=== PATIENT | female | born 1945 | race Caucasian/White ===

== ENCOUNTER 2018-04-20 07:58 | Outpatient (CLI) | payer MEDICARE, SELFPAY ==
[2018-04-20 09:57] LABS: BUN 14 mg/dL (7-18); CREATININE 0.85 mg/dL (0.55-1.02); Calcium 8.4 mg/dL (8.5-10.1); Chloride 107 mmol/L (98-107); Cholesterol 181 mg/dL (50-200); Glucose 113 mg/dL (70-100); HDL Cholesterol 40 mg/dL (40-60); LDL CHOLESTEROL 126 mg/dL (<100); Sodium 140 mmol/L (136-145); Triglyceride 130 mg/dL (30-150)
== END 2018-04-20 08:18 ==
PROVIDERS: PCP Nurse Practitioner Family; Visit Provider Physician Assistant Medical
DX: E78.5 Hyperlipidemia, unspecified (principal); I10 Essential (primary) hypertension
CPT/HCPCS: 36415; 80048; 80061; 83721

== ENCOUNTER 2018-05-20 01:04 | Outpatient (CLI) | payer MEDICARE, SELFPAY ==
--- NOTE | 2018-05-20 14:45 | DI.MAMMO_ITS ---
SYMPTOMS/DIAGNOSIS: SCREENING, Z12.31, PREVENTATIVE CARE, Z00.00 MAMMOGRAMS: Mammograms were interpreted according to the usual protocol including computer analysis with CAD system, tomosynthesis and C view imaging. Comparison with prior examinations. Breast density B. No masses or microcalcifications are seen. There is nothing to suggest malignancy. IMPRESSION: Negative mammogram. Routine screening is recommended. Category I. MQSA ASSESSMENT OF FINDINGS: Negative. Category 1. Patient will receive a letter notifying them of these results. BI-RADS category B. There are scattered areas of fibroglandular density.
== END 2018-05-20 01:24 ==
PROVIDERS: PCP Nurse Practitioner Family; Visit Provider Physician Assistant Medical
DX: Z12.31 Encounter for screening mammogram for malignant neoplasm of breast (principal)
CPT/HCPCS: 77063; 77067

== ENCOUNTER 2019-04-21 07:34 | Outpatient (CLI) | payer MEDICARE, SELFPAY ==
[2019-04-21 09:17] LABS: Calculated LDL 99 mg/dL; Cholesterol 162 mg/dL (50-200); Glucose 123 mg/dL (70-100); HDL Cholesterol 39 mg/dL (40-60); Triglyceride 121 mg/dL (30-150)
== END 2019-04-21 07:54 ==
PROVIDERS: PCP Nurse Practitioner Family; Visit Provider Nurse Practitioner Family
DX: I10 Essential (primary) hypertension (principal); E78.5 Hyperlipidemia, unspecified
CPT/HCPCS: 36415; 80061; 82947

== ENCOUNTER 2019-05-23 01:40 | Outpatient (CLI) | payer MEDICARE, SELFPAY ==
--- NOTE | 2019-05-23 15:15 | DI.MAMMO_ITS ---
EXAM: MG MAMMO SCREENING CLINICAL HISTORY: [facility] Z00.00, SCREENING. TECHNIQUE: Mammograms were interpreted according to the usual protocol including computer analysis w [employer] CAD system, tomosynthesis and C-view imaging. FINDINGS: The breast tissue is of moderate radiodensity. There is no demonstrated mass and no evidence of susp icious calcification. Compared with the previous images, there has been no significant interval swann ge. IMPRESSION: No evidence of malignancy, category 1. Annual screening mammography is recommended. BI-RADS category B. BI-RADS Cat 1 - Negative. Breast Density - Category B - Scattered areas of fibroglandular density.
== END 2019-05-23 02:00 ==
PROVIDERS: PCP Nurse Practitioner Family; Visit Provider Nurse Practitioner Family
DX: Z12.31 Encounter for screening mammogram for malignant neoplasm of breast (principal)
CPT/HCPCS: 77063; 77067

== ENCOUNTER 2020-05-02 08:39 | Outpatient (REF) | payer MEDICARE, SELFPAY ==
[2020-05-02 19:35] LABS: ALT 57 U/L (14-59); AST 38 U/L (15-37); Albumin 3.6 g/dL (3.4-5.0); Alkaline Phosphatase 59 U/L (46-116); Anion Gap 8.1 mmol/L (3-11); BUN 17 mg/dL (7-18); Bilirubin, Total 0.6 mg/dL (0.2-1.0); CO2 28.9 mmol/L (21.0-32.0); CREATININE 0.93 mg/dL (0.55-1.02); Calcium 8.8 mg/dL (8.5-10.1); Chloride 106 mmol/L (98-107); Estimated GFR 58.77 (mL/min/1.73m2); Glucose 106 mg/dL (74-106); Sodium 143 mmol/L (136-145); TSH 1.72 uIU/mL (0.36-3.74); Total Protein 6.7 g/dL (6.4-8.2)
[2020-05-04 15:04] LABS: HDL Cholesterol 38 mg/dL (40-60); LDL CHOLESTEROL 122 mg/dL (<100)
== END 2020-05-02 08:59 ==
LOC: NCHCN 08:39
PROVIDERS: PCP Nurse Practitioner Family; Visit Provider Nurse Practitioner Family
DX: E78.5 Hyperlipidemia, unspecified (principal); R73.03 Prediabetes; Z86.79 Personal history of other diseases of the circulatory system
CPT/HCPCS: 80053; 83721; 83718; 84443

== ENCOUNTER 2020-05-08 15:53 | Outpatient (REF) | payer MEDICARE, SELFPAY ==
[2020-05-08 20:58] LABS: HCT 42.9 % (36.0-46.0); HGB 14.7 g/dL (11.2-15.7); MCH 30.8 pg (27.0-33.0); MCHC 34.3 % (32.0-36.0); MCV 89.9 fL (80-95); MPV 10.4 fL (8.0-11.0); Platelet Count 246 10^3/uL (130-400); RBC 4.77 10^6/uL (3.93-5.22); RDW 13.4 % (11.7-14.6); RDW-SD 44.2 fL; WBC 7.35 10^3/uL (4.4-10.8)
[2020-05-08 21:30] LABS: Magnesium 2.4 mg/dL (1.8-2.4); Vitamin B12 353 pg/mL (193-986)
== END 2020-05-08 16:13 ==
LOC: NCHCN 15:53
PROVIDERS: PCP Nurse Practitioner Family; Visit Provider Nurse Practitioner Family
DX: R25.2 Cramp and spasm (principal)
CPT/HCPCS: 85027; 82607; 83735

== ENCOUNTER 2020-05-31 04:45 | Outpatient (CLI) | payer MEDICARE, SELFPAY ==
--- NOTE | 2020-05-31 12:17 | DI.MAMMO_ITS ---
EXAM: MG MAMMO SCREENING CLINICAL HISTORY: SCREENING,Z12.39 TECHNIQUE: Bilateral full field digital CC and MLO mammographic images were obtained with 3D tomosyn thesis and utilizing computer aided detection (CAD). COMPARISON: Available for comparison. FINDINGS: Masses/Architectural Distortion: There is an asymmetric density in the upper-outer quadrant of the le ft breast. Microcalcifications: No suspicious pleomorphic-type are seen. Skin Thickening/Nipple Retraction: None. IMPRESSION: 1. Asymmetric density in the upper-outer quadrant of the left breast. 2. Spot compression views requested for further evaluation. Ultrasound may be indicated at that time . BI-RADS Category 0 - Assessment Incomplete: Need additional imaging evaluation Breast Density - Category B - Scattered areas of fibroglandular density A negative radiographic report should not delay biopsy if a dominant or clinically suspicious mass is present. Up to ten percent of cancers are not identified on mammography. A negative report may reinforce clinical impression. Adenosis and dense breasts may obscure an underlying neoplasm. False positive reports average 6 to 10%. Patient will receive a letter notifying them of these results.
== END 2020-05-31 05:05 ==
PROVIDERS: PCP Nurse Practitioner Family; Visit Provider Nurse Practitioner Family
DX: Z12.31 Encounter for screening mammogram for malignant neoplasm of breast (principal); R92.8 Other abnormal and inconclusive findings on diagnostic imaging of breast
CPT/HCPCS: 77063; 77067

== ENCOUNTER 2020-06-06 02:15 | Outpatient (CLI) | payer MEDICARE, SELFPAY ==
--- NOTE | 2020-06-06 | DI.MAMMO_ITS ---
EXAM: MG MAMMO SCREEN CALL BACK UNI CLINICAL HISTORY: F/U MAMMO, ASYMMETRIC DENSITY UOQ LT BREAST. TECHNIQUE: Craniocaudal and mediolateral oblique spot compression views the left breast with followe d by Tomosynthesis and left breast ultrasound. COMPARISON: 2013 through 31 May 2020 FINDINGS: Mammography/Tomosynthesis: Masses/Architectural Distortion: Small persistent nodule in the upper outer quadrant. Microcalcifictions: No suspicious pleomorphic-type are seen. Skin Thickening/Nipple Retraction: None. Left breast US: Echotexture: Normal appearance of the glandular tissue. Shadowing: No suspicious foci. 4 millimeter circumscribed hypoechoic nodule in the 3 o'clock position, 3 cm from the nipple. No lindsay picious features. Ductal dilation: None. IMPRESSION: 1. 4 millimeter cyst versus benign-appearing nodule. 2. Six month follow-up mammogram and ultrasound are recommended. 3. The findings were discussed with the patient on the date of the examination. BI-RADS Category 3 - 6 month - Probably Benign Finding: Recommend follow-up mammography in 6 months Breast Density - Category B - Scattered areas of fibroglandular density A negative radiographic report should not delay biopsy if a dominant or clinically suspicious mass is present. Up to ten percent of cancers are not identified on mammography. A negative report may reinforce clinical impression. Adenosis and dense breasts may obscure an underlying neoplasm. False positive reports average 6 to 10%. Patient will receive a letter notifying them of these results.
== END 2020-06-06 02:35 ==
PROVIDERS: PCP Nurse Practitioner Family; Visit Provider Nurse Practitioner Family
DX: R92.8 Other abnormal and inconclusive findings on diagnostic imaging of breast (principal); N63.21 Unspecified lump in the left breast, upper outer quadrant
CPT/HCPCS: 76642; 77063; 77067

== ENCOUNTER 2020-12-05 02:04 | Outpatient (CLI) | payer MEDICARE, SELFPAY ==
--- NOTE | 2020-12-05 | DI.US_ITS ---
EXAM: US BREAST LT COMPLETE CLINICAL HISTORY: DIAGNOSTIC 6 MONTH F/U ABNL MAMMO. TECHNIQUE: Complete ultrasound of the left breast was performed incluing all 4 quadrants, the retroa reolar region, and the ipsilateral axilla. COMPARISON: Prior limited ultrasound performed 06/06/2020 was reviewed. Prior mammograms also revie wed including today's diagnostic mammogram (which appears unchanged). FINDINGS: At the 3 o'clock position the previously described small wider than taller nodule is unchanged measur ing approximately 4 x 2 millimeters. This exhibits slightly increased through transmission At the 12 o'clock position there is a 5 x 3 millimeter well-defined nodule which exhibits minimally i ncreased through transmission, somewhat similar appearance to the finding at 3 o'clock position. No other focal ultrasound findings in all 4 quadrants nor in the immediate retroareolar region. Ipsilateral axilla is negative for significant adenopathy. IMPRESSION: 1. Stable left breast 3 o'clock positions small nodule. 2. 12 o'clock position small nodule which will require follow-up. Appropriate follow-up is to repeat the ultrasound examination at time for next yearly mammogram which is in 6 months. At that time I recommend that she undergo bilateral breast ultrasound examination. BI-RADS Category 3 - 6 month - Probably Benign Finding: Recommend follow-up mammography in 6 months Breast Density - Category C - Heterogeneously dense Breast density Category C or D implies that the patient has dense breast tissue. Dense breast tissue can make it harder to find cancer on a mammogram. Dense breast tissue is also associated with an incr eased risk of breast cancer. This information about the result of the mammogram report was provided to the patient to raise their awareness. Use this report when you speak with the patient about their risks for breast cancer, which includes their family history. At that time, you may recommend additional screening tests (Ultrasoun d or MRI) as these tests may add significant information. A negative radiographic report should not delay biopsy if a dominant or clinically suspicious mass is present. Up to ten percent of cancers are not identified on mammography. A negative report may reinforce clinical impression. Adenosis and dense breasts may obscure an underlying neoplasm. False positive reports average 6 to 10%. Patient will receive a letter notifying them of these results.
--- NOTE | 2020-12-05 | DI.MAMMO_ITS ---
EXAM: MG MAMMO DIAGNOSTIC UNI CLINICAL HISTORY: DIAGNOSTIC, 6 MONTH F/U, F/U ABNL MAMMO,R92.8. TECHNIQUE: Unilateral spot mammographic images were obtained with 3D Tomosynthesistechnique and util izing computer aided detection (CAD). COMPARISON: Prior mammograms dating back to 2011, the most recent being May 2020. FINDINGS: The previously described nodular density towards the upper outer quadrant is unchanged. No new nodul es evident. No malignant-appearing microcalcification groups. Repeat left breast ultrasound was performed today and compared to the prior limited ultrasound of May. Ultrasound revealed unchanged 3 o'clock position small nodule. Today's ultrasound study at all [address] in also revealed a similar appearing nodule 12 o'clock position. IMPRESSION: Stable nodule left breast. Stable 3 o'clock position left breast ultrasound finding. Additional nodule at 12 o'clock position left breast seen on today's complete left breast ultrasound. This additional nodule has similar appearance to the 3 o'clock position nodule. Appropriate follow-up is to keep this patient on a yearly mammogram schedule implying that the next m ammogram would be in May 2021. At that time the complete left breast ultrasound should be repeat ed and I also recommend that ultrasound of the opposite-right breast be performed. BI-RADS Category 3 - 6 month - Probably Benign Finding: Recommend follow-up mammography in 6 months Breast Density - Category B - Scattered areas of fibroglandular density Breast density Category C or D implies that the patient has dense breast tissue. Dense breast tissue can make it harder to find cancer on a mammogram. Dense breast tissue is also associated with an incr eased risk of breast cancer. This information about the result of the mammogram report was provided to the patient to raise their awareness. Use this report when you speak with the patient about their risks for breast cancer, which includes their family history. At that time, you may recommend additional screening tests (Ultrasoun d or MRI) as these tests may add significant information. A negative radiographic report should not delay biopsy if a dominant or clinically suspicious mass is present. Up to ten percent of cancers are not identified on mammography. A negative report may reinforce clinical impression. Adenosis and dense breasts may obscure an underlying neoplasm. False positive reports average 6 to 10%. Patient will receive a letter notifying them of these results.
== END 2020-12-05 02:24 ==
PROVIDERS: PCP Nurse Practitioner Family; Visit Provider Nurse Practitioner Family
DX: Z12.31 Encounter for screening mammogram for malignant neoplasm of breast (principal); R92.8 Other abnormal and inconclusive findings on diagnostic imaging of breast; N63.21 Unspecified lump in the left breast, upper outer quadrant
CPT/HCPCS: 76642; 77061; 77065; G0279

== ENCOUNTER 2021-05-21 14:56 | Outpatient (REF) | payer MEDICARE, SELFPAY ==
[2021-05-21 20:14] LABS: Hemoglobin A1C 6.1 % (<5.7)
== END 2021-05-21 14:57 | disposition home or self-care (01) ==
LOC: NCHCN 14:56
PROVIDERS: PCP Nurse Practitioner Family; Visit Provider Nurse Practitioner Family
DX: R73.03 Prediabetes (principal)
CPT/HCPCS: 83036

== ENCOUNTER 2021-06-20 02:28 | Outpatient (CLI) | payer MEDICARE, SELFPAY ==
--- NOTE | 2021-06-20 13:35 | DI.MAMMO_ITS ---
Exam(s) MAMMO DIAGNOSTIC BI EXAM: MAMMO DIAGNOSTIC BI CLINICAL HISTORY: F/U ABNL MAMMO, 6 MONTH FOLLOW UP,NODULES TECHNIQUE: Mammograms were interpreted according to the usual protocol including computer analysis w ith CAD system, tomosynthesis and C-view imaging. COMPARISON: US US BREAST LT LIMITED from 06/06/2020 US US BREAST LT COMPLETE from 12/05/2020 Mammograms 2011 through November 2020 FINDINGS: The breasts are composed of scattered fibroglandular densities, Breast Density category B. No suspicious masses or suspicious microcalcifications are seen. In area of nodularity is again note d in the upper outer quadrant of the left breast posteriorly, likely an intramammary lymph node. No skin thickening or abnormal axillary lymph nodes are seen. There has been no significant change from prior exams. IMPRESSION: BI-RADS Category 1, Negative mammogram Yearly screening mammography is recommended. Breast Density - Category B, scattered fibroglandular densities. A negative radiographic report should not delay biopsy if a dominant or clinically suspicious mass is present. Up to ten percent of cancers are not identified on mammography. A negative report may reinforce clinical impression. Adenosis and dense breasts may obscure an underlying neoplasm. False positive reports average 6 to 10%. Patient will receive a letter notifying them of these results.
== END 2021-06-20 02:48 ==
PROVIDERS: PCP Nurse Practitioner Family; Visit Provider Nurse Practitioner Family
DX: Z12.31 Encounter for screening mammogram for malignant neoplasm of breast (principal); R92.8 Other abnormal and inconclusive findings on diagnostic imaging of breast; N60.82 Other benign mammary dysplasias of left breast
CPT/HCPCS: 77062; 77066; G0279

== ENCOUNTER 2021-06-23 10:11 | Outpatient (REF) | payer MEDICARE, SELFPAY ==
[2021-06-23 16:38] LABS: BUN 18 mg/dL (7-18); CREATININE 0.8 mg/dL (0.55-1.02); Calcium 8.9 mg/dL (8.5-10.1); Calculated LDL 106 mg/dL (<100); Chloride 107 mmol/L (98-107); Cholesterol 173 mg/dL (<200); Glucose 116 mg/dL (74-106); HDL Cholesterol 40 mg/dL (40-60); Potassium 4.3 mmol/L (3.5-5.1); Sodium 144 mmol/L (136-145); Triglyceride 137 mg/dL (<150)
== END 2021-06-23 10:12 | disposition home or self-care (01) ==
LOC: NCHCN 10:11
PROVIDERS: PCP Nurse Practitioner Family; Visit Provider Nurse Practitioner Family
DX: E78.5 Hyperlipidemia, unspecified (principal); R73.03 Prediabetes; R03.0 Elevated blood-pressure reading, without diagnosis of hypertension
CPT/HCPCS: 80048; 80061

== ENCOUNTER 2021-08-22 03:51 | Outpatient (CLI) | payer MEDICARE, SELFPAY ==
[2021-08-22 14:08] LABS: Anion Gap 8.8 mmol/L (3-11); BUN 15 mg/dL (7-18); CO2 28.2 mmol/L (21.0-32.0); CREATININE 0.8 mg/dL (0.55-1.02); Calcium 9.5 mg/dL (8.5-10.1); Chloride 104 mmol/L (98-107); Glucose 114 mg/dL (74-106); Potassium 3.9 mmol/L (3.5-5.1); Sodium 141 mmol/L (136-145)
== END 2021-08-22 03:52 | disposition home or self-care (01) ==
LOC: LBO 03:51
PROVIDERS: PCP Nurse Practitioner Family; Visit Provider Family Medicine
DX: I10 Essential (primary) hypertension (principal)
CPT/HCPCS: 36415; 80048

== ENCOUNTER 2022-05-25 16:27 | Outpatient (REF) | payer MEDICARE, SELFPAY ==
[2022-05-25 16:48] LABS: Hemoglobin A1C 6.2 % (<5.7)
[2022-05-25 18:59] LABS: Anion Gap 10.2 mmol/L (3-11); BUN 16 mg/dL (7-18); CO2 24.8 mmol/L (21.0-32.0); CREATININE 0.8 mg/dL (0.55-1.02); Calcium 9.2 mg/dL (8.5-10.1); Calculated LDL 90 mg/dL (<100); Chloride 106 mmol/L (98-107); Cholesterol 171 mg/dL (<200); Estimated GFR 75.84 (mL/min/1.73m2); Glucose 115 mg/dL (74-106); HDL Cholesterol 41 mg/dL (40-60); Potassium 4.2 mmol/L (3.5-5.1); Sodium 141 mmol/L (136-145); Triglyceride 203 mg/dL (<150)
== END 2022-05-25 16:28 | disposition home or self-care (01) ==
LOC: NCHCN 16:27
PROVIDERS: PCP Nurse Practitioner Family; Visit Provider Nurse Practitioner Family
DX: I10 Essential (primary) hypertension (principal); R73.03 Prediabetes; E78.5 Hyperlipidemia, unspecified
CPT/HCPCS: 80048; 80061; 83036

== ENCOUNTER → 2022-06-22 01:48 | Outpatient (CLI) | payer MEDICARE, SELFPAY ==
--- NOTE | 2022-06-22 08:30 | DI.MAMMO_ITS ---
Exam(s) MAMMO SCREENING EXAM: MAMMO SCREENING CLINICAL HISTORY: SCREENING, Z12.31. TECHNIQUE: Bilateral full field digital CC and MLO mammographic images were obtained with 3D tomosyn thesis and utilizing computer aided detection (CAD). COMPARISON: Prior mammograms were reviewed. Prior ultrasound reviewed. FINDINGS: There are no new significant radiograph findings in the right breast. Breast there is a well-defined 6 x 5 nodule lateral of center located 9 cm from the nipple. This has slightly increased in size from the prior study. There are no new spiculated masses nor malignant appearing microcalcification groups in either breast .. There is no significant architectural distortion nor skin thickening-retraction. IMPRESSION: 1. No radiographic evidence of malignancy in the right breast. 2. Left breast nodule as described above which is slightly further increased in size from the prior s tudies. Spot compression view and complete left breast ultrasound recommended. Prior ultrasound als o reviewed an additional nodule 12 o'clock position in addition to this 3 o'clock position nodule. BI-RADS Category 0 - Assessment Incomplete: Need additional imaging evaluation Breast Density - Category B - Scattered areas of fibroglandular density Breast density Category C or D implies that the patient has dense breast tissue. Dense breast tissue can make it harder to find cancer on a mammogram. Dense breast tissue is also associated with an incr eased risk of breast cancer. This information about the result of the mammogram report was provided to the patient to raise their awareness. Use this report when you speak with the patient about their risks for breast cancer, which includes their family history. At that time, you may recommend additional screening tests (Ultrasoun d or MRI) as these tests may add significant information. A negative radiographic report should not delay biopsy if a dominant or clinically suspicious mass is present. Up to ten percent of cancers are not identified on mammography. A negative report may reinforce clinical impression. Adenosis and dense breasts may obscure an underlying neoplasm. False positive reports average 6 to 10%. Patient will receive a letter notifying them of these results.
== END ==
PROVIDERS: PCP Nurse Practitioner Family; Visit Provider Nurse Practitioner Family
DX: Z12.31 Encounter for screening mammogram for malignant neoplasm of breast (principal); R92.8 Other abnormal and inconclusive findings on diagnostic imaging of breast
CPT/HCPCS: 77063; 77067

== ENCOUNTER → 2022-06-29 01:48 | Outpatient (CLI) | payer MEDICARE, SELFPAY ==
--- NOTE | 2022-06-29 09:30 | DI.MAMMO_ITS ---
Exam(s) MG MAMMO SCREEN CALL BACK UNI US BREAST LT LIMITED EXAM: MG MAMMO SCREEN CALL BACK UNI CLINICAL HISTORY: F/U ABNL MAMMO, WELL-DEFINED 6 X 5 NODULE LATERAL OF CTR 9 CM FROM NIPPLE. TECHNIQUE: Craniocaudal and mediolateral oblique spot compression digital Mammography views of the l eft breast with Computer Aided Diagnosis followed by Tomosynthesis and left breast ultrasound. COMPARISON: MG Screening Bilat Mammo from 08/01/2014 MG R. Spot - Same Day from 08/08/2014 US RIGHT BREAST ULTRASOUND from 08/08/2014 MG MG MAMMO SCREENING from 05/23/2019 MG MG MAMMO SCREENING from 05/31/2020 MG MG MAMMO SCREEN CALL BACK UNI from 06/06/2020 US US BREAST LT LIMITED from 06/06/2020 US US BREAST LT COMPLETE from 12/05/2020 MG MG MAMMO DIAGNOSTIC UNI from 12/05/2020 MG MG MAMMO DIAGNOSTIC BI from 06/20/2021 MG MG MAMMO SCREENING from 06/22/2022 FINDINGS: Mammography/Tomosynthesis: Masses/Architectural Distortion: Stable 6 millimeter circumscribed nodule upper outer quadrant. Microcalcifictions: No suspicious pleomorphic-type are seen. Skin Thickening/Nipple Retraction: None. Left breast US: Echotexture: Normal appearance of the glandular tissue. Shadowing: No suspicious foci. Cyst: None. Solid lesions: None seen. Ductal dilation: None. IMPRESSION: 1. No evidence of malignancy is noted. 2. Unless there is more urgent need, follow-up screening mammography is recommended, as per [place] [employer] guidelines. BI-RADS Category 2 - Benign Findings Breast Density - Category B - Scattered areas of fibroglandular density A negative radiographic report should not delay biopsy if a dominant or clinically suspicious mass is present. Up to ten percent of cancers are not identified on mammography. A negative report may reinforce clinical impression. Adenosis and dense breasts may obscure an underlying neoplasm. False positive reports average 6 to 10%. Patient will receive a letter notifying them of these results.
== END ==
PROVIDERS: PCP Nurse Practitioner Family; Visit Provider Nurse Practitioner Family
DX: R92.8 Other abnormal and inconclusive findings on diagnostic imaging of breast (principal); Z12.31 Encounter for screening mammogram for malignant neoplasm of breast
CPT/HCPCS: 76642; 77063; 77067

== ENCOUNTER 2023-05-31 16:13 | Outpatient (REF) | payer MEDICARE, SELFPAY ==
[2023-05-31 17:09] LABS: HCT 39.1 % (36.0-46.0); HGB 13.2 g/dL (11.2-15.7); MCH 31.7 pg (27.0-33.0); MCHC 33.8 % (32.0-36.0); MCV 94 fL (80-95); MPV 10.1 fL (8.0-11.0); Platelet Count 239 10^3/uL (130-400); RBC 4.17 10^6/uL (3.93-5.22); RDW 13.6 % (11.7-14.6); RDW-SD 46.5 fL; WBC 6.25 10^3/uL (4.4-10.8)
[2023-05-31 17:42] LABS: Anion Gap 6.8 mmol/L (3-11); BUN 13 mg/dL (7-18); CO2 27.2 mmol/L (21.0-32.0); CREATININE 0.8 mg/dL (0.55-1.02); Calcium 10.3 mg/dL (8.5-10.1); Chloride 105 mmol/L (98-107); Estimated GFR 75.37 (mL/min/1.73m2); Glucose 100 mg/dL (74-106); Hemoglobin A1C 6.2 % (<5.7); Potassium 4.3 mmol/L (3.5-5.1); Sodium 139 mmol/L (136-145); TSH 2.15 uIU/mL (0.36-3.74)
== END 2023-05-31 16:14 | disposition home or self-care (01) ==
LOC: NCHCN 16:13
PROVIDERS: PCP Nurse Practitioner Family; Visit Provider Nurse Practitioner Family
DX: Z00.00 Encounter for general adult medical examination without abnormal findings; R73.03 Prediabetes; I10 Essential (primary) hypertension
CPT/HCPCS: 80048; 85027; 83036; 84443

== ENCOUNTER → 2023-07-16 00:22 | Outpatient (CLI) | payer MEDICARE, SELFPAY ==
--- NOTE | 2023-07-16 | DI.MAMMO_ITS ---
Exam(s) MAMMO SCREENING EXAM: MAMMO SCREENING CLINICAL HISTORY: SCREENING,Z12.31 TECHNIQUE: Bilateral full field digital CC and MLO mammographic images were obtained with 3D tomosyn thesis and utilizing computer aided detection (CAD). COMPARISON: Available for comparison. FINDINGS: Masses/Architectural Distortion: There is a stable 6 mm nodule in the upper outer quadrant of the lef t breast. No new nodules or suspicious areas of architectural distortion are seen. Microcalcifications: No suspicious pleomorphic-type are seen. Skin Thickening/Nipple Retraction: None. IMPRESSION: 1. No significant interval change with no specific features of malignancy noted. 2. Unless there is more urgent need, screening mammography is recommended, as per [employer] guidelines. BI-RADS Category 2 - Benign Findings Breast Density - Category B - Scattered areas of fibroglandular density Breast density category C or D implies that the patient has dense breast tissue. Dense breast tissue is very common and is not abnormal but dense breast tissue can make it harder to find cancer on a ma mmogram. Also, dense breast tissue may increase their breast cancer risk. This information about the result of the mammogram report was provided to the patient to raise their awareness. Use this report when you speak with the patient about their risks for breast cancer, which includes their family hist ory. At that time, you may recommend for more screening tests (Ultrasound or MRI) as they might be us eful based on their risk. A negative radiographic report should not delay biopsy if a dominant or clinically suspicious mass is present. Up to ten percent of cancers are not identified on mammography. A negative report may reinforce clinical impression. Adenosis and dense breasts may obscure an underlying neoplasm. False positive reports average 6 to 10%. Patient will receive a letter notifying them of these results.
--- NOTE | 2023-07-16 | DI.DEXA_ITS ---
Exam(s) XR DEXA BONE DENSITY W/WO SUKHWINDER EXAM: XR DEXA BONE DENSITY W/WO SUKHWINDER CLINICAL HISTORY: SCREENING FOR OSTEOPOROSIS IN POSTMENOPAUSAL WOMAN,Z78.0 TECHNIQUE: COMPARISON: DX DEXA BONE DENSITY WITH SUKHWINDER from 04/28/2010 FINDINGS: Lateral Spine Image: Unremarkable. No compression deformities identified. Left hip: Total T-Score: -1.1. This compares to -0.2 on the prior examination. Total Z-Score: 0.9 T- and Z-scores: Findings are consistent with osteopenia. Lumbar Spine: Total T-Score: -0.3. This compares to -0.4 on the prior examination. Total Z-Score: 2.3 T- and Z-scores: Within normal limits. Note is made of osteoporosis in the left forearm with a total T-score of -2.8 and Z-score of 0.1. IMPRESSION: 1. No evidence of osteoporosis in the lumbar spine or left hip. 2. Osteoporosis in the left forearm.
== END ==
PROVIDERS: PCP Nurse Practitioner Family; Visit Provider Nurse Practitioner Family
DX: Z78.0 Asymptomatic menopausal state (principal); Z12.31 Encounter for screening mammogram for malignant neoplasm of breast; Z13.820 Encounter for screening for osteoporosis; M81.0 Age-related osteoporosis without current pathological fracture
CPT/HCPCS: 77063; 77067; 77080

== ENCOUNTER 2024-06-14 19:45 | Outpatient (REF) | payer MEDICARE, SELFPAY ==
--- OUTSIDE RECORDS SUMMARY | 2024-06-14 19:47 | XMS_ITS | Clinical Summary ---
Author Organization [facility] Address [facility] [place] [address] Care Team Providers Care Airport Electrician Name Role Phone Dennyyen Devora Grissom APRN Primary Care Provider [phone] Allergies Active Allergy Reactions Criticality Noted Date Comments Latex 02/12/2016 Other Reaction(s): Skin Rash IF LEFT ON LONG PERIOD Latex, Natural Rubber 05/22/2021 Medications Medication Sig Dispensed Refills Start Date End Date Status multivitamin (THERAGRAN) tablet Take 1 tablet by mouth daily. Active fish oil-omega-3 fatty acids 500 mg Capsule Take 1,400 mg by mouth. Active aspirin 81 mg EC tablet Take 81 mg by mouth daily. Active acetaminophen (TYLENOL) 325 mg Tablet Take 2 tablets by mouth every 4 hours as needed. 30 tablet 1 02/16/2016 Active VITAMIN B COMPLEX ORAL Take by mouth. Active LUMIGAN 0.01 % Drops 06/30/2017 Acti ve loratadine (Claritin) 10 mg Tablet Take 10 mg by mouth daily. Active vitamin E 100 unit Capsule Take 100 Units by mouth daily. Active losartan (Cozaar) 50 mg tablet Take 50 mg by mouth daily. 02/26/2023 Active calcium-vitamin D3 600 mg-10 mcg (400 unit) Tablet daily. 01/30/2013 Active timoloL (Timoptic) 0.5 % Drops 1 drop 2 times daily. Active Active Problems Problem Noted Date Diagnosed Date Basal cell carcinoma of skin of other part of tr unk 07/12/2017 AK (actinic keratosis) 07/12/2017 PE (pulmonary embolism) 02/12/2016 History of basal cell carcinoma 12/06/2012 Actinic keratosis 12/06/2012 BCC (basal cell carcinoma) 04/10/2011 Encounters Date Type Department Care Team Description 06/05/2024 1:30 PM EDT Office Visit Dermatology at [address] [address] Alan Carrero MD History of basal cell carcinoma 06/05/2024 Travel from Last 3 Months Immunizations Name Administration Dates Next Due Influenza (Fluzone HD) Trivalent High Dose 06/12 Zoster Recombinant (ShingRix) 06/06/2019 Social History Tobacco Use Types Packs/Day Years Used Date Smoking Tobacco: Never Smokeless Tobacco: Never Comments:never vape Alcohol Use Standard Drinks/Week Comments No 0 (1 standard drink = 0.6 oz pur e alcohol) Sex and Gender Information Value Date Recorded Sex Assigned at Not on file Gender Identity Not on file Sexual Orientation Not on file Last Filed Vital Signs Vital Sign Reading Time Taken Comments Blood Pressure 176/106 06/15/2023 8:29 AM EDT Pulse 62 06/15/2023 8:29 AM EDT Temperature 36.5 ??C (97.7 ??F) 04/29/2020 3:31 PM ED T Respiratory Rate 16 04/29/2020 5:00 PM EDT Oxygen Saturation 96% 04/29/2020 5:00 PM EDT Inhaled Oxygen Concentration - - Weight 88.5 kg (195 lb) 04/29/2020 3:31 PM EDT Height 179.1 cm (5' 10.5) 04/29/2020 3:31 PM ED T Body Mass Index 27.58 04/29/2020 3:31 PM EDT Plan of Treatment Upcoming Encounters Date Type Department Care Team (Late st Contact Info) Description 06/11/2025 1:45 PM EDT Office Visit Dermatology at [address] [address] Alan Carrero MD [address] [place] [address], [place] [address] Health Maintenance Due Date Last Done Comments CT Colonography 1945 FIT DNA 1945 FIT 1945 Sigmoidoscopy 1945 Hepatitis C Screening 1962 Tetanus/Diphtheria/Pertussis Vaccines (1 - Tdap) 11/15/1963 Advance Directive 11/15/1999 Bone Density Scan 2009 Pneumoccocal Vaccine: 65+ (1 of 1 - PCV) 2009 Zoster vaccine (2 of 2) 08/01/2019 06/06/2019 Covid-19 Vaccine (1 - 2022-2 4 season) 2024 Influenza (Flu) vaccine (1 o f 1 - Influenza standard series) 04/16/2024 06/12/2016 Colonoscopy 04/29/2025 04/29/2020, 04/16, 09/24/2016, Additional history exists Colorectal Cancer Screening 04/29/2025 Sigmoidoscopy (10 year) with FIT yearly 04/29/2030 04/29/2020, 04/29/2020, 09/24/2016, Additional history exists Procedures Procedure Name Priority Date/Time Associated Diagnosis Comments COLONOSCOPY Routine 04/29/2020 3:54 PM EDT from Last 3 Months or Most Recently Relevant to Health Maintenance Results * COLONOSCOPY (04/29/2020 3:54 PM EDT) COLONOSCOPY [facility] Procedure Date: 04/29/2020 3:54 PM ? Patient Name: Cathryn Roberto ? Date of : 1945 ? Age: 74 ? Order #: [id number] ? Instrument Name: [id number] ? Procedure: ? Colonoscopy Indications: ? High risk colon cancer surveillance: ? Personal history of colonic polyps Providers: ? Viktoria Laura MD, Woody Mai, ? RN, Layla Matthew MD: ?Devora El Medicines: ? Midazolam 4.5 mg IV, Fentanyl 125 ? micrograms IV Complications: ? No immediate complications. Procedure: ? Pre-Anesthesia Assessment: ? - Prior to the procedure, a History ? and Physical was performed, and ? patient medications, allergies and ? sensitivities were reviewed. The ? patient's tolerance of previous ? anesthesia was reviewed. ? - The risks and benefits of the ? procedure and the sedation options ? and risks were discussed with the ? patient. All questions were answered ? and informed consent was obtained. ? The procedure, indications, benefits, ? risks and alternatives were explained ? to the patient. Specifically ? discussed were potential ? complications including, but not ? limited to, bleeding, perforation, ? infection, missing a cancer, and ? adverse medication reactions. The ? patient was placed in the left ? lateral decubitus position, and a ? digital rectal exam was performed. ? The Colonoscope was inserted in the ? anus and under direct visualization, ? advanced to the terminal ileum. ? Careful inspection was made as the ? colonoscope was withdrawn. The ? colonoscopy was performed without ? difficulty. The patient tolerated the ? procedure well. The quality of the ? bowel preparation was excellent. ? Findings: ? The ileum and colon (entire examined portion) ? appeared normal. ? Moderate Sedation: ? I was present during the intraservice time as ? documented by the sedation RN. Impression: ?- The terminal ileum and entire ? examined colon are normal. ? - No specimens collected. Recommendation: ?- Repeat colonoscopy in 5 years for ? surveillance. ? Attending Participation: ? I personally performed the entire procedure. ? I was present during the intraservice time as ? documented by the sedation RN. ? Viktoria Laura MD 04/29/2020 4:46:45 PM This report has been signed electronically. Number of Addenda: 0 Note Initiated On: 04/29/2020 3:54 PM PROVATION 04/29/2020 3:54 PM EDT Devora El EVICTION SPECIALIST GENERAL SURGICAL ORD ERABLES PROVATION from Last 3 Months or Most Recently Relevant to Health Maintenance Advance Directives * Full Code (Latest Code Status on File) Date Activated Date Inactivated Comments 02/12/2016 2:38 PM 02/16/2016 5:34 PM Question Answer Comments Does patient have capacity to make decision: Yes Care Teams Airport Electrician Relationship Specialty Start Date End Date Devora El APRN PCP - General Family Medicine 11/25/18
--- OUTSIDE RECORDS SUMMARY | 2024-06-14 19:48 | XMS_ITS | Encounter Summary ---
Author Organization [facility] [place] [address] Care Team Providers Care Mandate Retail Service Merchandiser Name Role Phone Dennyyen Devora Yen COLON Primary Care Provider [phone] Reason for Visit * Reason Comments Skin Check Encounter Details Date Type Department Care Team (Late st Contact Info) Description 05/19/2019 10:45 AM EDT Office Visit Dermatology at [address] [address] Alan Carrero MD [address] [facility], [place] [address] History of basal cell carcinoma; Seborrheic keratosis Social History Tobacco Use Types Packs/Day Years Used Date Smoking Tobacco: Never Smokeless Tobacco: Never Alcohol Use Standard Drinks/Week Comments No 0 (1 standard drink = 0.6 oz pur e alcohol) Sex and Gender Information Value Date Recorded Sex Assigned at Not on file Gender Identity Not on file Sexual Orientation Not on file documented as of this encounter Progress Notes * Alan Carrero MD - 05/19/2019 10:45 AM EDT Problem: 1. ?? 6-month skin checkup 2. 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 ??History of Mohs surgery for BCCA sternal notch February 2006 4. ??History of BCCA left central upper mid chest June 2006 5. ??History of BCCA right upper back on June 2017 6. ??History of BCCA's left chin, left breast, and left trapezius 7. ??Patient grew up in [facility] 8. History BCCAs, glabella and right nasal sidewall, May 2018 Cathryn follows up today and has been doing well. She is here for yearly skin checkup. She has notnoted any new lesions of concern. Physical examination reveals a pleasant 73-year-old woman who has a benign examination of the back hands arms forearms thighs and the calves. There is no evidence of any recurrence of the above-notedprior treatment sites and the erythema and scarring is really very minimal. We are both quite pleased with the results. Assessment and plan: History of multiple nonmelanoma cutaneous malignancies, benign examination today. 1. Patient reassured about today's benign skin examination 2. Recommend that we space out our return visits to once every year. 3. Return to clinic in 1 year for repeat check. 4. Continue sun avoidance precautions. CC: Devora El APRN documented in this encounter Plan of Treatment Upcoming Encounters Date Type Department Care Team (Late st Contact Info) Description 06/11/2025 1:45 PM EDT Office Visit Dermatology at [address] [address] Alan Carrero MD [address] [facility], [facility] [place] [address] documented as of this encounter Visit Diagnoses Diagnosis History of basal cell carcinoma Personal history of other malignant neoplasm of skin Seborrheic keratosis Other seborrheic keratosis documented in this encounter Care Teams Mandate Retail Service Merchandiser Relationship Specialty Start Date End Date Devora El APRN PCP - General Family Medicine 11/25/18 documented as of this encounter
--- OUTSIDE RECORDS SUMMARY | 2024-06-14 19:48 | XMS_ITS | Encounter Summary ---
Author Organization [facility] [place] [address] Care Team Providers Care Interchange Agent Name Role Phone Devora El APRN Primary Care Provider [phone] Encounter Details Date Type Department Care Team (Latest Contact Info) Description 06/05/2024 Travel Social History Tobacco Use Types Packs/Day Years Used Date Smoking Tobacco: Never Smokeless Tobacco: Never Comments:never vape Alcohol Use Standard Drinks/Week Comments No 0 (1 standard drink = 0.6 oz pur e alcohol) Sex and Gender Information Value Date Recorded Sex Assigned at Not on file Gender Identity Not on file Sexual Orientation Not on file documented as of this encounter Plan of Treatment Upcoming Encounters Date Type Department Care Team (Late st Contact Info) Description 06/11/2025 1:45 PM EDT Office Visit Dermatology at [place] [address] [place] [address] Alan Carrero MD [address], [place] [address] documented as of this encounter Visit Diagnoses Not on filedocumented in this encounter Care Teams Interchange Agent Relationship Specialty Start Date End Date Devora El APRN PCP - General Family Medicine 11/25/18 documented as of this encounter
--- OUTSIDE RECORDS SUMMARY | 2024-06-14 19:48 | XMS_ITS | Encounter Summary ---
Author Organization [facility] [place] [address] Care Team Providers Care Diabetes Nurse Name Role Phone Dennyyen Devora Yen COLON Primary Care Provider [phone] Encounter Details Date Type Department Care Team (Late st Contact Info) Description 03/27/2020 Telephone [place] [phone] Mechelle Sheets Social History Tobacco Use Types Packs/Day Years Used Date Smoking Tobacco: Never Smokeless Tobacco: Never Alcohol Use Standard Drinks/Week Comments No 0 (1 standard drink = 0.6 oz pur e alcohol) Sex and Gender Information Value Date Recorded Sex Assigned at Not on file Gender Identity Not on file Sexual Orientation Not on file documented as of this encounter Miscellaneous Notes * Telephone Encounter - Mechelle Sheets - 03/27/2020 11:12 AM EDT Left message for patient to reschedule colonoscopy that was cancelled in November. documented in this encounter Plan of Treatment Upcoming Encounters Date Type Department Care Team (Late st Contact Info) Description 06/11/2025 1:45 PM EDT Office Visit Dermatology at [address] [place] [phone] Alan Carrero MD [address], [place] [address] documented as of this encounter Visit Diagnoses Not on filedocumented in this encounter Care Teams Diabetes Nurse Relationship Specialty Start Date End Date Devora El APRN PCP - General Family Medicine 11/25/18 documented as of this encounter
--- OUTSIDE RECORDS SUMMARY | 2024-06-14 19:48 | XMS_ITS | Encounter Summary ---
Author Organization [facility] [place] [address] Care Team Providers Care Violin Teacher Name Role Phone Rena Reddy Primary Care Provider + Reason for Visit * Reason Comments Follow-up Encounter Details Date Type Department Care Team (Late st Contact Info) Description 05/25/2018 3:30 PM EDT Procedure visit Dermatology at [address] [phone] Alan Carrero MD [address] [facility], [place] [address] History of basal cell carcinoma Social History Tobacco Use Types Packs/Day Years [...] Progress Notes * Alan Carrero MD - 05/25/2018 3:30 PM EDT Clinical impression: Site A BCCA of glabella Site B BCCA right nasal sidewall Size: Site A 1.5 cm Site B 2.5 cm Deep suture: 4-0 Vicryl Surface suture: 5-0 Ethilon Follow-up: In 1 week for suture removal and biopsy results Indications for surgery, possible adverse outcomes, and activity restrictions discussed. Informed verbal consent was obtained. Skin surface was prepared with 4% Hibiclens and draped in the usual sterile manner. Local anesthesia with 1% lidocaine, 1-100,000 epinephrine and 0.1 mEq/mL bicarbonate. Using #15 blade and 3 mm margins, elliptical excisions were carried out around the 2 different sites. Undermining performed peripherally. Hemostasis with electro desiccation. Layered closure performed, with specimen to pathology. Wound dressed, wound care reviewed. End length suture line at site A was 2.5 cm, and length of suture line at site B was 3.5 cm. Follow-up in 1 week for suture removal and biopsy results. Warned patient of possible ecchymosis/black eye following procedure. Recommended ice packs tonight, Tylenol for pain area patient questions answered, call with questions or concerns CC: MARGARETH Carbajal documented in this encounter Plan of Treatment Upcoming Encounters Date Type Department Care Team (Late st Contact Info) Description 06/11/2025 1:45 PM EDT Office Visit Dermatology at [place] [address] [place] [phone] Alan Carrero MD [address] [facility], [place] [address] documented as of this encounter Visit Diagnoses Diagnosis History of basal cell carcinoma Personal history of other malignant neoplasm of skin documented in this encounter Care Teams Violin Teacher Relationship Specialty Start Date End Date Rena Reddy PA PCP - General Orthopaedic Surgery 07/12/17 11/24/18 documented as of this encounter
--- OUTSIDE RECORDS SUMMARY | 2024-06-14 19:48 | XMS_ITS | Encounter Summary ---
Author Organization [facility] [place] [address] Care Team Providers Care Clock And Watch Hands Mounter Name Role Phone Dennyyen Devora Yen COLON Primary Care Provider [phone] Reason for Visit * Reason Comments Follow-up Encounter Details Date Type Department Care Team (Late st Contact Info) Description 04/05/2023 4:00 PM EDT Office Visit Dermatology at [address] [phone] Alan Carrero MD [address] [facility], [place] [address] History of basal cell carcinoma Social History [...] Progress Notes * Alan Carrero MD - 04/05/2023 4:00 PM EDT Problem: New lesion right nasal ala x2 months For the last 2 months Cathryn has noted lesion on the mid right nasal ala that has not healed Physical examination reveals appears to be 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 The ulceration itself is about 2 mm in diameter. It has a pearly periphery circumferentially Assessment plan: Likely BCCA right nasal ala 1. Today site was anesthetized and shave biopsy obtained 2. Specimen submitted for pathologic analysis 3. We will notify patient of biopsy results in 10 days 4. Discussed the likely need [place] [facility] done before when she lived in [place]. CC: Devroa El APRN documented in this encounter Plan of Treatment Upcoming Encounters Date Type Department Care Team (Late st Contact Info) Description 06/11/2025 1:45 PM EDT Office Visit Dermatology at [place] [address] [place] [address] Alan Carrero MD [address], [place] [address] documented as of this encounter Visit Diagnoses Diagnosis History of basal cell carcinoma Personal history of other malignant neoplasm of skin documented in this encounter Care Teams Clock And Watch Hands Mounter Relationship Specialty Start Date End Date Devora El APRN PCP - General Family Medicine 11/25/18 documented as of this encounter
--- OUTSIDE RECORDS SUMMARY | 2024-06-14 19:48 | XMS_ITS | Encounter Summary ---
Author Organization [place] [address] Care Team Providers Care Licensing Representative Name Role Phone Dennyyen Devora Yen COLON Primary Care Provider [phone] Encounter Details Date Type Department Care Team (Latest Contact Info) Description 04/29/2020 3:13 PM EDT - 04/29/2020 5:31 PM EDT Hospital En[place] [phone] Viktoria Laura MD [facility] [address] Discharge Disposition: Home Social History Tobacco Use Types Packs/Day Years Used Date Smoking Tobacco: Never Smokeless Tobacco: Never Comments:never vape Alcohol Use Standard Drinks/Week Comments No 0 (1 standard drink = 0.6 oz pur e alcohol) Sex and Gender Information Value Date Recorded Sex Assigned at Not on file Gender Identity Not on file Sexual Orientation Not on file documented as of this encounter Last Filed Vital Signs Vital Sign Reading Time Taken Comments Blood Pressure 148/66 04/29/2020 5:00 PM EDT Pulse 68 04/29/2020 4:52 PM EDT Temperature 36.5 ??C (97.7 ??F) 04/29/2020 3:31 PM ED T Respiratory Rate 16 04/29/2020 5:00 PM EDT Oxygen Saturation 96% 04/29/2020 5:00 PM EDT Inhaled Oxygen Concentration - - Weight 88.5 kg (195 lb) 04/29/2020 3:31 PM EDT Height 179.1 cm (5' 10.5) 04/29/2020 3:31 PM ED T Body Mass Index 27.58 04/29/2020 3:31 PM EDT documented in this encounter Discharge Instructions * Discharge Instructions* Keiko Spencer, RN - 04/29/2020 4:56 PM EDT Colonoscopy: What to Expect at Home Your Recovery Your doctor will talk to you about when you will need your next colonoscopy. Your doctor can help you decide how often you need to be checked. This will depend on the results of your test and your risk for colorectal cancer. After the test, you may be bloated or have gas pains. You may need to pass gas. If a biopsy was done or a polyp was removed, you may have streaks of blood in your stool (feces) for a few days. Problems such as heavy rectal bleeding may not occur until several weeks after the test. This isn't common. But it can happen after polyps are removed. This care sheet gives you a general idea about how long it will take for you to recover. But each person recovers at a different pace. Follow the steps below to get better as quickly as possible. How can you care for yourself at home? Activity Rest when you feel tired. ?? You can do your normal activities when it feels okay to do so. Diet ?? Follow your doctor's directions for eating. ?? Unless your doctor has told you not to, drink plenty of fluids. This helps to replace the fluidsthat were lost during the colon prep. ?? Do not drink alcohol. Medicines ?? Your doctor will tell you if and when you can restart your medicines. He or she will also give you instructions about taking any new medicines. ?? If you take blood thinners, such as warfarin (Coumadin), clopidogrel (Plavix), or aspirin, be sure to talk to your doctor. He or she will tell you if and when to start taking those medicines again. Make sure that you understand exactly what your doctor wants you to do. ?? If polyps were removed or a biopsy was done during the test, your doctor may tell you not to take aspirin or other anti-inflammatory medicines for a few days. These include ibuprofen (Advil, Motrin) and naproxen (Aleve). Other instructions ?? For your safety, do not drive or operate machinery until the medicine wears off and you can think clearly. Your doctor may tell you not to drive or operate machinery until the day after your test. ?? Do not sign legal documents or make major decisions until the medicine wears off and you can think clearly. The anesthesia can make it hard for you to fully understand what you are agreeing to. Additional Information for Sedation Patients For patients who received sedation: ?? You may have received medications before and/or during your procedure which effects your judgement and reaction time. ?? Do not drive, operate machinery, drink alcoholic beverages or make important decisions for 24 hours. ?? Be careful on stairs as you may be unsteady on your feet. ?? You may eat a regular diet as tolerated. ?? Do not smoke if you are alone. ?? IV site: Slight redness or tenderness is normal, you can use a warm compress if you would like. If tenderness and/or redness increase or if foul drainage occurs, please contact your Doctor. Please call [phone] before 8pm Mon-Fri with problems, questions or concerns. If you call after 8pm or on weekends, call the Hospital at [phone] and ask to speak to the Writing Center Director adult education manager and the gate operator will contact that person for you. When should you call for help? Call [phone] anytime you think you may need emergency care. For example, call if: ?? You passed out (lost consciousness). ?? You pass maroon or bloody stools. ?? You have trouble breathing. Call your doctor now or seek immediate medical care if: ?? You have pain that does not get better after you take pain medicine. ?? You are sick to your stomach or cannot drink fluids. ?? You have new or worse belly pain. ?? You have blood in your stools. ?? You have a fever. ?? You cannot pass stools or gas. Watch closely for changes in your health, and be sure to contact your doctor if you have any problems. Where can you learn more? [email or web address] View your After Visit Summary and more online at [email or web address] If you would like to provide feedback about your hospital experience, please call the Office of Patient and Family Relations at . If you have received this After Visit Summary in error, please immediately return it in person to the department, or notify the [facility] Privacy Office by calling toll free at between the hours of 8AM and 5PM to arrange for our retrieval of the documents at no cost to you. Content Version: 12.2 ?? [id number] [employer]. Care instructions adapted under license by [facility]. If you have questions about a medical condition or this instruction, always ask your healthcare professional. [employer] disclaims any warranty or liability for your use of this information. documented in this encounter Medications at Time of Discharge Medication Sig Dispensed Refills Start Date End Date calcium-vitamin D3 600 mg-10 mcg (400 unit) Tablet daily. 01/30/2013 loratadine (Claritin) 10 mg Tablet Take 10 mg by mouth daily. LUMIGAN 0.01 % Drops 06/30/2017 VITAMIN B COMPLEX ORAL Take by mouth. acetaminophen (TYLENOL) 325 mg Tablet Take 2 tablets by mouth every 4 hours as needed. 30 tablet 1 02/16/2016 fish oil-omega-3 fatty acids 500 mg Capsule Take 1,400 mg by mouth. aspirin 81 mg EC tablet Take 81 mg by mouth daily. multivitamin (THERAGRAN) tablet Take 1 tablet by mouth daily. calcium-vitamin D3 600 mg(1,500mg) -400 unit Tablet Take by mouth. 01/30/2013 04/05/2023 dnhpmvlh-dvmfrqmmt-ydgr methasone (DEXACINE) 3.5 mg/g-10,000 unit/g-0.1 % Ointment 09/06/20182020 CALCIUM CARBONATE/VITAMIN D3 (CALCIUM + D ORAL) Take by mouth. 021 documented as of this encounter H&P Notes * Viktoria Laura MD - 04/29/2020 3:55 PM EDT Gastroenterology and Hepatology Pre-Procedure History and Physical Exam Procedure: Colonoscopy: Indication: hx of polyps Patient Active Problem List Diagnosis Code ??? BCC (basal cell carcinoma) C44.91 ??? History of basal cell carcinoma Z85.828 ??? Actinic keratosis L57.0 ??? PE (pulmonary embolism) I26.99 ??? Basal cell carcinoma of skin of other part of trunk C44.519 ??? AK (actinic keratosis) L57.0 EXAM: HEENT: Airway examined, oropharynx clear Mallampati Score: II (soft palate, uvula, fauces visible) LUNGS: Clear to auscultation HEART: Regular rate and rhythm, normal S1, S2 ABDOMEN: Normal bowel sounds, soft, non tender, non distended, A/P Proceed with the planned endoscopic procedure. ASA 2 - Patient with mild systemic disease with no functional limitations Sedation Plan: moderate (conscious sedation) Risks and benefits of the procedure explained to the patient. Consent signed. documented in this encounter Plan of Treatment Upcoming Encounters Date Type Department Care Team (Late st Contact Info) Description 06/11/2025 1:45 PM EDT Office Visit Dermatology at [place] [address] [place] [address] Alan Carrero MD [address], [place] [address] documented as of this encounter Procedures Procedure Name Priority Date/Time Associated Diagnosis Comments Colonoscopy, Diagnostic (64086) 04/29/2020 4:12 PM EDT family hx of CRC or polyps COLONOSCOPY Routine 04/29/2020 3:54 PM EDT documented in this encounter Results * COLONOSCOPY (04/29/2020 3:54 PM EDT) COLONOSCOPY [facility] Endoscopy Procedure Date: 04/29/2020 3:54 PM ? Patient Name: Cathryn Roberto ? Date of : 1945 ? Age: 74 ? Order #: [id number] ? Instrument Name: [id number] ? Procedure: ? Colonoscopy Indications: ? High [...] PROVATION 04/29/2020 3:54 PM EDT Devora El CHIEF SECURITY OFFICER GENERAL SURGICAL ORD ERABLES PROVATION documented in this encounter Visit Diagnoses Not on filedocumented in this encounter Administered Medications Inactive Administered Medications - up to 3 most recent administrations Medication Order MAR Action Action Date Dose Rate Site lactated ringers infusion 100 mL/hr, Intravenous, CONTINUOUS, Starting on Wed04/29/20 at 1545, Until Wed04/29/20 at 1931, Endoscopy (Day of Procedure) New Bag 04/29/2020 3:40 PM EDT 100 mL/hr 100 mL/hr documented in this encounter Active and Recently Administered Medications Times are shown in EDT. Continuous Medication Order 04/27/2020 04/28/2020 04/29/2020 lactated ringers infusion 100 mL/hr, Intravenous, CONTINUOUS, Starting on Wed04/29/20 at 1545, Until Wed04/29/20 at 1931, Endoscopy (Day of Procedure) 1540 (New Bag - Prov ider: Court Torres RN) PRN Medication Order 04/27/2020 04/28/2020 04/29/2020 fentaNYL 50 mcg/mL multi-dose injection (CANCELED) ONCE PRN, Starting on Wed04/29/20 at 1617, Until Wed04/29/20 at 1931, Intra-Operative (Intra-Procedure), Routine 1617 (Given - Provid er: Woody Mai RN)1622 (Given - Provider: Woody Mai RN)1625 (Given - Provider: Woody Mai RN)1630 (Given - Provider: Woody Mai RN) midazolam (PF) (VERSED) multi-dose injection (CANCELED) ONCE PRN, Starting on Wed04/29/20 at 1618, Until Wed04/29/20 at 1931, Intra-Operative (Intra-Procedure), Routine 1618 (Given - Provid er: Woody Mai RN)1619 (Given - Provider: Woody Mai RN)1622 (Given - Provider: Woody Mai RN)1625 (Given - Provider: Woody Mai RN)1630 (Given - Provider: Woody Mai RN) documented in this encounter Care Teams Licensing Representative Relationship Specialty Start Date End Date Devora El, ISAIAH PCP - General Family Medicine 11/25/18 documented as of this encounter
--- OUTSIDE RECORDS SUMMARY | 2024-06-14 19:48 | XMS_ITS | Encounter Summary ---
[place] [address] Care Team Providers Care Rougher Helper Name Role Phone Rena Reddy Primary Care Provider + Reason for Visit * Reason Comments Suture / Staple Removal Encounter Details Date Type Department Care Team (Late st Contact Info) Description 06/02/2018 2:00 PM EDT Office Visit Dermatology at [address] [phone] Alan Carrero MD [address] [facility], [place] [address] Visit for suture removal Social History Tobacco Use Types Packs/Day Years [...] Progress Notes * Alan Carrero MD - 06/02/2018 2:00 PM EDT Problem: Follow-up for suture removal and biopsy results Pat follows up and did well postoperatively. I called her the morning after the surgery and she wasdoing done well. She did develop a bit of a bruise by that weekend 3 days postoperatively. She had forgotten to do an ice pack immediately postoperatively. She has not had any significant pain no bleeding she is here today with her Sean. Pathology results came back showing basal carcinoma with infiltrative features, margins clear on both specimens. Physical examination reveals excellent healing of both sites. There is mild erythema no evidence ofinfection only minimal dry only minimal remaining swelling is noted today. Assessment and plan: Status post excision of BCCA's with infiltrative features, 2 sites glabella and right nasal sidewall 1. Sutures removed 2. May DC wound instructions 3. Return to clinic in 6 months repeat check 4. Patient congratulated on her wonderful results. CC: Rena Reddy documented in this encounter Plan of Treatment Upcoming Encounters Date Type Department Care Team (Late st Contact Info) Description 06/11/2025 1:45 PM EDT Office Visit Dermatology at [place] [address] [place] [address] Alan Carrero MD [address] [facility], [place] [address] documented as of this encounter Visit Diagnoses Diagnosis Visit for suture removal Encounter for removal of sutures documented in this encounter Care Teams Rougher Helper Relationship Specialty Start Date End Date Rena Reddy PA PCP - General Orthopaedic Surgery 07/12/17 11/24/18 documented as of this encounter
--- OUTSIDE RECORDS SUMMARY | 2024-06-14 19:48 | XMS_ITS | Encounter Summary ---
Author Organization [facility] [address] Care Team Providers Care Gusset Stitcher Name Role Phone Devora El Jaciel COLON Primary Care Provider [phone] Reason for Visit * Consultation (Routine) - Closed Specialty Diagnoses / Procedures Referred By Contjeremias t Referred To Contact Dermatology Diagnoses BCCa Right nasal ala Alan Carrero MD [address] [place] [address] RAYA, [place] [address] Gino Qiu MD [facility] DR JATINDER DOS [place] [address] Referral ID Status Reason Start Date Expiration Date Visits Re quested Visits Authorized [id number] Closed 04/14/2023 04/13/2024 1 1 Encounter Details Date Type Department Care Team (Latest Contact Info) Description 06/15/2023 8:00 AM EDT Procedure visit Dermatology at [facility] [address] [place] [address] Gino Qiu MD [facility] DR JATINDER DOS [place] [address] Basal cell carcinoma (BCC) of right ala nasi; Prophylactic antibiotic Social History Tobacco Use Types Packs/Day Years [...] Pulse 62 06/15/2023 8:29 AM EDT Temperature - - Respiratory Rate - - Oxygen Saturation - - Inhaled Oxygen Concentration - - Weight - - Height - - Body Mass Index - - documented in this encounter Progress Notes * Gino Qiu MD - 06/15/2023 8:00 AM EDT Images from the original note were not included. Summary of Procedure(s): Site: right nasal ala Tumor Type: Basal Cell Carcinoma, nodular and infiltrative Stages to clear tumor: 2 Repair: full-thickness skin graft Reconstruction options were discussed including nasolabial interpolation flap. Patient preferred single staged procedure and we therefore chose a FTSG in the setting that the defect was confined to the nasal ala and structure of the nasal ala was maintained. Images: The patient was asked to call with any issues and is aware that I am available / should questions arise. Gino Qiu MD PhD Mohs Micrographic Surgery and Dermatologic Oncology Department of Dermatology Please note that I have reviewed the preoperative checklist from today's nursing visit including relevant social history and medications. I have reviewed the preoperative photos if available and the biopsy report. VITAL SIGNS: BP (!) 176/106 (BP Location (NBP): Right arm, Patient Position: Sitting, BP Cuff Sizes: Adult (25-34 cm)) Pulse 62 PHYSICAL EXAMINATION: General: patient is awake, alert, oriented and in no acute distress. Skin: Focused examination of surgical site(s) performed which shows a well healed biopsy site with surrounding poorly defined pearly plaque. PHYSICIAN REVIEW OF REPORTS, RECORDS, IMAGES: 1) The accompanying pathology report(s) associated with aforementioned biopsy slide(s) were/was also reviewed. Assessment: Cathryn Roberto is a 77 y.o. female presenting for: 1. Biopsy-proven basal cell carcinoma, nodular, infiltrative, location on the right nasal ala. Plan: 1. Findings from the biopsy report, today's clinical exam, and other pertinent details were reviewed with patient today. All questions were answered. 2. Discussed treatment options based on the above findings. We recommended Mohs micrographic surgery for treatment of this tumor. Mohs micrographic surgery was indicated due to patient, site and/or tumor characteristics (see operative report for specific indication). 3. We discussed risks, benefits, and alternative treatment options to the Mohs micrographic surgeryprocedure and pertinent information including but not limited to the following: Risks include bleeding, infection, scar, recurrence, incomplete tumor removal or inability to cure with surgery alone if the tumor features are more aggressive than the initial pathology indicates. Occasionally, additional adjuvant treatments may be recommended. Additional risks include large wound, prolonged wound and healing, pain, swelling, bruising, increased appearance of vessels or worsening erythema of baseline skin; more rarely risks include damage to underlying structures such as nerves, cartilage, or muscle which could lead to temporary or permanent loss of sensation or motor function. Benefit is precise tumor removal If reconstruction is performed, it is specific to the patient and defect. Discussed that the shape, size, depth of the wound is often not known until the tumor is cleared and thus the reconstruction options are sometimes not known until after tumor clearance. Occasionally,referrals to other providers may be recommended for reconstruction based on patient preference and need. Reviewed the pros and cons of common reconstructions used for this tumor type, size, and location, and that reconstruction may lead to change in appearance. Natural history of scar was discussed, including that the scar will continue to mature for 1-2 years. Recommended avoidance of special ointments or scar creams, and avoidance of direct sun exposure to the scar for optimal recovery. Reviewed that there are some aspects of cosmesis that are dependent on patient's characteristics such as age, skin laxity/texture factors, inflammatory skin diseases such as rosacea, prior surgery/radiation, degree of actinic damage, smoking status, strength of the patient's immune system, diligentwound care, medications, and genetics. Having Mohs surgery may lead to physical limitations for optimal healing, such as restricted physical activity and heavy lifting. 4. Signs and symptoms of skin cancer reviewed. Patient to report any new, changing, or symptomatic lesions and follow up with his or her lock and dam operator or other skin provider. 5. Discussed avoiding direct sun exposure to scars for best cosmetic result. Note initiated by STEPHANIE Juan LPN has performed the documentation for this encounter in the presence of and acting as a scribe for Dr. Qiu I performed the above scribed service and agree with the accuracy of the documentation in this encounter. Reviewed and signed by: Gino Qiu Dermatology [facility] * Gino Qiu MD - 06/15/2023 8:00 AM EDT Mohs micrographic Surgery Operative Report Patient name: Cathryn Roberto : 1945 Date: 06/15/2023 Staff Surgeon and Pathologist: Gino Qiu MD PhD Nursing/Casting Room Operator(s): Aminah Valdez LPN Nurse Consultant (s): Corby Reynoso CMA Pre-operative diagnosis: Basal Cell Carcinoma, nodular and infiltrating Post-operative diagnosis: Same as above Location/Site: Right nasal ala Procedure: Mohs micrographic surgery Indication(s) for Mohs micrographic surgery: Anatomic location for tissue conservation Stages: 2 Preoperative size of tumor: 1.3 x 0.7 cm Stage I The nature and purpose of the procedure, associated risks, possible consequences and complications,and alternative forms of treatment were explained in detail. We reviewed the possible repairs basedon the clinical appearance of tumor but discussed that often the repair options may not be known until the tumor has charis extirpated. Informed consent and permission to take photographs were obtained. The site was confirmed with the patient/authorized sales representative education courses/referring physician and/or a photograph form time of biopsy. A pre-operative time-out (procedural pause) was conducted with no unresolved discrepancies noted. Local anesthesia was obtained with 0.5 % lidocaine with 1:200,000 epinephrine. The surgical site was prepped and draped in the usual sterile manner. A 1-2 mm margin was excised around clinically evident tumor as a complete layer. Hemostasis was achieved by electrocoagulation. The excised tissue was oriented and divided into 2 sections, chromacoded, and submitted for frozen sections. The patient tolerated the procedure well and without complications. On my personal microscopic evaluation of the frozen sections, residual tumor was identified as INFILTRATIVE BASAL CELL CARCINOMA -- Irregularly shaped narrow cords, thin strands, and small islands ofbasaloid keratinocytes are present in the dermis with an infiltrating and angulated growth pattern.The cells have scant cytoplasm and round dark nuclei. The islands are associated with a fibromyxoidstroma and there is cleft formation between some of the islands and stroma. on section A1 (see section number on map). Stage II The surgical site was re-anesthetized with 0.5 % lidocaine with 1:200,000 epinephrine, re-prepped and redraped in a sterile manner. The residual tumor was re-excised as a complete layer 2-3mm in thickness using the Mohs map to delineate area of residual tumor. Hemostasis was achieved with electrocoa gulation. The tissue was oriented and divided into 1 sections, chromacoded, and submitted for frozen sections. The patient tolerated the procedure well and without complications. On my personal microscopic evaluation of the frozen sections, no residual tumor was identified on the deep or outer border of the sections. Depth of excision fibrofatty tissue Final defect size: 1.8 x 1.5 cm Gino Qiu MD PhD Mohs Micrographic Surgery and Dermatologic Oncology Department of Dermatology [address] [place] [id number] OPERATIVE REPORT (REPAIR) Patient Name: Cathryn Roberto Age: 77 y.o. : 1945 Date: 06/15/2023 Staff Surgeon: Gino Qiu MD PhD Assistants: Aminah Valdez LPN Diagnosis: Status post Mohs micrographic surgery defect/wound Site: Right nasal ala Final Defect Size prior to repair: 1.8 x 1.5 cm Donor site: Left preauricular INDICATION: repair and caodaism of anatomy/function PROCEDURE: Full-thickness skin graft A graft was chosen as repair after discussing various repair options and pros and cons of those. Anesthesia with 0.5 % lidocaine with 1:200,000 epinephrine and another sterile prep were performed. Toavoid anatomical distortion, a template was made of the defect, and a full-thickness skin graft wascarefully planned and harvested from the left preauricular. The graft was defatted and trimmed to fit the defect. After hemostasis was obtained with electrocoagulation, the graft was sutured into place with 5.0 and 6.0 skin sutures. The donor area was converted to a fusiform defect. The deep tissues were apposed and sutured with 4.0 Monocryl sutures and the epidermal edges were approximated with 6.0 Prolene running and/or interrupted sutures . Final graft size: 1.8 x 1.5 cm. Estimated blood loss: Minimal. Complications: None. Wound care: Routine Preoperative medications: None Post-operative medications: Keflex 500 mg PO BID x7 days Follow-up: 14 days for suture removal Total local anesthesia with 0.5 % lidocaine with 1:200,000 epinephrine used: 12 cc Total local with 0.25% bupivacaine with 1:100,000 epinephrine used: 3 cc Gino Qiu MD PhD Mohs Micrographic Surgery and Dermatologic Oncology Department of Dermatology [address] [place] [address] Note initiated by STEPHANIE Juan LPN has performed the documentation for this encounter in the presence of and acting as a scribe for Dr. Qiu I performed the above scribed service and agree with the accuracy of the documentation in this encounter. Reviewed and signed by: Gino Qiu Dermatology [facility] documented in this encounter Plan of Treatment Upcoming Encounters Date Type Department Care Team (Late st Contact Info) Description 06/11/2025 1:45 PM EDT Office Visit Dermatology at [address] [place] [address] Alan Carrero MD [address] [facility], [place] [address] documented as of this encounter Visit Diagnoses Diagnosis Basal cell carcinoma (BCC) of right ala nasi Prophylactic antibiotic Encounter for long-term (current) use of antibiotics documented in this encounter Care Teams Gusset Stitcher Relationship Specialty Start Date End Date Devora El APRN PCP - General Family Medicine 11/25/18 documented as of this encounter
--- OUTSIDE RECORDS SUMMARY | 2024-06-14 19:48 | XMS_ITS | Encounter Summary ---
[place] [address] Care Team Providers Care Beam Racker Name Role Phone Sienna Devora Grissom APRN Primary Care Provider Encounter Details Date Type Department Care Team (Latest Contact Info) Description 04/05/2023 9:33 PM EDT - 04/05/2023 11:59 PM EDT Hospital [place] [phone] Discharge Disposition: Home Social History Tobacco Use [...] on file documented as of this encounter Medications at Time of Discharge Medication Sig Dispensed Refills Start Date End Date losartan (Cozaar) 50 mg tablet Take 50 mg by mouth daily. 02/26/2023 calcium-vitamin D3 600 mg-10 mcg (400 unit) Tablet daily. 01/30/2013 vitamin E 100 unit Capsule Take 100 Units by mouth daily. loratadine (Claritin) 10 mg Tablet Take 10 [...] tablet Take 1 tablet by mouth daily. documented as of this encounter Plan of Treatment Upcoming Encounters Date Type Department Care Team (Late st Contact Info) Description 06/11/2025 1:45 PM EDT Office Visit Dermatology at [place] [address] [facility] [place] [phone] Alan Carrero MD [address] [facility] [address] [address] [address], K[place] [address] documented as of this encounter Procedures Procedure Name Priority Date/Time Associated Diagnosis Comments SURGICAL PATHOLOGY REPORT Routine 04/05/2023 4:10 PM EDT documented in this encounter Results * (ABNORMAL) Surgical Pathology Report (04/05/2023 4:10 PM EDT) Final Diagnosis [id number] ? Location: OPW The signing pathologist has (i) examined the relevant preparation(s) for the specimen(s) and (ii) rendered or confirmed the diagnosis(es). . ?Surgical Pathology DIAGNOSIS Right nasal ala, skin shave biopsy: - ??Basal cell carcinoma, nodular and infiltrating patterns, ?? transected, fragmented Electronically signed by: ?Gina WALLER, Princess Verified: ??04/13/2023 16:17 ??Dermatopatholo gist Performed at: ??-[facility] Dept. of Pathology, [place] [address] Orthopedics Pediatric Physician: Gisel Jovel MD, FCAP, ??CLIA Certificate: [id number] DISCUSSION THIS RESULT REQUIRES PHYSICIAN/A.P.P. FOLLOW UP SPECIMEN(S) SUBMITTED A - R nasal ala, shave plus curettings Referring Identifier: ?(not provided) CLINICAL INFORMATION Ulceration. Shave biopsy for diagnosis only. BCCA SPECIMEN PROCESSING A - Labeled/Fixative : Patient demographics, formalin. Quantity/Size: ??Single, 0.8 x 0.3 x 0.1 cm. Tissue Description: Irregular shave of rivers-white skin plus several smaller fragments aggregating 0.1 cm. Sections/Process ing: Inked, trisected and entirely submitted in 1 cassette labeled A1. ??pps(A) 04/13/2023 4:[address] [facility] SPECIMEN FROM SKIN / Unknown 04/05/2023 4:10 PM EDT 04/05/2023 4:10 PM EDT Alan Carrero MD PATHOLOGY/CYTOLOGY O RDERABLES [facility] [place] [id number] [facility] [place] [address] documented in this encounter Visit Diagnoses Not on filedocumented in this encounter Care Teams Beam Racker Relationship Specialty Start Date End Date Devora El APRN PCP - General Family Medicine 11/25/18 documented as of this encounter
--- OUTSIDE RECORDS SUMMARY | 2024-06-14 19:48 | XMS_ITS | Encounter Summary ---
[facility] [place] [address] Care Team Providers Care Oyster Tonger Name Role Phone Dennyyen Devora Grissom APRN Primary Care Provider [phone] Encounter Details Date Type Department Care Team (Late st Contact Info) Description 05/20/2020 8:45 AM EDT Office Visit Dermatology at [address] [address] Alan Carrero MD [address] [facility], [place] [address] History of basal cell carcinoma; Seborrheic keratosis [...] Progress Notes * Alan Carrero MD - 05/20/2020 8:45 AM EDT Problem: 1.?6-month skin checkup 2. 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 ??History of Mohs surgery for BCCA sternal notch February 2006 4. ??History of BCCA left central upper mid chest June 2006 5. ??History of BCCA right upper back on June 2017 6. ??History of BCCA's left chin, left breast, and left trapezius 7. ??Patient grew up in [facility] 8. ??History BCCAs,??glabella and right nasal sidewall, May 2018 ?? Cathryn follows up today for a one-year check. She has been doing well. She has not noted any new lesions of concern. Physical examination reveals a pleasant 74-year-old woman who has a benign examination of the head and neck the chest the back the hands the arms the forearms the thighs and the calves. There is no evidence of any malignant lesions, and no signs of recurrence at prior previously treated nonmelanoma cutaneous malignancies. Assessment plan: Benign skin examination 1. Patient reassured about her benign skin examination 2. Recommend that I see again a year for repeat check 3. Continue sun avoidance precautions. CC: Devora El APRN documented in this encounter Plan of Treatment Upcoming Encounters Date Type Department Care Team (Late st Contact Info) Description 06/11/2025 1:45 PM EDT Office Visit Dermatology at [address] [phone] Alan Carrero MD [address] [place] [address], [facility] [place] [address] documented as of this encounter Visit Diagnoses Diagnosis History of basal cell carcinoma Personal history of other malignant neoplasm of skin Seborrheic keratosis Other seborrheic keratosis documented in this encounter Care Teams Oyster Tonger Relationship Specialty Start Date End Date Devora El APRN PCP - General Family Medicine 11/25/18 documented as of this encounter
--- OUTSIDE RECORDS SUMMARY | 2024-06-14 19:48 | XMS_ITS | Encounter Summary ---
Author Organization [facility] [place] [address] Care Team Providers Care Supervisor Lathing Name Role Phone Dennyyen Devora Grissom APRN Primary Care Provider [phone] Encounter Details Date Type Department Care Team (Late st Contact Info) Description 04/14/2023 Telephone Dermatology at [address] [address] Isela Becerril LPN Social History Tobacco Use Types Packs/Day Years [...] encounter Miscellaneous Notes * Telephone Encounter - Isela Becerril LPN - 04/14/2023 10:43 AM EDT 04/05/23 Right nasal ala, skin shave biopsy Bx: BCCa, Dr. Carrero recommends Mohs surgery at [facility]. Return to clinic May 31, 2023 Reviewed biopsy results and Dr. Og recommendation with patient. She voiced understanding. Referral sent to [facility]. documented in this encounter Plan of Treatment Upcoming Encounters Date Type Department Care Team (Late st Contact Info) Description 06/11/2025 1:45 PM EDT Office Visit Dermatology at [place] [address] [facility] [place] [address] Alan Carrero MD [address] [facility] [address], [place] [address] documented as of this encounter Visit Diagnoses Not on filedocumented in this encounter Care Teams Supervisor Lathing Relationship Specialty Start Date End Date Devora El APRN PCP - General Family Medicine 11/25/18 documented as of this encounter
--- OUTSIDE RECORDS SUMMARY | 2024-06-14 19:48 | XMS_ITS | Encounter Summary ---
Author Organization [facility] [place] [address] Care Team Providers Care Auto Phone Installer Name Role Phone Dennyyen Devora Yen COLON Primary Care Provider [phone] Reason for Visit * Reason Comments Annual Exam Encounter Details Date Type Department Care Team (Late st Contact Info) Description 05/25/2022 2:00 PM EDT Office Visit Dermatology at [address] [address] Alan Carrero MD [address] [facility], [place] [address] History of basal cell carcinoma; Seborrheic keratosis [...] Progress Notes * Alan Carrero MD - 05/25/2022 2:00 PM EDT Problem: 1.?Annual skin checkup 2. 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 ??History of Mohs surgery for BCCA sternal notch February 2006 4. ??History of BCCA left central upper mid chest??June 2006 5. ??History of BCCA right upper back on June 2017 6. ??History of BCCA's left chin, left breast, and left trapezius 7. ??Patient grew up in [facility] 8. ??History BCCAs,??glabella and right nasal sidewall, May 2018 Cathryn follows up today for her yearly skin checkup. She has been doing well. Physical examination reveals a pleasant 76-year-old woman who has benign examination of the head and the neck the chest the back the hands informs thighs and calves. She has an irritated seborrheic keratosis of the left upper forehead and number of small seborrheic keratosis of the upper forehead and right druze. These are noninflamed. There is no evidence of any cutaneous malignancies no evidence of recurrence at their prior treatment sites. Assessment plan: Irritated seborrheic keratosis left forehead 1. LN 2 x 2 applied to single site History of multiple nonmelanoma cutaneous malignancies 1. No evidence recurrence of previously treated sites 2. Continue sun avoidance precautions which the patient is following 3. Return to clinic in 1 year for repeat check. CC: Devora El APRN documented in this encounter Plan of Treatment Upcoming Encounters Date Type Department Care Team (Late st Contact Info) Description 06/11/2025 1:45 PM EDT Office Visit Dermatology at [place] [address] [place] [phone] Alan Carrero MD [address] [facility] [address], [place] [address] documented as of this encounter Visit Diagnoses Diagnosis History of basal cell carcinoma Personal history of other malignant neoplasm of skin Seborrheic keratosis Other seborrheic keratosis documented in this encounter Care Teams Auto Phone Installer Relationship Specialty Start Date End Date Devora El APRN PCP - General Family Medicine 11/25/18 documented as of this encounter
--- OUTSIDE RECORDS SUMMARY | 2024-06-14 19:48 | XMS_ITS | Encounter Summary ---
Author Organization [facility] [place] [address] Care Team Providers Care Forensic Pathologist Name Role Phone Linda Guaman MD Primary Care Provider [phone] Encounter Details Date Type Department Care Team (Late st Contact Info) Description 02/16/2016 Orders Only Cardiology at [address] [address] Pauline Abebe MD [facility] [place] [address] Acute saddle pulmonary embolism without acute cor pulmonale Social History Tobacco Use Types Packs/Day Years [...] 1:45 PM EDT Office Visit Dermatology at [place] [address] [facility] [place] [phone] Alan Carrero MD [address], [place] [address] documented as of this encounter Visit Diagnoses Diagnosis Acute saddle pulmonary embolism without acute cor pulmonale documented in this encounter Care Teams Forensic Pathologist Relationship Specialty Start Date End Date Linda Guaman MD [facility] [address] [place] [address] [place] [address] PCP - General 07/08/10 09/23/16 documented as of this encounter
--- OUTSIDE RECORDS SUMMARY | 2024-06-14 19:48 | XMS_ITS | Encounter Summary ---
[place] [address] Care Team Providers Care Flour Distributor Name Role Phone Sienna Devora Grissom APRN Primary Care Provider [phone] Encounter Details Date Type Department Care Team (Late st Contact Info) Description 03/28/2020 Telephone [place] [phone] Jaskaran Mendoza Social History Tobacco Use Types Packs/Day Years [...] encounter Miscellaneous Notes * Telephone Encounter - Jaskaran Mendoza - 03/28/2020 10:10 AM EDT Cathryn Roberto [id number] Diagnosis/Indication: family hx of CRC or polyps 1. Have you ever had a/an Colonoscopy before? Yes: Date 09/24/2016 If yes, did you have any problems with the procedure? No What type of sedation was used: IV Conscious Sedation 2. Do you take any Blood Thinners? No 3. Do you have a Pacemaker or Defibrillator device? No 4. Are you a diabetic? No 5. Do you have any Allergies to Eggs, Latex or Medications? Yes: See chart 6. Do you take any Oral Iron Supplements (Including multi-vitamins)? No 7. Do you have a history of three or more abdominal surgeries? No 8. Have you had a problem with sedation or anesthesia? No 9. Do you have a c-pap machine or oxygen tank? Neither 10. Do you take prescription narcotic pain medications, including suboxone or methodone? No 11. Do you have a preference regarding the gender of your provider? Yes: Female 12. Is there any other information you would like to give us to aid in scheduling? No 13. Say to patient: You must have a responsible libertarian who will drive you to your procedure, stay [place] for the entire duration of your procedure, and drive you home from your procedure? *Please Verify the height and weight, and adjust if height and/or weight have changed* Estimated body mass index is 26.63 kg/m?? as calculated from the following: Height as of 02/12/16: 177.8 cm (5' 10). Weight as of 02/16/16: 84.2 kg (185 lb 10 oz). *Delete if not needed* Height: 5'10 Weight: 190 BMI: 27.3 Age:74 y.o. documented in this encounter Plan of Treatment Upcoming Encounters Date Type Department Care Team (Late st Contact Info) Description 06/11/2025 1:45 PM EDT Office Visit Dermatology at [address] [place] [address] Alan Carrero MD [address], [place] [address] documented as of this encounter Visit Diagnoses Not on filedocumented in this encounter Care Teams Flour Distributor Relationship Specialty Start Date End Date Devora El APRN PCP - General Family Medicine 11/25/18 documented as of this encounter
--- OUTSIDE RECORDS SUMMARY | 2024-06-14 19:48 | XMS_ITS | Encounter Summary ---
Author Organization [facility] [place] [address] Care Team Providers Care Car Wash Manager Name Role Phone Sienna Devora Jaciel COLON Primary Care Provider [phone] Reason for Visit * Reason Comments Skin Check Annual Exam Encounter Details Date Type Department Care Team (Late st Contact Info) Description 06/05/2024 1:30 PM EDT Office Visit Dermatology at [address] [address] Alan Carrero MD [address] [facility], [place] [address] History of basal cell carcinoma Social History [...] Progress Notes * Alan Carrero MD - 06/05/2024 1:30 PM EDT Problem: 1. Annual skin checkup 2. History BCCA left scapula February 2005 3. History of Mohs surgery for BCCA sternal notch February 2006 4. History of BCCA left central upper mid chest June 2006 5. History of BCCA right upper back on June 2017 6. History of BCCA's left chin, left breast, and left trapezius 7. Patient grew up in [facility] 8. History BCCAs, glabella and right nasal sidewall, May 2018 9. History of BCCA right nasal ala, Mohs surgery scheduled for May 2023 Cathryn follows up for her annual skin checkup. She is pleased with the healing following her Mohssurgery. Physical examination reveals a pleasant 78-year-old woman who has had excellent healing of the right nasal ala. Otherwise careful examination of the head and the neck the chest the back the hands arms forearms thighs and calves is benign there is no evidence of any cutaneous malignancies today. Assessment plan: History of multiple nonmelanoma cutaneous malignancies 1. Patient reassured about her benign skin examination today 2. Continue our once yearly skin checkups CC: Devora El APRN documented in this encounter Plan of Treatment Upcoming Encounters Date Type Department Care Team (Late st Contact Info) Description 06/11/2025 1:45 PM EDT Office Visit Dermatology at [address] [phone] Alan Carrero MD [address] [facility], [place] [address] documented as of this encounter Visit Diagnoses Diagnosis History of basal cell carcinoma Personal history of other malignant neoplasm of skin documented in this encounter Care Teams Car Wash Manager Relationship Specialty Start Date End Date Devora El APRN PCP - General Family Medicine 11/25/18 documented as of this encounter
--- OUTSIDE RECORDS SUMMARY | 2024-06-14 19:48 | XMS_ITS | Encounter Summary ---
[place] [address] Care Team Providers Care Cage Cashier Name Role Phone Dennyyen Devora Yen COLON Primary Care Provider [phone] Encounter Details Date Type Department Care Team (Late st Contact Info) Description 10/16/2019 Telephone [place] [phone] Nayely Chapa Social History Tobacco Use Types Packs/Day Years [...] encounter Miscellaneous Notes * Telephone Encounter - Nayely Chapa - 10/16/2019 2:38 PM EST Accuracy of Stool-based FIT Testing in Older Adults PI: Jacqueline Jalloh MD and Charmaine Villalta MD,MS I spoke with Cathryn Roberto today regarding the above titled study. I reviewed the consent withCathryn Roberto in detail, and all questions were answered to Cathryn Roberto's satisfaction.Per the IRB approved study plan, Cathryn Roberto verbally consented to participate. Cathryn Roberto was told they could call Dr. Jalloh or me, the marketing and outreach coordinator, at anytime with questions or concerns about the study. Cathryn Roberto is in agreement with plan. documented in this encounter Plan of Treatment Upcoming Encounters Date Type Department Care Team (Late st Contact Info) Description 06/11/2025 1:45 PM EDT Office Visit Dermatology at [place] [address] [facility] [place] [address] Alan Carrero MD [address], [place] [address] documented as of this encounter Visit Diagnoses Diagnosis Screening for colon cancer- Primary Special screening for malignant neoplasms, colon documented in this encounter Care Teams Cage Cashier Relationship Specialty Start Date End Date Devora El APRN PCP - General Family Medicine 11/25/18 documented as of this encounter
--- OUTSIDE RECORDS SUMMARY | 2024-06-14 19:48 | XMS_ITS | Encounter Summary ---
Author [facility] [place] [address] Care Team Providers Care Inbound Sales Advisor Name Role Phone Devora El APRN Primary Care Provider [phone] Encounter Details Date Type Department Care Team (Latest Contact Info) Description 05/31/2023 Travel Social History Tobacco Use Types Packs/Day [...] 1:45 PM EDT Office Visit Dermatology at [place] [address] [place] [address] Alan Carrero MD [address], [place] [address] documented as of this encounter Visit Diagnoses Not on filedocumented in this encounter Care Teams Inbound Sales Advisor Relationship Specialty Start Date End Date Devora El APRN PCP - General Family Medicine 11/25/18 documented as of this encounter
--- OUTSIDE RECORDS SUMMARY | 2024-06-14 19:48 | XMS_ITS | Encounter Summary ---
Author Organization [facility] [place] [address] Care Team Providers Care Buckle Sorter Name Role Phone Dennyyen Devora Yen COLON Primary Care Provider [phone] Encounter Details Date Type Department Care Team (Late st Contact Info) Description 04/29/2020 4:45 PM EDT - 04/29/2020 5:30 PM EDT [place] [phone] Viktoria Laura MD [facility] [place] [address] COLONOSCOPY, DIAGNOSTIC (WRVU 3.26) Social History Tobacco Use Types Packs/Day Years [...] occurs, please contact your Doctor. Please call [phone] before 8pm Mon-Fri with problems, questions or concerns. If you call after 8pm or on weekends, call the Hospital at [phone] and ask to speak to the Dope And Fabric Worker technical communication teacher and the asphalt surface heater operator will contact that person for you. When should you call for help? Call [phone] anytime you think you may need emergency [...] Visit Summary and more online at [email or web address] If you would like to provide feedback about your hospital experience, please call the Office of Patient and Family Relations at . If you have received this After Visit Summary in error, please immediately return it in person to the department, or notify the - Privacy Office by calling toll free at between the hours of 8AM and 5PM to arrange for our retrieval of the documents at no cost to you. Content Version: 12.2 ?? 7737-0077 [employer]. Care instructions adapted under license by [facility]. If you have questions about a medical condition or this instruction, always ask your healthcare professional. [employer] disclaims any warranty or liability for your [...] unit Tablet Take by mouth. 01/30/2013 04/05/2023 [id number]-[id number] methasone (DEXACINE) 3.5 mg/g-10,000 unit/g-0.1 % Ointment [...] 1:45 PM EDT Office Visit Dermatology at [place] [address] [place] [address] Alan Carrero MD [address], [place] [address] documented as of this encounter Procedures Procedure Name Priority Date/Time Associated Diagnosis Comments Colonoscopy, Diagnostic (48593) 04/29/2020 4:12 PM EDT family hx of CRC or polyps COLONOSCOPY Routine 04/29/2020 3:54 PM EDT documented in this encounter Results * COLONOSCOPY (04/29/2020 3:54 PM EDT) COLONOSCOPY [facility] Endoscopy Procedure Date: 04/29/2020 3:54 PM ? Patient Name: Cathryn Roberto ? Date of : 1945 ? Age: 74 ? Order #: [id number] ? Instrument Name: [id number] ? Procedure: ? Colonoscopy Indications: ? High [...] PROVATION 04/29/2020 3:54 PM EDT Devora El [employer] GENERAL SURGICAL ORD ERABLES PROVATION documented in this encounter Visit Diagnoses Not on filedocumented in this encounter Administered Medications Inactive Administered Medications - up to 3 most recent administrations Medication Order MAR Action Action Date Dose Rate Site fentaNYL 50 mcg/mL multi-dose injection ONCE PRN, Starting on Wed04/29/20 at 1617, Until Wed04/29/20 at 1931, Intra-Operative (Intra-Procedure), Routine Given 04/29/2020 4:30 PM EDT 25 mcg Right Arm Given 04/29/2020 4:25 PM EDT 25 mcg Ri ght Arm Given 04/29/2020 4:22 PM EDT 25 mcg Ri ght Arm lactated ringers infusion 100 mL/hr, Intravenous, CONTINUOUS, Starting on Wed04/29/20 at 1545, Until Wed04/29/20 at 1931, Endoscopy (Day of Procedure) New Bag 04/29/2020 3:40 PM EDT 100 mL/hr 100 mL/hr midazolam (PF) (VERSED) multi-dose injection ONCE PRN, Starting on Wed04/29/20 at 1618, Until Wed04/29/20 at 1931, Intra-Operative (Intra-Procedure), Routine Given 04/29/2020 4:30 PM EDT 0.5 mg Right Arm Given 04/29/2020 4:25 PM EDT 1 mg Ri ght Arm Given 04/29/2020 4:22 PM EDT 1 mg Ri ght Arm documented in this encounter Active and Recently [...] RN) documented in this encounter Care Teams Buckle Sorter Relationship Specialty Start Date End Date Devora El APRN PCP - General Family Medicine 11/25/18 documented as of this encounter
--- OUTSIDE RECORDS SUMMARY | 2024-06-14 19:48 | XMS_ITS | Encounter Summary ---
Author Organization [facility]ly [facility] [place] [address] Care Team Providers Care Inspector Electromechanical Name Role Phone Devora El Jaciel COLON Primary Care Provider [phone] Encounter Details Date Type Department Care Team (Late st Contact Info) Description 06/29/2023 2:45 PM EST Office Visit Dermatology at [facility] [address] [place] [phone] Gino Qiu MD [facility] DR JATINDER DOS [place] [address] Encounter for removal of sutures Social History Tobacco Use Types Packs/Day Years [...] as of this encounter Progress Notes * Gino Qiu MD - 06/29/2023 2:45 PM EST Images from the original note were not included. Patient: Cathryn Roberto Date of . 1945 Today's Date: 06/29/2023 Cathryn Roberto is a 77 y.o. female here for suture removal, 14 days post op. Photograph: Well healing graft and donor site with no signs of infection. Plan: 1. Sutures removed today without complication. Continue wound care and Vaseline for 7 days. 2. Follow up with referring provider or phone banker for skin exams. 3. Follow up with Dr. Qiu: as needed Note initiated by COLLEEN Castellanos LNA has performed the documentation for this encounter in the presence of and acting as a scribe for Dr. Qiu I performed the above scribed service and agree with the accuracy of the documentation in this encounter. Reviewed and signed by: Gino Qiu Dermatology [facility] Gino Qiu MD PhD Mohs Micrographic Surgery and Dermatologic Oncology Department of Dermatology documented in this encounter Plan of Treatment Upcoming Encounters Date Type Department Care Team (Late st Contact Info) Description 06/11/2025 1:45 PM EDT Office Visit Dermatology at [address] [phone] Alan Carrero MD [address] [facility], [place] [address] documented as of this encounter Visit Diagnoses Diagnosis Encounter for removal of sutures documented in this encounter Care Teams Inspector Electromechanical Relationship Specialty Start Date End Date Devora El APRN PCP - General Family Medicine 11/25/18 documented as of this encounter
--- OUTSIDE RECORDS SUMMARY | 2024-06-14 19:48 | XMS_ITS | Encounter Summary ---
Author Organization [facility] [address] Care Team Providers Care Manufacturing Mechanic Name Role Phone Devora El Jaciel COLON Primary Care Provider [phone] Encounter Details Date Type Department Care Team (Latest Contact Info) Description 06/15/2023 7:45 AM EDT Clinical Support Dermatology at [facility] [address] [place] [address] Gino Qiu MD [facility] DR JATINDER [place] [address] Basal cell carcinoma (BCC) of right ala nasi Social History Tobacco Use Types Packs/Day Years [...] as of this encounter Progress Notes * Aminah Valdez, ENTERPRISE ENGINEER - 06/15/2023 7:45 AM EDT Mohs consultation and preoperative note (H&P) Patient Name: Cathryn Roberto Age: 77 y.o. Date of : 1945 Today's Date: 06/15/2023 REFERRING PROVIDER: Alan aCrrero CC: Mohs micrographic surgery for treatment of a cutaneous tumor HPI: Cathryn Roberto is a 77 y.o. female presenting for biopsy-proven basal cell carcinoma, nodular, infiltrative, location on the right nasal ala. The dermatologic preoperative information sheet was reviewed with pertinent positive and negative as below. DERMATOLOGIC PRE-OPERATIVE EVALUATION AND REVIEW OF SYSTEMS History of Mohs surgery? yes If yes, have you ever had Mohs surgery with Dr. Qiu? no Pacemaker/Defibrillator? no Joint replacement or other implantable devices (e.g. Cochlear implant)? If yes then when? no Do you take a blood thinner? Yes Aspirin 81 mg History of organ transplant? no History of artificial valve or stroke? no History of liver disease or bleeding disorder? no Do you have any medical problems that may affect your upcoming surgery? no Do you have any concerns regarding your upcoming surgery? yes generally nervous We ask patients to discontinue Fish oil/Multivitamin/Vit E/?? supplements and natural medicines not prescribed by a physician 1 week prior to surgery. SOCIAL HISTORY: Makes Own Decisions Yes Hearing aid or other devices: No Relevant travel history or future plans: No Tobacco use (amount per day, type of tobacco): no Do you have any physical limitations that may affect your surgery?: no ALLERGIES: Allergies reviewed MEDICATIONS: Medications reviewed documented in this encounter Plan of Treatment Upcoming Encounters Date Type Department Care Team (Late st Contact Info) Description 06/11/2025 1:45 PM EDT Office Visit Dermatology at [place] [address] [facility] [place] [phone] Alan Carrero MD [address] [facility], [place] [address] documented as of this encounter Visit Diagnoses Diagnosis Basal cell carcinoma (BCC) of right ala nasi documented in this encounter Care Teams Manufacturing Mechanic Relationship Specialty Start Date End Date Devora El APRN PCP - General Family Medicine 11/25/18 documented as of this encounter
--- OUTSIDE RECORDS SUMMARY | 2024-06-14 19:48 | XMS_ITS | Encounter Summary ---
Author Organization [facility] [place] [address] Care Team Providers Care Kinesiotherapist Name Role Phone Rena Reddy Primary Care Provider + Reason for Visit * Reason Comments Follow-up Skin Check Encounter Details Date Type Department Care Team (Late st Contact Info) Description 07/12/2017 2:45 PM EST Office Visit Dermatology at [address] [address] Alan Carrero MD [address] [facility], [place] [address] Basal cell carcinoma of skin of other part of trunk; AK (actinic keratosis) Social History Tobacco Use Types Packs/Day Years [...] Progress Notes * Alan Carrero MD - 07/12/2017 2:45 PM EST PROBLEM: 1. Followup skin checkup, last seen 11/2012. 2. History of BCCA, left scapula, March 04, 2005. 3. History of Mohs surgery for BCCA, sternal notch, 02/2006. 4. History of BCCA, left central upper midchest, 06/2006. 5. History of BCCAs, left chin, left breast, and left trapezius. 6. Patient grew up in [place], [place]. Pat follows up with her Sean. She has been doing well. She would like to have a repeat skin checkup. She is concerned about some lesions on her face. Physical examination reveals actinic keratoses, one on the left and one on the right mid infraorbital fold. She has a pearly papule of the right upper back measuring 6 mm in diameter. Otherwise, careful examination of the face, the neck, the chest, the back, hands, arms, forearms, thighs, and the calves is benign. A/P: 1. Actinic keratoses, facial. a. LN2 x2 applied to each of 2 sites. b. Post LN2 instructions given. c. Return to clinic p.r.n. for new lesions/concerns. 2. Rule out BCCA, right upper back. a. After obtaining informed consent, site was anesthetized and shave C and D x3 performed. After curettage the upper back lesion measured 8 mm in diameter. b. Triple antibiotic ointment and Band-Aids placed. Wound care instructions and supplies given. c. We will notify patient of biopsy results in 1 week. Return to clinic in 1 year for repeat check. Return to clinic p.r.n. for new lesions/concerns. 3. History of multiple nonmelanoma cutaneous malignancies. a. Patient reassured about remainder or benign skin examination today. CC: MARGARETH Carbajal documented in this encounter Plan of Treatment Upcoming Encounters Date Type Department Care Team (Late st Contact Info) Description 06/11/2025 1:45 PM EDT Office Visit Dermatology at [place] [address] [facility] [place] [phone] Alan Carrero MD [address] [facility], [place] [address] documented as of this encounter Visit Diagnoses Diagnosis Basal cell carcinoma of skin of other part of trunk [place] (actinic keratosis) Actinic keratosis documented in this encounter Care Teams Kinesiotherapist Relationship Specialty Start Date End Date Rena Reddy PA PCP - General Orthopaedic Surgery 07/12/17 11/24/18 documented as of this encounter
--- OUTSIDE RECORDS SUMMARY | 2024-06-14 19:48 | XMS_ITS | Encounter Summary ---
[place] [address] Care Team Providers Care Home Maker Name Role Phone Devora El APRN Primary Care Provider [phone] Encounter Details Date Type Department Care Team (Late st Contact Info) Description 11/15/2019 [place] [phone] Nayely Chapa Social History Tobacco Use Types [...] 1:45 PM EDT Office Visit Dermatology at [place] [address] [facility] [place] [phone] Alan Carrero MD [address], [place] [address] documented as of this encounter Visit Diagnoses Not on filedocumented in this encounter Care Teams Home Maker Relationship Specialty Start Date End Date Devora El APRN PCP - General Family Medicine 11/25/18 documented as of this encounter
--- OUTSIDE RECORDS SUMMARY | 2024-06-14 19:48 | XMS_ITS | Encounter Summary ---
Author Organization [facility] [place] [address] Care Team Providers Care Interior Wirer Name Role Phone Devora El APRN Primary Care Provider [phone] Encounter Details Date Type Department Care Team (Latest Contact Info) Description 06/29/2023 Travel Social History Tobacco Use Types Packs/Day [...] 1:45 PM EDT Office Visit Dermatology at [place] [address] [place] [address] Alan Carrero MD [address], [place] [address] documented as of this encounter Visit Diagnoses Not on filedocumented in this encounter Care Teams Interior Wirer Relationship Specialty Start Date End Date Devora El APRN PCP - General Family Medicine 11/25/18 documented as of this encounter
--- OUTSIDE RECORDS SUMMARY | 2024-06-14 19:48 | XMS_ITS | Encounter Summary ---
Author Organization [facility] [place] [address] Care Team Providers Care Litigation Manager Name Role Phone Devora El APRN Primary Care Provider [phone] Encounter Details Date Type Department Care Team (Latest Contact Info) Description 06/14/2023 Travel Social History Tobacco Use Types Packs/Day [...] 1:45 PM EDT Office Visit Dermatology at [place] [address] [place] [address] Alan Carrero MD [address], [place] [address] documented as of this encounter Visit Diagnoses Not on filedocumented in this encounter Care Teams Litigation Manager Relationship Specialty Start Date End Date Devora El APRN PCP - General Family Medicine 11/25/18 documented as of this encounter
--- OUTSIDE RECORDS SUMMARY | 2024-06-14 19:48 | XMS_ITS | Encounter Summary ---
[place] [address] Care Team Providers Care Accountancy Professor Name Role Phone Sienna Devora Grissom APRN Primary Care Provider [phone] Encounter Details Date Type Department Care Team (Late st Contact Info) Description 10/06/2019 Telephone [place] [phone] Shamar Workman Social History Tobacco Use Types Packs/Day Years [...] encounter Miscellaneous Notes * Telephone Encounter - Shamar Workman - 10/06/2019 9:45 AM EST Cathryn Roberto [id number] Diagnosis/Indication: Screening - 3 yr FUV 1. Have you ever had a/an Colonoscopy before? Yes: Date 2016 at [facility] If yes, did you have any problems with the procedure? No What type of sedation was used: IV Conscious Sedation 2. Do you take any Blood Thinners? No 3. Do you have a Pacemaker or Defibrillator device? No 4. Are you a diabetic? No 5. Do you have any Allergies to Eggs, Latex or Medications? Yes: Latex 6. Do you take any Oral Iron Supplements (Including multi-vitamins)? Yes (Multivitamin) 7. Do you have a history of three or more abdominal surgeries? No 8. Have you had a problem with sedation or anesthesia? No 9. Do you have a c-pap machine or oxygen tank? Neither 10. Do you take prescription narcotic pain medications? No 11. Do you have a preference regarding the gender of your provider? No Preference 12. Is there any other information you would like to give us to aid in scheduling? No 13. Say to patient: You must have a responsible green party who will drive you to your procedure, stay oncampus for the entire duration of your procedure, and drive you home from your procedure? Yes Height: 5'10 Weight:190 lbs BMI: 27.3 Age:73 y.o. documented in this encounter Plan of Treatment Upcoming Encounters Date Type Department Care Team (Late st Contact Info) Description 06/11/2025 1:45 PM EDT Office Visit Dermatology at [place] [address] [facility] [place] [address] Alan Carrero MD [address] [facility], [place] [address] documented as of this encounter Visit Diagnoses Not on filedocumented in this encounter Care Teams Accountancy Professor Relationship Specialty Start Date End Date Devora El APRN PCP - General Family Medicine 11/25/18 documented as of this encounter
--- OUTSIDE RECORDS SUMMARY | 2024-06-14 19:48 | XMS_ITS | Encounter Summary ---
Author Organization [facility] [place] [address] Care Team Providers Care Asset Protection Agent Name Role Phone Dennyyen Devora Yen COLON Primary Care Provider [phone] Reason for Visit * Reason Comments Annual Exam Encounter Details Date Type Department Care Team (Late st Contact Info) Description 05/31/2023 2:00 PM EDT Office Visit Dermatology at [address] [phone] Alan Carrero MD [address] [facility], [place] [address] History of basal cell carcinoma; Seborrheic keratosis; AK (actinic keratosis) Social History Tobacco Use [...] Progress Notes * Alan Carrero MD - 05/31/2023 2:00 PM EDT Problem: 1. Annual skin checkup 2. History BCCA left scapula February 2005 3. History of Mohs surgery for BCCA sternal notch February 2006 4. History of BCCA left central upper mid chest June 2006 5. History of BCCA right upper back on June 2017 6. History of BCCA's left chin, left breast, and left trapezius 7. Patient grew up in [place] 8. History BCCAs, glabella and right nasal sidewall, May 2018 9. History of BCCA right nasal ala, Mohs surgery scheduled for June 15 Cathryn follows up for her annual skin checkup. She is scheduled to have her Mohs surgery quite soon. Physical examination reveals a pleasant 77-year-old woman who has a scabbing linear wound on the right nasal ala from her biopsy site on April 05. Otherwise careful examination of the head and theneck the chest the back the hands arms forearms thighs and calves is benign revealing is a single actinic keratosis on the left mid infraorbital fold. Assessment plan: Biopsy-proven basal cell carcinoma, nodular and infiltrating type, right nasal ala 1. Mohs surgery scheduled June 15 Actinic keratosis left mid infraorbital fold 1. LN 2 x 2 applied to single site History of multiple nonmelanoma cutaneous malignancies 1. Return to clinic in a year for repeat check 2. Patient reassured about today's otherwise benign examination CC: Devora El APRN documented in this encounter Plan of Treatment Upcoming Encounters Date Type Department Care Team (Late st Contact Info) Description 06/11/2025 1:45 PM EDT Office Visit Dermatology at [address] [phone] Alan Carrero MD [address], [place] [address] documented as of this encounter Visit Diagnoses Diagnosis History of basal cell carcinoma Personal history of other malignant neoplasm of skin Seborrheic keratosis Other seborrheic keratosis AK (actinic keratosis) Actinic keratosis documented in this encounter Care Teams Asset Protection Agent Relationship Specialty Start Date End Date Devora El APRN PCP - General Family Medicine 11/25/18 documented as of this encounter
--- OUTSIDE RECORDS SUMMARY | 2024-06-14 19:48 | XMS_ITS | Encounter Summary ---
Author [place] [address] Care Team Providers Care Nurse Intern Name Role Phone Rena Reddy Primary Care Provider + Reason for Visit * Reason Comments Follow-up Skin Check Encounter Details Date Type Department Care Team (Late st Contact Info) Description 05/19/2018 9:00 AM EDT Office Visit Dermatology at [address] [phone] Alan Carrero MD [address] [facility], [place] [address] History of basal cell carcinoma Social History [...] Progress Notes * Alan Carrero MD - 05/19/2018 9:00 AM EDT Problem: 1. Repeat skin checkup 2. History BCCA left scapula February 2005 3. History of Mohs surgery for BCCA sternal notch February 2006 4. History of BCCA left central upper mid chest and alert for thousand 6 5. History of BCCA right upper back on June 2017 6. History of BCCA's left chin, left breast, and left trapezius 7. Patient grew up in [facility] with her Sean. She has been doing well but is no some new lesions of concern on her face. Physical examination reveals 2 pearly nodules at bedtime 8 mm in diameter one on the glabella and one on the right nasal sidewall. Both are consistent with BCCA's. Patient does not desire total body skin examination today. Assessment and plan: BCCA's 2 sites facial, glabella and right nasal sidewall 1. We will schedule a 1 hour 15-minute appointment in the near future for excision of these 2. Discussed procedure with patient answered per questions. Discussed postoperative care 3. Asked patient to DC her aspirin 1 week prior to procedure. Cc: Rena ZULUAGA documented in this encounter Plan of Treatment Upcoming Encounters Date Type Department Care Team (Late st Contact Info) Description 06/11/2025 1:45 PM EDT Office Visit Dermatology at [place] [address] [place] [address] Alan Carrero MD [address] [facility], [place] [address] documented as of this encounter Visit Diagnoses Diagnosis History of basal cell carcinoma Personal history of other malignant neoplasm of skin documented in this encounter Care Teams Nurse Intern Relationship Specialty Start Date End Date Rena Reddy PA PCP - General Orthopaedic Surgery 07/12/17 11/24/18 documented as of this encounter
--- OUTSIDE RECORDS SUMMARY | 2024-06-14 19:48 | XMS_ITS | Encounter Summary ---
Author Organization [facility] [place] [address] Care Team Providers Care Director Immunology Name Role Phone Kami Duncan APRN Primary Care Provider [phone] Encounter Details Date Type Department Care Team (Latest Contact Info) Description 09/24/2016 2:59 PM EST - 09/24/2016 7:13 PM EST Hospital Encounter [place] [address] Viki Coker MD [facility] [place] [address] Discharge Disposition: Home Social History Tobacco Use [...] Sign Reading Time Taken Comments Blood Pressure 138/83 09/24/2016 6:00 PM EST Pulse 63 09/24/2016 5:40 PM EST Temperature - - Respiratory Rate 18 09/24/2016 5:50 PM EST Oxygen Saturation 92% 09/24/2016 6:10 PM EST Inhaled Oxygen Concentration - - Weight - - Height - - Body Mass Index - - documented in this encounter Discharge Instructions * Discharge Instructions* Shellie Garcia RN - 09/24/2016 5:51 PM EST Please call [phone] before 8pm with problems, questions or concerns, after 5pm call the Hospital at [phone] and ask to speak to the Radioactive Waste Disposal Dispatcher public relations representative and the double head machine operator will contact that person for you. Discharge instructions reviewed with patient who expresses understanding. You may have received medications before and/or during your procedure which effects your judgement and reaction time. Do not drive, operate machinery, drink alcoholic beverages or make important decisions for 24 hours. Be careful on stairs as you may be unsteady on your feet. You may eat a regular diet as tolerated. Do not smoke if you are alone. IV site: Slight redness or tenderness is normal, you can use a warm compress if you would like. If tenderness and/or redness increase or if foul drainage occurs, please contact your Doctor. [facility] Colonoscopy: What to Expect at Home Your Recovery After you have a colonoscopy, you will stay at the clinic for 1 to 2 hours until the medicines wearoff. Then you can go home. But you will need to arrange for a ride. Your doctor will tell you when you can eat and do your other usual activities. Your doctor will talk to you about [...] your stool (feces) for a few days. This care sheet gives you a general idea about how long it will take for you to recover. But each person recovers at a different pace. Follow the steps below to get better as quickly as possible. How can you care for yourself at home? Activity ?? Rest when you feel tired. ?? You [...] fully understand what you are agreeing to. Follow-up care is a diamond part of your treatment and safety. Be sure to make and go to all appointments, and call your doctor if you are having problems. It's also a good idea to know your test resultsand keep a list of the medicines you take. When should you call for help? Call 911 anytime you think you may need emergency care. For example, call if: ?? You passed out (lost consciousness). ?? You pass maroon or bloody stools. ?? You have severe belly pain. Call your doctor now or seek immediate medical care if: ?? Your stools are black and tarlike. ?? Your stools have streaks of blood, but you did not have a biopsy or any polyps removed. ?? You have belly pain, or your belly is swollen and firm. ?? You vomit. ?? You have a fever. ?? You are very dizzy. Watch closely for changes in your health, and be sure to contact your doctor if you have any problems. Where can you learn more? Visit our health information library at [email or web address] You can also view health information on [employer], your personal patient account. Log in or sign up today. Enter E264 in the search box to learn more about Colonoscopy: What to Expect at Home. ?? [id number] [employer]. Care instructions adapted under license by [facility]. This care instruction is for use with your licensed healthcare professional. If you have questions about a medical condition or this instruction, always ask your healthcare professional. [employer] disclaims any warranty or liability for your use of this information. Content Version: 11.0.354320; Current as of: July 05, 2015 documented in this encounter Medications at Time of Discharge Medication Sig Dispensed Refills Start Date End Date calcium-vitamin D3 600 mg-10 mcg (400 unit) Tablet daily. 01/30/2013 VITAMIN B COMPLEX ORAL Take by mouth. [...] unit Tablet Take by mouth. 01/30/2013 04/05/2023 CALCIUM CARBONATE/VITAMIN D3 (CALCIUM + D ORAL) Take by mouth. 021 documented as of this encounter H&P Notes * Viki Coker MD - 09/24/2016 4:46 PM EST Gastroenterology and Hepatology Pre-Procedure History and Physical Exam Procedure: Colonoscopy: Indication: history of adenoma Patient Active Problem List Diagnosis Code ??? BCC (basal cell carcinoma) C44.91 ??? History of basal cell carcinoma Z85.828 ??? Actinic keratosis L57.0 ??? PE (pulmonary embolism) I26.99 EXAM: HEENT: Airway examined, oropharynx clear Mallampati Score: I (soft palate, uvula, fauces, tonsillar pillars visible) LUNGS: Clear to auscultation HEART: Regular [...] 1:45 PM EDT Office Visit Dermatology at [place] [address] [place] [address] Alan Carrero MD [address], [place] [address] documented as of this encounter Procedures Procedure Name Priority Date/Time Associated Diagnosis Comments SPECIMEN TO PATHOLOGY Routine 09/24/2016 5:42 PM EST SPECIMEN TO PATHOLOGY Routine 09/24/2016 5:42 PM EST SPECIMEN TO PATHOLOGY Routine 09/24/2016 5:42 PM EST COLONOSCOPY, DIAGNOSTIC (WRVU 3.26) 09/24/2016 4:57 PM EST family hx of CRC - mother COLONOSCOPY Routine 09/24/2016 4:55 PM EST SURGICAL PATHOLOGY REPORT Routine 09/24/2016 5:41 AM EST documented in this encounter Results * Specimen to Pathology (surgical or derm) (09/24/2016 5:42 PM EST) AP Specimen 09/24/2016 5:42 PM EST 09/24/2016 5:42 PM EST Narrative [facility] - 09/24/2016 5:42 PM EST Specimen requisition ordered. ??Separate Pathology report to follow Viki Coker MD PATHOLOGY/CYTOLOGY O RDERABLES [facility] [place] [address] * Specimen to Pathology (surgical or derm) (09/24/2016 5:42 PM EST) AP Specimen 09/24/2016 5:42 PM EST 09/24/2016 5:42 PM EST Narrative [facility] - 09/24/2016 5:42 PM EST Specimen requisition ordered. ??Separate Pathology report to follow L Dominick Coker MD PATHOLOGY/CYTOLOGY O NINO Performing Organization Address [facility] [place] [address] * Specimen to Pathology (surgical or derm) (09/24/2016 5:42 PM EST) AP Specimen 09/24/2016 5:42 PM EST 09/24/2016 5:42 PM EST Narrative [facility] - 09/24/2016 5:42 PM EST Specimen requisition ordered. ??Separate Pathology report to follow L Dominick Coker MD PATHOLOGY/CYTOLOGY Dara ONEILL Performing Organization Address [facility] [place] [address] * COLONOSCOPY (09/24/2016 4:55 PM EST) COLONOSCOPY [facility] Endoscopy Procedure Date: 09/24/2016 4:55 PM ? Patient Name: Cathryn Roberto ? Date of : 1945 ? Age: 70 ? Order #: [id number] ? Instrument Name: [id number] ? Procedure: ? Colonoscopy Indications: ? High risk colon cancer surveillance: ? Personal history of non-advanced ? adenoma Providers: ? Fabrice Coker MD, Woody Santiago ? STELLA Mai, Woody Tee Referring : ?Linda Guaman MD Medicines: ? Midazolam 5 mg IV, Fentanyl 200 ? micrograms IV Complications: ? No immediate complications. Procedure: ? Pre-Anesthesia Assessment: ? - Prior to the procedure, a History ? and Physical was performed, and ? patient medications and allergies ? were reviewed. The patient is ? competent. The risks and benefits of ? the procedure and the sedation ? options and risks were discussed with ? the patient. All questions were ? answered and informed consent was ? obtained. Patient identification and ? proposed procedure were verified by ? the physician in the pre-procedure ? area in the endoscopy suite. Mental ? Status Examination: alert and ? oriented. Airway Examination: normal ? oropharyngeal airway and neck ? mobility. Respiratory Examination: ? clear to auscultation. CV ? Examination: normal. ASA Grade ? Assessment: II - A patient with mild ? systemic disease. After reviewing the ? risks and benefits, the patient was ? deemed in satisfactory condition to ? undergo the procedure. The anesthesia ? plan was to use moderate sedation / ? analgesia (conscious sedation). ? Immediately prior to administration ? of medications, the patient was ? re-assessed for adequacy to receive ? sedatives. The heart rate, ? respiratory rate, oxygen saturations, ? blood pressure, adequacy of pulmonary ? ventilation, and response to care ? were monitored throughout the ? procedure. The physical status of the ? patient was re-assessed after the ? procedure. ? The procedure, indications, benefits, ? risks [...] direct visualization, ? advanced to the terminal ileum, with ? identification of the appendiceal ? orifice and IC valve. Careful ? inspection was made as the ? colonoscope was withdrawn. The ? colonoscopy was performed without ? difficulty. The patient tolerated the ? procedure well. The quality of the ? bowel preparation was evaluated using ? the BBPS (Lester Bowel Preparation ? Scale) with scores of: Right Colon = ? 3 (entire mucosa seen well with no ? residual staining, small fragments of ? stool or opaque liquid), Transverse ? Colon = 2 (minor amount of residual ? staining, small fragments of stool ? and/or opaque liquid, but mucosa seen ? well) and Left Colon = 2 (minor ? amount of residual staining, small ? fragments of stool and/or opaque ? liquid, but mucosa seen well). The ? total BBPS score equals 7. The ? quality of the bowel preparation was ? good. Scope withdrawal time was 19 ? minutes. ? Findings: ? External hemorrhoids were found. The hemorrhoids were ? small. ? Multiple small and large-mouthed diverticula were ? found in the sigmoid colon. ? Two sessile polyps were found in the sigmoid colon. ? The polyps were 2 to 4 mm in size. The 4 mm polyp was ? removed with a cold snare, and the other was removed ? with a cold forceps. Resection and retrieval were ? complete. ? Two sessile polyps were found in the transverse ? colon. The polyps were 2 to 3 mm in size. The 3 mm ? polyp was removed with a cold snare, and the other ? was removed with a cold forceps. Resection and ? retrieval were complete. ? A 2 mm polyp was found in the hepatic flexure. The ? polyp was sessile. The polyp was removed with a cold ? snare. Resection and retrieval were complete. ? The terminal ileum appeared normal. ? Moderate Sedation: ? Moderate (conscious) sedation was personally ? administered by the endoscopist. The following ? parameters were monitored: oxygen saturation, heart ? rate, blood pressure, and response to care. Total ? physician intraservice time was 27 minutes. Impression: ?- External hemorrhoids. ? - Moderate diverticulosis in the ? sigmoid colon. ? - Two 2 to 4 mm polyps in the sigmoid ? colon, removed with a cold snare. ? Resected and retrieved. ? - Two 2 to 3 mm polyps in the ? transverse colon, removed with a cold ? snare. Resected and retrieved. ? - One 2 mm polyp at the hepatic ? flexure, removed with a cold snare. ? Resected and retrieved. ? - The examined portion of the ileum ? was normal. Recommendation: ?- Await pathology results to ? determine the appropriate interval ? until the next exam. The patient will ? be notified by mail. If results are ? not received within three weeks, ? please call our office at ? [phone]. ? Attending Participation: ? I personally performed the entire procedure. ? __ L. Dominick Coker MD 09/24/2016 5:48:19 PM Number of Addenda: 0 Note Initiated On: 09/24/2016 4:55 PM PROVATION 09/24/2016 4:55 PM EST Linda Guaman MD GENERAL SURGICAL ORD ERABLES PROVATION * Surgical Pathology Report (09/24/2016 5:41 AM EST) Final Diagnosis [id number] ?Location: 4T; EA09; A The signing pathologist has (i) examined the relevant preparation(s) for the specimen(s) and (ii) rendered or confirmed the diagnosis(es). . ?Surgical Pathology DIAGNOSIS A - Sigmoid colon, ??polypectomy: - ??Fragments of hyperplastic polyp. B - Transverse colon, ?? polypectomy: - Tubular adenoma. C - Hepatic flexure, ?? polypectomy: - Tubular adenoma. CR-PX Electronically signed by: ??Eh Bone MD Verified: ??09/28/2016 ?Pathologist CLINICAL INFORMATION Specimen Submitted: A - Two polyps - sigmoid colon B - Polyp - transverse colon C - Polyp - hepatic flexure Clinical History: 70-year-old with history of polyps Clinical Diagnosis: Same SPECIMEN PROCESSING A - Labeled/Fixative : Two polyps-sigmoid colon, formalin. Quantity/Size: Three, 0.2-0.5 cm. Tissue Description: ??Soft, yellow-rivers tissue ??. Sections/Process ing: (T1) B - Labeled/Fixative : Polyp-transverse colon, formalin. Quantity/Size: Three, 0.2-0.5 cm. Tissue Description: Partially fragmented, rivers-yellow soft tissue. Sections/Process ing: (T1) C - Labeled/Fixative : Polyp-hepatic flexure, formalin. Quantity/Size: Single, 0.2 cm. Tissue Description: ??Soft, yellow-rivers tissue ??. Sections/Process ing: (T1) ??ejr 09/28/2016 3:38 PM EST [facility] GI Biopsy 09/24/2016 5:41 AM EST 09/24/2016 5:41 AM EST GI Biopsy 09/24/2016 5:41 AM EST 09/24/2016 5:41 AM EST GI Biopsy 09/24/2016 5:41 AM EST 09/24/2016 5:41 AM EST L Dominick Coker MD PATHOLOGY/CYTOLOGY O RDERABLES [facility] [place] [phone] documented in this encounter Visit Diagnoses Not on filedocumented in this encounter Administered Medications Inactive Administered Medications - up to 3 most recent administrations Medication Order MAR Action Action Date Dose Rate Site lactated ringers infusion 100 mL/hr, Intravenous, CONTINUOUS, Starting on Maggi 09/24/16 at 1630, Until Amggi 09/24/16 at 1817, Endoscopy (Day of Procedure) New Bag 09/24/2016 4:30 PM EST 100 mL/hr 100 mL/hr documented in this encounter Active and Recently Administered Medications Times are shown in EST. Continuous Medication Order 09/22/2016 09/23/2016 09/24/2016 lactated ringers infusion (CANCELED) 100 mL/hr, Intravenous, CONTINUOUS, Starting on Maggi 09/24/16 at 1630, Until Maggi 09/24/16 at 1817, Endoscopy (Day of Procedure) 1630 (New Bag - Prov ider: Markus Finn RN) PRN Medication Order 09/22/2016 09/23/201609/24/2016 fentaNYL 50 mcg/mL multi-dose injection (CANCELED) ONCE PRN, Starting on Maggi 09/24/16 at 1700, Until Maggi 09/24/16 at 2113, Intra-Operative (Intra-Procedure), Routine 1700 (Given - Provid er: Woody Mai RN)1706 (Given - Provider: Woody Mai RN)1707 (Canceled Entry - Provider: Woody Mai RN)1708 (Canceled Entry - Provider: Woody Mai RN)1710 (Given - Provider: Woody Mai RN)171 (Given - Provider: Woody Mai RN)1714 (Given - Provider: Woody Mai RN) midazolam (PF) (VERSED) 1 mg/mL multi-dose injection (CANCELED) ONCE PRN, Starting on Maggi 09/24/16 at 1700, Until Maggi 09/24/16 at 2113, Intra-Operative (Intra-Procedure), Routine 1700 (Given - Provid er: Woody Mai RN)1703 (Given - Provider: Woody Mai RN)1706 (Given - Provider: Woody Mai RN)1709 (Given - Provider: Woody Mai RN)171 (Given - Provider: Woody Mai RN)1714 (Given - Provider: Woody Mai RN)1718 (Given - Provider: Woody Mai RN) documented in this encounter Care Teams Director Immunology Relationship Specialty Start Date End Date Kami Duncan APRN PCP - General Family Medicine 09/24/16 07/11/17 documented as of this encounter
--- OUTSIDE RECORDS SUMMARY | 2024-06-14 19:48 | XMS_ITS | Encounter Summary ---
Author Organization [facility] [place] [address] Care Team Providers Care Test Car Driver Name Role Phone Dennyyen Devora Yen COLON Primary Care Provider [phone] Reason for Visit * Reason Comments Follow-up Encounter Details Date Type Department Care Team (Late st Contact Info) Description 11/25/2018 2:15 PM EDT Office Visit Dermatology at [address] [address] Alan Carrero MD [address] [facility], [place] [address] History of basal cell carcinoma; Seborrheic keratosis [...] Progress Notes * Alan Carrero MD - 11/25/2018 2:15 PM EDT Problem: 1. 6-month skin checkup 2. History BCCA left scapula February 2005 3. History of Mohs surgery for BCCA sternal notch February 2006 4. History of BCCA left central upper mid chest and alert for thousand 6 5. History of BCCA right upper back on June 2017 6. History of BCCA's left chin, left breast, and left trapezius 7. Patient grew up in [facility] 8. History BCCAs, glabella and right nasal sidewall, May 2018 Cathryn follows up and is doing well. She not noted any new lesions of concern. She is here for 6-month check. Physical examination reveals continued excellent healing at both of the biopsy sites from May. There is no erythema left and the scarring is really minimal. Facial examination is benign with several seborrheic keratoses on her forehead one on her right cheek, and one on the left anterior shoulder. Assessment and plan: Patient with benign 6-month skin checkup, history of multiple nonmelanoma cutaneous malignancies 1. Could consider LN 2 x 2 to both of the irritated seborrheic keratoses on her right cheek and left anterior shoulder 2. Patient reassured about today's benign skin examination 3. Recommend I see her again in 6 months, and then if doing well, once yearly thereafter. 4. Continue sun avoidance precautions and congratulated on her wonderful healing. CC: Devora El APRN documented in this encounter Plan of Treatment Upcoming Encounters Date Type Department Care Team (Late st Contact Info) Description 06/11/2025 1:45 PM EDT Office Visit Dermatology at [address] [address] Alan Carrero MD [address] [place] [address], [place] [address] documented as of this encounter Visit Diagnoses Diagnosis History of basal cell carcinoma Personal history of other malignant neoplasm of skin Seborrheic keratosis Other seborrheic keratosis documented in this encounter Care Teams Test Car Driver Relationship Specialty Start Date End Date Devora El APRN PCP - General Family Medicine 11/25/18 documented as of this encounter
--- OUTSIDE RECORDS SUMMARY | 2024-06-14 19:48 | XMS_ITS | Encounter Summary ---
Author Organization [facility] [place] [address] Care Team Providers Care Chief Fundraising Officer Name Role Phone Devora El APRN Primary Care Provider [phone] Encounter Details Date Type Department Care Team (Latest Contact Info) Description 04/05/2023 Travel Social History Tobacco Use Types Packs/Day [...] 1:45 PM EDT Office Visit Dermatology at [place] [address] [place] [address] Alan Carrero MD [address], [place] [address] documented as of this encounter Visit Diagnoses Not on filedocumented in this encounter Care Teams Chief Fundraising Officer Relationship Specialty Start Date End Date Devora El APRN PCP - General Family Medicine 11/25/18 documented as of this encounter
--- OUTSIDE RECORDS SUMMARY | 2024-06-14 19:48 | XMS_ITS | Encounter Summary ---
[place] [address] Care Team Providers Care Computer Help Desk Representative Name Role Phone Devora El APRN Primary Care Provider [phone] Encounter Details Date Type Department Care Team (Late st Contact Info) Description 12/06/2019 Telephone [place] [address] Nayely Chapa Social History Tobacco Use Types [...] 1:45 PM EDT Office Visit Dermatology at [place] [address] [facility] [place] [phone] Alan Carrero MD [address], KRIST[place] [address] documented as of this encounter Visit Diagnoses Not on filedocumented in this encounter Care Teams Computer Help Desk Representative Relationship Specialty Start Date End Date Devora El APRN PCP - General Family Medicine 11/25/18 documented as of this encounter
--- OUTSIDE RECORDS SUMMARY | 2024-06-14 19:48 | XMS_ITS | Encounter Summary ---
[place] [address] Care Team Providers Care Video Game Script Writer Name Role Phone Dennyyen Devora Grissom APRN Primary Care Provider [phone] Reason for Visit * Reason Onset Date Comments Pre Procedure Call 06/11/2023 Encounter Details Date Type Department Care Team (Late st Contact Info) Description 06/11/[address] [place] [address] Corby Jones CMA Pre Procedure Call (/) Social History Tobacco Use Types Packs/Day Years [...] encounter Miscellaneous Notes * Telephone Encounter - Corby Jones CMA - 06/11/2023 12:28 PM EDT Mohs consultation and preoperative note (H&P) Patient Name: Cathryn Roberto Age: 77 y.o. Date of : 1945 Today's Date: 06/11/2023 REFERRING PROVIDER: No ref. provider found CC: Mohs micrographic surgery for treatment of [...] you ever had Mohs surgery with Dr. Mims? no Pacemaker/Defibrillator? no Joint replacement or other implantable devices (e.g. Cochlear implant)? If yes then when? no Do you take a blood thinner? Yes Aspirin History of organ transplant? no History of [...] 1:45 PM EDT Office Visit Dermatology at [place] [address] [facility] [place] [address] Alan Carrero MD [address], [place] [address] documented as of this encounter Visit Diagnoses Not on filedocumented in this encounter Care Teams Video Game Script Writer Relationship Specialty Start Date End Date Devora El APRN PCP - General Family Medicine 11/25/18 documented as of this encounter
--- OUTSIDE RECORDS SUMMARY | 2024-06-14 19:48 | XMS_ITS | Encounter Summary ---
[place] [address] Care Team Providers Care Cad Administrator Name Role Phone Kami Duncan APRN Primary Care Provider [phone] Encounter Details Date Type Department Care Team (Late st Contact Info) Description 09/24/2016 4:00 PM EST - 09/24/2016 5:00 PM EST Surgery [place] [phone] Viki Coker MD [facility] [place] [address] COLONOSCOPY, DIAGNOSTIC (WRVU 3.26) Social History Tobacco [...] - 09/24/2016 5:51 PM EST Please call [phone] before 8pm with problems, questions or concerns, after 5pm call the Hospital at [phone] and ask to speak to the Sustainability Coordinator air conditioning mechanic industrial and the burner operator will contact that person for you. [...] foul drainage occurs, please contact your Doctor. [facility] Colonoscopy: What to Expect at Home Your [...] more? Visit our health information library at [email or web address] You can also view health information on [employer], your personal patient account. Log in or sign up today. Enter E264 in the search box to learn more about Colonoscopy: What to Expect at Home. ?? [id number] [employer], [employer]. Care instructions adapted under license by [facility]. This care instruction is for use with your licensed healthcare professional. If you have questions about a medical condition or this instruction, always ask your healthcare professional. [employer] disclaims any warranty or liability for your use of this information. Content Version: 11.0.303730; Current as of: July 05, 2015 documented [...] 1:45 PM EDT Office Visit Dermatology at [place] [address] [facility] [place] [address] Alan Carrero MD [address] [facility], KRISTIAN [place] [address] documented as of this encounter Procedures Procedure [...] PM EST 09/24/2016 5:42 PM EST Narrative [facility] - 09/24/2016 5:42 PM EST Specimen requisition ordered. ??Separate Pathology report to follow Viki Coker MD PATHOLOGY/CYTOLOGY [place] [address] * Specimen to Pathology (surgical or derm) (09/24/2016 5:42 PM EST) AP Specimen 09/24/2016 5:42 PM EST 09/24/2016 5:42 PM EST Narrative [facility] - 09/24/2016 5:42 PM EST Specimen requisition ordered. ??Separate Pathology report to follow L Dominick Coker MD PATHOLOGY/CYTOLOGY O NINO Performing Organization Address [facility] [place] [address] * Specimen to Pathology (surgical or derm) (09/24/2016 5:42 PM EST) AP Specimen 09/24/2016 5:42 PM EST 09/24/2016 5:42 PM EST Narrative [facility] - 09/24/2016 5:42 PM EST Specimen requisition ordered. ??Separate Pathology report to follow L Dominick Coker MD PATHOLOGY/CYTOLOGY O NINO Performing Organization Address [facility] [place] [address] * COLONOSCOPY (09/24/2016 4:55 PM EST) COLONOSCOPY [facility] Endoscopy Procedure Date: 09/24/2016 4:55 PM ? Patient Name: Cathryn Roberto ? N: [id number] ? Date of : 1945 ? Age: 70 ? Order #: [id number] ? Instrument Name: [id number] ? Procedure: ? Colonoscopy Indications: ? High [...] preparation was evaluated using ? the BBPS (Pipestem Bowel Preparation ? Scale) with scores of: [...] ? please call our office at ? [phone]. ? Attending Participation: ? I personally performed the entire procedure. ? __ L. Dominick Coker MD 09/24/2016 5:48:19 PM Number of Addenda: 0 Note Initiated On: 09/24/2016 4:55 PM PROVATION 09/24/2016 4:55 PM EST Linda Guaman MD GENERAL SURGICAL ORD ERABLES PROVATION * Surgical Pathology Report (09/24/2016 5:41 AM EST) Final Diagnosis [id number] ?Location: 4T; EA09; A The signing pathologist [...] ing: (T1) ??ejr 09/28/2016 3:38 PM EST [facility] GI Biopsy 09/24/2016 5:41 AM EST 09/24/2016 5:41 AM EST GI Biopsy 09/24/2016 5:41 AM EST 09/24/2016 5:41 AM EST GI Biopsy 09/24/2016 5:41 AM EST 09/24/2016 5:41 AM EST L Dominick Coker MD PATHOLOGY/CYTOLOGY O RDERAKRISTINA [facility] [place] [id number] documented in this encounter Visit Diagnoses Not on filedocumented in this encounter Administered Medications Inactive Administered Medications - up to 3 most recent administrations Medication Order MAR Action Action Date Dose Rate Site fentaNYL 50 mcg/mL multi-dose injection ONCE PRN, Starting on Maggi 09/24/16 at 1700, Until Maggi 09/24/16 at 2113, Intra-Operative (Intra-Procedure), Routine Given 09/24/2016 5:14 PM EST 50 mcg Right Arm Given 09/24/2016 5:11 PM EST 25 mcg Ri ght Arm Given 09/24/2016 5:10 PM EST 25 mcg Ri ght Arm lactated ringers infusion 100 mL/hr, Intravenous, CONTINUOUS, Starting on Maggi 09/24/16 at 1630, Until Maggi 09/24/16 at 1817, Endoscopy (Day of Procedure) New Bag 09/24/2016 4:30 PM EST 100 mL/hr 100 mL/hr midazolam (PF) (VERSED) 1 mg/mL multi-dose injection ONCE PRN, Starting on Maggi 09/24/16 at 1700, Until Maggi 09/24/16 at 2113, Intra-Operative (Intra-Procedure), Routine Given 09/24/2016 5:18 PM EST 0.5 mg Right Arm Given 09/24/2016 5:14 PM EST 0.5 mg Ri ght Arm Given 09/24/2016 5:11 PM EST 0.5 mg Ri ght Arm documented in this encounter Active and Recently Administered Medications Times are shown in EST. Continuous Medication Order 09/22/2016 09/23/2016 09/24/2016 lactated ringers infusion (CANCELED) 100 mL/hr, Intravenous, CONTINUOUS, Starting on Maggi 09/24/16 at 1630, Until Maggi 09/24/16 at 1817, Endoscopy (Day of Procedure) 1630 (New Bag - Prov ider: Markus Finn RN) PRN Medication Order 09/22/2016 09/23/2016 09/24/2016 fentaNYL 50 mcg/mL multi-dose injection (CANCELED) ONCE [...] Woody Mai RN)171 (Given - Provider: Woody W Wendel, RN)1714 (Given - Provider: Woody Mai RN)1711 (Given - Provider: Woody Mai RN) documented in this encounter Care Teams Cad Administrator Relationship Specialty Start Date End Date Kami Duncan APRN PCP - General Family Medicine 09/24/16 07/11/17 documented as of this encounter
--- OUTSIDE RECORDS SUMMARY | 2024-06-14 19:48 | XMS_ITS | Encounter Summary ---
Author Organization [facility] [place] [address] Care Team Providers Care Auto Air Conditioning Installer Name Role Phone Sienna Devora rGissom APRN Primary Care Provider [phone] Encounter Details Date Type Department Care Team (Latest Contact Info) Description 04/16/2020 7:59 PM EDT - 04/16/2020 11:59 PM EDT Hospital [place] [phone] Screening for colon cancer Discharge Disposition: Home Social History Tobacco Use [...] unit Tablet Take by mouth. 01/30/2013 04/05/2023 lwegicrp-umyrlfuab-gnly methasone (DEXACINE) 3.5 mg/g-10,000 unit/g-0.1 % Ointment 09/06/20182020 CALCIUM CARBONATE/VITAMIN D3 (CALCIUM + D ORAL) Take by mouth. 021 documented as of this encounter Plan of Treatment Upcoming Encounters Date Type Department Care Team (Late st Contact Info) Description 06/11/2025 1:45 PM EDT Office Visit Dermatology at [place] [address] [facility] [place] [address] Alan Carrero MD [address], KRIST[place] [address] documented as of this encounter Visit Diagnoses Diagnosis Screening for colon cancer Special screening for malignant neoplasms, colon documented in this encounter Care Teams Auto Air Conditioning Installer Relationship Specialty Start Date End Date Devora El APRN PCP - General Family Medicine 11/25/18 documented as of this encounter
--- OUTSIDE RECORDS SUMMARY | 2024-06-14 19:48 | XMS_ITS | Encounter Summary ---
Author Organization [facility] [place] [address] Care Team Providers Care Forming Machine Operator Name Role Phone Dennyyen Devora Yen COLON Primary Care Provider [phone] Reason for Visit * Reason Comments Annual Exam Encounter Details Date Type Department Care Team (Late st Contact Info) Description 05/22/2021 8:45 AM EDT Office Visit Dermatology at [address] [address] Alan Carrero MD [address] [facility], [place] [address] History of basal cell carcinoma; Seborrheic keratosis [...] Progress Notes * Alan Carrero MD - 05/22/2021 8:45 AM EDT Problem: 1.?Annual skin checkup 2. 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 ??History of Mohs surgery for BCCA sternal notch February 2006 4. ??History of BCCA left central upper mid chest??June 2006 5. ??History of BCCA right upper back on June 2017 6. ??History of BCCA's left chin, left breast, and left trapezius 7. ??Patient grew up in [facility] 8. ??History BCCAs,??glabella and right nasal sidewall, May 2018 Cathryn follows up for her annual skin checkup. She is now 75. She has noted a new lesion on the upper cutaneous lip essentially at the vermilion border but otherwise no other lesions of concern. Physical examination reveals a pleasant 75 woman with a benign examination of the head and neck thechest the back the hands the arms the forearms thighs and the calves. There is no evidence of any other areas of concern except for a hyperkeratotic reddened somewhat indurated papule on the upper cutaneous lip on the right aspect of the cupids bow at the vermilion border. Examination of the rest of body is benign. She has an irritated seborrheic keratosis on the left superior shoulder Assessment plan: Irritated seborrheic keratosis. 1. Could consider LN2 treatment for this. Rule out SCCA versus BCCA upper cutaneous lip at vermilion border 1. After obtaining for consent site was anesthetized and removed with shave C&D x3 2. Triple antibiotic ointment and bandage placement treated wound care instructions was given 3. After curettage site measured 5 mm in diameter 4. Return to clinic in another year for repeat check History of multiple nonmelanoma cutaneous malignancies 1. No evidence of recurrence at prior treatment sites. 2. Continue sun avoidance precautions which the patient is following. CC: Devora El APRN documented in this encounter Plan of Treatment Upcoming Encounters Date Type Department Care Team (Late st Contact Info) Description 06/11/2025 1:45 PM EDT Office Visit Dermatology at [place] [address] [facility] [place] [phone] Alan Carrreo MD [address] [facility], [place] [address] documented as of this encounter Visit Diagnoses Diagnosis History of basal cell carcinoma Personal history of other malignant neoplasm of skin Seborrheic keratosis Other seborrheic keratosis documented in this encounter Care Teams Forming Machine Operator Relationship Specialty Start Date End Date Devora El APRN PCP - General Family Medicine 11/25/18 documented as of this encounter
--- OUTSIDE RECORDS SUMMARY | 2024-06-14 19:49 | XMS_ITS | Clinical Summary ---
Author Organization [facility] Address [address] [place] [address] Care Team Providers Care Transcribing Machine Mechanic Name Role Phone Unknown, Provider Primary Care Provider Social History Tobacco Use Types Packs/Day Years Used Date Smoking Tobacco: Never Assessed Sex and Gender Information Value Date Recorded Sex Assigned at Not on file Gender Identity Not on file Sexual Orientation Not on file Plan of Treatment Health Maintenance Due Date Last Done Comments Hepatitis C Screen 1945 RSV Immunization ( o r 60+ Years) (1 - 1-dose 60+ series) 2004 Fall Risk Screening 2009 COVID-19 Vaccine (2022-24 season) 2023 Care Teams Transcribing Machine Mechanic Relationship Specialty Start Date End Date Unknown, Provider, PCP - General 03/03/13
--- OUTSIDE RECORDS SUMMARY | 2024-06-14 19:49 | XMS_ITS | Encounter Summary ---
Author Organization [facility] [place] [address] Care Team Providers Care Hedis Specialist Name Role Phone Linda Guaman MD Primary Care Provider [phone] Encounter Details Date Type Department Care Team (Late st Contact Info) Description 08/10/2012 Orders [place] [address] Keiko Hancock PLUMBER APPRENTICE [facility] [place] [address] Ankle fracture Social History Tobacco Use Types Packs/Day Years Used Date Smoking Tobacco: Never Sex and Gender Information Value Date Recorded Sex Assigned at Not on file Gender Identity Not on file Sexual Orientation Not on file documented as of this encounter Plan of Treatment Upcoming Encounters Date Type Department Care Team (Late st Contact Info) Description 06/11/2025 1:45 PM EDT Office Visit Dermatology at [place] [address] [facility] [place] [address] Alan Carrero MD [address], [place] [address] documented as of this encounter Visit Diagnoses Diagnosis Ankle fracture Unspecified closed fracture of ankle documented in this encounter Care Teams Hedis Specialist Relationship Specialty Start Date End Date Linda Guaman MD [facility] [address] [place] [address] [address] [facility] [place] [address] PCP - General 07/08/10 09/23/16 documented as of this encounter
--- OUTSIDE RECORDS SUMMARY | 2024-06-14 19:49 | XMS_ITS | Referral Summary ---
Author Organization [facility] Address [address] [place] [address] Care Team Providers Care Supply Controller Name Role Phone Unknown, Provider Primary Care Provider Social History Tobacco Use Types Packs/Day Years Used Date Smoking Tobacco: Never Assessed Sex and Gender Information Value Date Recorded Sex Assigned at Not on file Gender Identity Not on file Sexual Orientation Not on file Plan of Treatment Not on file Care Teams Supply Controller Relationship Specialty Start Date End Date Unknown, Provider, PCP - General 03/03/13
--- OUTSIDE RECORDS SUMMARY | 2024-06-14 19:49 | XMS_ITS | Encounter Summary ---
[place] [address] Care Team Providers Care Professional Fee Coder Name Role Phone Linda Guaman MD Primary Care Provider [phone] Reason for Visit * Reason Comments Skin Check Encounter Details Date Type Department Care Team (Late st Contact Info) Description 04/13/2011 1:30 PM EDT Office Visit Dermatology [address] [facility] [address] [place], [place] [id number] Alan Carrero MD [address], [place] [address] History of basal cell carcinoma (Primary Dx); Actinic keratosis Social History Tobacco Use Types Packs/Day Years Used Date Smoking Tobacco: Never Sex and Gender Information Value Date Recorded Sex Assigned at Not on file Gender Identity Not on file Sexual Orientation Not on file documented as of this encounter Progress Notes * Alan Carrero MD - 04/13/2011 2:18 PM EDT Problems: 1. Yearly skin checkup. 2. History of BCCa, left scapula, 02/2005. 3. History of Mohs surgery for BCCa, sternal notch, 02/2006. 4. History of BCCa, left central upper mid back, 06/2006. 5. History of BCCa(s): left chin, left breast and left trapezius. Cathryn follows up and is doing well. She reminds me that she grew up in [facility] and has had a fair amount of sun exposure. She is very fair skinned. She is now 65 and here for a yearly skin checkup. Physical examination reveals a pleasant 65-year-old woman who has a new follicular cyst on the left anterior shoulder which she wants to have Dr. Leonard excise. Otherwise careful examination of the head, neck, chest, back, hands, arms, forearms, thighs and calves is benign. She has a single actinic keratosis on the right tip of the nose. Assessment & Plan: Actinic keratosis, right nasal tip. a. LN2 x2 applied to site. b. Patient reassured. c. RTC in one year for repeat check. History of multiple nonmelanoma cutaneous malignancies. a. Patient reassured about benign examination today. b. Continue sun avoidance precautions. Ccs: MD Balta Santana MD documented in this encounter Miscellaneous Notes * Miscellaneous - Deepak Nayak - 05/01/2011 1:47 PM EDT documented in this encounter Plan of Treatment Upcoming Encounters Date Type Department Care Team (Late st Contact Info) Description 06/11/2025 1:45 PM EDT Office Visit Dermatology at [place] [address] [place] [address] Alan Carrero MD [address], [place] [address] documented as of this encounter Visit Diagnoses Diagnosis History of basal cell carcinoma- Primary Personal history of other malignant neoplasm of skin Actinic keratosis documented in this encounter Care Teams Professional Fee Coder Relationship Specialty Start Date End Date Linda Guaman MD HOSPITAL[facility] [address] [place] [address] [place] [address] PCP - General 07/08/10 09/23/16 documented as of this encounter
--- OUTSIDE RECORDS SUMMARY | 2024-06-14 19:49 | XMS_ITS | Encounter Summary ---
Author Organization [facility] Address [facility] [place] [address] Care Team Providers Care Farm Contractor Name Role Phone Linda Guaman MD Primary Care Provider [phone] Encounter Details Date Type Department Care Team (Latest Contact Info) Description 02/12/2016 - 02/12/2016 1:02 PM EDT Hospital Encounter Radiology Library at [facility] [place] [id number] Ward Garcia MD [facility] [place] [address] Pain Discharge Disposition: Home Social History Tobacco Use [...] mg-10 mcg (400 unit) Tablet daily. 01/30/2013 acetaminophen (TYLENOL) 325 mg Tablet Take 2 tablets by mouth every 4 hours as needed. 30 tablet 1 02/16/2016 fish oil-omega-3 fatty acids 500 mg Capsule Take 1,400 mg by mouth. aspirin 81 mg EC tablet Take 81 mg by mouth daily. multivitamin (THERAGRAN) tablet Take 1 tablet by mouth daily. calcium-vitamin D3 600 mg(1,500mg) -400 unit Tablet Take by mouth. 01/30/2013 3 enoxaparin (LOVENOX) 80 mg/0.8 mL Syringe Inject 0.8 mLs subcutaneously 2 times daily. 10 Syringe 1 02/16/2016 09/24/2016 warfarin (COUMADIN) 5 mg Tablet Take 1 tablet by mouth daily. 90 tablet 3 02/16/2016 09/24/2016 enoxaparin (LOVENOX) 120 mg/0.8 mL Syringe Inject 0.57 mLs subcutaneously every 12 hours. 14 Syringe 3 02/14/2016 02/16/2016 rivaroxaban (XARELTO) 10 mg Tablet Take 1.5 tablets by mouth 2 times daily. 50 tablet 02/13/2016 02/13/2016 rivaroxaban (XARELTO) 10 mg Tablet Take 2 tablets by mouth daily. 90 tablet 3 02/13/2016 02/13/2016 dabigatran (PRADAXA) 150 mg Capsule Take 1 capsule by mouth 2 times daily. 90 capsule 3 02/13/2016 02/13/2016 apixaban (ELIQUIS) 5 mg Tablet Take 2 tablets by mouth 2 times daily. 20 tablet 02/13/2016 02/13/2016 apixaban (ELIQUIS) 5 mg Tablet Take 1 tablet by mouth 2 times daily. 90 tablet 3 02/13/2016 02/13/2016 CALCIUM CARBONATE/VITAMIN D3 (CALCIUM + D ORAL) Take by mouth. 05/22/2021 documented as of this encounter Plan of Treatment Upcoming Encounters Date Type Department Care Team (Late st Contact Info) Description 06/11/2025 1:45 PM EDT Office Visit Dermatology at [place] [address] [facility] [address] [place] [phone] Alan Carrero MD [address], [place] [address] documented as of this encounter Procedures Procedure Name Priority Date/Time Associated Diagnosis Comments FILM LIBRARY STORAGE ONLY DX CHEST Routine 02/12/2016 12:00 AM EDT Pain documented in this encounter Results * Film Library- Storage only DX Chest (02/12/2016 12:00 AM EDT) Narrative RAD - 02/12/2016 11:46 AM EDT This exam is for storage only and is auto-finalizing. Ward Garcia MD IMG FILM LIBRARY ORD ERABLES [place], [place] documented in this encounter Visit Diagnoses Diagnosis Pain Generalized pain documented in this encounter Care Teams Farm Contractor Relationship Specialty Start Date End Date Linda Guaman MD [facility] [address] [place] [address] [place] [address] PCP - General 07/08/10 09/23/16 documented as of this encounter
--- OUTSIDE RECORDS SUMMARY | 2024-06-14 19:49 | XMS_ITS | Encounter Summary ---
Author Organization [facility] [place] [address] Care Team Providers Care Dust Puller Name Role Phone Linda Guaman MD Primary Care Provider [phone] Encounter Details Date Type Department Care Team (Late st Contact Info) Description 08/15/2012 External Results XRay at [address] [place] [address] Sean Javier MD EMERGENCY DEPT [address] [place], [place] [id number] Social History Tobacco Use Types Packs/Day Years Used Date Smoking Tobacco: Never Sex and Gender Information Value Date Recorded Sex Assigned at Not on file Gender Identity Not on file Sexual Orientation Not on file documented as of this encounter Plan of Treatment Upcoming Encounters Date Type Department Care Team (Late st Contact Info) Description 06/11/2025 1:45 PM EDT Office Visit Dermatology at [place] [address] [facility] [place] [address] Alan Carrero MD [address], [place] [address] documented as of this encounter Procedures Procedure Name Priority Date/Time Associated Diagnosis Comments DIAGNOSTIC RADIOLOGY SCAN Routine 08/10/2012 documented in this encounter Results * Scan Doc: Diagnostic Radiology (08/10/2012) Anatomical Region Laterality Modality Other Sean Javier MD MEDIA MGR SCAN EXT O RDR/RSLT documented in this encounter Visit Diagnoses Not on filedocumented in this encounter Care Teams Dust Puller Relationship Specialty Start Date End Date Linda Guaman MD [facility] [address] [place] [address] [place] [address] PCP - General 07/08/10 09/23/16 documented as of this encounter
--- OUTSIDE RECORDS SUMMARY | 2024-06-14 19:49 | XMS_ITS | Encounter Summary ---
Author Organization [facility] [place] [address] Care Team Providers Care Wood Products Manufacturer Name Role Phone Linda Guaman MD Primary Care Provider [phone] Encounter Details Date Type Department Care Team (Late Contact Info) Description 04/10/2011 Abstract Dermatology [address] [place], [place] [id number] Devora Jimenez, RN Social History Tobacco Use Types Packs/Day Years Used Date Smoking Tobacco: Never Assessed Sex and Gender Information Value Date Recorded Sex Assigned at Not on file Gender Identity Not on file Sexual Orientation Not on file documented as of this encounter Plan of Treatment Upcoming Encounters Date Type Department Care Team (Late Contact Info) Description 06/11/2025 1:45 PM EDT Office Visit Dermatology at [place] [address] [place] [phone] Alan Carrero MD [address], [place] [address] documented as of this encounter Visit Diagnoses Not on filedocumented in this encounter Care Teams Wood Products Manufacturer Relationship Specialty Start Date End Date Linda Guaman MD [facility] [address] [place] [id number] PCP - General 07/08/10 09/23/16 documented as of this encounter
--- OUTSIDE RECORDS SUMMARY | 2024-06-14 19:49 | XMS_ITS | Encounter Summary ---
Author Organization [facility] [place] [address] Care Team Providers Care Gasoline Service Attendant Name Role Phone Linda Evangelista MD Primary Care Provider [phone] Reason for Visit * Auth/Cert Specialty Diagnoses / Procedures Referred By Mae luna Referred To Contact Diagnoses PE (pulmonary embolism) STEMI STEMI Procedures CARDIAC CATHETERIZATION Referral ID Status Reason Start Date Expiration Date Visits Re quested Visits Authorized [id number] 1 1 Encounter Details Date Type Department Care Team (Late st Contact Info) Description 02/12/2016 2:35 PM EDT - 02/12/2016 3:35 PM EDT [place] [id number] Griffin Perry MD [facility] [place] [address] CARDIAC CATHETERIZATION Social History Tobacco Use Types Packs/Day Years [...] Sign Reading Time Taken Comments Blood Pressure 123/77 02/16/2016 11:30 AM EDT Pulse 70 02/15/2016 7:56 AM EDT Temperature 36.6 ??C (97.9 ??F) 02/16/2016 11:30 AM E DT Respiratory Rate 16 02/16/2016 11:30 AM EDT Oxygen Saturation 94% 02/16/2016 11:30 AM EDT Inhaled Oxygen Concentration - - Weight 84.2 kg (185 lb 10 oz) 02/16/2016 7:00 AM EDT Height 177.8 cm (5' 10) 02/12/2016 11:00 PM EDT Body Mass Index 26.63 02/12/2016 11:00 PM EDT documented in this encounter Discharge Summaries * Leonid Luz MD - 02/12/2016 8:14 PM EDT Inpatient - Discharge Summary Patient Name: Lelo Workman Patient Age: 70 y.o. Birthdate: 1945 Admit date: 02/12/2016 Discharge date and time: 02/16/2016 1230 Attending Physician: Leonid Luz MD Discharge Diagnoses (Hospital Problems) and Secondary Diagnoses (Chronic Problems): Active Hospital Problems Diagnosis ??? PE (pulmonary embolism) Resolved Hospital Problems Diagnosis Date Resolved No resolved problems to display. Active Non-Hospital Problems Diagnosis ??? History of basal cell carcinoma ??? Actinic keratosis ??? BCC (basal cell carcinoma) Operations/Major Procedures: Operations: Procedure(s): CARDIAC CATHETERIZATION (02/11): LVEF 65% and normal coronary arteries History of Presentation: From admission H and P This 70-year-old woman has a relatively unremarkable past medical history. She injured her right knee on January 23, 2016 and has been in a removable splint preventing lateral motion. She has been fairlyimmobile and getting around with a walker but lacking in her usual activities. Today she awakened feeling okay but in the process of M Bhupendra to the bathroom noted the sudden onset of lightheadedness, dyspnea, nausea, diaphoresis, and jaw discomfort. Her symptoms improved slightly with laying down but showed multiple recurrences. Shortly thereafter she called 911 and noted improvement with oxygenupon arrival of paramedics. She was brought to [facility] where she wasmildly tachypneic and had decreased oxygen saturations. She was treated with a nonrebreather mask. Her initial troponin was negative. An EKG later suggested anterolateral injury pattern and at that time suspected she was in the midst of an acute anterolateral STEMI she was treated with aspirin, Plavix, and thrombolytics (tenecteplase). She was transferred here via ambulance and brought to the heart catheterization lab where coronary angiography showed normal coronary arteries. Left ventriculography was normal. A subsequent echocardiogram showed normal LV function and a dilated right ventriclewith global hypokinesia and preservation and hyperdynamic tip of the RV apex. Hospital Course: Job Workman was admitted to the Cardiology Service (M1-S1) and found to have a pulmonary embolus after her 3 week history of immobilization after injuring her right knee. This was based on the patient's clinical presentation, EKG, echo, and Chest CT with contrast. Residual DVT was also found.She was transported to the [facility] as she required high flow nasal cannula to maintain her oxygen saturation at goal. This was weaned down to room air as tolerated with SaO2 maintained at >90%. She was anticoagulated with heparin IV, transitioned to lovenox and bridged to warfarin. She continued toexperience intermittent pleuritic chest pain that was relieved with acetaminophen. She remained hemo dynamically stable throughout her hospital stay and ambulated without incident. Enoxaparin will need to be employed until INR is therapeutic. Important Studies and Lab Data: Labs: Recent Labs 02/16/1632102/15/1624202/14/16427 WBC 7.6 7.6 7.2 HGB 12.0 11.6 11.4 PLATELET 238 272 267 Recent Labs 02/16/16 0846 02/16/1632102/15/16242 NA 141 138 142 K 3.7 Not Perf 3.8 CL 101 102 106 CO2 23 21* 24 BUN 12 11 13 CREATININE 0.85 0.75 0.78 Recent Labs 02/16/16 0846 02/16/162 02/15/1624202/14/16 0428 CALCIUM 9.4 9.1 9.0 9.1 MAGNESIUM -- 0.86 0.85 0.87 Recent Labs 02/12/16 1520 AST 32* ALT 39* ALKPHOS 86 BILITOT 0.6 BILIDIR 0.1 No results for input(s): TROPONINT, CK in the last 168 hours. No results for input(s): PHART, GUB1GYK, PO2ART, WMZ3UWA in the last 168 hours. Studies: Cardiac Catheterization (02/11): LVEF 65%, normal coronary arteries Echo (02/11): The left ventricular chamber size is normal. Mild concentric left ventricular hypertrophy is observed. There is normal global left ventricular systolic function. Ejection fraction is estimated to be 70%. The right ventricle is moderately dilated. Right ventricular global systolic function is moderately reduced. The estimated pulmonary artery systolic pressure is 32 mmHg plus right atrial pressure. Septal motion is suggestive of RV pressure overload. Consider pulmonary embolus. CT Chest With Contrast (02/11): Large bilateral central pulmonary emboli, right heart strain, and small left and trace right pleural effusions. Lower Extremity Duplex Study (02/13): RIGHT: Non-occlusive and occlusive lower extremity DVT (deep veins in the calf). No evidence of femoral-popliteal deep venous thrombosis. LEFT: No evidence of lower extremity deep venous thrombosis. Pending Studies and Lab Data: The patient will need the following 6 tests completed on: 02/12/2016 1. CBC (with Diff) 4. APTT 2. CBC (with Diff) 5. CBC (with Diff) 3. CBC (with Diff) 6. CBC (with Diff) Diagnosis: Authorizing Provider: Ward Garcia MD Discharge Conditions/Prognosis: Pulmonary Embolus has a very good prognosis if treated appropriately with anticoagulation for 6 months. Discharge to: Home Discharge Medications: Your Medications New Medications Dose Details acetaminophen 325 mg Tab Commonly known as: TYLENOL Take 2 tablets by mouth every 4 hours as needed. 650 mg Quantity: 30 tablet Refills: 1 enoxaparin 80 mg/0.8 mL Syrg Commonly known as: LOVENOX Inject 0.8 mLs subcutaneously 2 times daily. 80 mg Quantity: 10 Syringe Refills: 1 warfarin 5 mg Tab Commonly known as: COUMADIN Take 1 tablet by mouth daily. 5 mg Quantity: 90 tablet Refills: 3 Continued medications, unchanged Dose Details CALCIUM + D ORAL Take by mouth. Refills: 0 Updated Allergies/ADRs: Allergies Allergen Reactions ??? Latex Gloves Rash Follow-up Recommendations for Providers: For Pulmonary Embolus: Patient is being discharged with lovenox to bridge with warfarin. She will follow up with [facility]. The patient continues to experience pleuritic chest pain and will be discharged with acetaminophen 1g Q8HR for for. It is recommended that she have a follow up TTE at the [facility] Out[facility] clinic to re-evaluate her right heart strain in light of provoked pulmonary embolus. Instructions Given to Patient at Discharge: Patient Instructions Patient Instructions on Discharge to Home Why you were hospitalized: You had a pulmonary embolus, which is a blood clot that was found at the branch point of your main pulmonary artery. This was likely caused by decreased mobility in light of your recent right knee injury. You received thrombolytics at [facility] and were started on anticoagulation with heparin and warfarin to prevent further blood clots from forming. Your shortness of breath and dizziness improved with this anticoagulation treatment. Your chest tightness may continue as a result of the injury to your lungs from the pulmonary embolus. You can take tylenol as instructed below for this discomfort. Upon discharge, you may go back to regular activity and work. During your hospital stay you underwent a cardiac catheterization to see if you had blockages in your coronary arteries. There were no blockages found. Your cardiac catheterization site is healing well. Please call your doctor if you develop sudden chest pain or shortness of breath, especially chest pain that does not go away with tylenol. It is important that you continue to take your lovenox with warfarin and closely follow up with the [facility] anticoagulation outpatient clinic in order to make sure your INR is therapeutic between 2-3 before you stop taking the lovenox. The anticou lation clinic will follow your INR closely, will appropriately adjust your lovenox and warfarin medication regimen, and they will recommend blood tests accordingly. Do not miss any doses of these medications! New Medications: Lovenox subQ injections twice a day Warfarin 5mg by mouth once a day Medication Changes: None. When to call your doctor: - Chest pain, worsening shortness of breath, fatigue with usual exertion, or new rest/night time symptoms. - Weigh yourself daily and record; if you note an increase of more than 2-3 pounds in 2 days, or 5 pounds over a week, contact your health care provider. - If you become short of breath, cannot lie down to sleep, or have swelling in your legs/ankles or abdomen, contact your health care provider. - Call if you have reduced urination during the day or increased urination at night. - Call for signs of increased wound drainage, redness, swelling, or increased pain at the site of your cardiac cath. - Call if you develop a temp >100.5 If you have non-emergent questions between now and the time of your follow up appointments: During 8am-5pm Wednesday through Wednesday call [phone] to speak with a nurse in the cardiology clinic All other times call [phone] and ask to speak to the core microarchitect control room tender. Activity level: - No heavy lifting (more than five pounds) for 48 hours; no more than 10 pounds for one week. - You may return to work in 1 week. Use common sense. Don't exhaust yourself. - No hunting, skiing, jogging, snow shoveling, snowmobiling, lawn mowing, swimming, golf or tennis until after your return appointment with your family doctor. - Do not ride motorcycles, tractors or horses until cleared by your doctor. Diet: - Heart healthy: low salt, low fat, low concentrated sweets. Remember to avoid added salt, canned foods, processed foods (ie hot dogs, sausage, cold meats), and foods naturally high in salt, such as potato chips or pizza. Driving: - Per your routine after [address] if you feel dizzy, light headed, or are taking narcotic medications (ie/ Oxycodone, Morphine, Dilaudid, etc). Shower/Bath: - You may shower 24 hours after cardiac catheterization. - You may not sit in water for 5 days (tub bath, hot tub or pool). Wound Care: - Cath site dressing may be removed in 24 hours. Site may be washed with soap/water. A dressing does not need to be reapplied unless irritation occurs with underclothes. If irritation occurs, apply clean band-aid daily. Exercise: - Exercise 5-7 days per week as tolerated with gradual increase to 30 minutes per day. Smoking cessation: - If you are currently a smoker, you are strongly urged to stop smoking! Smoking increases the severity and incidence of heart disease, and is a risk factor for cancer and emphysema. Your health careprovider can provide specific measures to assist you, including nicotine supplements, anti-anxiety meds, and support groups in your community. Follow up Appointments: No future appointments. Air Conditioning Specialist: Please follow up with Cardiology Outpatient Clinic for an Echocardiogram to evaluate the right side of your heart within the next month, after you have achieved a therapeutic INR. Please contact their office at [phone]. PCP: LINDA EVANGELISTA MD at [phone]. Please make an appointment to follow up with your PCP within the next 7-10 days after discharge. Please call the office of your PCP Linda Evangelista MD at [phone]. Anti-coagulation follow up: Thursday, February 18, 2016 at [facility]. I will call them on Wednesday (02/18/16) in order to establish your care with them. Expect a call from them on Wednesday. If you do not hear from their office, please call their office at . Anticoagulation Management (Blood Thinner Medications) Upon Discharge 1. Reason for anticoagulation (blood thinner) therapy: Pulmonary Embolus, blood clot in your lungs 2. Your NEW warfarin (Coumadin??) dosing upon discharge is as below. Follow these instructions until your first INR check after discharge: ??? Tonight, (Day #1): Take 5 mg at 5 pm ??? Tomorrow (Day#2): Take 5 mg at 5 pm ??? Day #3: 5 ??? Day #4: 5 3. Follow up INR is scheduled on: Thursday, February 18, 2016 4. INR Goal: 2-3 5. Expected duration of treatment: 6 months 6. Provider/Team responsible for ongoing outpatient anticoagulation management: ??? Provider/Team/Clinic: Anticoagulation Program at [facility] ??? Phone: 7. If you have not received a call from your provider within 24 hours of having your INR drawn, please call your outpatient provider for further dose instructions. 8. Warfarin (Coumadin??) should be taken at the same time every day, preferably after 5:30 pm. 9. If taking enoxaparin (Lovenox??) injections, continue taking them until instructed to stop doingso by your provider. Sometimes this needs to overlap for 24-48 hours while your INR is within your goal range. ?? Please review your warfarin (Coumadin??) Pack upon discharge. ?? The following table shows your most recent INR results and warfarin (Coumadin??) doses: Recent Labs 02/16/16 0322 02/15/16 0243 02/14/16 0428 02/13/16 0415 02/12/16 1520 INR 1.1 1.1 1.1 1.2* 1.3* [place] Inpatient Doctor(s) at [facility] Leonid Luz MD - Attending physician Carson Kimball MD - Resident physician Pauline Abebe MD - Supervisor Evaporator physician Your Primary Care Provider: LINDA EVANGELISTA MD HOSPITALIST SERVICES [address] [place] [address] / [facility] * [phone] For questions regarding issues relating to your hospitalization on the Hospital Medicine Service, please contact your inpatient physician through the [facility] Adjunct Instructor [phone]. Issues after hours and on weekends will be handled by the Hospitalist staff on-call. General Instructions None Future Appointments and Orders Future Orders Complete By Expires Referral to Home Health - at DISCHARGE [[id number] CPT(R)] As directed Process Instructions: Scheduling Instructions: DISCHARGE DOCUMENTATION FOR VNA SERVICES (INCLUDING THOSE PATIENTS WITH MEDICARE COVERAGE BEING DISCHARGED HOME WITH VNA SERVICES AND THOSE PATIENTS WITH MEDICARE COVERAGE WHO ARE BEING DISCHARGED HOME WITH HOSPICE SERVICES) In discussion with the attending physician, it is certified that this patient is under their care and that they, or a Nurse Practitioner, Clinical Nurse Specialist or Physician Corn Chip Maker who is working directly with them, had a face to face encounter that meets the physician face to face encounter requirements with this patient [id number] The encounter with the patient was in whole, or in part, for the following medical condition, whichis the primary reason for home health care services: [ stemi,saddle emboli ] In discussion with the primary medical team, it is certified that, based on their findings, the indicated services are medically necessary and appropriate for home health services. Patient Location: [place] [address] (home) [phone] (work) No relevant phone numbers on file. HOME Health Agency: [facility] PHONE: [phone] FAX: [phone] RN: Assess cardiopulmonary assessment, vital signs, medication management and effectiveness, elimination and nutrition and home safety evaluation Please draw INR if indicated and call with results as instructed to [facility] at [phone]. Start of Care Date: 24 hours afte [facility] discharge All VNA agencies which cover the area of patient's residence have been reviewed, either verbally chely writing, and patient/family have chosen the indicated home health care agency for home services. FOR MEDICARE ONLY: (please delete this section if not Medicare) In discussion with the attending physician, it is certified that the clinical findings support thatthis patient is homebound i.e. absences from home require considerable and taxing effort; Needs assistance of a person to the leave the home. Please note that any additional orders needs or changes will need to be obtained from this patient's PCP: LINDA EVANGELISTA MD @PCPADDR@ [phone] Questions: Agency name and contact information: [facility] Patient location post discharge: home What services are requested: Registered Nurse Physical Therapy Occupational Therapy Start date: Responsible MD post discharge contact info: PCP/Melissa,[facility] Discharge References/Attachments: Discharge References/Attachments PULMONARY EMBOLISM (PAP[place]) DVT (DEEP VEIN THROMBOSIS): PREVENTION : GENERAL INFO (PAP[place]) ENOXAPARIN (LOVENOX) (PAP[place]) HEPARIN (PAPUA [place]AN) Inpatient Provider Contact Information: For questions regarding this document or issues relating to this hospitalization on Medical Service, please contact your inpatient physician through the [facility] Adjunct Instructor . Issues after hours and on weekends will be handled by the Hospitalist staff on-call. Electronically Signed By: Pauline Abebe MD 02/16/2016 documented in this encounter Discharge Instructions * Patient Instructions* Pauline Abebe - 02/16/2016 11:28 AM EDT Patient Instructions on Discharge to Home Why you were hospitalized: You had a pulmonary embolus, which is a blood clot that was found at the branch point of your main pulmonary artery. This was likely caused by decreased mobility in light of your recent right knee injury. You received thrombolytics at [facility] and were started on anticoagulation with heparin and warfarin to prevent further blood clots from forming. Your shortness of breath and dizziness improved with this anticoagulation treatment. Your chest tightness may continue as a result of the injury to your lungs from the pulmonary embolus. You can take tylenol as instructed below for this discomfort. Upon discharge, you may go back to regular activity and work. During your hospital stay you underwent a cardiac catheterization to see if you had blockages in your coronary arteries. There were no blockages found. Your cardiac catheterization site is healing well. Please call your doctor if you develop sudden chest pain or shortness of breath, especially chest pain that does not go away with tylenol. It is important that you continue to take your lovenox with warfarin and closely follow up with the [facility] anticoagulation outpatient clinic in order to make sure your INR is therapeutic between 2-3 before you stop taking the lovenox. The anticou lation clinic will follow your INR closely, will appropriately adjust your lovenox and warfarin medication regimen, and they will recommend blood tests accordingly. Do not miss any doses of these medications! New Medications: Lovenox subQ injections twice a day Warfarin 5mg by mouth once a day Medication Changes: None. When to call your doctor: - Chest pain, worsening shortness of breath, fatigue with usual exertion, or new rest/night time symptoms. - Weigh yourself daily and record; if you note an increase of more than 2-3 pounds in 2 days, or 5 pounds over a week, contact your health care provider. - If you become short of breath, cannot lie down to sleep, or have swelling in your legs/ankles or abdomen, contact your health care provider. - Call if you have reduced urination during the day or increased urination at night. - Call for signs of increased wound drainage, redness, swelling, or increased pain at the site of your cardiac cath. - Call if you develop a temp >100.5 If you have non-emergent questions between now and the time of your follow up appointments: During 8am-5pm Wednesday through Wednesday call [phone] to speak with a nurse in the cardiology clinic All other times call [phone] and ask to speak to the core microarchitect control room tender. Activity level: - No heavy lifting (more than five pounds) for 48 hours; no more than 10 pounds for one week. - You may return to work in 1 week. Use common sense. Don't exhaust yourself. - No hunting, skiing, jogging, snow shoveling, snowmobiling, lawn mowing, swimming, golf or tennis until after your return appointment with your family doctor. - Do not ride motorcycles, tractors or horses until cleared by your doctor. Diet: - Heart healthy: low salt, low fat, low concentrated sweets. Remember to avoid added salt, canned foods, processed foods (ie hot dogs, sausage, cold meats), and foods naturally high in salt, such as potato chips or pizza. Driving: - Per your routine after [address] if you feel dizzy, light headed, or are taking narcotic medications (ie/ Oxycodone, Morphine, Dilaudid, etc). Shower/Bath: - You may shower 24 hours after cardiac catheterization. - You may not sit in water for 5 days (tub bath, hot tub or pool). Wound Care: - Cath site dressing may be removed in 24 hours. Site may be washed with soap/water. A dressing does not need to be reapplied unless irritation occurs with underclothes. If irritation occurs, apply clean band-aid daily. Exercise: - Exercise 5-7 days per week as tolerated with gradual increase to 30 minutes per day. Smoking cessation: - If you are currently a smoker, you are strongly urged to stop smoking! Smoking increases the severity and incidence of heart disease, and is a risk factor for cancer and emphysema. Your health careprovider can provide specific measures to assist you, including nicotine supplements, anti-anxiety meds, and support groups in your community. Follow up Appointments: No future appointments. Air Conditioning Specialist: Please follow up with Cardiology Outpatient Clinic for an Echocardiogram to evaluate the right side of your heart within the next month, after you have achieved a therapeutic INR. Please contact their office at [phone]. PCP: LINDA EVANGELISTA MD at [phone]. Please make an appointment to follow up with your PCP within the next 7-10 days after discharge. Please call the office of your PCP Linda Evangelista MD at [phone]. Anti-coagulation follow up: Thursday, February 18, 2016 at [facility]. I will call them on Wednesday (02/18/16) in order to establish your care with them. Expect a call from them on Wednesday. If you do not hear from their office, please call their office at [phone]. Anticoagulation Management (Blood Thinner Medications) Upon Discharge 1. Reason for anticoagulation (blood thinner) therapy: Pulmonary Embolus, blood clot in your lungs 2. Your NEW warfarin (Coumadin??) dosing upon discharge is as below. Follow these instructions until your first INR check after discharge: ??? Tonight, (Day #1): Take 5 mg at 5 pm ??? Tomorrow (Day#2): Take 5 mg at 5 pm ??? Day #3: 5 ??? Day #4: 5 3. Follow up INR is scheduled on: Thursday, February 18, 2016 4. INR Goal: 2-3 5. Expected duration of treatment: 6 months 6. Provider/Team responsible for ongoing outpatient anticoagulation management: ??? Provider/Team/Clinic: Anticoagulation Program at [facility] ??? Phone: 7. If you have not received a call from your provider within 24 hours of having your INR drawn, please call your outpatient provider for further dose instructions. 8. Warfarin (Coumadin??) should be taken at the same time every day, preferably after 5:30 pm. 9. If taking enoxaparin (Lovenox??) injections, continue taking them until instructed to stop doingso by your provider. Sometimes this needs to overlap for 24-48 hours while your INR is within your goal range. ?? Please review your warfarin (Coumadin??) Pack upon discharge. ?? The following table shows your most recent INR results and warfarin (Coumadin??) doses: Recent Labs 02/16/16 0322 02/15/16 0243 02/14/16 0428 02/13/16 0415 02/12/16 1520 INR 1.1 1.1 1.1 1.2* 1.3* [place] Inpatient Doctor(s) at [facility] Leonid Luz MD - Attending physician Carson Kimball MD - Resident physician Pauline Abebe MD - Supervisor Evaporator physician Your Primary Care Provider: LINDA EVANGELISTA MD HOSPITALIST SERVICES [address] [place] [address] / [place] * [phone] For questions regarding issues relating to your hospitalization on the Hospital Medicine Service, please contact your inpatient physician through the [facility] Adjunct Instructor [phone]. Issues after hours and on weekends will be handled by the Hospitalist staff on-call. * Attachments The following attachments cannot be sent through Care Everywhere. * PULMONARY EMBOLISM (PAPUA NEW GUINEAN) * DVT (DEEP VEIN THROMBOSIS): PREVENTION : GENERAL INFO (PAPUA NEW GUINEAN) * ENOXAPARIN (LOVENOX) (PAPUA NEW GUINEAN) * HEPARIN (PAPUA NEW GUINEAN) documented in this encounter Medications at Time [...] -400 unit Tablet Take by mouth. 01/30/2013 enoxaparin (LOVENOX) 80 mg/0.8 mL Syringe Inject 0.8 mLs subcutaneously 2 times daily. 10 Syringe 1 02/16/2016 09/24/2016 warfarin (COUMADIN) 5 mg Tablet Take 1 tablet by mouth daily. 90 tablet 3 02/16/2016 09/24/2016 CALCIUM CARBONATE/VITAMIN D3 (CALCIUM + D ORAL) Take by mouth. 05/22/2021 documented as of this encounter Progress Notes * Leonid Luz MD - 02/16/2016 11:18 AM EDT Inpatient Cardiology Progress Note Patient Name: Lelo Workman Date of Admission: 02/12/2016 ( Hospital Day 4 days ) Service: S1 ID: Lelo Workman is a 70 y.o. female with a history of right knee injury and limited mobilityfor 3 weeks who presented with lightheadedness, dyspnea, nausea, diaphoresis, and jaw discomfort who was thought to have an acute anterolateral MIKEY finding, found to have a large saddle pulmonary embolus, confirmed by CT angiography (02/11). She is s/p lytics from an OSH and currently on heparin gttwith bridge to warfarin. She no longer requires oxygen supplementation. She is HD stable. 24 hr events: - Woke up at 0200 with left chest tightness / cramp described as a 2-4/10 that is relieved when leaning forward and worsening by deep inspiration. The chest tightness that was relieved with acetaminophen 650mg x 1. An EKG during this time showed no evidence of ischemia or changes compared to previous EKGs. Patient also received ativan 0.5mg x 1. - Otherwise ALY overnight. - Reports slight cough - Denies palpitations, SOB, dizziness, lightheadedness, nausea. - Patient has been OOB and walking Nursing Concerns: - None at this time. Telemetry: NSR Meds: Continuous Infusions: Scheduled Meds: ??? LORazepam 0.5 mg Oral Once ??? enoxaparin 80 mg Subcutaneous 2 times per day ??? melatonin 3 mg Oral Nightly ??? multivitamin 1 tablet Oral Daily ??? warfarin (COUMADIN) daily order reminder Oral Q24H ??? sodium chloride 0.9 % 5 mL Intravenous BID PRN Meds:.midazolam (PF), atropine, fentaNYL Citrate (PF), sodium chloride 0.9 %, lidocaine, nitroGLYcerin, acetaminophen Vital Signs: Last value Range last 24 hrs Temperature Temp: 36.7 ??C (98.1 ??F) Temp: [36.3 ??C (97.3 ??F)-36.8 ??C (98.2 ??F)] Heart Rate Heart Rate: 70 Heart Rate: -- Blood Pressure BP: 127/74 BP: (122-162)/(45-74) Respiratory Rate Resp: 20 Resp: [14-20] SpO2 SpO2: 95 % SpO2: [94 %-95 %] Patient Vitals for the past 168 hrs: Weight 02/16/16 0700 84.2 kg (185 lb 10 oz) 02/15/16 0700 84.5 kg (186 lb 4.6 oz) 02/14/16 0700 85.5 kg (188 lb 7.9 oz) 02/13/16 0500 83.3 kg (183 lb 10.3 oz) 02/12/16 1516 81.6 kg (179 lb 14.3 oz) I/O: Intake/Output Summary (Last 24 hours) at 02/16/16 1118 Last data filed at 02/16/16 0832 Gross per 24 hour Intake 2292 ml Output 1225 ml Net 1067 ml cumulative I/O's since admission: Physical Exam: Gen: Sitting up in bed; NAD, alert, oriented, interactive HEENT: anicteric, MMM Neck: no carotid bruits, no JVD appreciated CV: RRR, normal S1/S2, no S3/S4, no m/r/g Resp: CTAB, no wheezes or crackles noted Abd: +BS, soft, NT, ND, Ext: WWP, no cyanosis, no clubbing, 2+ radial and DP pulses bilaterally, no peripheral edema Neuro: no focal deficits noted, moving all extremities spontaneously Skin: no rashes, lesions, or ulcerations noted Labs Recent Labs 02/16/162 02/15/16 0243 02/14/16 0428 WBC 7.6 7.6 7.2 HGB 12.0 11.6 11.4 HCT 34.8 34.3 34.4 PLATELET 238 272 267 Recent Labs 02/16/16 0846 02/16/16 0322 02/15/16 0243 NA 141 138 142 K 3.7 Not Perf 3.8 CL 101 102 106 CO2 23 21* 24 BUN 12 11 13 CREATININE 0.85 0.75 0.78 Recent Labs 02/12/16 1520 AST 32* ALT 39* ALKPHOS 86 BILITOT 0.6 BILIDIR 0.1 Recent Labs 02/16/16 0846 02/16/16 0322 02/15/16 0243 02/14/16 0428 CALCIUM 9.4 9.1 9.0 9.1 MAGNESIUM -- 0.86 0.85 0.87 Recent Labs 02/16/16 0322 02/15/16 1640 02/15/16 0947 02/15/16 0243 02/14/16 0428 INR 1.1 -- -- 1.1 -- 1.1 PT 14.6 -- -- 14.7 -- 14.4 PTT -- 81* 80* 115* < > 58* < > = values in this interval not displayed. No results for input(s): CK, TROPONINT in the last 168 hours. Recent Labs 02/12/16 1526 POCGLU 142 Cardiac Catheterization: 02/11 Normal coronary arteries Assessment: Lelo Workman is a 70 y.o. female with a history of right knee injury and limited mobility for 3 weeks who presented with lightheadedness, dyspnea, nausea, diaphoresis, and jaw discomfort who was thought to have an acute anterolateral STEMI per EKG. She received thrombolytics at [facility] ED, was transferred to and brought to lab tech for coronary angiography, which demonstrated normal coronary arteries. Echo revealed normal LV function with dilated R ventricle with global hypokinesia and preservation and RV apex with a hyperdynamic tip and EKG found to have S1Q3T3 finding, found to have a large saddle pulmonary embolus, confirmed by CT angiography (02/11). She is cu rrently on hep gtt, which we are bridging to warfarin for anticoagulation. She remains hemodynamically stable, no longer requiring oxygen supplementation. Plan for discharge today. ?? PLAN: Pulmonary Embolus s/p Right leg injury - 3 week history of being bed-ridden with minimal activity - Echo (02/11): normal LV function with dilated R ventricle with global hypokinesia and preservationand RV apex with a hyperdynamic tip - CT Angiogram (02/11) found large saddle embolus, extensive large bilateral central emboli - Will continue heparin gtt, bridging to warfarin now. - Plan to discharge with script for lovenox 1mg/kg BID until INR is therapeutic between 2-3. Discharge with script for warfarin 5mg daily. Will discharge with script to have blood work (INR) prior toanticoagulation clinic follow up on Wednesday. - Plan to call Anticoagulation Outpatient Clinic at [facility] [place] to set up follow up of INR. - Will educate patient about avoiding foods with high potassium content - Plan to discharge patient with script for tylenol 1g Q8hr as needed for chest tightness, as the chest tightness was relieved with acetaminophen as an inpatient. - Plan to schedule KEAGAN in Cardiology outpatient clinic to evaluate right ventricle within the next 2-3 weeks, after patient's INR is therapeutic. SOB 2/2 PE: Resolved - SaO2 > 92% on room air ?? PPx: DVT- lovenox Dispo: Floor status. Plan to D/C home today. Code Status: FULL CODE. POA is Sean Layne (cell [phone]) ?? Pauline Abebe MD, PGY-1 Cardiology S1 (pgr. [phone]) \ CARDIOLOGY STAFF NOTE Lelo Workman is a 70 y.o. year-old female patient whom I saw today with Dr. Abebe. I have personally interviewed and examined the patient and reviewed appropriate data, including labs, ECGs and other diagnostic studies. I agree with the principal findings documented above. The assessment and plan were formulated in discussion with me. Clinically stable and ready for discharge on warfarin with enoxaparin bridge. Leonid Luz MD, [facility], [facility] Staff Air Conditioning Specialist pager [phone] * Leonid Luz MD - 02/15/2016 1:07 AM EDT Inpatient Cardiology Progress Note Patient Name: Lelo Workman Date of Admission: 02/12/2016 ( Hospital Day 3 days ) Service: S1 ID: Lelo Workman is a 70 y.o. female with a history of right knee injury and limited mobilityfor 3 weeks who presented with lightheadedness, dyspnea, nausea, diaphoresis, and jaw discomfort who was thought to have an acute anterolateral MIKEY finding, found to have a large saddle pulmonary embolus, confirmed by CT angiography (02/11). She is s/p lytics from an OSH and currently on heparin gttwith bridge to warfarin. She no longer requires oxygen supplementation. 24 hr events: - Pt with tight band sensation around her chest at level of nipple, unchanged and mostly resolved by early AM; pressure more than pain 4/10, now at 1/10, EKG overnight without changes -Otherwise, this AM pt denies any dyspnea or other new complaints Meds: Continuous Infusions: ??? heparin 1,600 Units/hr (02/15/16 0324) Scheduled Meds: ??? melatonin 3 mg Oral Nightly ??? multivitamin 1 tablet Oral Daily ??? warfarin (COUMADIN) daily order reminder Oral Q24H ??? sodium chloride 0.9 % 5 mL Intravenous BID PRN Meds:.midazolam (PF), atropine, fentaNYL Citrate (PF), sodium chloride 0.9 %, lidocaine, nitroGLYcerin, heparin (porcine), acetaminophen Vital Signs: Last value Range last 24 hrs Temperature Temp: 36.7 ??C (98.1 ??F) Temp: [36.2 ??C (97.2 ??F)-37 ??C (98.6 ??F)] Heart Rate Heart Rate: 70 Heart Rate: [60-72] Blood Pressure BP: 131/66 BP: (131-149)/(64-86) Respiratory Rate Resp: 18 Resp: [18-20] SpO2 SpO2: 94 % SpO2: [91 %-95 %] Patient Vitals for the past 168 hrs: Weight 02/15/16 0700 84.5 kg (186 lb 4.6 oz) 02/14/16 0700 85.5 kg (188 lb 7.9 oz) 02/13/16 0500 83.3 kg (183 lb 10.3 oz) 02/12/16 1516 81.6 kg (179 lb 14.3 oz) I/O: Intake/Output Summary (Last 24 hours) at 02/15/16 1217 Last data filed at 02/15/16 1139 Gross per 24 hour Intake 1810 ml Output 2900 ml Net -1090 ml Physical Exam: Gen: Awake, pleasant, NAD, conversant and cooperative HEENT: anicteric, MMM Neck: no carotid bruits, no JVD appreciated CV: RRR, normal S1/S2, no S3/S4, no m/r/g Resp: CTAB Abd: +BS, soft, NT, ND, no masses Ext: WWP, no cyanosis, no clubbing, 2+ radial and DP pulses bilaterally, no edema Neuro: no focal deficits noted, moving all extremities spontaneously Skin: no rashes, lesions, or ulcerations noted Labs CBC stable BMP stable Diagnostics: Cardiac Catheterization 02/11- Normal coronary arteries Assessment: Lelo Workman is a 70 y.o. female with a history of right knee injury and limited mobility for 3 weeks who presented with lightheadedness, dyspnea, nausea, diaphoresis, and jaw discomfort who was thought to have an acute anterolateral STEMI per EKG. She received thrombolytics at [facility] ED, was transferred to and brought to lab tech for coronary angiography, which demonstrated normal coronary arteries. Echo revealed normal LV function with dilated R ventricle with global hypokinesia and preservation and RV apex with a hyperdynamic tip and EKG found to have S1Q3T3 finding, found to have a large saddle pulmonary embolus, confirmed by CT angiography (02/11). Pt remains HD stable, doing well. She has agreed to trying lovenox, which will be started tonight and heparin gtt turned off. CRC and SW will continue to explore possible coverage or assistance options for her anticoagulation medications. Plan for now to continue with warfarin, with 7.5 mg today asper pharmacy, and switching to lovenox as noted earlier. # Pulmonary Embolus s/p Right leg injury - 3 week history of being bed-ridden with minimal activity - Echo (02/11): normal LV function with dilated R ventricle with global hypokinesia and preservationand RV apex with a hyperdynamic tip - CT Angiogram (02/11) found large saddle embolus, extensive large bilateral central emboli - Continue heparin gtt, bridging to warfarin now # Other DVT ppx- heparin gtt GI ppx - not indicated Dispo: ICCU Code Status: FULL CODE DPOA is Sean Layne (cell [phone]) ?? CARSON KIMBALL MD Cardiology Service, PGY2 02/15/2016, S1 Team Pager #[phone] CARDIOLOGY STAFF NOTE Lelo Workman is a 70 y.o. year-old female patient whom I saw today with Dr. Kimball. I have personally interviewed and examined the patient and reviewed appropriate data, including labs, ECGs andother diagnostic studies. I agree with the principal findings documented above. The assessment and plan were formulated in discussion with me. #1 Saddle pulmonary embolism Some chest discomfort overnight. Considering discharge tomorrow. Discussed anticoagulation options with her and agreed upon enoxaparin bridge with warfarin. Leonid Luz MD, [facility], [facility] Staff Air Conditioning Specialist pager [phone] * Leonid Luz MD - 02/14/2016 12:48 PM EDT Inpatient Cardiology Progress Note Patient Name: Lelo Workman Date of Admission: 02/12/2016 ( Hospital Day 2 days ) Service: S1 ID: Lelo Workman is a 70 y.o. female with a history of right knee injury and limited mobilityfor 3 weeks who presented with lightheadedness, dyspnea, nausea, diaphoresis, and jaw discomfort who was thought to have an acute anterolateral MIKEY finding, found to have a large saddle pulmonary embolus, confirmed by CT angiography (02/11). She is s/p lytics from an OSH and currently on heparin gttwith bridge to warfarin. She no longer requires oxygen supplementation. 24 hr events: - Woke up at 0230 with constant chest tightness that feels like a cramp that lasted for a minute and disappeared. Patient fell back asleep - Now, denies CP, palpitations, SOB, dizziness, lightheadedness, nausea. Nursing Concerns: - None at this time. Telemetry: NSR Meds: Continuous Infusions: ??? heparin 1,550 Units/hr (02/14/16 0724) Scheduled Meds: ??? melatonin 3 mg Oral Nightly ??? multivitamin 1 tablet Oral Daily ??? warfarin (COUMADIN) daily order reminder Oral Q24H ??? sodium chloride 0.9 % 5 mL Intravenous BID PRN Meds:.midazolam (PF), atropine, fentaNYL Citrate (PF), sodium chloride 0.9 %, lidocaine, nitroGLYcerin, heparin (porcine), acetaminophen Vital Signs: Last value Range last 24 hrs Temperature Temp: 36.7 ??C (98.1 ??F) Temp: [36.5 ??C (97.7 ??F)-36.7 ??C (98.1 ??F)] Heart Rate Heart Rate: 60 Heart Rate: [60-70] Blood Pressure BP: 131/65 BP: (118-148)/(57-79) Respiratory Rate Resp: 18 Resp: [16-20] SpO2 SpO2: 94 % SpO2: [93 %-95 %] Patient Vitals for the past 168 hrs: Weight 02/14/16 0700 85.5 kg (188 lb 7.9 oz) 02/13/16 0500 83.3 kg (183 lb 10.3 oz) 02/12/16 1516 81.6 kg (179 lb 14.3 oz) I/O: Intake/Output Summary (Last 24 hours) at 02/14/16 1248 Last data filed at 02/14/16 1142 Gross per 24 hour Intake 1525 ml Output 1275 ml Net 250 ml cumulative I/O's since admission: Physical Exam: Gen: Sitting up in her chair having breakfast; NAD, alert, oriented, interactive HEENT: anicteric, MMM Neck: no carotid bruits, no JVD appreciated CV: RRR, normal S1/S2, no S3/S4, no m/r/g, Resp: CTAB Abd: +BS, soft, NT, ND, no masses Ext: WWP, no cyanosis, no clubbing, 2+ radial and DP pulses bilaterally, no edema Neuro: no focal deficits noted, moving all extremities spontaneously Skin: no rashes, lesions, or ulcerations noted Labs Recent Labs 02/14/16 0428 02/13/16 0415 02/12/16 1520 WBC 7.2 9.3 11.2* HGB 11.4 10.6* 11.5 HCT 34.4 31.7* 34.5 PLATELET 267 227 229 Recent Labs 02/14/16 0428 02/13/16 0415 02/12/16 1520 NA 143 143 142 K 3.7 3.7 4.3 CL 106 107 105 CO2 24 24 22 BUN 11 13 17 CREATININE 0.69* 0.67* 0.74 Recent Labs 02/12/16 1520 AST 32* ALT 39* ALKPHOS 86 BILITOT 0.6 BILIDIR 0.1 Recent Labs 02/14/16 0428 02/13/16 0415 02/12/16 1520 CALCIUM 9.1 8.6 8.8 MAGNESIUM 0.87 0.85 0.87 Recent Labs 02/14/16 0428 02/13/16 0415 02/12/16 2230 02/12/16 1520 INR 1.1 1.2* -- 1.3* PT 14.4 15.9* -- 16.6* PTT 58* 89* 91* 33 No results for input(s): CK, TROPONINT in the last 168 hours. Recent Labs 02/12/16 1526 POCGLU 142 Cardiac Catheterization: 02/11 Normal coronary arteries Assessment: Lelo Workman is a 70 y.o. female with a history of right knee injury and limited mobility for 3 weeks who presented with lightheadedness, dyspnea, nausea, diaphoresis, and jaw discomfort who was thought to have an acute anterolateral STEMI per EKG. She received thrombolytics at [facility] ED, was transferred to and brought to lab tech for coronary angiography, which demonstrated normal coronary arteries. Echo revealed normal LV function with dilated R ventricle with global hypokinesia and preservation and RV apex with a hyperdynamic tip and EKG found to have S1Q3T3 finding, found to have a large saddle pulmonary embolus, confirmed by CT angiography (02/11). She is cu rrently on hep gtt, which we are bridging to warfarin for anticoagulation. She remains hemodynamically stable, no longer requiring oxygen supplementation. ?? PLAN: Pulmonary Embolus s/p Right leg injury - 3 week history of being bed-ridden with minimal activity - Echo (02/11): normal LV function with dilated R ventricle with global hypokinesia and preservationand RV apex with a hyperdynamic tip - CT Angiogram (02/11) found large saddle embolus, extensive large bilateral central emboli - Continue heparin gtt, bridging to warfarin now. - Continue to monitor for symptoms SOB 2/2 PE: Resolved - SaO2 > 92% on room air ?? PPx: DVT- heparin protocol Dispo: Floor status. Plan to D/C tomorrow to home. Code Status: FULL CODE. POA is Sean Layne (cell [phone]) ?? Pauline Abebe MD, PGY-1 Cardiology S1 (pgr. [phone]) CARDIOLOGY STAFF NOTE Lelo Workman is a 70 y.o. year-old female patient whom I saw today on cardiology inpatient rounds. I have personally interviewed and examined the patient and reviewed appropriate data, including labs, ECGs and other diagnostic studies. I agree with the principal findings documented above. Theassessment and plan were formulated in discussion with me. Events / Symptoms: Denies symptoms now. Pertinent Examination Findings: JVP not elevated; lungs clear; RRR; no edema. #1 Saddle pulmonary embolism Clinically stable; continue anticoagulation. Aim toward discharge tomorrow. Leonid Luz MD, [facility], [facility] Staff Air Conditioning Specialist pager [phone] * Rosalinda Rivera RN - 02/13/2016 6:26 PM EDT Patient arrived from [facility]. A/O. VSS. Denies chest pain and shortness of breath. Complaints only of achiness in hip and right knee. Groin site c/d/i. Oriented to room. and daughter at bedside.Compliant with non-weight bearing on R leg. Heparin drip maintained per protocol. New IV obtained due to leaking IV. * oCurt Sanchez RN - 02/13/2016 2:08 PM EDT Office of Care Management (OCM) / Javascript Front End Developer(CM)/ Initial Assessment Discussed patient with Provider Team and in multidisciplinary discharge-planning rounds. Reviewed record and interviewed patient. Introduced/reviewed CM role and services accepted. CARDIOLOGY SERVICE REASON for HOSPITALIZATION: SOB,Dizziness with saddle emboli R/t immobilization from knee injury. PMH unremarkable- fractured right knee afer fall PREVIOUS FUNCTIONAL STATUS: limited mobility last 3 weeks r/t knee injury;FWW used; cogntiion intact CURRENT FUNCTIONAL STATUS:as above SOCIAL / FAMILY SUPPORTS: to Sean cell [phone]. [place] [facility] ADVANCE DIRECTIVES: FULL code .lists Sean or daughter Cassie as medical POAs HEALTH /PRESCRIPTION COVERAGE:Medicare A,B CURRENT HOME/COMMUNITY SERVICES/EQUIPMENT: DME:[facility] Home Health Agency:na Other:na VARNISH REMOVER REFERRAL: not needed at this time PRIMARY CARE PHYSICIAN: LINDA EVANGELISTA MD HOSPITALIST SERVICES [address] [facility] / [place] * [phone] POTENTIAL DISCHARGE NEEDS: A [facility] or outpt Physical Therapy at [facility] and [facility] in [facility]. none ANTICIPATED BARRIERS TO DISCHARGE: TRANSPORTATION @ D/C: private car spouse PLAN: CM will continue to monitor progress, follow for continuity of care and assist with dischargeplanning while hospitalized Pt chose [facility]or [facility] in [facility] for outpt Physical Therapy. STELLA Severino,BSN . * Ward Garcia MD - 02/13/2016 11:57 AM EDT Images from the original note were not included. CARDIOLOGY STAFF INPATIENT PROGRESS NOTE Clinical History: Briefly, her course in the last 24 hours has been notable for the finding of a large saddle embolus as well as other central pulmonary emboli on her CT angiogram late yesterday afternoon. Despite this, she has been stable overnight and is now breathing comfortably and oxygenating satisfactorily on room air. She has essentially no symptoms at this point. Medications: ??? melatonin 3 mg Oral Nightly ??? aspirin 81 mg Oral Daily ??? multivitamin 1 tablet Oral Daily ??? sodium chloride 0.9 % 5 mL Intravenous BID ??? heparin 1,250 Units/hr (02/13/16 1100) Physical Examination: Last Set of Vitals and range of vitals over past 24 hours: Last value Range last 24 hrs Temperature Temp: 36.6 ??C (97.9 ??F) Temp: [36.4 ??C (97.5 ??F)-37 ??C (98.6 ??F)] Heart Rate Heart Rate: 69 Heart Rate: [59-82] Blood Pressure BP: 118/62 BP: (111-128)/(54-77) Respiratory Rate Resp: 20 Resp: [12-23] SpO2 SpO2: 94 % SpO2: [94 %-100 %] Examination: On physical examination she looks good. Her vital signs are summarized above. She is in no acute distress. Her jugular venous pressures were difficult to assess but, surprisingly, did not appear elevated. Her lungs are notable for just a few crackles at her left base. Her heart exam reveals a regular rhythm. She continues to be free of murmurs, rubs, or gallops. She does not have an RV heave. Her abdomen is soft and nontender. She has minimal peripheral edema. Overview of Pertinent Data: Intake and Output: Intake/Output Summary (Last 24 hours) at 02/13/16 1157 Last data filed at 02/13/16 1000 Gross per 24 hour Intake 2142.08 ml Output 1585 ml Net 557.08 ml [place] Labs: Recent Labs 02/13/16 0415 02/12/16 1520 WBC 9.3 11.2* HGB 10.6* 11.5 HCT 31.7* 34.5 PLATELET 227 229 NA 143 142 K 3.7 4.3 CL 107 105 CO2 24 22 BUN 13 17 CREATININE 0.67* 0.74 INR 1.2* 1.3* Assessment: In summary, this is a 70-year-old woman with recent relative immobilization secondary to orthopedic issues who presented with acute lightheadedness, dyspnea, and diaphoresis and who was found to have a large saddle pulmonary embolus. She was treated with thrombolytics at her local hospit al when it was thought that her symptoms are from an acute NE. We have continued heparin and she has been clinically stable (in fact improving) overnight. She will need 6 months of anticoagulation and we are assessing whether her insurance will cover one of the newer oral anticoagulates. Plan: 1. Continue heparin 2. Explore anticoagulative options; we hope to start her on Xarelto tonight and a couple hours later will discontinue her heparin. 3. Transfer to [facility]. 4. Oxygen supplementation as clinically needed Time Attestation: The total time involved in the direct in-unit management of this patient, including management of care with house staff, interview of patient as appropriate, bedside physical examination, discussion with family, and coordination of care with nursing and other ancillary staff was 25 minutes. Ward Garcia MD, FA, FAC * Pauline Abebe - 02/13/2016 7:52 AM EDT Inpatient Cardiology Progress Note Patient Name: Lelo Workman Date of Admission: 02/12/2016 ( Hospital Day 1 day ) Service: S1 ID: Lelo Workman is a 70 y.o. female with a history of right knee injury and limited mobilityfor 3 weeks who presented with lightheadedness, dyspnea, nausea, diaphoresis, and jaw discomfort who was thought to have an acute anterolateral MIKEY finding, found to have a large saddle pulmonary embolus, confirmed by CT angiography (02/11). She is currently on hep gtt and weaned down to 2LNC from HFNC for SOB. She remainsMI per EKG. She received thrombolytics at [facility] ED, was transferred to and brought to lab tech for coronary angiography, which demonstrated normal coronary arteries, EF 65%. Echo revealed normal LV function with dilated R ventricle with global hypokinesia and pres ervation and RV apex with a hyperdynamic tip and EKG found to have S1Q3T3 hemodynamically stable. Patient was found to have a large saddle embolus with extensive large bilateral central emboli, on heparin gtt for anticoagulation. 24 hr events: - CT angiography (02/11): revealed large saddle embolus, extensive large bilateral central emboli, evidence of right heart strain - HFNC weaned down to 2L NC SaO2 97-99%. - Reports trouble sleeping after learning about the pulmonary embolus in her lungs. - Woke up at 3 am with mild jaw pain, that quickly resolved and fell back asleep. - Denies CP, palpitations, SOB, dizziness, nausea Nursing Concerns: - None at this time. Telemetry: NSR Meds: Continuous Infusions: ??? heparin 1,250 Units/hr (02/13/16 0600) Scheduled Meds: ??? melatonin 3 mg Oral Nightly ??? sodium chloride 0.9 % 5 mL Intravenous BID PRN Meds:.midazolam (PF), atropine, fentaNYL Citrate (PF), sodium chloride 0.9 %, lidocaine, nitroGLYcerin, heparin (porcine), acetaminophen Vital Signs: Last value Range last 24 hrs Temperature Temp: 36.8 ??C (98.2 ??F) Temp: [36.4 ??C (97.5 ??F)-37 ??C (98.6 ??F)] Heart Rate Heart Rate: 70 Heart Rate: [59-82] Blood Pressure BP: 124/54 BP: (111-128)/(54-77) Respiratory Rate Resp: 23 Resp: [12-23] SpO2 SpO2: 95 % SpO2: [95 %-100 %] Patient Vitals for the past 168 hrs: Weight 02/13/16 0500 83.3 kg (183 lb 10.3 oz) 02/12/16 1516 81.6 kg (179 lb 14.3 oz) I/O: Intake/Output Summary (Last 24 hours) at 02/13/16 0752 Last data filed at 02/13/16 0600 Gross per 24 hour Intake 1922.08 ml Output 1300 ml Net 622.08 ml cumulative I/O's since admission: Physical Exam: Gen: laying inbed in NAD with 2L NC in place; alert, oriented, interactive HEENT: anicteric, MMM Neck: no carotid bruits CV: RRR, normal S1/S2, no S3/S4, no m/r/g, no JVD Resp: CTAB Abd: +BS, soft, NT, ND, no masses Ext: WWP, no cyanosis, no clubbing, 2+ radial and DP pulses bilaterally, no edema Neuro: no focal deficits noted, moves all extremities spontaneously Skin: no rashes, lesions, or ulcerations noted Labs Recent Labs 02/13/16 0415 02/12/16 1520 WBC 9.3 11.2* HGB 10.6* 11.5 HCT 31.7* 34.5 PLATELET 227 229 Recent Labs 02/13/16 0415 02/12/16 1520 NA 143 142 K 3.7 4.3 CL 107 105 CO2 24 22 BUN 13 17 CREATININE 0.67* 0.74 Recent Labs 02/12/16 1520 AST 32* ALT 39* ALKPHOS 86 BILITOT 0.6 BILIDIR 0.1 Recent Labs 02/13/16 0415 02/12/16 1520 CALCIUM 8.6 8.8 MAGNESIUM 0.85 0.87 Recent Labs 02/13/16 0415 02/12/16 2230 02/12/16 1520 INR 1.2* -- 1.3* PT 15.9* -- 16.6* PTT 89* 91* 33 No results for input(s): CK, TROPONINT in the last 168 hours. Recent Labs 02/12/16 1526 POCGLU 142 Cardiac Catheterization: 02/11 Normal coronary arteries Assessment: Lelo Workman is a 70 y.o. female with a history of right knee injury and limited mobility for 3 weeks who presented with lightheadedness, dyspnea, nausea, diaphoresis, and jaw discomfort who was thought to have an acute anterolateral STEMI per EKG. She received thrombolytics at [facility] ED, was transferred to and brought to lab tech for coronary angiography, which demonstrated normal coronary arteries. Echo revealed normal LV function with dilated R ventricle with global hypokinesia and preservation and RV apex with a hyperdynamic tip and EKG found to have S1Q3T3 finding, found to have a large saddle pulmonary embolus, confirmed by CT angiography (02/11). She is cu rrently on hep gtt and weaned down to 2L NC from HFNC. She remains hemodynamically stable. ?? PLAN: Pulmonary Embolus s/p Right leg injury - 3 week history of being bed-ridden with minimal activity - Echo (02/11): normal LV function with dilated R ventricle with global hypokinesia and preservationand RV apex with a hyperdynamic tip - CT Angiogram (02/11) found large saddle embolus, extensive large bilateral central emboli - Continue heparin gtt, will bridge to rivaroxiban vs dabigatran vs apixaban (based on insurance). Will require mcfp anti-coagulation therapy for 6 months. Will overlap heparin gtt with 1-2 hrs before discontinuing when on NOAC. SOB 2/2 PE - Improving, oxygen supplementation weaned down to NC 2L with Sa02 maintained >92% - Continue to wean with SaO2 > 92% ?? PPx: DVT- heparin protocol Dispo: [facility] on bed rest, Transfer to floor. D/C janet. Code Status: FULL CODE. POA is Sean Layne (cell [phone]) ?? Pauline Abebe MD, PGY-1 Cardiology S1 (pgr. [id number]) * Ward Garcia MD - 02/12/2016 8:43 PM EDT Images from the original note were not included. Staff Addendum: Received call from radiology with reading on CT angio. Findings included: 1. Large saddle embolus 2. Extensive large bilateral central emboli 3. Evidence of RV strain I relayed this information to on-call core microarchitect and her nurse, Heaven, who was already aware. Unless there is a change in her clinical status, we plan continuing current therapy. Ward Garcia MD, FA, [facility] * Cassie Hayes RCP - 02/12/2016 3:12 PM EDT 02/12/16 1511 Oxygen Therapy Patient Type Adult O2 Device High flow nasal cannula O2 Flow Rate (L/min) 30 L/min FiO2 (%) 50 % SpO2 100 % Resp 12 Airway Temp 31 ??C (87.8 ??F) Humid. H2O Level (mL) 2000 mL $O2 Charges Yes $ O2 Device Setup Charges High Flow Nasal Cannula Patient received from agriculture laboratory technician with a PE. Placed on HTD NC and tolerating well. Patient vomited on her way to [facility] but did not aspirate. 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 Presented with chief complaint of SOB to [facility] at 0100 (02/11). This morning stood up to go to the bathroom she felt dizzy, sick to her stomach, felt clammy and her jaw hurt. She laid down for 10 minutes and the symptoms subsided. As she sat up to go to the bathroom again, the symptoms returned. She realized she was going to faint if she sat up again and called 911. She remembers not being able to say a sentence without stopping to catch her breath between words, she describes this as being short of breath. She reports sweating profusely. The dizziness, jaw pain, shortness of breath progressively got worse. She receiving oxygen in the ambulance, which helped these symptoms. She has never experience these symptoms before. On January 23, 2016 she reports injuring her right leg slipping down the stairs ([facility], sees Dr. Brian Lawrence) and has a splint in place and instructed to not put weight on her right leg for 8 weeks. 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 Denies recent travel. Denies recent sickness. Had annual physical exam on January 19, 2016 and she passed with flying colors. Wednesday she started coughing and noticed that she could not catch her breath, while she experienced pain around the front of her lower left ribs. Thought it was a muscle spasm, looked on the internet and followed the RICE protocol, it felt better. This pain continued throughout Wednesday, during which she took aleeve 2 tab q12 hours, max dose. The pain was gone on Wednesday, though cough remained. Reports coughing more yesterday. The patient was transported to ambulance to [facility]: Vitals: Weight 89kg, Temp 35.5, HR 83 (80-90s), RR 20 (18-28), 134/66 (130s / 60-70s), SO2 94 on Non-re breather 10L Labs: Na 142, 4.1, Chloride 106, Bicarb 24.6, BUN 19, Cr 0.88, Estimated GFR >60. Anion gap 11.4, Calcium 9.3, Glucose 204, Magnesium 2.2 WBC 10.25 RBC 4.03, Hgb 12.4, Hct 36.8, MCV 91.3, MCH 30.8, MCHC 33.7, RDW 13, Plt 293, Abs Neut elevated 7.24, Neutrophils % 70.7. Troponin 0.07 EKG (1020) NSR 88, occasional PAC, RBBB with left axis bifasicular block, old inferior apical infarct; ST elevation in avR and V1, right sided EKG reveals elevations in V2.. EKG (1027) revealed NRS 88 with extensive anterior-lateral infarct (1027). Troponin 0.07 Treated with heparin gtt, aspirin 325mg, clopidogrel 300mg PO, full dose TNK 45mg IV, ondansetron HCL 4mg x 1, lorazepam 1mg IV. She was transported to [facility] for expert evaluation and intervention. Transported to [facility] for cardiac catheterization (02/11): 100cc contrast. No disease. Echocardiogram (02/11): Revealed Review of Systems: General: Denies weight changes, fevers, chills, night sweats, fatigue, syncope HEENT: Denies TRONCOSO, visual changes, hearing changes, sinus congestion, epistaxis Chest: Reports shortness of breath. Denies CP, palpitations, othopnea, cough, wheezing GIT: Reports nausea since this morning. Denies abd pain, blood in stools, constipation, diarrhea : Denies dysuria, hematuria MSK: Denies myalgias, arthralgias Skin: Denies bruising easily Neuro: Denies pain, tingling, Problem List/Past Medical History Patient Active Problem List Diagnosis ??? PE (pulmonary embolism) ??? History of basal cell carcinoma ??? Actinic keratosis ??? BCC (basal cell carcinoma) Meds: No current facility-administered medications on file prior to encounter. Current Outpatient Prescriptions on File Prior to Encounter Medication Sig Dispense Refill ??? CALCIUM CARBONATE/VITAMIN D3 (CALCIUM + D ORAL) Take by mouth. ??? [place]-3 Fatty Acids (FISH OIL) 500 mg Cap Take by mouth. ??? aspirin 81 mg EC tablet Take 81 mg by mouth daily. ??? lovastatin (MEVACOR) 10 mg tablet Take 10 mg by mouth nightly. ??? multivitamin (THERAGRAN) tablet Take 1 tablet by mouth daily. Chronic Illnesses: None Home medications: aspirin 81mg PO daily, Calcium Carbonate 600mg /Vit D3 400 1 each PO daily, multivitamins (Centrum Silver Ultra Women Tab) 1 tab daily, [place]-3 Fatty Acids 1 each PO daily, Magnesium 250mg PO daily AM. Surgical History: Mohs surgery Allergies: No Known Allergies Latex bandages, rash Family History: No family history on file. Mother: [place], at 81 Father: Emphysema, 66 Brother: Being evaluated for myasthenia gravis Denies family history of clotting disorders Social History: Social History Social History ??? Marital status: Spouse name: N/A ??? Number of children: N/A ??? Years of education: N/A Occupational History ??? Not on file. Social History Main Topics ??? Smoking status: Never Smoker ??? Smokeless tobacco: Not on file ??? Alcohol use Not on file ??? Drug use: Not on file ??? Sexual activity: Not on file Other Topics Concern ??? Not on file Social History Narrative ??? No narrative on file Grew up in [place], [place]. Lives with . Works for [employer] for 8 years now. 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 Denies smoking, rare EtOH use, denies IV/illicit drug use Vitals: Last value Range last 24 hrs Temperature Temp: 36.8 ??C (98.2 ??F) Temp: [36.8 ??C (98.2 ??F)] Heart Rate Heart Rate: 73 Heart Rate: [73-75] Blood Pressure BP: 121/70 BP: (121-122)/(70-77) Respiratory Rate Resp: 14 Resp: [12-19] SpO2 SpO2: 99 % SpO2: [98 %-100 %] Examination: General: Laying in bed with non-rebreather in place. Awake, alert, pleasant, oriented, interactive. HEENT: EOMI, anicteric sclera, slightly dry oral mucous membranes. Neck: Supple with normal ROM. No obvious LAD. Carotid pulses full and equal. No carotid bruits. Cardiac: Normal rate, regular rhythm, no m/g/r. No JVD noted. No RV lift noted. Respiratory: CTA-B without wheezes/rhonchi/rales. Abd: +BS soft, non-tender, non-distended, no obvious masses Ext: WWP, no C/C/E, catheter site is covered with dressing that is c/d/i; splint on right lower extremity Neuro: CN II-XII grossly intact; is instructed not to move right lower extremity. Moves arms and left leg spontaneously. Motor strength and sensory intact. Skin: Intact without rash; no lesions, no petechiae Laboratory: CBC: No results for input(s): WBC, HGB, PLATELET in the last 7068 hours. Chemistry: No results for input(s): NA, K, CL, CO2, BUN, CREATININE, GLUCOSE in the last 7068 hours. No results for input(s): CALCIUM, MAGNESIUM, PHOS in the last 7068 hours. LFT's: No results for input(s): BILITOT, BILIDIR, ALBUMIN, ALKPHOS, ALT, AST in the last 7068 hours. Coags: No results for input(s): PT, INR, PTT, FIBRINOGEN, DDIMER in the last 168 hours. Invalid input(s): THROMBIN TIME Cardiac enzymes: No results for input(s): TROPONINT, CK, PROBNP in the last 7068 hours. Endocrine: No results for input(s): TSH, CORTISOL in the last 7068 hours. Invalid input(s): [id number] Heme: No results for input(s): LDH, HAPTOGLOBIN, URICACID in the last 168 hours. Microbiology: None Diagnostic Studies: CXR (02/11): Pending final read Cardiac Catheterization (02/11): Estimated LV Ejection Fraction: 65%, Normal coronary arteries.? Left Main: The left main was normal. Left Anterior Descending: The left anterior descending (LAD) was normal. Left Circumflex: The left circumflex (LCX) was normal. Right Coronary Artery: The right coronary artery (RCA) was normal. Echo (02/11): 1. The left ventricular chamber size is normal. Mild concentric left ventricular hypertrophy is observed. 2. There is normal global left ventricular systolic function. Ejection fraction is estimated to be 70%. 3. The right ventricle is moderately dilated. 4. Right ventricular global systolic function is moderately reduced. 5. The estimated pulmonary artery systolic pressure is 32 mmHg plus right atrial pressure. Septal motion is suggestive of RV pressure overload. Consider pulmonary embolus. ASSESSMENT: Job Workman is a 70 year old woman without a significant past medical history with an injured right leg who has been laying in bed and sitting up in a chair for the past 3 weeks [facility] (02[facility]11) with acute onset and progressively worsening jaw pain, dizziness, and diaphoresis and 2 day history of SOB, left lower chest pain. Her EKGs noted ST elevation in avR, V1, and V1 with negative troponins, receiving heparin gtt, aspirin 325mg, clopidogrel 300mg PO, full dose TNK 45mg IV and was transported to [facility] for cardiac catheterization for possible acute STEMI. She was found to have normal coronary arteries, but evidence of RV strain from a PE (on informal read). PLAN: Job Workman will be admitted to Cardiology M1-S1 Service under Dr. Garcia to the [facility]. Labs: CBC, BMP, Mg, LFTs, PTT, Lipid Panel, TSH, U/A with culture Pulmonary Embolus s/p Right leg injury - 3 week history of being bed-ridden with minimal activity - Echo (02/11): estimated pulm artery pressure of 32 mmHg, septal motion suggestive of RV pressure overload - Begin heparin protocol - CT Angiogram (02/11), keep patient NPO SOB 2/2 PE - High Flow Nasal Cannula, maintain SaO2 < 90 Lines/Tubes: IV peripheral lines x2, gonzales catheter in place. PPx: DVT- heparin protocol Dispo: [facility] on bed rest Code Status: FULL CODE. ZACKARY is Sean Layne (cell [phone]) Pauline Abebe MD Internal Medicine PGY-1 Personal Pager # [phone] Team Pager # [phone] 02/12/2016 Associated attestation - Ward Garcia MD - 02/12/2016 5:23 PM EDT Images from the original note were not included. CARDIOLOGY STAFF ADDENDUM: This patient was seen today and personally interviewed and examined. Agree with documentation by Pauline Abebe M.D., which I have reviewed and independently confirmed. BRIEF CLINICAL HISTORY: This 70-year-old woman has a relatively unremarkable past medical history. She injured her right knee on January 23, 2016 and has been in a removable splint preventing lateral motion. She has been fairly immobile and getting around with a walker but lacking in her usual activities. Today she awakened feeling okay but in the process of M Bhupendra to the bathroom noted the sudden onset of lightheadedness, dyspnea, nausea, diaphoresis, and jaw discomfort. Her symptoms improved slightly with laying down but showed multiple recurrences. Shortly thereafter she called 911 and notedimprovement with oxygen upon arrival of paramedics. She was brought to [facility] where she was mildly tachypneic and had decreased oxygen saturations. She was treated with a nonrebreather mask. Her initial troponin was negative. An EKG later suggested anterolateral injury pattern and at that time suspected she was in the midst of an acute anterolateral STEMI she was treated with aspirin, Plavix, and thrombolytics (tenecteplase). She was transferred here via ambulance and brought to the heart catheterization lab where coronary angiography showed normal coronary arteries. Left ventriculography was normal. A subsequent echocardiogram showed normal LV function and adilated right ventricle with global hypokinesia and preservation and hyperdynamic tip of the RV apex. EXAM: On physical examination she appeared in no acute distress. Her vital signs are as follows:BP 128/64 Pulse 77 Temp 36.8 ??C (98.2 ??F) (Oral) Resp 21 Wt 81.6 kg (179 lb 14.3 oz) SpO2 98% She hadno clear-cut JVD. Her lungs were clear. Her heart exam revealed a regular rhythm . She had no obvious murmurs, rubs, or gallops. She had no RV heaves. Her abdomen was soft and nontender. She was weari ng a splint over her right knee. She had essentially no peripheral edema. Lab Results Component Value Date WBC 11.2 (H) 02/12/2016 HGB 11.5 02/12/2016 HCT 34.5 02/12/2016 MCV 91.5 02/12/2016 PLATELET 229 02/12/2016 Lab Results Component Value Date CREATININE 0.74 02/12/2016 BUN 17 02/12/2016 NA 142 02/12/2016 K 4.3 02/12/2016 CL 105 02/12/2016 CO2 22 02/12/2016 No results found for: CK, CKMB, CKMBINDEX, TROPONINT ASSESSMENT: In summary, this is a 70-year-old woman who has been somewhat immobilized because of a right knee injury who presents with the sudden onset of lightheadedness, dyspnea, nausea, diaphoresis, and jaw discomfort. Her echocardiogram shows Crane sign, consistent with acute pulmonary embolism and her presenting EKG also showed a typical S1Q3 T3 sign. In the clinical context and with thefinding of normal coronaries on heart catheterization, it seems most likely her presenting symptomswere from an acute pulmonary embolism. In addition to treatment with thrombolytics (which may be helpful for her pulmonary embolism although which may not otherwise been indicated if she was clinically stable), we will treat her with heparin. She will undergo a CT angiogram to formally seek evidence of the pulmonary embolism. While there is a risk of bleeding related to the concomitant use of thrombolytic and heparin, in this situation the risk appears to outweigh the benefits given her need for high flow oxygen and benefits from anticoagulation. PLAN: 1. Continue intravenous heparin 2. CT angiogram 3. Oxygen support as needed Ward Garcia MD, FAHA, FACC documented in this encounter Miscellaneous Notes * Plan of Care - Eliot Rivers RN - 02/16/2016 11:23 AM EDT Problem: General Plan of Care Goal: Plan of Care Review Outcome: Outcome (s) achieved Date Met: 02/16/16 OUTCOME EVALUATION NOTE: OUTCOME SUMMARY: VSS, pt is going home today per Dr Luz. INR unchanged, but clinically ready for d/c. Voids ad delmy, standby assist with walker. Pt has high level of energy and motivation. Ongoing education provided re: Lovenox injections. Pt still has high anxiety, but beginning to get accustomedto receiving these over the next few weeks. Scheduling outpatient for INR follow up, and ortho follow up for knee. PLAN MOVING FORWARD: See above. INDIVIDUALIZED FALL PREVENTION INTERVENTIONS: environmental modification, standby assist Patient-specific fall risk factors per assessment: [current deficits]: Fractured tibia, unfamiliar environment, high anxiety, walker. Assistance [level of assistance required for transfers and ambulation]: Standby with walker. Supervision [direct monitoring required during toileting and ADLs]: Standby with walker Surveillance [continuous indirect monitoring]: telemetry Patient-specific fall prevention interventions for sensory deficits provided, if applicable: [X] No CPG GOAL OUTCOME EVALUATION: Discharge today * Plan of Care - Heena Rosales Jaciel - 02/16/2016 4:59 AM EDT Problem: Skin Integrity Impairment, Risk/Actual (Adult, Obstetrics) Goal: Skin Integrity/Wound Healing Patient will demonstrate the desired outcomes. Outcome: Unable to achieve outcome by discharge 02/14/16 1827 Skin Integrity Impairment, Risk/Actual (Adult, Obstetrics) Skin Integrity/Wound Healing making progress toward outcome Problem: General Plan of Care Goal: Plan of Care Review Outcome: Ongoing (Interventions Implemented as Appropriate) 02/13/16 0012 02/15/16 1930 Plan of Care Review Plan of Care Outcome Status ongoing (interventions implemented as appropriate) -- Progress improving -- Coping/Psychosocial Response Interventions Plan of Care Reviewed with -- patient Goal: Individualization and Mutuality Outcome: Ongoing (Interventions Implemented as Appropriate) 02/12/16 2200 02/13/16 0012 Individualization Patient Specific Preferences -- patient wants to be informed on all aspects of her care Patient Specific Interventions -- pt teaching done on P.E's, heparin Ct scan Mutuality/Individual Preferences What anxieties, fears or concerns do you have about your health or care? yes I worry if I can overcome this -- What questions do you have about your health or care? no -- What information would help us give you more personalized care? keep me informed -- Goal: Fall Prevention-Safe Patient Handling Outcome: Ongoing (Interventions Implemented as Appropriate) 02/15/161929 Musculoskeletal Interventions Activity/Level of Assistance with walker;up in room;with 1-person assist Positioning independent Self-Care Promotion independence encouraged while providing assistance Sandhu Fall Risk History of Falling 25 Secondary Diagnosis 15 Ambulatory Aids 15 Intravenous Therapy/Heparin/Saline Lock 20 Gait/Transferring 20 Mental Status 0 Score 95 Activity and Safety Assistive Device Front wheel walker OTHER Sandhu Fall Risk High Safety Interventions Safety Precautions/Fall Reduction environmental modification;fall reduction program maintained;lighting adjusted for task/safety;nonskid shoes/slippers when out of bed;room near unit station;mobilityaid Goal: Infection Control Outcome: Ongoing (Interventions Implemented as Appropriate) 02/15/161929 Safety Interventions Isolation Precautions standard precautions maintained Infection Prevention bronchial hygiene promoted;environmental surveillance;hydration promoted;nutrition promoted;promote handwashing;rest/sleep promoted Coping/Psychosocial Response Interventions Counseling calming techniques promoted;emotional support provided;reassurance provided;relaxation techniques promoted;understanding of situation facilitated;verbalization of feelings encouraged Goal: Discharge Needs Assessment Outcome: Ongoing (Interventions Implemented as Appropriate) 02/12/16219902/12/16 230 Self-Care Equipment Currently Used at Home -- grab bar;shower chair;walker, rolling Living Environment Transportation Available family or friend will provide -- OUTCOME EVALUATION NOTE: OUTCOME SUMMARY: A/O. VSS. No complaints of shortness of breath. NSR. Pt complained of 2/10 cramping pain below the left breast. EKG obtained, notified and met with pt. 650mg tylenol given per MD request. Pain hassince been rated at a 0. Pt had been crying/anxious and feeling overwhelmed as a result of the situation- MD notified and 0.5mg ativan ordered, but pt had fallen asleep on her own, so dose was not administered. Heparin drip discontinued and started on Lovenox. Pt was able to sleep infrequently inbetween care. PLAN MOVING FORWARD: Monitor VS, labs, and tele. Lovenox teaching. Discharge planning as appropriate. INDIVIDUALIZED FALL PREVENTION INTERVENTIONS: Patient-specific fall risk factors per assessment: [current deficits]: Non weight-bearing right leg Assistance [level of assistance required for transfers and ambulation]: SBA and walker Supervision [direct monitoring required during toileting and ADLs]: Call contreras in reach Surveillance [continuous indirect monitoring]: Tele, room near unit station, purposeful hourly rounding Patient-specific fall prevention interventions for sensory deficits provided, if applicable: Assistance provided prn CPG GOAL OUTCOME EVALUATION: * Plan of Care - Eliot Rivers RN - 02/15/2016 5:50 PM EDT Problem: General Plan of Care Goal: Plan of Care Review Outcome: Ongoing (Interventions Implemented as Appropriate) OUTCOME EVALUATION NOTE: OUTCOME SUMMARY: Pt adamant about rapid recovery. VSS stable, no complaints of chest tightness/banding/discomfort. Room air, no SOB. Ambulated x 2 with 1 assist and walker from room to window in hallway with no SOB. Heparin gtt still infusing at 1600. Pt has been therapeutic x2 today, next draw tomorrow with 0600 labs. PLAN MOVING FORWARD: likely d/c heparin gtt later today, start lovenox bridge to coumadin. Continued work with PT. Ongoing patient education; she is very inquisitive and baseline mildly anxiety re: her health. INDIVIDUALIZED FALL PREVENTION INTERVENTIONS: call contreras within reach, hourly rounding, environmental modification Patient-specific fall risk factors per assessment: [current deficits]: Weakness/impaired mobility//broken Right tibia Assistance [level of assistance required for transfers and ambulation]: 1 assist with walker Supervision [direct monitoring required during toileting and ADLs]: 1 person assist with walker Surveillance [continuous indirect monitoring]: telemetry Patient-specific fall prevention interventions for sensory deficits provided, if applicable: [X] No CPG GOAL OUTCOME EVALUATION: ongoing * Plan of Care - Rosalinda Rivera RN - 02/14/2016 6:34 PM EDT Problem: Skin Integrity Impairment, Risk/Actual (Adult, Obstetrics) Goal: Identify Signs and Symptoms and Related Risk Factors Signs and symptoms and related risk factors are identified upon initiation of Human Response Clinical Practice Guideline (CPG) Outcome: Ongoing (Interventions Implemented as Appropriate) OUTCOME EVALUATION NOTE: OUTCOME SUMMARY: A/O. VSS. Denies chest pain and shortness of breath. NSR. Groin site c/d/i. C/O headache in the AM.Given tylenol with good effect. Seen by PT. Adheres mobility restrictions well. C/O chest tightnessin the evening like wearing a really tight bra. MD notified. EKG obtained. Will continue to monitor. PLAN MOVING FORWARD: Monitor VS, tele, and labs. Ambulate. Discharge planning as appropriate. INDIVIDUALIZED FALL PREVENTION INTERVENTIONS: Patient-specific fall risk factors per assessment: [current deficits]: No weight bearing R leg Assistance [level of assistance required for transfers and ambulation]: SBA w/ walker Supervision [direct monitoring required during toileting and ADLs]: Call contreras in reach Surveillance [continuous indirect monitoring]: Room near nurse's station, telemetry, hourly rounding Patient-specific fall prevention interventions for sensory deficits provided, if applicable: Assistance provided PRN CPG GOAL OUTCOME EVALUATION: Goal: Skin Integrity/Wound Healing Patient will demonstrate the desired outcomes. Outcome: Ongoing (Interventions Implemented as Appropriate) 02/14/16 1827 Skin Integrity Impairment, Risk/Actual (Adult, Obstetrics) Skin Integrity/Wound Healing making progress toward outcome Problem: General Plan of Care Goal: Plan of Care Review Outcome: Ongoing (Interventions Implemented as Appropriate) 02/13/16 0012 02/14/16 0750 Plan of Care Review Plan of Care Outcome Status ongoing (interventions implemented as appropriate) -- Progress improving -- Coping/Psychosocial Response Interventions Plan of Care Reviewed with -- patient Goal: Individualization and Mutuality Outcome: Ongoing (Interventions Implemented as Appropriate) 02/12/16 2200 02/13/16 0012 Individualization Patient Specific Preferences -- patient wants to be informed on all aspects of her care Patient Specific Interventions -- pt teaching done on P.E's, heparin Ct scan Mutuality/Individual Preferences What anxieties, fears or concerns do you have about your health or care? yes I worry if I can overcome this -- What questions do you have about your health or care? no -- What information would help us give you more personalized care? keep me informed -- Goal: Fall Prevention-Safe Patient Handling Outcome: Ongoing (Interventions Implemented as Appropriate) 02/14/16 0750 02/14/16 1300 02/14/16 1827 Musculoskeletal Interventions Activity/Level of Assistance up in room;with stand by assist;with walker -- -- Positioning up in chair;independent -- -- Self-Care Promotion -- -- independence encouraged while providing assistance Sandhu Fall Risk History of Falling 25 -- -- Secondary Diagnosis 15 -- -- Ambulatory Aids 15 -- -- Intravenous Therapy/Heparin/Saline Lock 20 -- -- Gait/Transferring 10 -- -- Mental Status 0 -- -- Score 85 -- -- Activity and Safety Assistive Device -- Front wheel walker -- OTHER Sandhu Fall Risk High -- -- Safety Interventions Safety Precautions/Fall Reduction environmental modification;lighting adjusted for task/safety;fallreduction program maintained;nonskid shoes/slippers when out of bed -- -- Goal: Infection Control Outcome: Ongoing (Interventions Implemented as Appropriate) 02/14/16 0750 Safety Interventions Isolation Precautions standard precautions maintained Infection Prevention rest/sleep promoted;promote handwashing;nutrition promoted;hydration promoted;environmental surveillance;bronchial hygiene promoted Coping/Psychosocial Response Interventions Counseling emotional support provided;goal setting facilitated;personal strengths integrated;reassurance provided;verbalization of feelings encouraged Goal: Discharge Needs Assessment Outcome: Ongoing (Interventions Implemented as Appropriate) 02/12/16 2200 02/12/16 2300 Self-Care Equipment Currently Used at Home -- grab bar;shower chair;walker, rolling Living Environment Transportation Available family or friend will provide -- * Initial Assessments - Bertha Brand, PT - 02/14/2016 11:42 AM EDT Physical Therapy Evaluation Patient Profile: Lelo Workman is a 70 y.o. female of Leonid Arguello MD, admitted on 02/12/2016 with sudden onset of lightheadedness, dyspnea, nausea, diaphoresis, and jaw discomfort along with a prior right knee injury currently being treated conservatively with a removable knee brace.OSH treated anterolateral STEMI. CT angio here revealed large saddle embolus, extensive large bilateral central emboli, evidence of RV strain. Precautions: Risk of bleeding, NWB R leg(per pt report from previous fall 2 weeks ago); knee brace in place, Fall risk PMH: History reviewed. No pertinent past medical history. No past surgical history on file. Social History: Patient lives with their spouse in 1 fl ranch Stairs: 2 with a rail to enter. Baseline Mobility: standby assist from , using rolling walker + hopping for household distances, driving Equipment at home: rolling walker, stool for stair negotiation Subjective: I don't have any pain except for my left knee and hip are sore from using them more than my right. Objective: Pt was seen for 25 min initial PT evaluation on . In bathroom with OT at end of session washing up at sink. Pain: none other than soreness of left hip and knee, did not rate Vital Signs/Cardiopulmonary Status: SpO2: 94-96% room air HR: 76 Mental Status/Behavior: alert, oriented to person, place, and time Skin: mild right lower leg edema from prolonged brace usage in dependent position Sensation: normal ROM: right knee limited but able to do some flexion/extension- lateral movement limited by brace Strength: WFL Bed Mobility: Not formally assessed, pt in chair to start session Transfers: Sit to Stand: supervision to rolling walker and bilateral upper extremity use Stand to Sit: close supervision from rolling walker with bilateral upper extremity use Pt well aware of NWB status; able to maintain without cues Gait: Distance: 70 ft Device used: rolling walker Level of assist: supervision Gait pattern: hopping on left leg Balance: sitting & standing upright, unchallenged, midline Informed Consent: The patient agrees to and understands the PT treatment plan and goals. Education: Pt was educated on home safety, breathing, and pacing. Pt's status, treatment, and mobility recommendations were discussed with the nursing staff. Assessment/Plan: Pt is 70 y/o female found to have saddle PE upon admission. 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 From PT standpoint, ptis safe and clear to d/c home to after demonstrating safe transfers, ambulation, and stablevital signs throughout all functional mobility. Pt reported no concerns with returning home. Did not assess stairs. Pt perform 2 steps into home with sitting stool technique and has been perfroming x2 weeks. Equipment needs: has all needed DME Discharge Recommendations: Based on the current findings noted during this evaluation, patient is clear to d/c home to This recommendation is based on the patient's Current physical impairments, Prior functional status, Potential to return to prior level of function, Patient motivation and Reported home support and may change based on patient progress during this hospitalization. Consult Recommendations: No other consults recommended at this time Pt understands and agrees with PT plan, goals, and tentative discharge plan: Yes Total time spent with patient: 25 minute initial evaluation Total timed interventions: 0 minutes Indio Ragsdale, SPT 02/14/16 Physical Therapy Rehabilitation Department - I was present for above evaluation and agree with above treatment and plan. Bertha Brand, PT Pager [phone] * Initial Assessments - Palma Nguyen, OT - 02/14/2016 9:30 AM EDT Occupational Therapy Evaluation Patient profile: Lelo Workman is a 70 y.o. female patient of Leonid Arguello MD, admitted on 02/12/2016 with recent relative immobilization secondary to orthopedic issues who presented with acute lightheadedness, dyspnea, and diaphoresis and who was found to have a large saddle pulmonary embolus. She was treated with thrombolytics at her local hospital when it was thought that her symptoms are from an acute NE. She has continued heparin and she has been clinically stable. Active Non-Hospital Problems Diagnosis ??? History of basal cell carcinoma ??? Actinic keratosis ??? BCC (basal cell carcinoma) R knee injury 01/23/2016 and wears brace on that leg. Mohns surgery. Social History: Patient lives with her . Home Setup: 1 level ranch, with a few stairs to enter. Has a tub shower set-up in the bathroom and higher toilet. DME: FWW, shower chair with back that sits in shower. Grab bar next to toilet on the R. Baseline ADL/Mobility: Independent with ADL???s and IADL???s (Prior to January 22). Since January 22, Pt has been NWB'ing on R LE, and using a walker. Distances limited. She required assistance for LB dressing, and supervision with shower transfer. Code Status: Full Code Activity Orders:change activity as tolerated (was on bedrest only /p initial cardiac cath) Precautions: bleeding precautions, NWB R LE, wears a hinged brace on R knee to limit lateral motion Subjective: I wish I had met you guys in the ED on the Objective: Seen today for OT evaluation; after PTs. Cognition/Behavior: alert, oriented to person, place, and time and affect appropriate to mood . Pt following commands and answering questions. Pt verbalizes understanding of her precautions, and demonstrates knowledge with activity. Communication: WFL Vision & Perception: has glasses, which she was wearing. No concerns with vision. Reading whiteboard, name tag, etc. Range of motion, strength, coordination: Hand dominance: right Bilateral UEs are within functional limitations for basic ADL Guarding movement of R LE, and with knee brace on that side L LE moving WFL Activities of Daily Living: Self-feeding ?? Independent Grooming / Bathing ?? Pt was able to wash UB/LB seated at the sink /p set-up. Pt has a tub shower at home. Pt verbalized understanding of how to complete proper transfer into shower using shower seat. Seat has a back in which she can grab with transition on/off it. Pt with good flexibility and able to access lower legs. UB / LB dressing ?? Pt reports her has been helping her to don sock on R LE if needed, as she usually doesn't wear socks in summer. Pt denies need for adaptive equipment. ?? Pt could don underwear to her thighs independently /p cue to dress R LE 1st, and then stand to hike them to waist independently. ?? Pt required min A with switching out gown 2' telemetry, and IV running. Toileting ?? Toilet Transfer: modified independent, and has grab bar at home and higher toilet. (Discussed other options that could have worked as well ie. Commode over toilet vs. Safety frame bars). ?? Toilet Hygiene: Can manage sitting vs. Standing, independently. IADLs: ?? present to help. Also discussed ways to improve access to items within environment and ultimately function. Functional Mobility: ?? Supine to sit: NA, up OOB already ?? Sit to stand: modified independent ?? Ambulation: modified independent/supervised with ambulating to/from bathroom with walker, and adhered to NWB status of R LE. Pt did need help with IV 2' running. ?? Stand to sit: modified independent Balance: ?? Sitting: good ?? Standing: good with support of walker for short periods Endurance: Information taken from last recorded vitals in flowsheet. Last value Range last 8 hrs Heart Rate Heart Rate: 65 Heart Rate: -- Blood Pressure BP: 136/76 BP: (136-148)/(76-79) SpO2 SpO2: 94 % SpO2: [94 %] Pt on room air. Tolerate full ADL seated/standing at sink, and walking to/from bathroom /p walk with PT recently. Pain: No c/o Skin: WFL Informed Consent: The patient agrees to and understands the OT treatment plan and goals. Education: patient educated on Role of occupational therapy/rehabilitation, Transfers, Assistive device/technique, ADL, Safety, Precautions/Protocol, Functional Mobility, Home Management, Recommendations and Discharge planning and verbalizes and demonstrates understanding. Patient status, treatment, and mobility recommendations discussed with nursing. Assessment: Pt has been seen by OT for evaluation, and she presents with impaired ability to perform daily activities and functional mobility secondary to the fact she is NWB'ing on R LE; but she demonstrates ability to compensate for current impairment and complete ADLs on her own and ambulate short distances. See no further acute OT needs. Anticipate d/c home with once medically ready. Discharge Recommendations: Based on the current findings noted during this evaluation, patient could benefit from Home without further Skilled Therapy when medically ready for hospital discharge. This recommendation is based on the patient's Current physical impairments, Prior functional status, Reported home support and Reported home environment and may change based on patient progress during this hospitalization. Equipment needs at discharge: has necessary DME Daily Schedule / Staff Recommendations: Encourage OOB activity and participation in self-care activities with supervision while in hospital. Total time spent with patient: 39 minutes Total timed interventions: 17 minutes self-care mgmt, Pt education re: ADL mgmt at home/DME Pager: [phone] PALMA NGUYEN OT 02/14/2016 Occupational Therapy Rehabilitation Department * Plan of Care - Stephanie Schaefer RN - 02/14/2016 4:57 AM EDT Problem: General Plan of Care Goal: Plan of Care Review 02/13/161102/13/161947 Plan of Care Review Plan of Care Outcome Status ongoing (interventions implemented as appropriate) -- Progress improving -- Coping/Psychosocial Response Interventions Plan of Care Reviewed with -- patient Goal: Individualization and Mutuality 02/12/16219902/13/1611 Individualization Patient Specific Preferences -- patient wants to be informed on all aspects of her care Patient Specific Interventions -- pt teaching done on P.E's, heparin Ct scan Mutuality/Individual Preferences What anxieties, fears or concerns do you have about your health or care? yes I worry if I can overcome this -- What questions do you have about your health or care? no -- What information would help us give you more personalized care? keep me informed -- Goal: Fall Prevention-Safe Patient Handling 02/13/16 1500 02/13/161947 Sandhu Fall Risk History of Falling -- 25 Secondary Diagnosis -- 15 Ambulatory Aids -- 15 Intravenous Therapy/Heparin/Saline Lock -- 20 Gait/Transferring -- 20 Mental Status -- 0 Score -- 95 Activity and Safety Assistive Device -- Front wheel walker OTHER Sandhu Fall Risk -- High Safety Interventions Safety Precautions/Fall Reduction -- low bed;lighting adjusted for task/safety;nonskid shoes/slippers when out of bed;room near unit station Musculoskeletal Interventions Activity/Level of Assistance -- bed rest Positioning up in chair;with 1-person assist -- Goal: Infection Control 02/13/161947 Safety Interventions Isolation Precautions standard precautions maintained Infection Prevention rest/sleep promoted;promote handwashing Coping/Psychosocial Response Interventions Counseling emotional support provided Goal: Discharge Needs Assessment 02/12/16219902/12/162299 Self-Care Equipment Currently Used at Home -- grab bar;shower chair;walker, rolling Living Environment Transportation Available family or friend will provide -- OUTCOME EVALUATION NOTE: OUTCOME SUMMARY: Uneventful night, SR on tele w/ no events. Remained on RA throughout night (SPO2 95%). No complaints of any chest symptoms or SOB. Continues on heparin gtt. PLAN MOVING FORWARD: D/c today? INDIVIDUALIZED FALL PREVENTION INTERVENTIONS: Patient-specific fall risk factors per assessment: [current deficits]: R. Knee brace, IV's. Assistance [level of assistance required for transfers and ambulation]: x1 w/ walker. Non weight bearing on right arm. Supervision [direct monitoring required during toileting and ADLs]: Call contreras within reach; Surveillance [continuous indirect monitoring]: Continue purposeful hourly rounding Patient-specific fall prevention interventions for sensory deficits provided, if applicable: Yes CPG GOAL OUTCOME EVALUATION: * Plan of Care - Rena Mast RN - 02/13/2016 12:22 AM EDT Problem: General Plan of Care Goal: Plan of Care Review Outcome: Ongoing (Interventions Implemented as Appropriate) 02/13/1611 Plan of Care Review Plan of Care Outcome Status ongoing (interventions implemented as appropriate) Progress improving Goal: Individualization and Mutuality Outcome: Ongoing (Interventions Implemented as Appropriate) 02/13/1611 Individualization Patient Specific Preferences patient wants to be informed on all aspects of her care Patient Specific Interventions pt teaching done on P.E's, heparin Ct scan Goal: Fall Prevention-Safe Patient Handling Outcome: Ongoing (Interventions Implemented as Appropriate) 02/12/16199902/12/162199 Sandhu Fall Risk History of Falling 25 -- Secondary Diagnosis 15 -- Ambulatory Aids 15 -- Intravenous Therapy/Heparin/Saline Lock 20 -- Gait/Transferring 20 -- Mental Status 0 -- Score 95 -- OTHER Sandhu Fall Risk High -- Safety Interventions Safety Precautions/Fall Reduction -- environmental modification Musculoskeletal Interventions Activity/Level of Assistance -- bedrest with bathroom privileges Positioning -- HOB up 15 degrees Goal: Infection Control Outcome: Ongoing (Interventions Implemented as Appropriate) 02/12/16199902/12/16 2200 Safety Interventions Isolation Precautions -- standard precautions maintained Infection Prevention bronchial hygiene promoted;nutrition promoted;hydration promoted;environmentalsurveillance;promote handwashing;rest/sleep promoted -- Goal: Discharge Needs Assessment Outcome: Ongoing (Interventions Implemented as Appropriate) OUTCOME EVALUATION NOTE: OUTCOME SUMMARY: Pt remains on 3l NC Sa02 97-99 denies any SOB or Chest pain, NSR on monitor CT revealed multiple PE's Pt very anxious over this, teaching done, patient states she feels better after talking, Heparin gtt continues PLAN MOVING FORWARD: Continue to monitor remain on heparin gtt, anticipate transfer to the floor INDIVIDUALIZED FALL PREVENTION INTERVENTIONS: Patient-specific fall risk factors per assessment: [current deficits]: Right knee brace for tibia fracture Assistance [level of assistance required for transfers and ambulation]: x1 with a walker non weightbearing on right leg Supervision [direct monitoring required during toileting and ADLs]: Alert oriented knows her own limitation Surveillance [continuous indirect monitoring]: [place] Sa02 Patient-specific fall prevention interventions for sensory deficits provided, if applicable: CPG GOAL OUTCOME EVALUATION: documented in this encounter Plan of Treatment Upcoming Encounters Date Type Department Care Team (Late st Contact Info) Description 06/11/2025 1:45 PM EDT Office Visit Dermatology at [address] [place] [id number] Alan Carrero MD [address], [place] [address] documented as of this encounter Procedures Procedure Name Priority Date/Time Associated Diagnosis Comments LABOR RELATIONS WORKER SCAN 02/17/2016 12:00 AM EDT BASIC METABOLIC PANEL Routine 02/16/2016 8:46 AM EDT HEMOGRAM Routine 02/16/2016 3:22 AM EDT DIFFERENTIAL, AUTOMATED Routine 02/16/20 3:22 AM EDT PROTHROMBIN TIME Routine 02/16/2016 3:22 AM EDT CBC (WITH DIFF) Routine 02/16/2016 3:22 AM EDT MAGNESIUM Routine 02/16/2016 3:22 AM EDT BASIC METABOLIC PANEL Routine 02/16/2016 3:22 AM EDT EKG 12-LEAD STAT 02/16/2016 1:37 AM EDT Chest pain, unspecified type APTT Timed 02/15/2016 4:40 PM EDT APTT STAT 02/15/2016 9:47 AM EDT HEMOGRAM Routine 02/15/2016 2:43 AM EDT DIFFERENTIAL, AUTOMATED Routine 02/15/20 2:43 AM EDT APTT Routine 02/15/2016 2:43 AM EDT PROTHROMBIN TIME Routine 02/15/2016 2:43 AM EDT CBC (WITH DIFF) Routine 02/15/2016 2:43 AM EDT MAGNESIUM Routine 02/15/2016 2:43 AM EDT BASIC METABOLIC PANEL Routine 02/15/2016 2:43 AM EDT APTT Timed 02/14/2016 6:36 PM EDT EKG 12-LEAD STAT 02/14/2016 6:03 PM EDT Chest pain, unspecified type APTT STAT 02/14/2016 12:38 PM EDT DUPLEX FOR DVT BILAT LEGS Routine 02/14/2016 10:16 AM EDT HEMOGRAM Routine 02/14/2016 4:28 AM EDT DIFFERENTIAL, AUTOMATED Routine 02/14/20 16 4:28 AM EDT APTT Routine 02/14/2016 4:28 AM EDT PROTHROMBIN TIME Routine 02/14/2016 4:28 AM EDT CBC (WITH DIFF) Routine 02/14/2016 4:28 AM EDT MAGNESIUM Routine 02/14/2016 4:28 AM EDT BASIC METABOLIC PANEL Routine 02/14/2016 4:28 AM EDT HEMOGRAM Routine 02/13/2016 4:15 AM EDT DIFFERENTIAL, AUTOMATED Routine 02/13/20 16 4:15 AM EDT APTT Routine 02/13/2016 4:15 AM EDT PROTHROMBIN TIME Routine 02/13/2016 4:15 AM EDT CBC (WITH DIFF) Routine 02/13/2016 4:15 AM EDT MAGNESIUM Routine 02/13/2016 4:15 AM EDT LIPID PANEL (REFLEX DIRECT LDL) Routine 02/13/2016 4:15 AM EDT BASIC METABOLIC PANEL Routine 02/13/2016 4:15 AM EDT APTT STAT 02/12/2016 10:[address] CHEST PULMONARY EMBOLISM W CONTRAST Routine 02/12/2016 8:27 PM EDT URINALYSIS WITH REFLEX CULTURE Routine 02/12/2016 5:22 PM EDT EKG 12-LEAD Routine 02/12/2016 3:30 PM EDT POCT GLUCOSE Routine 02/12/2016 3:26 PM EDT HEMOGRAM Routine 02/12/2016 3:20 PM EDT DIFFERENTIAL, AUTOMATED Routine 02/12/20 16 3:20 PM EDT APTT STAT 02/12/2016 3:20 PM EDT PROTHROMBIN TIME Routine 02/12/2016 3:20 PM EDT CBC (WITH DIFF) Routine 02/12/2016 3:20 PM EDT TSH Routine 02/12/2016 3:20 PM EDT MAGNESIUM Routine 02/12/2016 3:20 PM EDT HEPATIC FUNCTION PANEL Routine 6 3:20 PM EDT BASIC METABOLIC PANEL Routine 02/12/2016 3:20 PM EDT CARDIAC CATHETERIZATION Routine 02/12/20 16 3:00 PM EDT ECHO LMTD W/O CONTRAST Routine 6 2:24 PM EDT Chest pain, unspecified type POINT OF CARE BLOOD GAS HISTORICAL Routine 02/12/2016 1:32 PM EDT documented in this encounter Results * SCAN DOC: LABOR RELATIONS WORKER (02/17/2016 12:00 AM EDT) Anatomical Region Laterality Modality Other Scanning Provider MEDIA MGR SCAN EXT O RDR/RSLT * (ABNORMAL) Basic Metabolic Panel (non-fasting) (02/16/2016 8:46 AM EDT) Glucose 156 65 - 199 mg/dL [facility] Comment:Diabetes: >=200 mg/d L plus symptoms Blood Urea Nitrogen 12 8 - 18 mg/dL [facility] Creatinine 0.85 0.70 - 1.20 mg/dL [facility] Comment: Please note that the pediatric reference intervals supplied above were not validated [place] [facility] Results from pediatric patients should be interpreted in conjunction to the patient's age, height and muscle mass. Sodium 141 135 - 145 mmol/L [facility] Potassium 3.7 3.5 - 5.0 mmol/L [facility] Comment: Please note: ??Patients with WBC >100,000 may have falsely elevated Potassium levels. ??For accurate Potassium quantification in these patients send serum separator tube (gold top) for subsequent determinations. ??Contact the Clinical Chemistry Laboratory if there are any questions. Chloride 101 98 - 107 mmol/L [facility] Carbon Dioxide 23 22 - 31 mmol/L [facility] Anion Gap 17(H) 5 - 15 mmol/L [facility] Calcium 9.4 8.5 - 10.5 mg/dL [facility] Est Glomerular Filtration Rate >60 >=60 [facility] Comment: This estimated GFR (eGFR) value was calculated using the MDRD equation which has been validated on patients between the ages of 18 and 70. The MDRD should not be used to assess kidney function in patients < 18 years of age or in patients with extremes of body mass, or in patients with acute kidney failure. This value should be multiplied by 1.2 for patients. For further information please copy and paste the following links into your internet browser. [email or web address] Blood specimen (specimen) 02/16/2016 8:46 AM EDT 02/16/2016 8:50 AM EDT Narrative Resulting Agency Comment Spec In Lab Leonid Luz MD CHEMISTRY ORDERABLES [facility] [place] [address] * Differential, Automated (02/16/2016 3:22 AM EDT) Neutrophil % 55.8 % [facility] Neutrophil Absolute 4.24 1.50 - 6.30 x10(3)/mcL [facility] Lymph % 31.1 % [facility] Lymphocytes Abs 2.4 1.0 - 3.6 x10(3)/[facility] Monocyte % 8.1 % [facility] Monocyte Abs 0.6 0.2 - 1.0 x10(3)/[facility] Eos % 4.5 % [facility] Eosinophils Abs 0.3 0.0 - 0.5 x10(3)/[facility] Basophil % 0.4 % [facility] Baso Absolute 0.0 0.0 - 0.2 x10(3)/[facility] Immature Gran % 0.10 % [facility] Comment: Immature granulocytes(IG's)percentage and absolute count will include metamyelocytes, myelocytes, and promyelocytes. Blood smears from CBCs yielding IG's will be scanned manually for concordance. If this scan disagrees with the automated IG or if promyelocytes are noted, a manual differential will be performed. Immature Gran Absolute 0.01 0.00 - 0.05 x10(3)/[facility] Blood specimen (specimen) 02/16/2016 3:22 AM EDT 02/16/2016 3:26 AM EDT Narrative Resulting Agency Comment Spec In Lab Ward Garcia MD HEMATOLOGY ORDERABLE S [facility] [place] [address] * (ABNORMAL) Hemogram (02/16/2016 3:22 AM EDT) White Blood Cell 7.6 4.0 - 10.0 x10(3)/mc L [facility] Red Blood Cell 3.91(L) 3.93 - 5.22 x10(6)/mc L [facility] Hemoglobin 12.0 11.2 - 15.7 gm/dL [facility] Hematocrit 34.8 34.0 - 45.0 % [facility] Mean Cell Volume 89.0 79.0 - 94.0 fL [facility] Mean Cell Hemoglobin 30.7 26.6 - 32.2 pg [facility] Mean Cell Hemoglobin Concentration 34.5 32.0 - 36.5 gm/dL [facility] Platelet 238 145 - 370 x10(3)/mc L [facility] RDW Standard Deviation 42.2 35.0 - 46.0 fL [facility] RDW coefficient of variation 13.3 10.9 - 14.4 % [facility] Mean Platelet Volume 9.2 9.0 - 12.0 fL [facility] Blood specimen (specimen) 02/16/2016 3:22 AM EDT 02/16/2016 3:26 AM EDT Narrative Resulting Agency Comment Spec In Lab Ward Garcia MD HEMATOLOGY ORDERABLE S Performing Organization Address [facility] Co de Phone Number [facility] [place] [address] * Prothrombin Time (02/16/2016 3:22 AM EDT) Prothrombin Time 14.6 12.0 - 15.0 sec [facility] Comment: An INR <2.0 indicates adequate procoagulant activity for hemostasis in most patients without underlying bleeding disorders, though the INR may not adequately reflect hemostatic capacity in patients with liver disease and synthetic impairment. The recommended target INR range for therapeutic anticoagulation is 2.0 ? 3.0 for most applications, though lower and higher ranges may be appropriate depending on clinical circumstances. International Normalization Ratio 1.1 0.9 - 1.1 [facility] Blood specimen (specimen) 02/16/2016 3:22 AM EDT 02/16/2016 3:26 AM EDT Narrative Resulting Agency Comment Spec In Lab Ward Garcia MD HEMATOLOGY ORDERABLE S Performing Organization Address City/[facility]/ZIP Co de Phone Number [facility] [place] [address] * Magnesium (02/16/2016 3:22 AM EDT) Magnesium 0.86 0.69 - 1.07 mmol/L [facility] Blood specimen (specimen) 02/16/2016 3:22 AM EDT 02/16/2016 3:26 AM EDT Narrative Resulting Agency Comment Spec In Lab Ward Garcia MD CHEMISTRY ORDERABLES [facility] [address] [place] [address] * (ABNORMAL) Basic Metabolic Panel (non-fasting) (02/16/2016 3:22 AM EDT) Pathologist [facility] Glucose 103 65 - 199 mg/dL [facility] Comment:Diabetes: >=200 mg/d L plus symptoms Blood Urea Nitrogen 11 8 - 18 mg/dL [facility] Creatinine 0.75 0.70 - 1.20 mg/dL [facility] Comment: Please note that the pediatric reference intervals supplied above were not validated [place] [facility] Results from pediatric patients should be interpreted in conjunction to the patient's age, height and muscle mass. Sodium 138 135 - 145 mmol/L [facility] Potassium Not Perf 3.5 - 5.0 mmol/L [facility] Comment: Unable to quantitate due to sample hemolysis. ??Sample redraw suggested. Notified Finn Baugh 02/16/16 03:53/llu Please note: ??Patients with WBC >100,000 may have falsely elevated Potassium levels. ??For accurate Potassium quantification in these patients send serum separator tube (gold top) for subsequent determinations. ??Contact the Clinical Chemistry Laboratory if there are any questions. Chloride 102 98 - 107 mmol/L [facility] Carbon Dioxide 21(L) 22 - 31 mmol/L [facility] Anion Gap 15 5 - 15 mmol/L [facility] Calcium 9.1 8.5 - 10.5 mg/dL [facility] Est Glomerular Filtration Rate >60 >=60 [facility] Comment: This estimated GFR (eGFR) value was calculated using the MDRD equation which has been validated on patients between the ages of 18 and 70. The MDRD should not be used to assess kidney function in patients < 18 years of age or in patients with extremes of body mass, or in patients with acute kidney failure. This value should be multiplied by 1.2 for patients. For further information please copy and paste the following links into your internet browser. [email or web address] Blood specimen (specimen) 02/16/2016 3:22 AM EDT 02/16/2016 3:26 AM EDT Narrative Resulting Agency Comment Spec In Lab Ward Garcia MD CHEMISTRY ORDERABLES Performing Organization Address [facility] Co de Phone Number [facility] [place] [address] * EKG 12 Lead (02/16/2016 1:37 AM EDT) Ventricular rate 71 BPM MUSE SYSTEM Atrial Rate 71 BPM MUSE SYSTEM P-R Interval 196 ms MUSE SYSTEM QRS Duration 102 ms MUSE SYSTEM Q-T Interval 420 ms MUSE SYSTEM QTC Calculated (Bezet) 456 ms MUSE SYSTEM Calculated P [place] 49 degrees MUSE SYSTEM Calculated R [place] -46 degrees MUSE SYSTEM Calculated T [place] 1 degrees MUSE SYSTEM INTERPRETATION Normal sinus rhythm Left anterior fascicular block Abnormal ECG When compared with ECG of 14-FEB-2016 18:03, No significant change was found Confirmed by MD Peter, Cash Nur ([id number]) on 02/17/2016 6:28:31 AM MUSE SYSTEM 02/16/2016 1:37 AM EDT 02/17/2016 6:28 AM EDT Ward Garcia MD ECG ORDERABLES Performing Organization Address [facility] Co de Phone Number MUSE SYSTEM * (ABNORMAL) APTT (02/15/2016 4:40 PM EDT) Partial Thromboplastin Time 81(H) 25 - 35 sec [facility] Comment: The recommended therapeutic range for full dose, unfractionated heparin [place] [facility] [place] 80 ? 114 seconds. The use of the anti-Xa (heparin) level rather than the PTT is recommended for monitoring anticoagulation intensity in critically ill patients receiving unfractionated heparin by continuous IV infusion. Blood specimen (specimen) 02/15/2016 4:40 PM EDT 02/15/2016 4:51 PM EDT Narrative Resulting Agency Comment Spec In Lab Leonid Luz MD HEMATOLOGY ORDERABLE S Performing Organization Address [facility] Co de Phone Number [facility] [place] [address] * (ABNORMAL) APTT (02/15/2016 9:47 AM EDT) Partial Thromboplastin Time 80(H) 25 - 35 sec [facility] Comment: The recommended therapeutic range for full dose, unfractionated heparin [place] [facility] is 80 ? 114 seconds. The use of the anti-Xa (heparin) level rather than the PTT is recommended for monitoring anticoagulation intensity in critically ill patients receiving unfractionated heparin by continuous IV infusion. Blood specimen (specimen) 02/15/2016 9:47 AM EDT 02/15/2016 9:52 AM EDT Narrative Resulting Agency Comment Spec In Lab Leonid Luz MD HEMATOLOGY ORDERABLE S Performing Organization Address [facility] Co de Phone Number [facility] [place] [address] * (ABNORMAL) APTT (02/15/2016 2:43 AM EDT) Partial Thromboplastin Time 115(H) 25 - 35 sec [facility] Comment: The recommended therapeutic range for full dose, unfractionated heparin [place] [facility] is 80 ? 114 seconds. The use of the anti-Xa (heparin) level rather than the PTT is recommended for monitoring anticoagulation intensity in critically ill patients receiving unfractionated heparin by continuous IV infusion. Blood specimen (specimen) Venous Draw / Unknown 02/15/2016 2:43 AM EDT 02/15/2016 2:49 AM EDT Narrative Resulting Agency Comment Spec In Lab Ward Garcia MD HEMATOLOGY ORDERABLE S Performing Organization Address City/[facility]/ZIP Co de Phone Number [facility] [place] [address] * Differential, Automated (02/15/2016 2:43 AM EDT) Neutrophil % 48.2 % [facility] Neutrophil Absolute 3.65 1.50 - 6.30 x10(3)/[facility] Lymph % 37.1 % [facility] Lymphocytes Abs 2.8 1.0 - 3.6 x10(3)/[facility] Monocyte % 7.8 % [facility] Monocyte Abs 0.6 0.2 - 1.0 x10(3)/[facility] Eos % 6.2 % [facility] Eosinophils Abs 0.5 0.0 - 0.5 x10(3)/[facility] Basophil % 0.4 % [facility] Baso Absolute 0.0 0.0 - 0.2 x10(3)/[facility] Immature Gran % 0.30 % [facility] Comment: Immature granulocytes(IG's)percentage and absolute count will include metamyelocytes, myelocytes, and promyelocytes. Blood smears from CBCs yielding IG's will be scanned manually for concordance. If this scan disagrees with the automated IG or if promyelocytes are noted, a manual differential will be performed. Immature Gran Absolute 0.02 0.00 - 0.05 x10(3)/[facility] Blood specimen (specimen) 02/15/2016 2:43 AM EDT 02/15/2016 2:49 AM EDT Narrative Resulting Agency Comment Spec In Lab Ward Garcia MD HEMATOLOGY ORDERABLE S [facility] [place] [address] * (ABNORMAL) Hemogram (02/15/2016 2:43 AM EDT) White Blood Cell 7.6 4.0 - 10.0 x10(3)/mc L [facility] Red Blood Cell 3.84(L) 3.93 - 5.22 x10(6)/mc L [facility] Hemoglobin 11.6 11.2 - 15.7 gm/dL [facility] Hematocrit 34.3 34.0 - 45.0 % [facility] Mean Cell Volume 89.3 79.0 - 94.0 fL [facility] Mean Cell Hemoglobin 30.2 26.6 - 32.2 pg [facility] Mean Cell Hemoglobin Concentration 33.8 32.0 - 36.5 gm/dL [facility] Platelet 272 145 - 370 x10(3)/mc L [facility] RDW Standard Deviation 42.3 35.0 - 46.0 fL [facility] RDW coefficient of variation 13.0 10.9 - 14.4 % [facility] Mean Platelet Volume 8.9(L) 9.0 - 12.0 fL [facility] Blood specimen (specimen) 02/15/2016 2:43 AM EDT 02/15/2016 2:49 AM EDT Narrative Resulting Agency Comment Spec In Lab Ward Garcia MD HEMATOLOGY ORDERABLE S [facility] [place] [address] * Prothrombin Time (02/15/2016 2:43 AM EDT) Prothrombin Time 14.7 12.0 - 15.0 sec [facility] Comment: An INR <2.0 indicates adequate procoagulant activity for hemostasis in most patients without underlying bleeding disorders, though the INR may not adequately reflect hemostatic capacity in patients with liver disease and synthetic impairment. The recommended target INR range for therapeutic anticoagulation is 2.0 ? 3.0 for most applications, though lower and higher ranges may be appropriate depending on clinical circumstances. International Normalization Ratio 1.1 0.9 - 1.1 [facility] Blood specimen (specimen) 02/15/2016 2:43 AM EDT 02/15/2016 2:49 AM EDT Narrative Resulting Agency Comment Spec In Lab Ward Garcia MD HEMATOLOGY ORDERABLE S [facility] [place] [address] * Basic Metabolic Panel (non-fasting) (02/15/2016 2:43 AM EDT) Glucose 107 65 - 199 mg/dL [facility] Comment:Diabetes: >=200 mg/d L plus symptoms Blood Urea Nitrogen 13 8 - 18 mg/dL [facility] Creatinine 0.78 0.70 - 1.20 mg/dL [facility] Comment: Please note that the pediatric reference intervals supplied above were not validated [place] [facility] Results from pediatric patients should be interpreted in conjunction to the patient's age, height and muscle mass. Sodium 142 135 - 145 mmol/L [facility] Potassium 3.8 3.5 - 5.0 mmol/L [facility] Comment: Please note: ??Patients with WBC >100,000 may have falsely elevated Potassium levels. ??For accurate Potassium quantification in these patients send serum separator tube (gold top) for subsequent determinations. ??Contact the Clinical Chemistry Laboratory if there are any questions. Chloride 106 98 - 107 mmol/L [facility] Carbon Dioxide 24 22 - 31 mmol/L [facility] Anion Gap 12 5 - 15 mmol/L [facility] Calcium 9.0 8.5 - 10.5 mg/dL [facility] Est Glomerular Filtration Rate >60 >=60 [facility] Comment: This estimated GFR (eGFR) value was calculated using the MDRD equation which has been validated on patients between the ages of 18 and 70. The MDRD should not be used to assess kidney function in patients < 18 years of age or in patients with extremes of body mass, or in patients with acute kidney failure. This value should be multiplied by 1.2 for patients. For further information please copy and paste the following links into your internet browser. [email or web address] Blood specimen (specimen) 02/15/2016 2:43 AM EDT 02/15/2016 2:49 AM EDT Narrative Resulting Agency Comment Spec In Lab Ward Garcia MD CHEMISTRY ORDERABLES Performing Organization Address [facility]/ZIP Co de Phone Number [facility] [place] [address] * Magnesium (02/15/2016 2:43 AM EDT) [facility] Signature Magnesium 0.85 0.69 - 1.07 mmol/L [facility] Blood specimen (specimen) 02/15/2016 2:43 AM EDT 02/15/2016 2:49 AM EDT Narrative Resulting Agency Comment Spec In Lab Ward Garcia MD CHEMISTRY ORDERABLES Performing Organization Address [facility] Co de Phone Number [facility] [place] [address] * (ABNORMAL) APTT (02/14/2016 6:36 PM EDT) Partial Thromboplastin Time 73(H) 25 - 35 sec [facility] Comment: The recommended therapeutic range for full dose, unfractionated heparin at [facility] is 80 ? 114 seconds. The use of the anti-Xa (heparin) level rather than the PTT is recommended for monitoring anticoagulation intensity in critically ill patients receiving unfractionated heparin by continuous IV infusion. Blood specimen (specimen) 02/14/2016 6:36 PM EDT 02/14/2016 6:46 PM EDT Narrative Resulting Agency Comment Spec In Lab Leonid Luz MD HEMATOLOGY ORDERABLE S Performing Organization Address [facility] Co de Phone Number [facility] [place] [address] * EKG 12 Lead (02/14/2016 6:03 PM EDT) Ventricular rate 67 BPM MUSE SYSTEM Atrial Rate 67 BPM MUSE SYSTEM P-R Interval 196 ms MUSE SYSTEM QRS Duration 104 ms MUSE SYSTEM Q-T Interval 434 ms MUSE SYSTEM QTC Calculated (Bezet) 458 ms MUSE SYSTEM Calculated P [place] 35 degrees MUSE SYSTEM Calculated R [place] -41 degrees MUSE SYSTEM Calculated T [place] -23 degrees MUSE SYSTEM INTERPRETATION Normal sinus rhythm Left axis deviation T wave abnormality, consider anterior ischemia Abnormal ECG Confirmed by MD Moya Douglas ([id number]) on 02/15/2016 4:01:45 PM MUSE SYSTEM 02/14/2016 6:03 PM EDT 02/15/2016 4:01 PM EDT Ward Garcia MD ECG ORDERABLES Performing Organization Address [facility] Co de Phone Number MUSE SYSTEM * (ABNORMAL) APTT (02/14/2016 12:38 PM EDT) [facility] Partial Thromboplastin Time 93(H) 25 - 35 sec [facility] Comment: The recommended therapeutic range for full dose, unfractionated heparin at [facility] is 80 ? 114 seconds. The use of the anti-Xa (heparin) level rather than the PTT is recommended for monitoring anticoagulation intensity in critically ill patients receiving unfractionated heparin by continuous IV infusion. Blood specimen (specimen) 02/14/2016 12:38 PM EDT 02/14/2016 12:57 PM EDT Narrative Resulting Agency Comment Spec In Lab Leonid Lzu MD HEMATOLOGY ORDERABLE S Performing Organization Address [facility] Co de Phone Number [facility] [place] [address] * Duplex Study for DVT, Bilat legs (02/14/2016 10:16 AM EDT) Pathologist [facility] VB Text Report Department: Vascular Surgery Lab Patient: [id number] (LELO WORKMAN) CPT: 26999 ICD10: I82.441;R60.0 Referring Physician: LEONID LUZ ?? Indications: 70 year old female with PE and mild RIGHT calf edema following recent RIGHT knee injury (tibia fracture), ? DVT ICD10 Diagnosis Code: I82.441, R60.0 RIGHT: Non-occlusive thrombus in both of the paired posterior tibial veins and one of the paired peroneal veins with additional occlusive thrombus in the other peroneal vein through the calf. Otherwise, patent common femoral vein and popliteal vein with spontaneous, respirophasic Doppler waveforms that respond normally to augmentation maneuvers. The common femoral vein, saphenofemoral junction, femoral vein through the thigh and popliteal vein are fully compressible. LEFT: Patent common femoral vein and popliteal vein with spontaneous, respirophasic Doppler waveforms that respond normally to augmentation maneuvers. The common femoral vein, saphenofemoral junction, femoral vein through the thigh and popliteal vein are fully compressible. Patent posterior tibial and peroneal veins with no evidence of thrombus. Interpretation: RIGHT: Non-occlusive and occlusive lower extremity DVT (deep veins in the calf). No evidence of femoral-popliteal deep venous thrombosis. LEFT: No evidence of lower extremity deep venous thrombosis. Notification: Carson Kimball MD (pager #[phone]) was notified of the preliminary findings. Comparison: ??No previous study in our vascular lab database for comparison. Electronically Signed by: TYLER BRYSON on 2016-02-14 04:09:37 PM [facility] VB Text Report End of Report [facility] 02/14/2016 10:1 6 AM EDT Leonid Luz MD VASCULAR ORDERABLES [facility] * (ABNORMAL) APTT (02/14/2016 4:28 AM EDT) [facility] Signature Partial Thromboplastin Time 58(H) 25 - 35 sec [facility] Comment: The recommended therapeutic range for full dose, unfractionated heparin at [facility] is 80 ? 114 seconds. The use of the anti-Xa (heparin) level rather than the PTT is recommended for monitoring anticoagulation intensity in critically ill patients receiving unfractionated heparin by continuous IV infusion. Blood specimen (specimen) Venous Draw / Unknown 02/14/2016 4:28 AM EDT 02/14/2016 4:39 AM EDT Narrative Resulting Agency Comment Spec In Lab Ward Garcia MD HEMATOLOGY ORDERABLE S Performing Organization Address [facility] Co de Phone Number [facility] [place] [place] [address] * Magnesium (02/14/2016 4:28 AM EDT) Magnesium 0.87 0.69 - 1.07 mmol/L [facility] Blood specimen (specimen) 02/14/2016 4:28 AM EDT 02/14/2016 4:39 AM EDT Narrative Resulting Agency Comment Spec In Lab Ward Garcia MD CHEMISTRY ORDERABLES Performing Organization Address [facility] Co de Phone Number [facility] [place] [address] * (ABNORMAL) Basic Metabolic Panel (non-fasting) (02/14/2016 4:28 AM EDT) Glucose 125 65 - 199 mg/dL [facility] Comment:Diabetes: >=200 mg/d L plus symptoms Blood Urea Nitrogen 11 8 - 18 mg/dL [facility] Creatinine 0.69(L) 0.70 - 1.20 mg/dL [facility] Comment: Please note that the pediatric reference intervals supplied above were not validated at [facility] Results from pediatric patients should be interpreted in conjunction to the patient's age, height and muscle mass. Sodium 143 135 - 145 mmol/L [facility] Potassium 3.7 3.5 - 5.0 mmol/L [facility] Comment: Please note: ??Patients with WBC >100,000 may have falsely elevated Potassium levels. ??For accurate Potassium quantification in these patients send serum separator tube (gold top) for subsequent determinations. ??Contact the Clinical Chemistry Laboratory if there are any questions. Chloride 106 98 - 107 mmol/L [facility] Carbon Dioxide 24 22 - 31 mmol/L [facility] Anion Gap 13 5 - 15 mmol/L [facility] Calcium 9.1 8.5 - 10.5 mg/dL [facility] Est Glomerular Filtration Rate >60 >=60 [facility] Comment: This estimated GFR (eGFR) value was calculated using the MDRD equation which has been validated on patients between the ages of 18 and 70. The MDRD should not be used to assess kidney function in patients < 18 years of age or in patients with extremes of body mass, or in patients with acute kidney failure. This value should be multiplied by 1.2 for patients. For further information please copy and paste the following links into your internet browser. [email or web address] Blood specimen (specimen) 02/14/2016 4:28 AM EDT 02/14/2016 4:39 AM EDT Narrative Resulting Agency Comment Spec In Lab Ward Garcia MD CHEMISTRY ORDERABLES [facility] [place] [address] * Differential, Automated (02/14/2016 4:28 AM EDT) Neutrophil % 56.2 % [facility] Neutrophil Absolute 4.04 1.50 - 6.30 x10(3)/[facility] Lymph % 29.6 % [facility] Lymphocytes Abs 2.1 1.0 - 3.6 x10(3)/[facility] Monocyte % 7.8 % [facility] Monocyte Abs 0.6 0.2 - 1.0 x10(3)/[facility] Eos % 5.7 % [facility] Eosinophils Abs 0.4 0.0 - 0.5 x10(3)/[facility] Basophil % 0.6 % [facility] Baso Absolute 0.0 0.0 - 0.2 x10(3)/[facility] Immature Gran % 0.10 % [facility] Comment: Immature granulocytes(IG's)percentage and absolute count will include metamyelocytes, myelocytes, and promyelocytes. Blood smears from CBCs yielding IG's will be scanned manually for concordance. If this scan disagrees with the automated IG or if promyelocytes are noted, a manual differential will be performed. Immature Gran Absolute 0.01 0.00 - 0.05 x10(3)/[facility] Blood specimen (specimen) 02/14/2016 4:28 AM EDT 02/14/2016 4:39 AM EDT Narrative Resulting Agency Comment Spec In Lab Ward Garcia MD HEMATOLOGY ORDERABLE S Performing Organization Address City/State/[facility] Co de Phone Number [facility] [place] [address] * (ABNORMAL) Hemogram (02/14/2016 4:28 AM EDT) White Blood Cell 7.2 4.0 - 10.0 x10(3)/mc L [facility] Red Blood Cell 3.82(L) 3.93 - 5.22 x10(6)/mc L [facility] Hemoglobin 11.4 11.2 - 15.7 gm/dL [facility] Hematocrit 34.4 34.0 - 45.0 % [facility] Mean Cell Volume 90.1 79.0 - 94.0 fL [facility] Mean Cell Hemoglobin 29.8 26.6 - 32.2 pg [facility] Mean Cell Hemoglobin Concentration 33.1 32.0 - 36.5 gm/dL [facility] Platelet 267 145 - 370 x10(3)/mc L [facility] RDW Standard Deviation 42.0 35.0 - 46.0 fL [facility] RDW coefficient of variation 12.9 10.9 - 14.4 % [facility] Mean Platelet Volume 9.1 9.0 - 12.0 fL [facility] Blood specimen (specimen) 02/14/2016 4:28 AM EDT 02/14/2016 4:39 AM EDT Narrative Resulting Agency Comment Spec In Lab Ward Garcia MD HEMATOLOGY ORDERABLE S Performing Organization Address City/[facility]/ZIP Co de Phone Number [facility] [place] [address] * Prothrombin Time (02/14/2016 4:28 AM EDT) Prothrombin Time 14.4 12.0 - 15.0 sec [facility] Comment: An INR <2.0 indicates adequate procoagulant activity for hemostasis in most patients without underlying bleeding disorders, though the INR may not adequately reflect hemostatic capacity in patients with liver disease and synthetic impairment. The recommended target INR range for therapeutic anticoagulation is 2.0 ? 3.0 for most applications, though lower and higher ranges may be appropriate depending on clinical circumstances. International Normalization Ratio 1.1 0.9 - 1.1 [facility] Blood specimen (specimen) 02/14/2016 4:28 AM EDT 02/14/2016 4:39 AM EDT Narrative Resulting Agency Comment Spec In Lab Ward Garcia MD HEMATOLOGY ORDERABLE S Performing Organization Address City/[facility]/ZIP Co de Phone Number [facility] [place] [address] * (ABNORMAL) APTT (02/13/2016 4:15 AM EDT) Partial Thromboplastin Time 89(H) 25 - 35 sec [facility] Comment: Specimen drawn more than one hour prior to testing. ??Results may not be reliable for heparin monitoring. ??(May be falsely low) The recommended therapeutic range for full dose, unfractionated heparin at [facility] is 80 ? 114 seconds. The use of the anti-Xa (heparin) level rather than the PTT is recommended for monitoring anticoagulation intensity in critically ill patients receiving unfractionated heparin by continuous IV infusion. Blood specimen (specimen) Venous Draw / Unknown 02/13/2016 4:15 AM EDT 02/13/2016 4:34 AM EDT Narrative Resulting Agency Comment Spec In Lab Ward Garcia MD HEMATOLOGY ORDERABLE S Performing Organization Address [facility] Co de Phone Number [facility] [place] [address] * Magnesium (02/13/2016 4:15 AM EDT) [facility] Magnesium 0.85 0.69 - 1.07 mmol/L [facility] Blood specimen (specimen) Venous Draw / Unknown 02/13/2016 4:15 AM EDT 02/13/2016 4:34 AM EDT Narrative Resulting Agency Comment Spec In Lab Ward Garcia MD CHEMISTRY ORDERABLES Performing Organization Address [facility] de Phone Number [facility] [place] [address] * (ABNORMAL) Basic Metabolic Panel (non-fasting) (02/13/2016 4:15 AM EDT) [facility] Glucose 103 65 - 199 mg/dL [facility] Comment:Diabetes: >=200 mg/d L plus symptoms Blood Urea Nitrogen 13 8 - 18 mg/dL [facility] Creatinine 0.67(L) 0.70 - 1.20 mg/dL [facility] Comment: Please note that the pediatric reference intervals supplied above were not validated at [facility] Results from pediatric patients should be interpreted in conjunction to the patient's age, height and muscle mass. Sodium 143 135 - 145 mmol/L [facility] Potassium 3.7 3.5 - 5.0 mmol/L [facility] Comment: Please note: ??Patients with WBC >100,000 may have falsely elevated Potassium levels. ??For accurate Potassium quantification in these patients send serum separator tube (gold top) for subsequent determinations. ??Contact the Clinical Chemistry Laboratory if there are any questions. Chloride 107 98 - 107 mmol/L [facility] Carbon Dioxide 24 22 - 31 mmol/L [facility] Anion Gap 12 5 - 15 mmol/L [facility] Calcium 8.6 8.5 - 10.5 mg/dL [facility] Est Glomerular Filtration Rate >60 >=60 [facility] Comment: This estimated GFR (eGFR) value was calculated using the MDRD equation which has been validated on patients between the ages of 18 and 70. The MDRD should not be used to assess kidney function in patients < 18 years of age or in patients with extremes of body mass, or in patients with acute kidney failure. This value should be multiplied by 1.2 for patients. For further information please copy and paste the following links into your internet browser. [email or web address] Blood specimen (specimen) Venous Draw / Unknown 02/13/2016 4:15 AM EDT 02/13/2016 4:34 AM EDT Narrative Resulting Agency Comment Spec In Lab Ward Garcia MD CHEMISTRY ORDERABLES [facility] [place] [address] * Differential, Automated (02/13/2016 4:15 AM EDT) Neutrophil % 59.5 % [facility] Neutrophil Absolute 5.53 1.50 - 6.30 x10(3)/[facility] Lymph % 30.3 % [facility] Lymphocytes Abs 2.8 1.0 - 3.6 x10(3)/[facility] Monocyte % 7.4 % [facility] Monocyte Abs 0.7 0.2 - 1.0 x10(3)/[facility] Eos % 2.5 % [facility] Eosinophils Abs 0.2 0.0 - 0.5 x10(3)/[facility] Basophil % 0.2 % [facility] Baso Absolute 0.0 0.0 - 0.2 x10(3)/[facility] Immature Gran % 0.10 % [facility] Comment: Immature granulocytes(IG's)percentage and absolute count will include metamyelocytes, myelocytes, and promyelocytes. Blood smears from CBCs yielding IG's will be scanned manually for concordance. If this scan disagrees with the automated IG or if promyelocytes are noted, a manual differential will be performed. Immature Gran Absolute 0.01 0.00 - 0.05 x10(3)/[facility] Blood specimen (specimen) 02/13/2016 4:15 AM EDT 02/13/2016 4:34 AM EDT Narrative Resulting Agency Comment Spec In Lab Ward Garcia MD HEMATOLOGY ORDERABLE S [facility] [place] [address] * (ABNORMAL) Hemogram (02/13/2016 4:15 AM EDT) White Blood Cell 9.3 4.0 - 10.0 x10(3)/mc L [facility] Red Blood Cell 3.48(L) 3.93 - 5.22 x10(6)/mc L [facility] Hemoglobin 10.6(L) 11.2 - 15.7 gm/dL [facility] Hematocrit 31.7(L) 34.0 - 45.0 % [facility] Mean Cell Volume 91.1 79.0 - 94.0 fL [facility] Mean Cell Hemoglobin 30.5 26.6 - 32.2 pg [facility] Mean Cell Hemoglobin Concentration 33.4 32.0 - 36.5 gm/dL [facility] Platelet 227 145 - 370 x10(3)/mc L [facility] RDW Standard Deviation 44.2 35.0 - 46.0 fL [facility] RDW coefficient of variation 13.3 10.9 - 14.4 % [facility] Mean Platelet Volume 9.3 9.0 - 12.0 fL [facility] Blood specimen (specimen) 02/13/2016 4:15 AM EDT 02/13/2016 4:34 AM EDT Narrative Resulting Agency Comment Spec In Lab Ward Garcia MD HEMATOLOGY ORDERABLE S Performing Organization Address [facility]/ZIP Co de Phone Number [facility] [place] [address] * (ABNORMAL) Prothrombin Time (02/13/2016 4:15 AM EDT) Prothrombin Time 15.9(H) 12.0 - 15.0 sec [facility] Comment: An INR <2.0 indicates adequate procoagulant activity for hemostasis in most patients without underlying bleeding disorders, though the INR may not adequately reflect hemostatic capacity in patients with liver disease and synthetic impairment. The recommended target INR range for therapeutic anticoagulation is 2.0 ? 3.0 for most applications, though lower and higher ranges may be appropriate depending on clinical circumstances. International Normalization Ratio 1.2(H) 0.9 - 1.1 [facility] Blood specimen (specimen) 02/13/2016 4:15 AM EDT 02/13/2016 4:34 AM EDT Narrative Resulting Agency Comment Spec In Lab Ward Garcia MD HEMATOLOGY ORDERABLE S Performing Organization Address City/[facility]/ZIP Co de Phone Number [facility] [place] [address] * (ABNORMAL) Lipid panel (fasting) (02/13/2016 4:15 AM EDT) Cholesterol, Total 121 <=199 mg/dL [facility] Comment: Recommendations of the NCEP Adult Treatment Panel for the following risk cutoff thresholds for the [place] population: Desirable: <200 mg/dL Borderline High: 200-239 mg/dL High: > or = 240 mg/dL Triglyceride 89 <=149 mg/dL [facility] Comment: Reference Range: Normal triglycerides: ??<150 mg/dL Borderline high: ??150-199 mg/dL High: ??200-499 mg/dL Very high: ??>mm=185 mg/dL FRANKO 2001; 285(19):7866-7124 HDL Cholesterol 29(L) >=40 mg/dL [facility] Comment: Reference range: ??Low HDL: ?? < 40 mg/dL ??Normal: ?40-60 mg/dL ??Desirable: > 60 mg/dL FRANKO 2001; 285(19):4990-6050 LDL Cholesterol 74 <=99 mg/dL [facility] Comment: Reference range: ?? Optimal: ?<100 mg/dL ?? Near Optimal/Above Optimal: ?? 100-129 mg/dL ?? Borderline high: ?130-159 mg/dL ?? High: ? 160-189 mg/dL ?? Very high: ?>ug=167 mg/dL FRANKO 2001: 285(19):1447-0294 Cholesterol/HDL Ratio 4.2 ratio [facility] Comment: A Cholesterol to HDL ratio below 4:1 is desirable. ??Studies suggest that increased CAD risk occurs at ratios above 5 for females and above 6 for men. ? [place] [employer] ??(http://www.americanheart.org) ? An Int Med, 1994; 121:641 ? AM J Med, 1998; 105(1A):48S Blood specimen (specimen) 02/13/2016 4:15 AM EDT 02/13/2016 4:34 AM EDT Narrative Resulting Agency Comment Spec In Lab Ward Garcia MD CHEMISTRY ORDERABLES Performing Organization Address [facility] Co de Phone Number [facility] [place] [address] * (ABNORMAL) APTT (02/12/2016 10:30 PM EDT) [facility] Signature Partial Thromboplastin Time 91(H) 25 - 35 sec [facility] Comment: The recommended therapeutic range for full dose, unfractionated heparin at [facility] is 80 ? 114 seconds. The use of the anti-Xa (heparin) level rather than the PTT is recommended for monitoring anticoagulation intensity in critically ill patients receiving unfractionated heparin by continuous IV infusion. Blood specimen (specimen) 02/12/2016 10:30 PM EDT 02/12/2016 10:41 PM EDT Narrative Resulting Agency Comment Spec In Lab Ward Garcia MD HEMATOLOGY ORDERABLE S Performing Organization Address [facility] Co de Phone Number [facility] [place] [address] * CT Chest Pulmonary Embolism With Contrast (02/12/2016 8:27 PM EDT) Anatomical Region Laterality Modality Chest Computed Tomogra phy Impressions 02/12/2016 8:40 PM EDT Large bilateral central pulmonary emboli. RIGHT heart strain. Small LEFT and trace RIGHT pleural effusion Narrative 02/12/2016 8:40 PM EDT EXAMINATION: CTA chest for pulmonary arteries CLINICAL HISTORY: Ischemia, TTE with e/o R heart strain. high suspicion for PE. TECHNIQUE: 2.5 mm thick axial contiguous sections were obtained through the chest via helical acquisition after the intravenous administration of 95 cc of Omnipaque-350. Thin-section reconstructions as well as coronal and sagittal MIP reformatted images were generated to aid in evaluation. COMPARISON: None FINDINGS: Pulmonary arteries:Adequate enhancement of pulmonary arteries.Large saddle embolus with multiple bilateral central pulmonary emboli. Other cardiovascular structures: Reflux of contrast into IVC suggesting RIGHT heart strain. Pulmonary parenchyma: Mild dependent atelectasis Airways: Not fully distended due to shallow degree of inflation Pleura: Small LEFT and trace RIGHT pleural effusions Lymph nodes:No significant findings. Other mediastinal structures: No significant findings. Upper abdomen: No significant findings. Skeletal structures: No significant findings. Procedure Note Khoa Wagner MD - 02/12/2016 EXAMINATION: CTA chest for pulmonary arteries CLINICAL HISTORY: Ischemia, TTE with e/o R heart strain. high suspicionfor PE. TECHNIQUE: 2.5 mm thick axial contiguous sections were obtained throughthe chest via helical acquisition after the intravenous administration of 95cc of Omnipaque-350. Thin-section reconstructions as well as coronal andsagittal MIP reformatted images were generated to aid in evaluation. COMPARISON: None FINDINGS: Pulmonary arteries:Adequate enhancement of pulmonary arteries.Largesaddle embolus with multiple bilateral central pulmonary emboli. Other cardiovascular structures: Reflux of contrast into IVC suggestingRIGHT heart strain. Pulmonary parenchyma: Mild dependent atelectasis Airways: Not fully distended due to shallow degree of inflation Pleura: Small LEFT and trace RIGHT pleural effusions Lymph nodes:No significant findings. Other mediastinal structures: No significant findings. Upper abdomen: No significant findings. Skeletal structures: No significant findings. IMPRESSION Large bilateral central pulmonary emboli. RIGHT heart strain. Small LEFT and trace RIGHT pleural effusion Ward Garcia MD IMG CT ORDERABLES * (ABNORMAL) Urinalysis with reflex Culture (02/12/2016 5:22 PM EDT) Glucose, Urine Dipstick Negative Negative mg/dL [facility] Protein, Urine Dipstick 30(A) Negative mg/dL [facility] Bilirubin, Urine Dipstick Negative Negative mg/dL [facility] Comment: Clinical correlation required for positive Urine Bilirubin results as false positive may occur with some drugs and drug related products. If a false positive is suspected a serum total bilirubin should be considered if clinically indicated. Urobilinogen, Urine Dipstick 2.0(A) Normal mg/dL [facility] pH, Urn (dipstick) 6.0 5.0 - 8.0 [facility] Blood, Urine Dipstick Moderate(A) Negative mg/dL [facility] Ketone, Urine Dipstick 5(A) Negative mg/dL [facility] Nitrite, Urine Dipstick Negative Negative [facility] Leukocytes, Urine Dipstick Negative Negative mcL [facility] Appearance, Urine Dipstick Clear Clear [facility] Specific [place] Urine Automated >1.035(H) 1.002 - 1.030 [facility] Color, Urine Dipstick Yellow Yellow [facility] RBC, Urine >182(H) 0 - 4 /HPF [facility] WBC, Urine <1 0 - 5 /HPF [facility] Squamous Epithelial Cells, Urine <1 <=4 /HPF [facility] Reflex to Culture No [facility] Urine specimen obtained via indwelling urinary catheter (specimen) 02/12/2016 5:22 PM EDT 02/12/2016 5:33 PM EDT Narrative Resulting Agency Comment Spec In Lab Ward Garcia MD URINE ORDERABLES Performing Organization Address City/[facility]/ZIP Co de Phone Number [facility] [place] [address] * EKG 12 Lead (02/12/2016 3:30 PM EDT) Ventricular rate 72 BPM MUSE SYSTEM Atrial Rate 72 BPM MUSE SYSTEM P-R Interval 172 ms MUSE SYSTEM QRS Duration 102 ms MUSE SYSTEM Q-T Interval 430 ms MUSE SYSTEM QTC Calculated (Bezet) 470 ms MUSE SYSTEM Calculated P [place] 16 degrees MUSE SYSTEM Calculated R [place] -53 degrees MUSE SYSTEM Calculated T [place] 14 degrees MUSE SYSTEM INTERPRETATION Normal sinus rhythm Left anterior fascicular block Inferior infarct , age undetermined Abnormal ECG No previous ECGs available Confirmed by MD Peter, Cash Nur ([id number]) on 02/12/2016 3:52:57 PM MUSE SYSTEM 02/12/2016 3:30 PM EDT 02/12/2016 3:52 PM EDT Unknown ECG ORDERABLES Performing Organization Address City/[facility]/ZIP Co de Phone Number MUSE SYSTEM * POCT Glucose (02/12/2016 3:26 PM EDT) Glucose, POC 142 65 - 199 mg/dL [facility] Comment: Supplemental ranges: <140 mg/dL before meals <180 mg/dL all other times of the day Blood specimen (specimen) 02/12/2016 3:26 PM EDT 02/12/2016 3:26 PM EDT Ward Garcia MD POINT OF CARE TEST O RDERABLES [facility] [place] [address] * (ABNORMAL) Differential, Automated (02/12/2016 3:20 PM EDT) [facility] Neutrophil % 85.9 % [facility] Neutrophil Absolute 9.63(H) 1.50 - 6.30 x10(3)/mc L [facility] Lymph % 8.0 % [facility] Lymphocytes Abs 0.9(L) 1.0 - 3.6 x10(3)/mc L [facility] Monocyte % 5.8 % [facility] Monocyte Abs 0.6 0.2 - 1.0 x10(3)/mc L [facility] Eos % 0.1 % [facility] Eosinophils Abs 0.0 0.0 - 0.5 x10(3)/mc L [facility] [facility] Basophil % 0.1 % [facility] Baso Absolute 0.0 0.0 - 0.2 x10(3)/mc L [facility] Immature Gran % 0.10 % [facility] Comment: Immature granulocytes(IG's)percentage and absolute count will include metamyelocytes, myelocytes, and promyelocytes. Blood smears from CBCs yielding IG's will be scanned manually for concordance. If this scan disagrees with the automated IG or if promyelocytes are noted, a manual differential will be performed. Immature Gran Absolute 0.01 0.00 - 0.05 x10(3)/mc L [facility] Blood specimen (specimen) 02/12/2016 3:20 PM EDT 02/12/2016 3:32 PM EDT Narrative Resulting Agency Comment Spec In Lab Ward Garcia MD HEMATOLOGY ORDERABLE S [facility] [place] [address] * (ABNORMAL) Hemogram (02/12/2016 3:20 PM EDT) White Blood Cell 11.2(H) 4.0 - 10.0 x10(3)/mc L [facility] Red Blood Cell 3.77(L) 3.93 - 5.22 x10(6)/mc L [facility] Hemoglobin 11.5 11.2 - 15.7 gm/dL [facility] Hematocrit 34.5 34.0 - 45.0 % [facility] Mean Cell Volume 91.5 79.0 - 94.0 fL [facility] Mean Cell Hemoglobin 30.5 26.6 - 32.2 pg [facility] Mean Cell Hemoglobin Concentration 33.3 32.0 - 36.5 gm/dL [facility] Platelet 229 145 - 370 x10(3)/mc L [facility] RDW Standard Deviation 43.9 35.0 - 46.0 fL [facility] RDW coefficient of variation 13.1 10.9 - 14.4 % [facility] Mean Platelet Volume 9.3 9.0 - 12.0 fL [facility] Blood specimen (specimen) 02/12/2016 3:20 PM EDT 02/12/2016 3:32 PM EDT Narrative Resulting Agency Comment Spec In Lab Ward Garcia MD HEMATOLOGY ORDERABLE S Performing Organization Address City/[facility]/ZIP Co de Phone Number [facility] [place] [address] * (ABNORMAL) Prothrombin Time (02/12/2016 3:20 PM EDT) [facility] Prothrombin Time 16.6(H) 12.0 - 15.0 sec [facility] Comment: An INR <2.0 indicates adequate procoagulant activity for hemostasis in most patients without underlying bleeding disorders, though the INR may not adequately reflect hemostatic capacity in patients with liver disease and synthetic impairment. The recommended target INR range for therapeutic anticoagulation is 2.0 ? 3.0 for most applications, though lower and higher ranges may be appropriate depending on clinical circumstances. International Normalization Ratio 1.3(H) 0.9 - 1.1 [facility] Blood specimen (specimen) 02/12/2016 3:20 PM EDT 02/12/2016 3:32 PM EDT Narrative Resulting Agency Comment Spec In Lab Ward Garcia MD HEMATOLOGY ORDERABLE S Performing Organization Address City/[facility]/ZIP Co de Phone Number [facility] [place] [address] * Magnesium (02/12/2016 3:20 PM EDT) [facility] Magnesium 0.87 0.69 - 1.07 mmol/L [facility] Blood specimen (specimen) 02/12/2016 3:20 PM EDT 02/12/2016 3:32 PM EDT Narrative Resulting Agency Comment Spec In Lab Ward Garcia MD CHEMISTRY ORDERABLES [facility] [place] [address] * Basic Metabolic Panel (non-fasting) (02/12/2016 3:20 PM EDT) [facility] Glucose 156 65 - 199 mg/dL [facility] Comment:Diabetes: >=200 mg/d L plus symptoms Blood Urea Nitrogen 17 8 - 18 mg/dL [facility] Creatinine 0.74 0.70 - 1.20 mg/dL [facility] Comment: Please note that the pediatric reference intervals supplied above were not validated [place] [facility] Results from pediatric patients should be interpreted in conjunction to the patient's age, height and muscle mass. Sodium 142 135 - 145 mmol/L [facility] Potassium 4.3 3.5 - 5.0 mmol/L [facility] Comment: Please note: ??Patients with WBC >100,000 may have falsely elevated Potassium levels. ??For accurate Potassium quantification in these patients send serum separator tube (gold top) for subsequent determinations. ??Contact the Clinical Chemistry Laboratory if there are any questions. Chloride 105 98 - 107 mmol/L [facility] Carbon Dioxide 22 22 - 31 mmol/L [facility] Anion Gap 15 5 - 15 mmol/L [facility] Calcium 8.8 8.5 - 10.5 mg/dL [facility] Est Glomerular Filtration Rate >60 >=60 [facility] Comment: This estimated GFR (eGFR) value was calculated using the MDRD equation which has been validated on patients between the ages of 18 and 70. The MDRD should not be used to assess kidney function in patients < 18 years of age or in patients with extremes of body mass, or in patients with acute kidney failure. This value should be multiplied by 1.2 for patients. For further information please copy and paste the following links into your internet browser. [email or web address] Blood specimen (specimen) 02/12/2016 3:20 PM EDT 02/12/2016 3:32 PM EDT Narrative Resulting Agency Comment Spec In Lab Ward Garcia MD CHEMISTRY ORDERABLES [facility] [place] [address] * (ABNORMAL) Hepatic Function Panel (02/12/2016 3:20 PM EDT) Protein, Total 6.8 6.1 - 8.0 gm/dL [facility] Albumin 3.4 3.2 - 5.2 gm/dL [facility] Aspartate Aminotransferase 32(H) 0 - 30 unit/L [facility] Alanine Aminotransferase 39(H) 0 - 30 unit/L [facility] Alkaline Phosphatase 86 40 - 104 unit/L [facility] Bilirubin, Total 0.6 0.2 - 1.3 mg/dL [facility] Bilirubin, Direct 0.1 0.0 - 0.3 mg/dL [facility] Blood specimen (specimen) 02/12/2016 3:20 PM EDT 02/12/2016 3:32 PM EDT Narrative Resulting Agency Comment Spec In Lab Ward Garcia MD CHEMISTRY ORDERABLES Performing Organization Address [facility] Co de Phone Number [facility] [place] [address] * TSH (02/12/2016 3:20 PM EDT) Thyroid Stimulating Hormone 1.03 0.27 - 4.20 mcIU/mL [facility] Blood specimen (specimen) 02/12/2016 3:20 PM EDT 02/12/2016 3:32 PM EDT Narrative Resulting Agency Comment Spec In Lab Ward Garcia MD CHEMISTRY ORDERABLES Performing Organization Address [facility] Co de Phone Number [facility] [place] [address] * APTT (02/12/2016 3:20 PM EDT) Partial Thromboplastin Time 33 25 - 35 sec [facility] Comment: The recommended therapeutic range for full dose, unfractionated heparin at [facility] is 80 ? 114 seconds. The use of the anti-Xa (heparin) level rather than the PTT is recommended for monitoring anticoagulation intensity in critically ill patients receiving unfractionated heparin by continuous IV infusion. Blood specimen (specimen) 02/12/2016 3:20 PM EDT 02/12/2016 3:32 PM EDT Narrative Resulting Agency Comment Spec In Lab Ward Garcia MD HEMATOLOGY ORDERABLE S Performing Organization Address [facility]/ZIP Co de Phone Number [facility] [place] [address] * CARDIAC CATHETERIZATION (02/12/2016 3:00 PM EDT) Anatomical Region Laterality Modality Other Narrative 02/12/2016 2:43 PM EDT ?[facility] ? Cardiac Catheterization/Intervention Report ? Patient Name: Ji, Lelo E. ? Procedure Date: 02/12/2016 ? A #: [id number] ? Primary Physician: Ag, Griffin T ? Case #: [id number] ? File Name: [id number] ? Catheterization Order Number: [id number] ? [facility] ? Final Report [place], [place] ? Patient Name: ? Lelo E. Ji ?ID#: ?[id number] ? : ?1945 ? Procedure Date: ? February 12, 2016 ?Case #: ? [id number] ? Room: ? 6 ? Case Physician: ? Griffin Perry M.D. ?Start: ?12:58 ?Fellow: ? Parker Mccullough M.D. ?Admission: ??02/12/2016 ? Referring Physician: ??Linda Evangelista M.D. ? Procedures: ?* Coronary Angiography ?* Left Heart Catheterization ?* Left Ventriculography ?* Vascular Closure Device Deployment ?* Access Site Angiography ?* Arterial Blood Gases ? Pre Case Status: ?These procedures were performed on an emergent basis. ? History ?Lelo Workman is a 70 year old woman. She has a history of chest ?pain. The patient is status post an acute non-ST elevation myocardial ?infarction. She has a history of dyspnea with NYHA functional class II. ?The patient also has a history of an abnormal EKG. Prior to the ?initiation of this procedure, the patient was designated as ASA Class II. ? Patient Status at Catheterization: ?The patient presented with: symptom unlikely to be ischemic (w/i 14 ?days). [place] [employer] angina class was 0. No stress or ?imaging studies were performed prior to this procedure ? Technique: ?A 6Fr sheath was inserted in the right femoral artery utilizing the ?Seldinger technique. Left ventriculography was performed with a 6Fr ?Angled pigtail catheter. The left coronary artery was injected utilizing ?a 6Fr JL 4 catheter. A 6Fr JR 4 catheter was used to inject the right ?coronary artery. A total of 200cc of Omnipaque were opened, 100cc of ?Omnipaque were administered and 100cc of Omnipaque were wasted. ?Radiation: Fluoro time was 2.3 minutes, dose area product was 25,644 ?mGYcm2 and air kerma was 234 mGY. ?The patient received the following medications prior to and during the ?procedure: Aspirin (any), Clopidogrel, Unfractionated Heparin (any) and ?Lytic (any). ? Hemodynamics: ?Left Heart Pressures ? Resting: ? Syst Diast ? EDP ?a ?v ? m ?Ao 141 ?? 76 ?LV 138 ? 3 ? Post Contrast: ? Syst Diast ? EDP ?a ?v ? m ?Ao 123 ?? 65 ?LV 123 ? 5 ? Left Ventriculography: ?View DICKSON ?Overall LV ?Normal ?Function: ?Estimated LV Ejection Fraction: 65% ? Coronary Angiography: ?Dominance: Right ?Left Main ? The left main was normal. ?Left Anterior Descending ? The left anterior descending (LAD) was normal. ?Left Circumflex ? The left circumflex (LCX) was normal. ?Right Coronary Artery ? The right coronary artery (RCA) was normal. ? Vascular Access: ?Vascular Access Angiogram: ? A selective angiogram at the right femoral artery revealed mild ? diffuse disease. ?Vascular Access Management: ? A 6 Fr Perclose was deployed at the right femoral artery access ? site. This device was successful. ? Point of Care Testing: ?ABG: ? Arterial Blood gasses were performed using the I-Stat analyzer at ? 13:32: pH: 7.35, pCO2: 41.0, pO2: 88.0, sPO2: 88%, HCO3: 22 on FIO2: ? 96. ?I-Stat: ? I-Stat was performed using the I-Stat analyzer at 13:32: Na+: 140, ? K+: 4.1, iCa++: 1.27, Hct: 34%, Hb: 11.6. ? Conclusions: ?* Normal coronary arteries ?* Normal left ventricular function (EF-65%) ? Complications/Events: ?The patient had no complications during these procedures. ? Recommendations: ?Based upon the results of this procedure, it was recommended that medical ?therapy be considered. ? Comments: ?Suspect PE based on clinical presentation and known right leg immobility. ?The attending physician was present for the entire procedure. ?Dr. Griffin Perry M.D. performed the coronary angiography, left heart ?catheterization, left ventriculography, access site angiography, vascular ?closure device and ABG. ? Griffin Perry M.D. ? Electronically Signed by: Griffin Perry M.D. ? Report Finalized: 02/12/2016 ??14:38 ? Griffin Perry MD CARDIAC CATH ORDERAB LES * ECHO LMTD W/O CONTRAST (02/12/2016 2:24 PM EDT) EF 70 HEARTLAB SYSTEM Anatomical Region Laterality Modality Other 02/12/2016 Narrative 02/12/2016 3:15 PM EDT Procedure: ?Transthoracic Echocardiogram Patient: ?JI LELO ?(Age): 1945(70y) Med Rec#: ? [id number] ?Sex: ?F ? [place] ? [facility] [place]Ht / Wt: ??(cm)/89(kg) ? Pt. Loc: ?[facility] ? Study Date: ?? 02/12/2016 ?Pt. Type: Inpatient Tape: ? Referring: Griffin Perry Reading: Sriram Lin ??([id number]) Junior Data Analyst: Padma Benedict BA, [facility] Interpreting Fellow: Joe Ayala ([id number]) Diagnosis: *ICD-10-PCS Chest pain on breathing (R07.1) *ICD-10-PCS Shortness of breath (R06.02) CPT Codes: *Echo LTD (53210) SUMMARY: 1. The left ventricular chamber size is normal. Mild concentric left ventricular hypertrophy is observed. 2. There is normal global left ventricular systolic function. ??Ejection fraction is estimated to be 70%. 3. The right ventricle is moderately dilated. 4. Right ventricular global systolic function is moderately reduced. 5. The estimated pulmonary artery systolic pressure is 32 mmHg plus right atrial pressure. Septal motion is suggestive of RV pressure overload. Consider pulmonary embolus. Findings ? : Left Ventricle: ? The left ventricular chamber size is normal. ?Mild concentric left ventricular hypertrophy is observed. ?There is normal global left ventricular systolic function. ??Ejection fraction is estimated to be 70%. Right Ventricle: ? The right ventricle is moderately dilated. ?Right ventricular wall thickness is normal. ?Right ventricular global systolic function is moderately reduced. ?Septal motion is consistent with RV pressure overload. ?The estimated pulmonary artery systolic pressure is 32 mmHg. plus right atrial pressure. ?? Tricuspid Valve: ? The tricuspid valve appears normal in structure and function. ?There is trace tricuspid regurgitation present. Pericardium: ? The pericardium appears normal and there is no evidence of a pericardial effusion. Tricuspid Valve ?Value ?Units (Range) ? RVSP ?32 ? mmHg ? Wall Motion: Segment Name ?Rest ? Base-Anteroseptal ?? Normal ? Base-Anterior ? Normal ? Base-Anterolateral ??Normal ? Base-Posterolateral Normal ? Base-Inferior ? Normal ? Base-Inferoseptal ?? Normal ? Mid-Anteroseptal ?Normal ? Mid-Anterior ?Normal ? Mid-Anterolateral ?? Normal ? Mid-Posterolateral ??Normal ? Mid-Inferior ?Normal ? Mid-Inferoseptal ?Normal ? [place]-Septal ? Normal ? [place]-Anterior ? Normal ? [place]-Lateral ?Normal ? [place]-Inferior ? Normal ? [place]-Tip ?Normal ? This report has been electronically signed by: Sriram ??Gustavo. MD Riley ? 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 Type: Inpatient Tape: Referring: Griffin Perry Reading: Sriram Lin ([id number]) Junior Data Analyst: Padma Benedict BA, RDCS Interpreting Fellow: Joe Ayala ([id number]) Diagnosis: *ICD-10-PCS Chest pain on breathing (R07.1) *ICD-10-PCS Shortness of breath (R06.02) CPT Codes: *Echo LTD (28122) SUMMARY: 1. The left ventricular chamber size is normal. Mild concentric left ventricular hypertrophy is observed. 2. There is normal global left ventricular systolic function. Ejection fraction is estimated to be 70%. 3. The right ventricle is moderately dilated. 4. Right ventricular global systolic function is moderately reduced. 5. The estimated pulmonary artery systolic pressure is 32 mmHg plus right atrial pressure. Septal motion is suggestive of RV pressure overload. Consider pulmonary embolus. Findings : Left Ventricle: The left ventricular chamber size is normal. Mild concentric left ventricular hypertrophy is observed. There is normal global left ventricular systolic function. Ejection fraction is estimated to be 70%. Right Ventricle: The right ventricle is moderately dilated. Right ventricular wall thickness is normal. Right ventricular global systolic function is moderately reduced. Septal motion is consistent with RV pressure overload. The estimated pulmonary artery systolic pressure is 32 mmHg. plus right atrial pressure. Tricuspid Valve: The tricuspid valve appears normal in structure and function. There is trace tricuspid regurgitation present. Pericardium: The pericardium appears normal and there is no evidence of a pericardial effusion. Tricuspid Valve Value Units (Range) RVSP 32 mmHg Wall Motion: Segment Name Rest Base-Anteroseptal Normal Base-Anterior Normal Base-Anterolateral Normal Base-Posterolateral Normal Base-Inferior Normal Base-Inferoseptal Normal Mid-Anteroseptal Normal Mid-Anterior Normal Mid-Anterolateral Normal Mid-Posterolateral Normal Mid-Inferior Normal Mid-Inferoseptal Normal [place]-Septal Normal [place]-Anterior Normal [place]-Lateral Normal [place]-Inferior Normal [place]-Tip Normal This report has been electronically signed by: Sriram Lin MD 02/12/2016 15:15:18 Images reviewed and interpretation verified [facility]ound [facility] Ward Garcia MD ECHO ORDERABLES * Point of Care Blood Gas Historical (02/12/2016 1:32 PM EDT) pH, POC 7.35 7.35 - 7.45 [facility] pCO2, POC 41 35 - 45 mmHg [facility] pO2, POC 88 85 - 104 mmHg [facility] Base Excess, POC -3.0 -3.0 - 3.0 mmol/L [facility] Bicarbonate, POC 22.9 20.0 - 26.0 mmol/L [facility] Sodium, POC 140 135 - 145 mmol/L [facility] POC Potassium 4.1 3.5 - 5.0 mmol/L [facility] Ionized Calcium, POC 1.27 1.15 - 1.33 mmol/L [facility] POC Hematocrit 34.0 34.0 - 45.0 % [facility] POC Calc Hgb 11.6 11.2 - 15.7 gm/dL [facility] Comment:The calculation of h emoglobin from hematocrit assumes a normal MCHC. POC Bgas Loc [facility] Blood specimen (specimen) 02/12/2016 1:32 PM EDT 02/13/2016 11:25 AM EDT Ward Garcia MD CHEMISTRY ORDERABLES [facility] [place] [address] documented in this encounter Visit Diagnoses Not on filedocumented in this encounter Admitting Diagnoses Diagnosis PE (pulmonary embolism) Other pulmonary embolism and infarction documented in this encounter Administered Medications Inactive Administered Medications - up to 3 most recent administrations Medication Order MAR Action Action Date Dose Rate Site acetaminophen (TYLENOL) tablet 650 mg 650 mg, Oral, EVERY 4 HOURS PRN, Starting on Wed02/12/16 at 1517, Until 02/16/16 at 1734, Pain, Headaches, Maximum dose of acetaminophen is 4000 mg from all sources in 24 hours., Routine Given 02/16/2016 9:25 AM EDT 650 mg Given 02/16/2016 6:31 AM EDT 650 mg Given 02/16/2016 2:05 AM EDT 650 mg atropine injection 1 mg 1 mg, Intravenous, Administer over 4 Hours, EVERY 5 MIN PRN, 2 doses, Starting on Wed02/12/16 at 1349, Until 02/16/16 at 1734, Other, vasovagal episode, Call interventional MD., Routine enoxaparin (LOVENOX) injection 80 mg 80 mg, Subcutaneous, EVERY 12 HOURS SCHEDULED (2 times per day), First dose on 02/15/16 at 1930, Until Discontinued, STAT Given 02/16/2016 10:02 AM EDT 80 mg Given 02/15/2016 8:13 PM EDT 80 mg Ab dominal Tissue fentaNYL (PF) 50 mcg/mL 2mL syringe 25 mcg, Intravenous, EVERY 30 MIN PRN, Pain, sheath removal, Starting on Wed02/12/16 at 1349, 4 doses, Until 02/16/16 at 1734, May repeat once while in Cath Recovery Unit fentaNYL 50 mcg/mL multi-dose injection ONCE PRN, Starting on Wed02/12/16 at 1315, Until Wed02/12/16 at 1517, Cath (Intra-Procedure), Routine Given 02/12/2016 1:40 PM EDT 25 mcg Given 02/12/2016 1:15 PM EDT 25 mcg iohexol (OMNIPAQUE) 350 mg/mL solution ONCE PRN, Starting on Wed02/12/16 at 1337, Until Wed02/12/16 at 1517, Cath (Intra-Procedure), Routine Given 02/12/2016 1:37 PM EDT 100 mLs melatonin tablet 3 mg 3 mg, Oral, NIGHTLY, First dose on Wed02/13/16 at 2100, Until Discontinued, Routine Given 02/13/2016 11:01 PM EDT 3 mg midazolam (PF) (VERSED) 1 mg/mL injection 1 mg 1 mg, Intravenous, Administer over 4 Hours, EVERY 1 HOUR PRN, 2 doses, Starting on Wed02/12/16 at 1349, Until Wed02/16/16 at 1734, Sleep, For sheath removal, May repeat once while in Cath Recovery Unit., Routine midazolam (PF) (VERSED) 1 mg/mL multi-dose injection ONCE PRN, Starting on Wed02/12/16 at 1315, Until Wed02/12/16 at 1517, Cath (Intra-Procedure), Routine Given 02/12/2016 1:15 PM EDT 1 mg multivitamin (THERAGRAN) tablet 1 tablet 1 tablet, Oral, DAILY, First dose on Wed02/13/16 at 0945, Until Discontinued Given 02/16/2016 9:25 AM EDT 1 tablet Given 02/15/2016 9:18 AM EDT 1 tablet Given 02/14/2016 10:30 AM EDT 1 tablet sodium chloride 0.9 % flush 5 mL 5 mL, Intravenous, 2 TIMES DAILY, First dose on Wed02/12/16 at 2100, Until Discontinued, Routine Given 02/16/2016 9:34 AM EDT 5 mLs Given 02/15/2016 9:18 AM EDT 5 mLs Given 02/13/2016 9:00 PM EDT 5 mLs warfarin (COUMADIN) daily order reminder Oral, EVERY 24 HOURS, First dose on Wed02/14/16 at 1400, Until Discontinued, If the daily warfarin order has not been placed, contact the Provider to confirm that the order will be written, the dose is held or discontinued. documented in this encounter Active and Recently Administered Medications Times are shown in EDT. Scheduled Medication Order 02/14/2016 02/15/2016 02/16/2016 enoxaparin (LOVENOX) injection 80 mg 80 mg, Subcutaneous, EVERY 12 HOURS SCHEDULED (2 times per day), First dose on Wed02/15/16 at 1930, Until Discontinued, STAT 2012 (Given - Provider: Rosalinda Rivera RN) 1002 (Given - Provider: Eliot Rivers RN) LORazepam (ATIVAN) tablet 0.5 mg 0.5 mg, Oral, ONCE, 1 dose, On Wed02/16/16 at 0400, Routine 0400 (Not Given - Provider: Rosalinda Rivera RN - Reason: See comment - Comment: Patient able to fall asleep prior to administration) melatonin tablet 3 mg 3 mg, Oral, NIGHTLY, First dose on Maggi 02/13/16 at 2100, Until Discontinued, Routine 2100 (Not Given - Provider: Stephanie Schaefer RN - Reason: Patient/family refused) 2100 (Not Given - Provider: Rosalinda Rivera RN - Reason: Patient/family refused) multivitamin (THERAGRAN) tablet 1 tablet 1 tablet, Oral, DAILY, First dose on Maggi 02/13/16 at 0945, Until Discontinued 1030 (Given - Provider: Rosalinda Rivera RN) 0918 (Given - Provider: Eliot Rivers RN) 0925 (Given - Provider: Eliot Rivers RN) sodium chloride 0.9 % flush 5 mL 5 mL, Intravenous, 2 TIMES DAILY, First dose on Wed02/12/16 at 2100, Until Discontinued, Routine 0900 (Not Given - Provider: Rosalinda Rivera RN - Reason: See comment - Comment: infusing)2100 (Not Given - Provider: Stephanie Schaefer RN - Reason: See comment - Comment: Currently infusing) 0918 (Given - Provider: Eliot Rivers RN)2100 (Not Given - Provider: Rosalinda Rivera RN - Reason: See comment - Comment: infusing) 0934 (Given - Provider: Eliot Rivers RN) warfarin (COUMADIN) daily order reminder Oral, EVERY 24 HOURS, First dose on Wed02/14/16 at 1400, Until Discontinued, If the daily warfarin order has not been placed, contact the Provider to confirm that the order will be written, the dose is held or discontinued. 1400 (Dose confirmed - Provider: Rosalinda Rivera RN) 1400 (Dose confirmed - Provider: Eliot Rivers RN) 1400 (Dose confirmed - Provider: Eliot Rivers RN) warfarin (COUMADIN) tablet 5 mg (COMPLETED) 5 mg, Oral, ONCE, 1 dose, On Wed02/14/16 at 1700, Routine 1654 (Given - Provider: Rosalinda Rivera RN) warfarin (COUMADIN) tablet 7.5 mg (COMPLETED) 7.5 mg, Oral, ONCE, 1 dose, On 02/15/16 at 1700, Routine 1816 (Given - Provider: Eliot Rivers RN) warfarin (COUMADIN) tablet 7.5 mg (COMPLETED) 7.5 mg, Oral, ONCE, 1 dose, On 02/16/16 at 1600, Please give prior to discharge., STAT 1511 (Given - Provider: Eliot Rivers RN) Continuous Medication Order 02/14/2016 02/15/2016 02/16/2016 heparin 25,000 units in dextrose 5% 500 mL infusion (CANCELED) 500-7,000 Units/hr (10-140 mL/hr), Intravenous, CONTINUOUS, Starting on Wed02/12/16 at 1545, Until 02/15/16 at 2116, Patient Weight 80-84 kg Initial dose - 1,250 units/hr = 25 mL/hr aPTT less than 60 sec - increase by 300 units/hr = 6 mL/hr aPTT 60-79 sec- increase by 150 units/hr = 3 mL/hr aPTT 80-114 sec - no change aPTT 115-129 sec - decrease by 100 units/hr = 2 mL/hr aPTT 130-145 sec - stop infusion for 30 min then decrease by 150 units/hr = 3 mL/hr aPTT greater than 145 sec - stop infusion for 60 min then decrease by 250 units/hr = 5 mL/hr aPTT greater than 145 sec X 2 - call rooming house inspector See Bolus dosing guidance for aPTT values less than 80 seconds under PRN medications Repeat aPTT 6 hours after initiating heparin. Then 6 hours after each dose adjustment. When 2 consecutive aPTT within target range of 80 - 114 seconds, change aPTT to once every 24 hours with A.M. labs while on heparin. RN to order required aPTT - Per Protocol, Routine 0718 (Rate/Dose Change - Provider: Stephanie Schaefer RN)0724 (New Bag - Provider: Stephanie Schaefer RN)1943 (Rate/Dose Change - Provider: Stephanie Schaefer RN)2213 (New Bag - Provider: Stephanie Schaefer RN) 0324 (Rate/Dose Change - Provider: Stephanie Schaefer RN)1400 (Rate/Dose Verify - Provider: Eliot Rivers RN)1439 (New Bag - Provider: Eliot Rivers RN) PRN Medication Order 02/14/2016 02/15/2016 02/16/2016 acetaminophen (TYLENOL) tablet 650 mg 650 mg, Oral, EVERY 4 HOURS PRN, Starting on Wed02/12/16 at 1517, Until 02/16/16 at 1734, Pain, Headaches, Maximum dose of acetaminophen is 4000 mg from all sources in 24 hours., Routine 1033 (Given - Provider: Rosalinda Rivera RN) 0205 (Given - Provider: Rosalinda Rivera RN)0631 (Given - Provider: Rosalinda Rivera RN)0925 (Given - Provider: Eliot Rivers RN) atropine injection 1 mg 1 mg, Intravenous, Administer over 4 Hours, EVERY 5 MIN PRN, 2 doses, Starting on 02/12/16 at 1349, Until 02/16/16 at 1734, Other, vasovagal episode, Call interventional MD., Routine fentaNYL (PF) 50 mcg/mL 2mL syringe 25 mcg, Intravenous, EVERY 30 MIN PRN, Pain, sheath removal, Starting on Wed02/12/16 at 1349, 4 doses, Until 02/16/16 at 1734, May repeat once while in Cath Recovery Unit heparin (porcine) injection 2,900-5,700 Units (CANCELED) 2,900-5,700 Units, Intravenous, BOLUS PER HEPARIN PROTOCOL, Starting on 02/12/16 at 1517, Until 02/15/16 at 2116, Per Protocol, Adjust to dosing chart, Patient Weight 80-84 kg aPTT less than 60 seconds - 5,700 units aPTT 60-79 seconds - 2,900 units aPTT 80-114 seconds - no bolus Repeat aPTT 6 hours after initiating heparin. Then 6 hours after each dose adjustment. When 2 consecutive aPTT within target range of 80 - 114 seconds, change aPTT to once every 24 hours with A.M. labs while on heparin., RN to order required aPTT - Per Protocol, Routine 721 (Given - Provider: Stephanie Schaefer, RN)1952 (Given - Provider: Stephanie Schaefer RN) lidocaine (XYLOCAINE) 10 mg/mL (1 %) injection 3 mg 3 mg (0.3 mL), Subcutaneous, ONCE PRN, 1 dose, Starting on Wed02/12/16 at 1517, Until 02/16/16 at 1734, for discomfort with PIV insertion, Routine midazolam (PF) (VERSED) 1 mg/mL injection 1 mg 1 mg, Intravenous, Administer over 4 Hours, EVERY 1 HOUR PRN, 2 doses, Starting on Wed02/12/16 at 1349, Until 02/16/16 at 1734, Sleep, For sheath removal, May repeat once while in Cath Recovery Unit., Routine nitroGLYcerin (NITROSTAT) SL tablet 0.4 mg 0.4 mg, Sublingual, EVERY 5 MIN PRN, Starting on Wed02/12/16 at 1517, Until 02/16/16 at 1734, Chest pain, May repeat every 5 minutes for a total of three doses. Notify provider if chest pain not relieved with nitroglycerin. Do not administer nitroglycerin if the patinet has received or taken phosphodiesterase (PDE-5) inhibitors such as sildenafil, tadalafil or vardenafil within the last 24 to 72 hours., Routine sodium chloride 0.9 % flush 5-20 mL 5-20 mL, Intravenous, EVERY 1 MIN PRN, Starting on Wed02/12/16 at 1517, Until 02/16/16 at 1734, flush, Flush pertains to all indwelling lines. Flush per protocol found in the job aid using the link provided on this medication record., Routine documented in this encounter Care Teams Gasoline Service Attendant Relationship Specialty Start Date End Date Linda Evangelista MD [facility] [address] [place] [address] [place] [address] PCP - General 07/08/10 09/23/16 documented as of this encounter
--- OUTSIDE RECORDS SUMMARY | 2024-06-14 19:49 | XMS_ITS | Encounter Summary ---
[place] [address] Care Team Providers Care Regulatory Submissions Specialist Name Role Phone Linda Guaman MD Primary Care Provider [phone] Reason for Visit * Reason Comments Skin Check Encounter Details Date Type Department Care Team (Late st Contact Info) Description 12/06/2012 9:00 AM EDT Office Visit Dermatology [address] [facility] [address] [place], [place] [id number] Alan Carrero MD [address], [place] [address] History of basal cell carcinoma (Primary Dx); Actinic keratosis Social History Tobacco Use Types Packs/Day Years Used Date Smoking Tobacco: Never Sex and Gender Information Value Date Recorded Sex Assigned at Not on file Gender Identity Not on file Sexual Orientation Not on file documented as of this encounter Progress Notes * Alan Carrero MD - 12/06/2012 9:34 AM EDT Problems: 1. Yearly skin checkup. 2. History of BCCA, left scapula, February 2005. 3. History of Mohs surgery for BCCA, sternal notch, February 2006. 4. History of BCCA, left central upper mid chest, June 2006. 5. History of BCCAs, left chin, left breast, and left trapezius. 6. Patient grew up in [place], [place]. Pat follows up and has been doing well. She is here for a yearly skin checkup. She reminds me that she has had a fair amount of sun exposure over the years. Physical examination reveals a pleasant, now 67-year-old woman who has a pearly papule on the upper central back concerning for BCCA. Also, she has actinics present, several on her upper lip and one on the left cheek. Otherwise, careful examination of the head and the neck, the chest, the back, hands, arms, forearms, thighs, and calves is benign. Assessment and Plan: 1. Actinic keratoses. a. LN2 times two applied to each of four sites, upper cutaneous lip and left cheek. 2. Rule out BCCA, upper central back. a. After obtaining informed patient consent, the site was anesthetized and shave C and D times three performed. b. Triple antibiotic ointment and Band-Aid placed. Wound care instructions and supplies given. c. Return to the clinic in one year for repeat check. 3. History of multiple nonmelanoma cutaneous malignancies. a. Patient reassured about remainder of benign skin examination today. b. No evidence of recurrence at previously treated sites. Copy: Linda Guaman M.D. documented in this encounter Procedure Notes * Provider, Scanning - 12/12/2012 9:39 AM EDTAssociated Order(s): SCAN DOC: SURGICAL PATHOLOGY documented in this encounter Miscellaneous Notes * Miscellaneous - Provider, Scanning - 12/17/2012 3:13 PM EDT documented in this encounter Plan of Treatment Upcoming Encounters Date Type Department Care Team (Late st Contact Info) Description 06/11/2025 1:45 PM EDT Office Visit Dermatology at [place] [address] [facility] [place] [address] Alan Carrero MD [address], [place] [address] documented as of this encounter Procedures Procedure Name Priority Date/Time Associated Diagnosis Comments SURGICAL PATHOLOGY SCAN 12/12/2012 9:39 AM EDT documented in this encounter Results * SCAN DOC: SURGICAL PATHOLOGY (12/12/2012 9:39 AM EDT) Narrative 12/12/2012 9:39 AM EDT Procedure Note Provider, Scanning - 12/12/2012 9:39 AM EDT Scanning Provider MEDIA MGR SCAN EXT O RDR/RSLT documented in this encounter Visit Diagnoses Diagnosis History of basal cell carcinoma- Primary Personal history of other malignant neoplasm of skin Actinic keratosis documented in this encounter Care Teams Regulatory Submissions Specialist Relationship Specialty Start Date End Date Linda Guaman MD [facility] [address] [place] [address] [place] [address] PCP - General 07/08/10 09/23/16 documented as of this encounter
--- OUTSIDE RECORDS SUMMARY | 2024-06-14 19:49 | XMS_ITS | Encounter Summary ---
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 [place] [address] Leonid Luz MD [facility] [place] [address] Chest pain, unspecified type Discharge Disposition: Home with [facility] Social History Tobacco Use Types Packs/Day Years [...] arrival of paramedics. She was brought to [facility] where she wasmildly tachypneic and [...] Studies and Lab Data: Labs: Recent Labs 02/16/16 0322 02/15/16 0243 02/14/16 0428 WBC 7.6 7.6 7.2 HGB 12.0 11.6 11.4 PLATELET 238 272 267 Recent Labs 02/16/16 0846 02/16/16 0322 02/15/16 0243 NA 141 138 142 K 3.7 Not Perf 3.8 CL 101 102 106 CO2 23 21* 24 BUN 12 11 13 CREATININE 0.85 0.75 0.78 Recent Labs 02/16/16 0846 02/16/16 0322 02/15/16 0243 02/14/16 0428 CALCIUM 9.4 9.1 9.0 9.1 MAGNESIUM -- 0.86 0.85 0.87 Recent Labs 02/12/16 1520 AST 32* ALT 39* ALKPHOS 86 BILITOT 0.6 BILIDIR 0.1 No results for input(s): TROPONINT, CK in the last 168 hours. No results for input(s): PHART, BWQ4KBL, PO2ART, AQU0WGN in the last 168 hours. Studies: Cardiac [...] with warfarin. She will follow up with [facility]. The patient continues to experience pleuritic chest pain and will be discharged with acetaminophen 1g Q8HR for for. It is recommended that she have a follow up TTE at the [facility] to re-evaluate her [...] right knee injury. You received thrombolytics at [facility] and were started on anticoagulation with [...] warfarin and closely follow up with the [facility] anticoagulation outpatient clinic in order to make sure your INR is therapeutic between 2-3 before you stop taking the lovenox. The anticoagu lation clinic will follow your INR closely, [...] appointments: During 8am-5pm Wednesday through Wednesday call [phone] to speak with a nurse in the cardiology clinic All other times call [phone] and ask to speak to the adjunct psychology faculty member global professional. Activity level: - No heavy lifting (more [...] community. Follow up Appointments: No future appointments. Solution Professional: Please follow up with Cardiology Outpatient Clinic for an Echocardiogram to evaluate the right side of your heart within the next month, after you have achieved a therapeutic INR. Please contact their office at [phone]. PCP: LINDA EVANGELISTA MD at [phone]. Please make an appointment to follow up with your PCP within the next 7-10 days after discharge. Please call the office of your PCP Linda Evangelista MD at [phone]. Anti-coagulation follow up: Thursday, February 18, 2016 at [facility]. I will call them [...] your first INR check after discharge: ??? Tonshy, (Day #1): Take 5 mg at 5 pm ??? Tomorrow (Day#2): Take 5 mg at 5 pm ??? Day #3: 5 ??? Day #4: 5 3. Follow up INR is scheduled on: Thursday, February 18, 2016 4. INR Goal: 2-3 5. Expected duration of treatment: 6 months 6. Provider/Team responsible for ongoing outpatient anticoagulation management: ??? Provider/Team/Clinic: Anticoagulation Program at [facility] ??? Phone: 7. If you have [...] 1.1 1.2* 1.3* Your Inpatient Doctor(s) at [facility]: Leonid Luz MD - Attending physician Carson Kimball MD - Resident physician Pauline Abebe MD - Railroad Dining Car Stewardess physician Your Primary Care Provider: LINDA EVANGELISTA MD HOSPITALIST SERVICES [address] [place] [address] / [facility] * [phone] For questions regarding issues relating to your hospitalization on the Hospital Medicine Service, please contact your inpatient physician through the [facility] Chancellor [phone]. Issues after hours and on weekends will be handled by the Hospitalist staff on-call. General Instructions None Future Appointments and Orders Future Orders Complete By Expires Referral to Home Health - at DISCHARGE [[id number] CPT(R)] As directed Process Instructions: Scheduling Instructions: [...] Nurse Practitioner, Clinical Nurse Specialist or Physician Spinning Operator who is working directly with them, had a face to face encounter that meets the physician face to face encounter requirements with this patient [id number] The encounter with the patient was in whole, or in part, for the following medical condition, whichis the primary reason for home health care services: [ stemi,saddle emboli ] In discussion with the primary medical team, it is certified that, based on their findings, the indicated services are medically necessary and appropriate for home health services. Patient Location: [place] [address] (home) [phone] (work) No relevant phone numbers on file. HOME Health Agency: [facility] [address]. PHONE: [phone] FAX: [phone] RN: Assess cardiopulmonary assessment, vital signs, medication management and effectiveness, elimination and nutrition and home safety evaluation Please draw INR if indicated and call with results as instructed to [facility] at [phone]. Start of Care Date: 24 hours afte [facility] discharge All [facility] agencies which cover the area of patient's [...] this patient's PCP: LINDA EVANGELISTA MD @PCPADDR@ [phone] Questions: Agency name and contact information: [facility] GONCALV[facility] Patient location post discharge: home What services are requested: Registered Nurse Physical Therapy Occupational Therapy Start date: Responsible MD post discharge contact info: PCP/Melissa,[facility] Discharge References/Attachments: Discharge References/Attachments PULMONARY EMBOLISM (KITTITIAN) DVT (DEEP VEIN THROMBOSIS): PREVENTION : GENERAL INFO (KITTITIAN) ENOXAPARIN (LOVENOX) (KITTITIAN) HEPARIN (KITTITIAN) Inpatient Provider Contact Information: For questions regarding this document or issues relating to this hospitalization on Medical Service, please contact your inpatient physician through the [facility] Chancellor . Issues after hours and on weekends [...] right knee injury. You received thrombolytics at [facility] and were started on anticoagulation with [...] warfarin and closely follow up with the [facility] anticoagulation outpatient clinic in order to make sure your INR is therapeutic between 2-3 before you stop taking the lovenox. The [facility] lation clinic will follow your INR closely, [...] appointments: During 8am-5pm Wednesday through Wednesday call [phone] to speak with a nurse in the cardiology clinic All other times call [phone] and ask to speak to the adjunct psychology faculty member global professional. Activity level: - No heavy lifting (more [...] community. Follow up Appointments: No future appointments. Solution Professional: Please follow up with Cardiology Outpatient Clinic for an Echocardiogram to evaluate the right side of your heart within the next month, after you have achieved a therapeutic INR. Please contact their office at [phone]. PCP: LINDA EVANGELISTA MD at [phone]. Please make an appointment to follow up with your PCP within the next 7-10 days after discharge. Please call the office of your PCP Linda Evangelista MD at [phone]. Anti-coagulation follow up: Thursday, February 18, 2016 at [facility]. I will call them [...] anticoagulation management: ??? Provider/Team/Clinic: Anticoagulation Program at [facility] ??? Phone: 7. If you have [...] 1.1 1.2* 1.3* Your Inpatient Doctor(s) at [facility]: Leonid Luz MD - Attending physician Carson Kimball MD - Resident physician Pauline Abebe MD - Railroad Dining Car Stewardess physician Your Primary Care Provider: LINDA EVANGELISTA MD HOSPITALIST SERVICES [address] [place] [address] / [place] * [phone] For questions regarding issues relating to your hospitalization on the Hospital Medicine Service, please contact your inpatient physician through the [facility] Chancellor [phone]. Issues after hours and on weekends will be handled by the Hospitalist staff on-call. * Attachments The following attachments cannot be sent through Care Everywhere. * PULMONARY EMBOLISM (KITTITIAN) * DVT (DEEP VEIN THROMBOSIS): PREVENTION : GENERAL INFO (KITTITIAN) * ENOXAPARIN (LOVENOX) (KITTITIAN) * HEPARIN (KITTITIAN) documented in this encounter Medications at Time [...] was thought to have an acute anterolateral KRISTIAN finding, found to have a large saddle [...] lesions, or ulcerations noted Labs Recent Labs 02/16/16 0322 02/15/16 0243 02/14/16 0428 WBC 7.6 7.6 [...] STEMI per EKG. She received thrombolytics at [facility] ED, was transferred to and brought to clinical laboratory aide for coronary angiography, which demonstrated normal coronary [...] Plan to call Anticoagulation Outpatient Clinic at [facility] on to set up follow up of [...] FULL CODE. POA is Sean Layne (cell [phone]) ?? Pauline Abebe MD, PGY-1 Cardiology S1 [...] warfarin with enoxaparin bridge. Leonid Luz MD, [facility], [facility] Staff Solution Professional pager [phone] * Leonid Luz MD - 02/15/2016 1:07 [...] was thought to have an acute anterolateral KRISTIAN finding, found to have a large saddle [...] STEMI per EKG. She received thrombolytics at [facility] ED, was transferred to and brought to clinical laboratory aide for coronary angiography, which demonstrated normal coronary [...] indicated Dispo: ICCU Code Status: FULL CODE YULIA is Sean Layne (cell [phone]) ?? CARSON KIMBALL MD Cardiology Service, PGY2 02/15/2016, S1 Team Pager #[phone] CARDIOLOGY STAFF NOTE Lelo Workman is a [...] enoxaparin bridge with warfarin. Leonid Luz MD, [facility], [facility] Staff Solution Professional pager [phone] * Leonid Luz MD - 02/14/2016 12:48 [...] was thought to have an acute anterolateral KRISTIAN finding, found to have a large saddle [...] lesions, or ulcerations noted Labs Recent Labs 02/14/168 02/13/165 02/12/16 1520 WBC 7.2 9.3 11.2* HGB 11.4 10.6* 11.5 HCT 34.4 31.7* 34.5 PLATELET 267 227 229 Recent Labs 02/14/168 02/13/16 0415 02/12/16 1520 NA 143 143 142 K 3.7 3.7 4.3 CL 106 107 105 CO2 24 24 22 BUN 11 13 17 CREATININE 0.69* 0.67* 0.74 Recent Labs 02/12/16 1520 AST 32* ALT 39* ALKPHOS 86 BILITOT 0.6 BILIDIR 0.1 Recent Labs 02/14/168 02/13/16 0415 02/12/16 1520 CALCIUM 9.1 8.6 [...] STEMI per EKG. She received thrombolytics at [facility] ED, was transferred to and brought to clinical laboratory aide for coronary angiography, which demonstrated normal coronary [...] - Continue to monitor for symptoms SOB 2/ PE: Resolved - SaO2 > 92% on room air ?? PPx: DVT- heparin protocol Dispo: Floor status. Plan to D/C tomorrow to home. Code Status: FULL CODE. POA is Sean Layne (cell [phone]) ?? Pauline Abebe MD, PGY-1 Cardiology S1 [...] Aim toward discharge tomorrow. Leonid Luz MD, [facility], [facility] Staff Solution Professional pager [phone] * Rosalinda Rivera RN - 02/13/2016 6:26 PM EDT Patient arrived from [facility]. A/O. VSS. Denies chest pain and shortness of breath. Complaints only of achiness in hip and right knee. Groin site c/d/i. Oriented to room. and daughter at bedside.Compliant with non-weight bearing on R leg. Heparin drip maintained per protocol. New IV obtained due to leaking IV. * Court Sanchez RN - 02/13/2016 2:08 PM EDT Office of Care Management (OCM) / Ball Mill Mixer(CM)/ Initial Assessment Discussed patient with Provider Team [...] SOCIAL / FAMILY SUPPORTS: to Sean cell [phone]. Lives in a ranch one [facility] ADVANCE DIRECTIVES: FULL code .lists Sean or daughter Cassie as medical POAs HEALTH /PRESCRIPTION COVERAGE:Medicare A,B CURRENT HOME/COMMUNITY SERVICES/EQUIPMENT: DME:FWW Home Health Agency:na Other:na TOBACCO STRIPPER HAND REFERRAL: not needed at this time PRIMARY CARE PHYSICIAN: LINDA EVANGELISTA MD HOSPITALIST SERVICES [address] [place] [address] / [place] * [phone] POTENTIAL DISCHARGE NEEDS: [facility] or outpt Physical Therapy [facility] in [facility]. none ANTICIPATED BARRIERS TO DISCHARGE: TRANSPORTATION @ D/C: private car spouse PLAN: CM will continue to monitor progress, follow for continuity of care and assist with dischargeplanning while hospitalized Pt chose [facility]/or [facility] in [facility] for outpt Physical Therapy. STELLA Severino,BSN . [...] that her symptoms are from an acute LA. We have continued heparin and she has [...] will discontinue her heparin. 3. Transfer to [facility]. 4. Oxygen supplementation as clinically needed Time [...] was thought to have an acute anterolateral KRISTIAN finding, found to have a large saddle pulmonary embolus, confirmed by CT angiography (02/11). She is currently on hep gtt and weaned down to 2LNC from HFNC for SOB. She remainsMI per EKG. She received thrombolytics at [facility] ED, was transferred to and brought to clinical laboratory aide for coronary angiography, which demonstrated normal coronary [...] STEMI per EKG. She received thrombolytics at [facility] ED, was transferred to and brought to clinical laboratory aide for coronary angiography, which demonstrated normal coronary [...] vs apixaban (based on insurance). Will require terminal manager anti-coagulation therapy for 6 months. Will overlap [...] FULL CODE. POA is Sean Layne (cell [phone]) ?? Pauline Abebe MD, PGY-1 Cardiology S1 (pgr. [id number]) * Ward Garcia MD - 02/12/2016 8:43 PM EDT Images from the original note were not included. Staff Addendum: Received call from radiology with reading on CT angio. Findings included: 1. Large saddle embolus 2. Extensive large bilateral central emboli 3. Evidence of RV strain I relayed this information to on-call adjunct psychology faculty member and her nurse, Heaven, who was already aware. Unless there is a change in her clinical status, we plan continuing current therapy. Ward Garcia MD, FA, [facility] * Cassie Hayes RCP - 02/12/2016 3:12 [...] High Flow Nasal Cannula Patient received from labor relations supervisor with a PE. Placed on HTD NC and tolerating well. Patient vomited on her way to [facility] but did not aspirate. 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 Presented with chief complaint of SOB to [facility] at 0100 (02/11). This morning stood up [...] her right leg slipping down the stairs ([facility], sees Dr. Brian Lawrence) and has a splint in place and instructed to not put weight on her right leg for 8 weeks. 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 Denies recent travel. Denies recent sickness. Had [...] The patient was transported to ambulance to [facility]: Vitals: Weight 89kg, Temp 35.5, HR 83 [...] lorazepam 1mg IV. She was transported to [facility] Department Of Mathematics Chair for expert evaluation and intervention. Transported to [facility] for cardiac catheterization (02/11): 100cc contrast. No [...] + D ORAL) Take by mouth. ??? Gratiot-3 Fatty Acids (FISH OIL) 500 mg Cap [...] Silver Ultra Women Tab) 1 tab daily, Gratiot-3 Fatty Acids 1 each PO daily, Magnesium [...] No narrative on file Grew up in [place], [place]. Lives with . Works for [employer] for 8 years now. 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 Denies smoking, rare [...] in the last 7068 hours. Invalid input(s): [id number] Heme: No results for input(s): LDH, HAPTOGLOBIN, [...] for the past 3 weeks whopresented to [facility] this AM (02/11) with acute onset and progressively worsening jaw pain, dizziness, and diaphoresis and 2 day history of SOB, left lower chest pain. Her EKGs noted ST elevation in avR, V1, and V1 with negative troponins, receiving heparin gtt, aspirin 325mg, clopidogrel 300mg PO, full dose TNK 45mg IV and was transported to [facility] for cardiac catheterization for possible acute STEMI. She was found to have normal coronary arteries, but evidence of RV strain from a PE (on informal read). PLAN: Job Workman will be admitted to Cardiology M1-S1 Service under Dr. Garcia to the [facility]. Labs: CBC, BMP, Mg, LFTs, PTT, Lipid [...] FULL CODE. ZACKARY is Sean Layne (cell [phone]) Pauline Abebe MD Internal Medicine PGY-1 Personal Pager # [phone] Team Pager # [phone] 02/12/2016 Associated attestation - Ward Garcia MD [...] arrival of paramedics. She was brought to [facility] where she was mildly tachypneic [...] Oxygen support as needed Ward Garcia MD, FA, [facility] documented in this encounter Miscellaneous Notes * [...] * Plan of Care - Heena Rosales - 02/16/2016 4:59 AM EDT Problem: Skin Integrity Impairment, Risk/Actual (Adult, Obstetrics) Goal: Skin Integrity/Wound Healing Patient will demonstrate the desired outcomes. Outcome: Unable to achieve outcome by discharge 02/14/16 7707 Skin Integrity Impairment, Risk/Actual (Adult, Obstetrics) Skin [...] Mutuality Outcome: Ongoing (Interventions Implemented as Appropriate) 02/12/16219902/13/16 0012 Individualization Patient Specific Preferences -- patient [...] Assessment Outcome: Ongoing (Interventions Implemented as Appropriate) 02/12/16219902/12/162299 Self-Care Equipment Currently Used at Home [...] from current cardiorespiratory condition and prolonged immobilization INSURANCE VERIFY REP. From PT standpoint, ptis safe and clear [...] treatment and plan. Bertha Brand, PT Pager [phone] * Initial Assessments - Palma Nguyen, OT [...] that her symptoms are from an acute LA. She has continued heparin and she has [...] precautions, and demonstrates knowledge with activity. Communication: [facility] Vision & Perception: has glasses, which she [...] education re: ADL mgmt at home/DME Pager: [phone] PALMA NGUYEN OT 02/14/2016 Occupational Therapy Rehabilitation [...] emotional support provided Goal: Discharge Needs Assessment 02/12/16219902/12/16 230 Self-Care Equipment Currently Used at [...] Outcome: Ongoing (Interventions Implemented as Appropriate) 02/12/16199902/12/162199 Phoebe Fall Risk History of Falling 25 -- [...] her own limitation Surveillance [continuous indirect monitoring]: Reynaldo Sa02 Patient-specific fall prevention interventions for sensory deficits provided, if applicable: CPG GOAL OUTCOME EVALUATION: documented in this encounter Plan of Treatment Upcoming Encounters Date Type Department Care Team (Late st Contact Info) Description 06/11/2025 1:45 PM EDT Office Visit Dermatology at [place] [address] [facility] [place] [id number] Alan Carrero MD [address] [facility] RAYA, KRISTIAN [place] [address] documented as of this encounter Procedures Procedure Name Priority Date/Time Associated Diagnosis Comments ROD FINISHER SCAN 02/17/2016 12:00 AM EDT BASIC METABOLIC PANEL Routine 02/16/2016 8:46 AM EDT HEMOGRAM Routine 02/16/2016 3:22 AM EDT DIFFERENTIAL, AUTOMATED Routine 02/16/20 16 3:22 AM EDT PROTHROMBIN TIME Routine 02/16/2016 [...] 2:43 AM EDT DIFFERENTIAL, AUTOMATED Routine 02/15/20 16 2:43 AM EDT APTT Routine 02/15/2016 2:43 [...] in this encounter Results * SCAN DOC: ROD FINISHER (02/17/2016 12:00 AM EDT) Anatomical Region Laterality Modality Other Scanning Provider MEDIA MGR SCAN EXT O RDR/RSLT * (ABNORMAL) Basic Metabolic Panel (non-fasting) (02/16/2016 8:46 AM EDT) Glucose 156 65 - 199 mg/dL [facility] Comment:Diabetes: >=200 mg/d L plus symptoms Blood Urea Nitrogen 12 8 - 18 mg/dL [facility] Creatinine 0.85 0.70 - 1.20 mg/dL [facility] Comment: Please note that the pediatric reference intervals supplied above were not validated at [facility]. Results from pediatric patients should be interpreted in conjunction to the patient's age, height and muscle mass. Sodium 141 135 - 145 mmol/L [facility] Potassium 3.7 3.5 - 5.0 mmol/L [facility] Comment: Please note: ??Patients with WBC >100,000 may have falsely elevated Potassium levels. ??For accurate Potassium quantification in these patients send serum separator tube (gold top) for subsequent determinations. ??Contact the Clinical Chemistry Laboratory if there are any questions. Chloride 101 98 - 107 mmol/L [facility] Carbon Dioxide 23 22 - 31 mmol/L [facility] Anion Gap 17(H) 5 - 15 mmol/L [facility] Calcium 9.4 8.5 - 10.5 mg/dL [facility] Est Glomerular Filtration Rate >60 >=60 [facility] Comment: This estimated GFR [...] the following links into your internet browser. [email or web address] Blood specimen (specimen) 02/16/2016 8:46 AM EDT 02/16/2016 8:50 AM EDT Narrative Resulting Agency Comment Spec In Lab Leonid Luz MD CHEMISTRY ORDERABLES [facility] [place] [address] * Differential, Automated (02/16/2016 3:22 AM EDT) Pathologist [facility] Neutrophil % 55.8 % [facility] Neutrophil Absolute 4.24 1.50 - 6.30 x10(3)/[facility] Lymph % 31.1 % [facility] Lymphocytes Abs 2.4 1.0 - 3.6 x10(3)/[facility] Monocyte % 8.1 % [facility] Monocyte Abs 0.6 0.2 - 1.0 x10(3)/[facility] Eos % 4.5 % [facility] Eosinophils Abs 0.3 0.0 - 0.5 x10(3)/[facility] Basophil % 0.4 % [facility] Baso Absolute 0.0 0.0 - 0.2 x10(3)/[facility] Immature Gran % 0.10 % [facility] Comment: Immature granulocytes(IG's)percentage and absolute count will include metamyelocytes, myelocytes, and promyelocytes. Blood smears from CBCs yielding IG's will be scanned manually for concordance. If this scan disagrees with the automated IG or if promyelocytes are noted, a manual differential will be performed. Immature Gran Absolute 0.01 0.00 - 0.05 x10(3)/[facility] [facility] Blood specimen (specimen) 02/16/2016 3:22 AM EDT 02/16/2016 3:26 AM EDT Narrative Resulting Agency Comment Spec In Lab Ward Garcia MD HEMATOLOGY ORDERABLE S [facility] [place] [address] * (ABNORMAL) Hemogram (02/16/2016 3:22 AM EDT) Pathologist [facility] White Blood Cell 7.6 4.0 - 10.0 x10(3)/mc L [facility] Red Blood Cell 3.91(L) 3.93 - 5.22 x10(6)/mc L [facility] Hemoglobin 12.0 11.2 - 15.7 gm/dL [facility] Hematocrit 34.8 34.0 - 45.0 % [facility] Mean Cell Volume 89.0 79.0 - 94.0 fL [facility] Mean Cell Hemoglobin 30.7 26.6 - 32.2 pg [facility] Mean Cell Hemoglobin Concentration 34.5 32.0 - 36.5 gm/dL [facility] Platelet 238 145 - 370 x10(3)/mc L [facility] RDW Standard Deviation 42.2 35.0 - 46.0 fL [facility] RDW coefficient of variation 13.3 10.9 - 14.4 % [facility] Mean Platelet Volume 9.2 9.0 - 12.0 fL [facility] Blood specimen (specimen) 02/16/2016 3:22 AM EDT 02/16/2016 3:26 AM EDT Narrative Resulting Agency Comment Spec In Lab Ward Garcia MD HEMATOLOGY ORDERABLE S Performing Organization Address City/State/[facility] Co de Phone Number [facility] [place] [address] * Prothrombin Time (02/16/2016 3:22 AM EDT) Prothrombin Time 14.6 12.0 - 15.0 sec [facility] Comment: An INR <2.0 indicates adequate [...] International Normalization Ratio 1.1 0.9 - 1.1 [facility] Blood specimen (specimen) 02/16/2016 3:22 AM EDT 02/16/2016 3:26 AM EDT Narrative Resulting Agency Comment Spec In Lab Ward Garcia MD HEMATOLOGY ORDERABLE S Performing Organization Address City/[facility]/ZIP Co de Phone Number [facility] [place] [address] * Magnesium (02/16/2016 3:22 AM EDT) [facility] Magnesium 0.86 0.69 - 1.07 mmol/L [facility] Blood specimen (specimen) 02/16/2016 3:22 AM EDT 02/16/2016 3:26 AM EDT Narrative Resulting Agency Comment Spec In Lab Ward Garcia MD CHEMISTRY ORDERABLES Performing Organization Address [facility] Co de Phone Number [facility] [place] [address] * (ABNORMAL) Basic Metabolic Panel (non-fasting) (02/16/2016 3:22 AM EDT) [facility] Glucose 103 65 - 199 mg/dL [facility] Comment:Diabetes: >=200 mg/d L plus symptoms Blood Urea Nitrogen 11 8 - 18 mg/dL [facility] Creatinine 0.75 0.70 - 1.20 mg/dL [facility] Comment: Please note that the pediatric reference intervals supplied above were not validated at [facility]. Results from pediatric patients should be interpreted in conjunction to the patient's age, height and muscle mass. Sodium 138 135 - 145 mmol/L [facility] Potassium Not Perf 3.5 - 5.0 mmol/L [facility] Comment: Unable to quantitate due to sample hemolysis. ??Sample redraw suggested. Notified Finn Baugh 02/16/16 03:53/llu Please note: ??Patients with WBC >100,000 may have falsely elevated Potassium levels. ??For accurate Potassium quantification in these patients send serum separator tube (gold top) for subsequent determinations. ??Contact the Clinical Chemistry Laboratory if there are any questions. Chloride 102 98 - 107 mmol/L [facility] Carbon Dioxide 21(L) 22 - 31 mmol/L [facility] Anion Gap 15 5 - 15 mmol/L [facility] Calcium 9.1 8.5 - 10.5 mg/dL [facility] Est Glomerular Filtration Rate >60 >=60 [facility] Comment: This estimated GFR [...] the following links into your internet browser. [email or web address] [email or web address] Blood specimen (specimen) 02/16/2016 3:22 AM EDT 02/16/2016 3:26 AM EDT Narrative Resulting Agency Comment Spec In Lab Ward Garcia MD CHEMISTRY ORDERABLES Performing Organization Address [facility] Co de Phone Number [facility] [place] [address] * EKG 12 Lead (02/16/2016 1:37 AM EDT) Ventricular rate 71 BPM MUSE SYSTEM Atrial Rate 71 BPM MUSE SYSTEM P-R Interval 196 ms MUSE SYSTEM QRS Duration 102 ms MUSE SYSTEM Q-T Interval 420 ms MUSE SYSTEM QTC Calculated (Bezet) 456 ms MUSE SYSTEM Calculated P Gilliam 49 degrees MUSE SYSTEM Calculated R Gilliam -46 degrees MUSE SYSTEM Calculated T Gilliam 1 degrees MUSE SYSTEM INTERPRETATION Normal sinus rhythm Left anterior fascicular block Abnormal ECG When compared with ECG of 14-FEB-2016 18:03, No significant change was found Confirmed by MD Peter, Cash Nur ([id number]) on 02/17/2016 6:28:31 AM MUSE SYSTEM 02/16/2016 1:37 AM EDT 02/17/2016 6:28 AM EDT Ward Garcia MD ECG ORDERABLES Performing Organization Address City/[facility] Co de Phone Number [facility] * (ABNORMAL) APTT (02/15/2016 4:40 PM EDT) Partial Thromboplastin Time 81(H) 25 - 35 sec [facility] Comment: The recommended therapeutic range for full dose, unfractionated heparin at [facility] is 80 ? 114 seconds. The use of the anti-Xa (heparin) level rather than the PTT is recommended for monitoring anticoagulation intensity in critically ill patients receiving unfractionated heparin by continuous IV infusion. Blood specimen (specimen) 02/15/2016 4:40 PM EDT 02/15/2016 4:51 PM EDT Narrative Resulting Agency Comment Spec In Lab Leonid Luz MD HEMATOLOGY ORDERABLE S Performing Organization Address [facility] Co de Phone Number [facility] [place] [address] * (ABNORMAL) APTT (02/15/2016 9:47 AM EDT) Partial Thromboplastin Time 80(H) 25 - 35 sec [facility] Comment: The recommended therapeutic range for full dose, unfractionated heparin at [facility] is 80 ? 114 seconds. The use of the anti-Xa (heparin) level rather than the PTT is recommended for monitoring anticoagulation intensity in critically ill patients receiving unfractionated heparin by continuous IV infusion. Blood specimen (specimen) 02/15/2016 9:47 AM EDT 02/15/2016 9:52 AM EDT Narrative Resulting Agency Comment Spec In Lab Leonid Luz MD HEMATOLOGY ORDERABLE S Performing Organization Address [facility] Co de Phone Number [facility] [place] [address] * (ABNORMAL) APTT (02/15/2016 2:43 AM EDT) Partial Thromboplastin Time 115(H) 25 - 35 sec [facility] Comment: The recommended therapeutic range for full dose, unfractionated heparin at [facility] is 80 ? 114 seconds. The use of the anti-Xa (heparin) level rather than the PTT is recommended for monitoring anticoagulation intensity in critically ill patients receiving unfractionated heparin by continuous IV infusion. Blood specimen (specimen) Venous Draw / Unknown 02/15/2016 2:43 AM EDT 02/15/2016 2:49 AM EDT Narrative Resulting Agency Comment Spec In Lab Ward Garcia MD HEMATOLOGY ORDERABLE S [facility] [place] [address] * Differential, Automated (02/15/2016 2:43 AM EDT) Neutrophil % 48.2 % [facility] Neutrophil Absolute 3.65 1.50 - 6.30 x10(3)/[facility] Lymph % 37.1 % [facility] Lymphocytes Abs 2.8 1.0 - 3.6 x10(3)/[facility] Monocyte % 7.8 % [facility] Monocyte Abs 0.6 0.2 - 1.0 x10(3)/[facility] Eos % 6.2 % [facility] Eosinophils Abs 0.5 0.0 - 0.5 x10(3)/[facility] Basophil % 0.4 % [facility] Baso Absolute 0.0 0.0 - 0.2 x10(3)/[facility] Immature Gran % 0.30 % [facility] Comment: Immature granulocytes(IG's)percentage and absolute count will include metamyelocytes, myelocytes, and promyelocytes. Blood smears from CBCs yielding IG's will be scanned manually for concordance. If this scan disagrees with the automated IG or if promyelocytes are noted, a manual differential will be performed. Immature Gran Absolute 0.02 0.00 - 0.05 x10(3)/[facility] Blood specimen (specimen) 02/15/2016 2:43 AM EDT 02/15/2016 2:49 AM EDT Narrative Resulting Agency Comment Spec In Lab Ward Garcia MD HEMATOLOGY ORDERABLE S [facility] [place] [address] * (ABNORMAL) Hemogram (02/15/2016 2:43 AM EDT) White Blood Cell 7.6 4.0 - 10.0 x10(3)/mc L [facility] Red Blood Cell 3.84(L) 3.93 - 5.22 x10(6)/mc L [facility] Hemoglobin 11.6 11.2 - 15.7 gm/dL [facility] Hematocrit 34.3 34.0 - 45.0 % [facility] Mean Cell Volume 89.3 79.0 - 94.0 fL [facility] Mean Cell Hemoglobin 30.2 26.6 - 32.2 pg [facility] Mean Cell Hemoglobin Concentration 33.8 32.0 - 36.5 gm/dL [facility] Platelet 272 145 - 370 x10(3)/mc L [facility] RDW Standard Deviation 42.3 35.0 - 46.0 fL [facility] RDW coefficient of variation 13.0 10.9 - 14.4 % [facility] Mean Platelet Volume 8.9(L) 9.0 - 12.0 fL [facility] Blood specimen (specimen) 02/15/2016 2:43 AM EDT 02/15/2016 2:49 AM EDT Narrative Resulting Agency Comment Spec In Lab Ward Garcia MD HEMATOLOGY ORDERABLE S Performing Organization Address City/[facility]/ZIP Co de Phone Number [facility] [place] [address] * Prothrombin Time (02/15/2016 2:43 AM EDT) Prothrombin Time 14.7 12.0 - 15.0 sec [facility] Comment: An INR <2.0 indicates adequate [...] International Normalization Ratio 1.1 0.9 - 1.1 [facility] Blood specimen (specimen) 02/15/2016 2:43 AM EDT 02/15/2016 2:49 AM EDT Narrative Resulting Agency Comment Spec In Lab Ward Garcia MD HEMATOLOGY ORDERABLE S [facility] [place] [address] * Basic Metabolic Panel (non-fasting) (02/15/2016 2:43 AM EDT) Glucose 107 65 - 199 mg/dL [facility] Comment:Diabetes: >=200 mg/d L plus symptoms Blood Urea Nitrogen 13 8 - 18 mg/dL [facility] Creatinine 0.78 0.70 - 1.20 mg/dL [facility] Comment: Please note that the pediatric reference intervals supplied above were not validated at [facility]. Results from pediatric patients should be interpreted in conjunction to the patient's age, height and muscle mass. Sodium 142 135 - 145 mmol/L [facility] Potassium 3.8 3.5 - 5.0 mmol/L [facility] Comment: Please note: ??Patients with WBC >100,000 may have falsely elevated Potassium levels. ??For accurate Potassium quantification in these patients send serum separator tube (gold top) for subsequent determinations. ??Contact the Clinical Chemistry Laboratory if there are any questions. Chloride 106 98 - 107 mmol/L [facility] Carbon Dioxide 24 22 - 31 mmol/L [facility] Anion Gap 12 5 - 15 mmol/L [facility] Calcium 9.0 8.5 - 10.5 mg/dL [facility] Est Glomerular Filtration Rate >60 >=60 [facility] Comment: This estimated GFR [...] the following links into your internet browser. [email or web address] [email or web address] Blood specimen (specimen) 02/15/2016 2:43 AM EDT 02/15/2016 2:49 AM EDT Narrative Resulting Agency Comment Spec In Lab Ward Garcia MD CHEMISTRY ORDERABLES Performing Organization Address [facility] Co de Phone Number [facility] [place] [address] * Magnesium (02/15/2016 2:43 AM EDT) Magnesium 0.85 0.69 - 1.07 mmol/L [facility] Blood specimen (specimen) 02/15/2016 2:43 AM EDT 02/15/2016 2:49 AM EDT Narrative Resulting Agency Comment Spec In Lab Ward Garcia MD CHEMISTRY ORDERABLES Performing Organization Address [facility] Co de Phone Number [facility] [place] [address] * (ABNORMAL) APTT (02/14/2016 6:36 PM EDT) Partial Thromboplastin Time 73(H) 25 - 35 sec [facility] Comment: The recommended therapeutic range for full dose, unfractionated heparin at [facility] is 80 ? 114 seconds. The use of the anti-Xa (heparin) level rather than the PTT is recommended for monitoring anticoagulation intensity in critically ill patients receiving unfractionated heparin by continuous IV infusion. Blood specimen (specimen) 02/14/2016 6:36 PM EDT 02/14/2016 6:46 PM EDT Narrative Resulting Agency Comment Spec In Lab Leonid Luz MD HEMATOLOGY ORDERABLE S Performing Organization Address [facility]/ZIP Co de Phone Number [facility] [place] [address] * EKG 12 Lead (02/14/2016 6:03 PM EDT) Ventricular rate 67 BPM MUSE SYSTEM Atrial Rate 67 BPM MUSE SYSTEM P-R Interval 196 ms MUSE SYSTEM QRS Duration 104 ms MUSE SYSTEM Q-T Interval 434 ms MUSE SYSTEM QTC Calculated (Bezet) 458 ms MUSE SYSTEM Calculated P Gilliam 35 degrees MUSE SYSTEM Calculated R Gilliam -41 degrees MUSE SYSTEM Calculated T Gilliam -23 degrees MUSE SYSTEM INTERPRETATION Normal sinus rhythm Left axis deviation T wave abnormality, consider anterior ischemia Abnormal ECG Confirmed by MD Griffin, Yovany ([id number]) on 02/15/2016 4:01:45 PM MUSE SYSTEM 02/14/2016 6:03 PM EDT 02/15/2016 4:01 PM EDT Ward Garcia MD ECG ORDERABLES Performing Organization Address [facility] Co de Phone Number MUSE SYSTEM * (ABNORMAL) APTT (02/14/2016 12:38 PM EDT) Partial Thromboplastin Time 93(H) 25 - 35 sec [facility] Comment: The recommended therapeutic range for full dose, unfractionated heparin at [facility] is 80 ? 114 seconds. The use of the anti-Xa (heparin) level rather than the PTT is recommended for monitoring anticoagulation intensity in critically ill patients receiving unfractionated heparin by continuous IV infusion. Blood specimen (specimen) 02/14/2016 12:38 PM EDT 02/14/2016 12:57 PM EDT Narrative Resulting Agency Comment Spec In Lab Leonid Luz MD HEMATOLOGY ORDERABLE S Performing Organization Address City/[facility]/ZIP Co de Phone Number [facility] [place] [address] * Duplex Study for DVT, Bilat legs (02/14/2016 10:16 AM EDT) [facility] VB Text Report Department: Vascular Surgery Lab Patient: [id number] (LELO WORKMAN) CPT: 26969 ICD10: I82.441;R60.0 Referring Physician: LEONID LUZ ?? [...] venous thrombosis. Notification: Carson Kimball MD (pager #[phone]) was notified of the preliminary findings. Comparison: ??No previous study in our vascular lab database for comparison. Electronically Signed by: TYLER BRYSON on 2016-02-14 04:09:37 PM [facility] VB Text Report End of Report [facility] 02/14/2016 10:1 6 AM EDT Leonid Luz MD VASCULAR ORDERABLES [facility] * (ABNORMAL) APTT (02/14/2016 4:28 AM EDT) [facility] Partial Thromboplastin Time 58(H) 25 - 35 sec [facility] Comment: The recommended therapeutic range for full dose, unfractionated heparin at [facility] is 80 ? 114 seconds. The use [...] MD HEMATOLOGY ORDERABLE S Performing Organization Address [facility]/ZIP Co de Phone Number [facility] [place] [address] * Magnesium (02/14/2016 4:28 AM EDT) [facility] Magnesium 0.87 0.69 - 1.07 mmol/L [facility] Blood specimen (specimen) 02/14/2016 4:28 AM EDT 02/14/2016 4:39 AM EDT Narrative Resulting Agency Comment Spec In Lab Ward Garcia MD CHEMISTRY ORDERABLES Performing Organization Address [facility]/ZIP Co de Phone Number [facility] [place] [address] * (ABNORMAL) Basic Metabolic Panel (non-fasting) (02/14/2016 4:28 AM EDT) [facility] Glucose 125 65 - 199 mg/dL [facility] Comment:Diabetes: >=200 mg/d L plus symptoms Blood Urea Nitrogen 11 8 - 18 mg/dL [facility] Creatinine 0.69(L) 0.70 - 1.20 mg/dL [facility] Comment: Please note that the pediatric reference intervals supplied above were not validated at [facility]. Results from pediatric patients should be interpreted in conjunction to the patient's age, height and muscle mass. Sodium 143 135 - 145 mmol/L [facility] Potassium 3.7 3.5 - 5.0 mmol/L [facility] Comment: Please note: ??Patients with WBC >100,000 may have falsely elevated Potassium levels. ??For accurate Potassium quantification in these patients send serum separator tube (gold top) for subsequent determinations. ??Contact the Clinical Chemistry Laboratory if there are any questions. Chloride 106 98 - 107 mmol/L [facility] Carbon Dioxide 24 22 - 31 mmol/L [facility] Anion Gap 13 5 - 15 mmol/L [facility] Calcium 9.1 8.5 - 10.5 mg/dL [facility] Est Glomerular Filtration Rate >60 >=60 [facility] Comment: This estimated GFR [...] the following links into your internet browser. [email or web address] [email or web address] Blood specimen (specimen) 02/14/2016 4:28 AM EDT 02/14/2016 4:39 AM EDT Narrative Resulting Agency Comment Spec In Lab Ward Garcia MD CHEMISTRY ORDERABLES [facility] [place] [address] * Differential, Automated (02/14/2016 4:28 AM EDT) Neutrophil % 56.2 % [facility] Neutrophil Absolute 4.04 1.50 - 6.30 x10(3)/[facility] Lymph % 29.6 % [facility] Lymphocytes Abs 2.1 1.0 - 3.6 x10(3)/[facility] Monocyte % 7.8 % [facility] Monocyte Abs 0.6 0.2 - 1.0 x10(3)/[facility] Eos % 5.7 % [facility] Eosinophils Abs 0.4 0.0 - 0.5 x10(3)/[facility] Basophil % 0.6 % [facility] Baso Absolute 0.0 0.0 - 0.2 x10(3)/[facility] Immature Gran % 0.10 % [facility] Comment: Immature granulocytes(IG's)percentage and absolute count will include metamyelocytes, myelocytes, and promyelocytes. Blood smears from CBCs yielding IG's will be scanned manually for concordance. If this scan disagrees with the automated IG or if promyelocytes are noted, a manual differential will be performed. Immature Gran Absolute 0.01 0.00 - 0.05 x10(3)/[facility] Blood specimen (specimen) 02/14/2016 4:28 AM EDT 02/14/2016 4:39 AM EDT Narrative Resulting Agency Comment Spec In Lab Ward Garcia MD HEMATOLOGY ORDERABLE S [facility] [place] [address] * (ABNORMAL) Hemogram (02/14/2016 4:28 AM EDT) White Blood Cell 7.2 4.0 - 10.0 x10(3)/mc L [facility] Red Blood Cell 3.82(L) 3.93 - 5.22 x10(6)/mc L [facility] Hemoglobin 11.4 11.2 - 15.7 gm/dL [facility] Hematocrit 34.4 34.0 - 45.0 % [facility] Mean Cell Volume 90.1 79.0 - 94.0 fL [facility] Mean Cell Hemoglobin 29.8 26.6 - 32.2 pg [facility] Mean Cell Hemoglobin Concentration 33.1 32.0 - 36.5 gm/dL [facility] Platelet 267 145 - 370 x10(3)/mc L [facility] RDW Standard Deviation 42.0 35.0 - 46.0 fL [facility] RDW coefficient of variation 12.9 10.9 - 14.4 % [facility] Mean Platelet Volume 9.1 9.0 - 12.0 fL [facility] Blood specimen (specimen) 02/14/2016 4:28 AM EDT 02/14/2016 4:39 AM EDT Narrative Resulting Agency Comment Spec In Lab Ward Garcia MD HEMATOLOGY ORDERABLE S Performing Organization Address [facility] Co de Phone Number [facility] [place] [address] * Prothrombin Time (02/14/2016 4:28 AM EDT) Prothrombin Time 14.4 12.0 - 15.0 sec [facility] Comment: An INR <2.0 indicates adequate [...] International Normalization Ratio 1.1 0.9 - 1.1 [facility] Blood specimen (specimen) 02/14/2016 4:28 AM EDT 02/14/2016 4:39 AM EDT Narrative Resulting Agency Comment Spec In Lab Ward Garcia MD HEMATOLOGY ORDERABLE S Performing Organization Address City/[facility] Co de Phone Number [facility] [place] [address] * (ABNORMAL) APTT (02/13/2016 4:15 AM EDT) Partial Thromboplastin Time 89(H) 25 - 35 sec [facility] Comment: Specimen drawn more than one hour prior to testing. ??Results may not be reliable for heparin monitoring. ??(May be falsely low) The recommended therapeutic range for full dose, unfractionated heparin at [facility] is 80 ? 114 seconds. The use [...] MD HEMATOLOGY ORDERABLE S Performing Organization Address [facility] Co de Phone Number [facility] [place] [address] * Magnesium (02/13/2016 4:15 AM EDT) Magnesium 0.85 0.69 - 1.07 mmol/L [facility] Blood specimen (specimen) Venous Draw / Unknown 02/13/2016 4:15 AM EDT 02/13/2016 4:34 AM EDT Narrative Resulting Agency Comment Spec In Lab Ward Garcia MD CHEMISTRY ORDERABLES Performing Organization Address [facility] Co de Phone Number [facility] [place] [address] * (ABNORMAL) Basic Metabolic Panel (non-fasting) (02/13/2016 4:15 AM EDT) Glucose 103 65 - 199 mg/dL [facility] Comment:Diabetes: >=200 mg/d L plus symptoms Blood Urea Nitrogen 13 8 - 18 mg/dL [facility] Creatinine 0.67(L) 0.70 - 1.20 mg/dL [facility] Comment: Please note that the pediatric reference intervals supplied above were not validated at [facility]. Results from pediatric patients should be interpreted in conjunction to the patient's age, height and muscle mass. Sodium 143 135 - 145 mmol/L [facility] [facility] Potassium 3.7 3.5 - 5.0 mmol/L [facility] Comment: Please note: ??Patients with WBC >100,000 may have falsely elevated Potassium levels. ??For accurate Potassium quantification in these patients send serum separator tube (gold top) for subsequent determinations. ??Contact the Clinical Chemistry Laboratory if there are any questions. Chloride 107 98 - 107 mmol/L [facility] Carbon Dioxide 24 22 - 31 mmol/L [facility] Anion Gap 12 5 - 15 mmol/L [facility] Calcium 8.6 8.5 - 10.5 mg/dL [facility] Est Glomerular Filtration Rate >60 >=60 [facility] Comment: This estimated GFR [...] the following links into your internet browser. [email or web address] Blood specimen (specimen) Venous Draw / Unknown 02/13/2016 4:15 AM EDT 02/13/2016 4:34 AM EDT Narrative Resulting Agency Comment Spec In Lab Ward Garcia MD CHEMISTRY ORDERABLES [facility] [place] [address] * Differential, Automated (02/13/2016 4:15 AM EDT) Neutrophil % 59.5 % [facility] Neutrophil Absolute 5.53 1.50 - 6.30 x10(3)/[facility] Lymph % 30.3 % [facility] Lymphocytes Abs 2.8 1.0 - 3.6 x10(3)/[facility] Monocyte % 7.4 % [facility] Monocyte Abs 0.7 0.2 - 1.0 x10(3)/[facility] Eos % 2.5 % [facility] Eosinophils Abs 0.2 0.0 - 0.5 x10(3)/[facility] Basophil % 0.2 % [facility] Baso Absolute 0.0 0.0 - 0.2 x10(3)/[facility] Immature Gran % 0.10 % [facility] Comment: Immature granulocytes(IG's)percentage and absolute count will include metamyelocytes, myelocytes, and promyelocytes. Blood smears from CBCs yielding IG's will be scanned manually for concordance. If this scan disagrees with the automated IG or if promyelocytes are noted, a manual differential will be performed. Immature Gran Absolute 0.01 0.00 - 0.05 x10(3)/[facility] Blood specimen (specimen) 02/13/2016 4:15 AM EDT 02/13/2016 4:34 AM EDT Narrative Resulting Agency Comment Spec In Lab Ward Garcia MD HEMATOLOGY ORDERABLE S [facility] [place] [address] * (ABNORMAL) Hemogram (02/13/2016 4:15 AM EDT) White Blood Cell 9.3 4.0 - 10.0 x10(3)/mc L [facility] Red Blood Cell 3.48(L) 3.93 - 5.22 x10(6)/mc L [facility] Hemoglobin 10.6(L) 11.2 - 15.7 gm/dL [facility] Hematocrit 31.7(L) 34.0 - 45.0 % [facility] Mean Cell Volume 91.1 79.0 - 94.0 fL [facility] Mean Cell Hemoglobin 30.5 26.6 - 32.2 pg [facility] Mean Cell Hemoglobin Concentration 33.4 32.0 - 36.5 gm/dL [facility] Platelet 227 145 - 370 x10(3)/mc L [facility] RDW Standard Deviation 44.2 35.0 - 46.0 fL [facility] RDW coefficient of variation 13.3 10.9 - 14.4 % [facility] Mean Platelet Volume 9.3 9.0 - 12.0 fL [facility] Blood specimen (specimen) 02/13/2016 4:15 AM EDT 02/13/2016 4:34 AM EDT Narrative Resulting Agency Comment Spec In Lab Ward Garcia MD HEMATOLOGY ORDERABLE S Performing Organization Address [facility] Co de Phone Number [facility] [place] [address] * (ABNORMAL) Prothrombin Time (02/13/2016 4:15 AM EDT) Prothrombin Time 15.9(H) 12.0 - 15.0 sec [facility] Comment: An INR <2.0 indicates adequate [...] International Normalization Ratio 1.2(H) 0.9 - 1.1 [facility] Blood specimen (specimen) 02/13/2016 4:15 AM EDT 02/13/2016 4:34 AM EDT Narrative Resulting Agency Comment Spec In Lab Ward Garcia MD HEMATOLOGY ORDERABLE S Performing Organization Address [facility] Co de Phone Number [facility] [place] [address] * (ABNORMAL) Lipid panel (fasting) (02/13/2016 4:15 AM EDT) [facility] Signature Cholesterol, Total 121 <=199 mg/dL [facility] Comment: Recommendations of the NCEP Adult Treatment Panel for the following risk cutoff thresholds for the [place] population: Desirable: <200 mg/dL Borderline High: 200-239 mg/dL High: > or = 240 mg/dL Triglyceride 89 <=149 mg/dL [facility] Comment: Reference Range: Normal triglycerides: ??<150 mg/dL Borderline high: ??150-199 mg/dL High: ??200-499 mg/dL Very high: ??>vb=003 mg/dL FRANKO 2001; 285(19):[phone] HDL Cholesterol 29(L) >=40 mg/dL [facility] Comment: Reference range: ??Low HDL: ?? < 40 mg/dL ??Normal: ?40-60 mg/dL ??Desirable: > 60 mg/dL FRANKO 2001; 285(19):6561-4393 LDL Cholesterol 74 <=99 mg/dL [facility] Comment: Reference range: ?? Optimal: ?<100 mg/dL ?? Near Optimal/Above Optimal: ?? 100-129 mg/dL ?? Borderline high: ?130-159 mg/dL ?? High: ? 160-189 mg/dL ?? Very high: ?>gl=993 mg/dL FRANKO 2001: 285(19):1597-4633 Cholesterol/HDL Ratio 4.2 ratio [facility] Comment: A Cholesterol to HDL ratio below 4:1 is desirable. ??Studies suggest that increased CAD risk occurs at ratios above 5 for females and above 6 for men. ? [place] [employer] Association ??(http://www.americanheart.org) ? An Int Med, 1994; 121:641 ? AM J Med, 1998; 105(1A):48S Blood specimen (specimen) 02/13/2016 4:15 AM EDT 02/13/2016 4:34 AM EDT Narrative Resulting Agency Comment Spec In Lab Ward Garcia MD CHEMISTRY ORDERABLES Performing Organization Address [facility] Co de Phone Number [facility] [place] [address] * (ABNORMAL) APTT (02/12/2016 10:30 PM EDT) [facility] Signature Partial Thromboplastin Time 91(H) 25 - 35 sec [facility] Comment: The recommended therapeutic range for full dose, unfractionated heparin at [facility] is 80 ? 114 seconds. The use of the anti-Xa (heparin) level rather than the PTT is recommended for monitoring anticoagulation intensity in critically ill patients receiving unfractionated heparin by continuous IV infusion. Blood specimen (specimen) 02/12/2016 10:30 PM EDT 02/12/2016 10:41 PM EDT Narrative Resulting Agency Comment Spec In Lab Ward Garcia MD HEMATOLOGY ORDERABLE S Performing Organization Address [facility] de Phone Number [facility] [place] [address] * CT Chest Pulmonary Embolism With Contrast [...] EDT) Glucose, Urine Dipstick Negative Negative mg/dL [facility] Protein, Urine Dipstick 30(A) Negative mg/dL [facility] Bilirubin, Urine Dipstick Negative Negative mg/dL [facility] Comment: Clinical correlation required for positive Urine Bilirubin results as false positive may occur with some drugs and drug related products. If a false positive is suspected a serum total bilirubin should be considered if clinically indicated. Urobilinogen, Urine Dipstick 2.0(A) Normal mg/dL [facility] pH, Urn (dipstick) 6.0 5.0 - 8.0 [facility] Blood, Urine Dipstick Moderate(A) Negative mg/dL [facility] Ketone, Urine Dipstick 5(A) Negative mg/dL [facility] Nitrite, Urine Dipstick Negative Negative [facility] Leukocytes, Urine Dipstick Negative Negative mcL [facility] Appearance, Urine Dipstick Clear Clear [facility] Specific [place] Urine Automated >1.035(H) 1.002 - 1.030 [facility] Color, Urine Dipstick Yellow Yellow [facility] RBC, Urine >182(H) 0 - 4 /HPF [facility] WBC, Urine <1 0 - 5 /HPF [facility] Squamous Epithelial Cells, Urine <1 <=4 /HPF [facility] Reflex to Culture No [facility] Urine specimen obtained via indwelling urinary catheter (specimen) 02/12/2016 5:22 PM EDT 02/12/2016 5:33 PM EDT Narrative Resulting Agency Comment Spec In Lab Ward Garcia MD URINE ORDERABLES [facility] [place] [address] * EKG 12 Lead (02/12/2016 3:30 PM EDT) Ventricular rate 72 BPM MUSE SYSTEM Atrial Rate 72 BPM MUSE SYSTEM P-R Interval 172 ms MUSE SYSTEM QRS Duration 102 ms MUSE SYSTEM Q-T Interval 430 ms MUSE SYSTEM QTC Calculated (Bezet) 470 ms MUSE SYSTEM Calculated P Gilliam 16 degrees MUSE SYSTEM Calculated R Gilliam -53 degrees MUSE SYSTEM Calculated T Gilliam 14 degrees MUSE SYSTEM INTERPRETATION Normal sinus rhythm Left anterior fascicular block Inferior infarct , age undetermined Abnormal ECG No previous ECGs available Confirmed by MD Peter, Cash Nur ([id number]) on 02/12/2016 3:52:57 PM MUSE SYSTEM 02/12/2016 3:30 PM EDT 02/12/2016 3:52 PM EDT Unknown ECG ORDERABLES MUSE SYSTEM * POCT Glucose (02/12/2016 3:26 PM EDT) Glucose, POC 142 65 - 199 mg/dL [facility] Comment: Supplemental ranges: <140 mg/dL before meals <180 mg/dL all other times of the day Blood specimen (specimen) 02/12/2016 3:26 PM EDT 02/12/2016 3:26 PM EDT Ward Garcia MD POINT OF CARE TEST O RDERABLES [facility] [place] [address] * (ABNORMAL) Differential, Automated (02/12/2016 3:20 PM EDT) Pathologist [facility] Neutrophil % 85.9 % [facility] Neutrophil Absolute 9.63(H) 1.50 - 6.30 x10(3)/mc L [facility] Lymph % 8.0 % [facility] Lymphocytes Abs 0.9(L) 1.0 - 3.6 x10(3)/mc L [facility] Monocyte % 5.8 % [facility] Monocyte Abs 0.6 0.2 - 1.0 x10(3)/mc L [facility] Eos % 0.1 % [facility] Eosinophils Abs 0.0 0.0 - 0.5 x10(3)/mc L [facility] Basophil % 0.1 % [facility] Baso Absolute 0.0 0.0 - 0.2 x10(3)/mc L [facility] Immature Gran % 0.10 % [facility] Comment: Immature granulocytes(IG's)percentage and absolute count will include metamyelocytes, myelocytes, and promyelocytes. Blood smears from CBCs yielding IG's will be scanned manually for concordance. If this scan disagrees with the automated IG or if promyelocytes are noted, a manual differential will be performed. Immature Gran Absolute 0.01 0.00 - 0.05 x10(3)/mc L [facility] Blood specimen (specimen) 02/12/2016 3:20 PM EDT 02/12/2016 3:32 PM EDT Narrative Resulting Agency Comment Spec In Lab Ward Garcia MD HEMATOLOGY ORDERABLE S [facility] [place] [address] * (ABNORMAL) Hemogram (02/12/2016 3:20 PM EDT) White Blood Cell 11.2(H) 4.0 - 10.0 x10(3)/mc L [facility] Red Blood Cell 3.77(L) 3.93 - 5.22 x10(6)/mc L [facility] Hemoglobin 11.5 11.2 - 15.7 gm/dL [facility] Hematocrit 34.5 34.0 - 45.0 % [facility] Mean Cell Volume 91.5 79.0 - 94.0 fL [facility] Mean Cell Hemoglobin 30.5 26.6 - 32.2 pg [facility] Mean Cell Hemoglobin Concentration 33.3 32.0 - 36.5 gm/dL [facility] Platelet 229 145 - 370 x10(3)/mc L [facility] RDW Standard Deviation 43.9 35.0 - 46.0 fL [facility] RDW coefficient of variation 13.1 10.9 - 14.4 % [facility] Mean Platelet Volume 9.3 9.0 - 12.0 fL [facility] Blood specimen (specimen) 02/12/2016 3:20 PM EDT 02/12/2016 3:32 PM EDT Narrative Resulting Agency Comment Spec In Lab Ward Garcia MD HEMATOLOGY ORDERABLE S Performing Organization Address [facility]/ZIP Co de Phone Number [facility] [place] [address] * (ABNORMAL) Prothrombin Time (02/12/2016 3:20 PM EDT) Prothrombin Time 16.6(H) 12.0 - 15.0 sec [facility] Comment: An INR <2.0 indicates adequate [...] International Normalization Ratio 1.3(H) 0.9 - 1.1 [facility] Blood specimen (specimen) 02/12/2016 3:20 PM EDT 02/12/2016 3:32 PM EDT Narrative Resulting Agency Comment Spec In Lab Ward Garcia MD HEMATOLOGY ORDERABLE S Performing Organization Address [facility] Co de Phone Number [facility] [place] [address] * Magnesium (02/12/2016 3:20 PM EDT) Magnesium 0.87 0.69 - 1.07 mmol/L [facility] Blood specimen (specimen) 02/12/2016 3:20 PM EDT 02/12/2016 3:32 PM EDT Narrative Resulting Agency Comment Spec In Lab Ward Garcia MD CHEMISTRY ORDERABLES Performing Organization Address [facility]/ZIP Co de Phone Number [facility] [place] [address] * Basic Metabolic Panel (non-fasting) (02/12/2016 3:20 PM EDT) Glucose 156 65 - 199 mg/dL [facility] Comment:Diabetes: >=200 mg/d L plus symptoms Blood Urea Nitrogen 17 8 - 18 mg/dL [facility] Creatinine 0.74 0.70 - 1.20 mg/dL [facility] Comment: Please note that the pediatric reference intervals supplied above were not validated at [facility]. Results from pediatric patients should be interpreted in conjunction to the patient's age, height and muscle mass. Sodium 142 135 - 145 mmol/L [facility] Potassium 4.3 3.5 - 5.0 mmol/L [facility] Comment: Please note: ??Patients with WBC >100,000 may have falsely elevated Potassium levels. ??For accurate Potassium quantification in these patients send serum separator tube (gold top) for subsequent determinations. ??Contact the Clinical Chemistry Laboratory if there are any questions. Chloride 105 98 - 107 mmol/L [facility] Carbon Dioxide 22 22 - 31 mmol/L [facility] Anion Gap 15 5 - 15 mmol/L [facility] Calcium 8.8 8.5 - 10.5 mg/dL [facility] Est Glomerular Filtration Rate >60 >=60 [facility] Comment: This estimated GFR [...] the following links into your internet browser. [email or web address] Blood specimen (specimen) 02/12/2016 3:20 PM EDT 02/12/2016 3:32 PM EDT Narrative Resulting Agency Comment Spec In Lab Ward Garcia MD CHEMISTRY ORDERABLES [facility] [place] [phone] * (ABNORMAL) Hepatic Function Panel (02/12/2016 3:20 PM EDT) [facility] Protein, Total 6.8 6.1 - 8.0 gm/dL [facility] Albumin 3.4 3.2 - 5.2 gm/dL [facility] Aspartate Aminotransferase 32(H) 0 - 30 unit/L [facility] Alanine Aminotransferase 39(H) 0 - 30 unit/L [facility] Alkaline Phosphatase 86 40 - 104 unit/L [facility] Bilirubin, Total 0.6 0.2 - 1.3 mg/dL [facility] Bilirubin, Direct 0.1 0.0 - 0.3 mg/dL [facility] Blood specimen (specimen) 02/12/2016 3:20 PM EDT 02/12/2016 3:32 PM EDT Narrative Resulting Agency Comment Spec In Lab Ward Garcia MD CHEMISTRY ORDERABLES Performing Organization Address City/[facility]/ZIP Co de Phone Number [facility] [place] [address] * TSH (02/12/2016 3:20 PM EDT) [facility] Thyroid Stimulating Hormone 1.03 0.27 - 4.20 mcIU/mL [facility] Blood specimen (specimen) 02/12/2016 3:20 PM EDT 02/12/2016 3:32 PM EDT Narrative Resulting Agency Comment Spec In Lab Ward Garcia MD CHEMISTRY ORDERABLES [facility] [place] [address] * APTT (02/12/2016 3:20 PM EDT) [facility] Partial Thromboplastin Time 33 25 - 35 sec [facility] Comment: The recommended therapeutic range for full dose, unfractionated heparin at [facility] is 80 ? 114 seconds. The use of the anti-Xa (heparin) level rather than the PTT is recommended for monitoring anticoagulation intensity in critically ill patients receiving unfractionated heparin by continuous IV infusion. Blood specimen (specimen) 02/12/2016 3:20 PM EDT 02/12/2016 3:32 PM EDT Narrative Resulting Agency Comment Spec In Lab Ward Garcia MD HEMATOLOGY ORDERABLE S Performing Organization Address [facility] Co de Phone Number [facility] [place] [address] * CARDIAC CATHETERIZATION (02/12/2016 3:00 PM EDT) Anatomical Region Laterality Modality Other Narrative 02/12/2016 2:43 PM EDT ?[facility] ? Cardiac Catheterization/Intervention Report ? Patient Name: Ji, Lelo E. ? Procedure Date: 02/12/2016 ? A #: [id number] ? Primary Physician: Ag, Griffin Fitzgerald ? Case #: [id number] ? File Name: [id number] ? Catheterization Order Number: [id number] ? [facility] ? Final Report [place], [place] ? Patient Name: ? Lelo E. Ji ?ID#: ?[id number] ? : ?1945 ? Procedure Date: ? [...] unlikely to be ischemic (w/i 14 ?days). Citizen Of [place] Cardiovascular Society angina class was 0. No [...] ?JI LELO ?(Age): 1945(70y) Med Rec#: ? [id number] ?Sex: ?F ? Site Loc: ? [facility] ?Ht / Wt: ??(cm)/89(kg) ? Pt. Loc: ?[facility] ? Study Date: ?? 02/12/2016 ?Pt. Type: Inpatient Tape: ? Referring: Griffin Perry Reading: Sriram Lin ??([id number]) Cake Icer: Padma Benedict BA, [facility] Interpreting Fellow: Joe Ayala ([id number]) Diagnosis: *ICD-10-PCS Chest pain on breathing (R07.1) *ICD-10-PCS Shortness of breath (R06.02) CPT Codes: *Echo LTD (75886) SUMMARY: 1. The left ventricular chamber size [...] ? Mid-Inferior ?Normal ? Mid-Inferoseptal ?Normal ? Irene-Septal ? Normal ? Irene-Anterior ? Normal ? Irene-Lateral ?Normal ? Irene-Inferior ? Normal ? Irene-Tip ?Normal ? This report has been electronically signed by: Sriram ??D. MD Riley ? 02/12/2016 15:15:18 Images reviewed and interpretation verified [facility] Cardiac Ultrasound Laboratory Procedure Note Sriram Lin MD - 02/12/2016 Procedure: Transthoracic Echocardiogram Patient: JI CADENA(Age): 1945(70y) Med Rec#: [id number] Sex: F Site Loc: [facility] Ht / Wt: (cm)/89(kg) Pt. Loc: [facility] Study Date: 02/12/2016 Pt. Type: Inpatient Tape: Referring: Griffin Perry Reading: Sriram Lin ([id number]) Cake Icer: Padma Benedict BA, RDCS Interpreting Fellow: Joe Ayala ([id number]) Diagnosis: *ICD-10-PCS Chest pain on breathing (R07.1) *ICD-10-PCS Shortness of breath (R06.02) CPT Codes: *Echo LTD (60800) SUMMARY: 1. The left ventricular chamber size [...] Normal Mid-Posterolateral Normal Mid-Inferior Normal Mid-Inferoseptal Normal Irene-Septal Normal Irene-Anterior Normal Irene-Lateral Normal Irene-Inferior Normal Irene-Tip Normal This report has been electronically signed by: Sriram Lin MD 02/12/2016 15:15:18 Images reviewed and interpretation verified [facility] Cardiac Ultrasound Laboratory Ward Garcia MD ECHO ORDERABLES * Point of Care Blood Gas Historical (02/12/2016 1:32 PM EDT) pH, POC 7.35 7.35 - 7.45 [facility] pCO2, POC 41 35 - 45 mmHg [facility] pO2, POC 88 85 - 104 mmHg [facility] Base Excess, POC -3.0 -3.0 - 3.0 mmol/L [facility] Bicarbonate, POC 22.9 20.0 - 26.0 mmol/L [facility] Sodium, POC 140 135 - 145 mmol/L [facility] POC Potassium 4.1 3.5 - 5.0 mmol/L [facility] Ionized Calcium, POC 1.27 1.15 - 1.33 mmol/L [facility] POC Hematocrit 34.0 34.0 - 45.0 % [facility] POC Calc Hgb 11.6 11.2 - 15.7 gm/dL [facility] Comment:The calculation of h emoglobin from hematocrit assumes a normal MCHC. POC Bgas Loc Department [facility] Blood specimen (specimen) 02/12/2016 1:32 PM EDT 02/13/2016 11:25 AM EDT Ward Garcia MD CHEMISTRY ORDERABLES [facility] [place] [address] documented in this encounter Visit Diagnoses Diagnosis Chest pain, unspecified type PE (pulmonary embolism) Other pulmonary embolism and infarction documented in this encounter Admitting Diagnoses Diagnosis PE [...] Given 02/16/2016 2:05 AM EDT 650 mg aspirin EC tablet 81 mg 81 mg, Oral, DAILY, First dose on Maggi 02/13/16 at 0945, Until Discontinued, Routine Given 02/13/2016 9:51 AM EDT 81 mg atropine injection 1 mg 1 mg, [...] Recovery Unit heparin (porcine) injection 2,900-5,700 Units 2,900-5,700 Units, Intravenous, BOLUS PER HEPARIN PROTOCOL, Starting on Wed02/12/16 at 1517, Until 02/15/16 at 2116, Per [...] order required aPTT - Per Protocol, Routine Given 02/14/2016 7:53 PM EDT 2,900 Units Given 02/14/2016 7:22 AM EDT 5,700 Units heparin (porcine) injection 5,700 Units 5,700 Units, Intravenous, ONCE, 1 dose, On Wed02/12/16 at 1545, Patient Weight 80-84 kg INITIAL LOADING DOSE , Routine Given 02/12/2016 4:09 PM EDT 5,700 Units heparin 25,000 units in dextrose 5% 500 mL infusion 500-7,000 Units/hr (10-140 mL/hr), Intravenous, CONTINUOUS, Starting [...] than 145 sec X 2 - call salesperson household appliances See Bolus dosing guidance for aPTT values less than 80 seconds under PRN medications Repeat aPTT 6 hours after initiating heparin. Then 6 hours after each dose adjustment. When 2 consecutive aPTT within target range of 80 - 114 seconds, change aPTT to once every 24 hours with A.M. labs while on heparin. RN to order required aPTT - Per Protocol, Routine New Bag 02/15/2016 2:39 PM EDT 1,600 Units/hr 32 mL/hr Rate/Dose Verify 02/15/2016 2:00 PM EDT 1,600 Units/hr 32 mL/hr Rate/Dose Change 02/15/2016 3:24 AM EDT 1,600 Units/hr 32 mL/hr iohexol (OMNIPAQUE) 350 mg/mL solution 33,250 mg 33,250 mg (95 mL), Intravenous, ONCE PRN, 1 dose, Starting on Wed02/12/16 at 2011, Until Wed02/12/16 at 2026, Per Protocol, Warning Vesicant/Irritant Medication , Routine Given 02/12/2016 8:27 PM EDT 33,250 mg melatonin tablet 3 mg 3 mg, Oral, NIGHTLY, First dose on Maggi 02/13/16 at 2100, Until Discontinued, Routine Given 02/13/2016 11:01 PM EDT 3 mg midazolam (PF) (VERSED) 1 mg/mL injection 1 mg 1 mg, Intravenous, Administer over 4 Hours, EVERY 1 HOUR PRN, 2 doses, Starting on Wed02/12/16 at 1349, Until 02/16/16 at 1734, Sleep, For sheath removal, May repeat once while in Cath Recovery Unit., Routine multivitamin (THERAGRAN) tablet 1 tablet 1 tablet, [...] Given 02/13/2016 9:00 PM EDT 5 mLs sodium chloride 0.9% infusion 100 mL/hr, Intravenous, CONTINUOUS, Starting on Wed02/12/16 at 1545, Until Maggi 02/13/16 at 0144, Recovery (Recovery-Hospital Unit) Rate/Dose Verify 02/12/2016 11:00 PM EDT 100 mL/hr 100 mL/hr Rate/Dose Verify 02/12/2016 10:30 PM EDT 100 mL/hr 100 mL /hr Rate/Dose Verify 02/12/2016 8:00 PM EDT 100 mL/hr 100 mL/ hr warfarin (COUMADIN) daily order reminder Oral, EVERY 24 HOURS, First dose on Wed02/14/16 at 1400, Until Discontinued, If the daily warfarin order has not been placed, contact the Provider to confirm that the order will be written, the dose is held or discontinued. warfarin (COUMADIN) tablet 5 mg 5 mg, Oral, ONCE, 1 dose, On Maggi 02/13/16 at 1800, Routine Given 02/13/2016 5:25 PM EDT 5 mg warfarin (COUMADIN) tablet 5 mg 5 mg, Oral, ONCE, 1 dose, On Wed02/14/16 at 1700, Routine Given 02/14/2016 4:54 PM EDT 5 mg warfarin (COUMADIN) tablet 7.5 mg 7.5 mg, Oral, ONCE, 1 dose, On Wed02/15/16 at 1700, Routine Given 02/15/2016 6:16 PM EDT 7.5 mg warfarin (COUMADIN) tablet 7.5 mg 7.5 mg, Oral, ONCE, 1 dose, On Wed02/16/16 at 1600, Please give prior to discharge., STAT Given 02/16/2016 3:11 PM E DT 7.5 mg documented in this encounter Active and Recently Administered Medications Times are shown in EDT. Scheduled Medication Order 02/14/2016 02/15/2016 02/16/2016 enoxaparin (LOVENOX) injection 80 mg 80 mg, Subcutaneous, EVERY 12 HOURS SCHEDULED (2 times per day), First dose on Wed02/15/16 at 1930, Until Discontinued, STAT 2013 (Given - Provider: Rosalinda Rivera RN) 1002 [...] 5 mg, Oral, ONCE, 1 dose, On 02/14/16 at 1700, Routine 1654 (Given - Provider: Rosalinda Rivera RN) warfarin (COUMADIN) tablet 7.5 mg (COMPLETED) 7.5 mg, Oral, ONCE, 1 dose, On 02/15/16 at 1700, Routine 1816 (Given - Provider: Eliot Rivers, STELLA) warfarin (COUMADIN) tablet 7.5 mg (COMPLETED) 7.5 mg, Oral, ONCE, 1 dose, On Wed02/16/16 at 1600, Please give prior to discharge., STAT 1511 (Given - Provider: Eliot Rievrs, RN) Continuous Medication Order 02/14/2016 02/15/2016 02/16/2016 [...] than 145 sec X 2 - call salesperson household appliances See Bolus dosing guidance for aPTT values [...] Intravenous, BOLUS PER HEPARIN PROTOCOL, Starting on Wed02/12/16 at 1517, Until 02/15/16 at 2116, Per [...] order required aPTT - Per Protocol, Routine 0722 (Given - Provider: Stephanie Schaefer RN)195 (Given - Provider: Stephanie Schaefer RN) lidocaine [...] Routine documented in this encounter Care Teams Semi Truck Driver Relationship Specialty Start Date End Date Linda Evangelista MD [facility] [address] [place] [address] [place] [address] PCP - General 07/08/10 09/23/16 documented as of this encounter
--- OUTSIDE RECORDS SUMMARY | 2024-06-14 19:49 | XMS_ITS | Encounter Summary ---
Author Organization [facility] Address [address] [place] [address] Care Team Providers Care Incubator Machine Operator Name Role Phone Cheryl Evangelista MD Primary Care Provider [phone] Encounter Details Date Type Department Care Team (Late st Contact Info) Description 03/01/2013 Results Only [facility] Laboratory Services - [facility] ([facility] [place]) [address] [place], [place] [address] Balta Leonard MD [address] [place] [address] Social History Tobacco Use Types Packs/Day Years Used Date Smoking Tobacco: Never Assessed Sex and Gender Information Value Date Recorded Sex Assigned at Not on file Gender Identity Not on file Sexual Orientation Not on file documented as of this encounter Plan of Treatment Not on file documented as of this encounter Procedures Procedure Name Priority Date/Time Associated Diagnosis Comments SURGICAL PATHOLOGY Routine 03/01/2013 20 :54 EDT documented in this encounter Results * SURGICAL PATHOLOGY (03/01/2013 20:54 EDT) Pathology Report: SURGICAL PATHOLOGY REPORT Reports generated via electronic interface contain original data; however they are lacking the format of the original report. Caution should be taken when reading/interpreti ng unformatted reports. Name: ? CATHRYN WORKMAN ? Accession #: ? [id number] ? : ? 1945 (Age: 67) ??F ? Collect Date: ? 03/01/2013 ? Location: ? [facility] ? Receive Date: ? 03/01/2013 ? Provider: BALTA LEONARD MD Copy to: CHERYL EVANGELISTA MD ? Final Pathologic Diagnosis: A. ??COLON, ASCENDING POLYPECTOMY: - ?Tubular adenoma. B. ??COLON, TRANSVERSE POLYPECTOMIES: - ?Tubular adenoma, fragment. - ?Hyperplastic polyp, fragment. C. ??COLON, DESCENDING POLYPECTOMIES: - ?Tubular adenoma, one fragment. - ?Hyperplastic polyp, one fragment. D. ??COLON, SIGMOID POLYP: - ?Tubular adenoma. Document reviewed and electronically signed by: CHARLETTE NGUYEN MD Report ??Date: 03/03/2013 13:54 By the signature above, the attending physician certifies that he/she has personally conducted a gross and/or microscopic examination of the described specimens and rendered or confirmed the above diagnosis. Specimen(s) Received: A. ??Ascending colon polyp (#1) B. ??Transverse colon polyps x4 (#2) C. ??Descending colon polyps x2 (#3) D. ??Sigmoid polyp (#4) Clinical History: H/O colon adenomas Gross Description: A. ?Received in formalin labelled with proper patient identification (initials J, P) and ascending colon polyp are three pink-rivers tissues (0.1 x 0.1 x 0.1 cm to 0.2 x 0.1 x 0.1 cm). Entirely submitted in A1. B. ?Received in formalin labelled with proper patient identification (initials J, P) and transverse colon polyps x4 are six pink-rivers tissues (0.2 x 0.2 x 0.2 cm to 0.7 x 0.3 x 0.1 cm). Entirely submitted in B1 and B2. C. ?Received in formalin labelled with proper patient identification (initials J, P) and descending colon polyps x2 are two pink-rivers tissues (0.3 x 0.2 x 0.2 cm and 0.4 x 0.3 x 0.3 cm). Entirely submitted in C1. D. ?Received in formalin labelled with proper patient identification (initials J, P) and sigmoid polyp is a single pink-rivers tissue fragment (0.3 x 0.3 x 0.2 cm). Submitted intact in D1. Fabrice Felder 03/02/2013 08:12 AM End of Report [facility] 03/01/2013 20:5 4 EDT 03/01/2013 20:54 EDT Balta Leonard MD PATHOLOGY ORDERABLES Performing Organization Address City/State/[facility] Co de Phone Number [facility] [address] [place] [address] documented in this encounter Visit Diagnoses Not on filedocumented in this encounter Care Teams Incubator Machine Operator Relationship Specialty Start Date End Date Cheryl Evangelista MD [facility] [address] [place], [place] [address] PCP - General 07/07/10 03/02/13 documented as of this encounter
--- OUTSIDE RECORDS SUMMARY | 2024-06-14 19:49 | XMS_ITS | Encounter Summary ---
Author Organization [facility] Address [address] [place] [address] Care Team Providers Care Resistor Inspector Name Role Phone Unknown, Provider Primary Care Provider [phone] Encounter Details Date Type Department Care Team (Late st Contact Info) Description 07/03/2010 Results Only [facility] Laboratory Services - [facility] ([facility]) [address] [place], [place] [address] Balta Leonard MD [address] [place] [address] Social History Tobacco Use Types [...] Date/Time Associated Diagnosis Comments SURGICAL PATHOLOGY Routine 07/03/2010 0:00 EST documented in this encounter Results * SURGICAL PATHOLOGY (07/03/2010 0:00 EST) Pathology Report: SURGICAL PATHOLOGY REPORT ? Reports generated via electronic interface contain original data; ? however they are lacking the format of the original report. ? Caution should be taken when reading/interpreti ng unformatted reports. ? Name: ? JI, CATHRYN ? Accession #: ? [id number] ? : ? 1945 (Age: 64) ??F ? Collect Date: ? 07/03/2010 ? Location: ? [facility] ? Receive Date: ? 07/04/2010 ? Provider: BALTA WALKO MD ? Copy to: CHERYL READY MD ? Final Pathologic Diagnosis: ? Skin of neck, anterior, excision: ? - Features consistent with ruptured cyst. ? Comment: ? The excision specimen is predominated by scar formation. ??In some of the ?? central sections, giant cells are identified associated with fragments of ? liberated orthokeratin. ??Although well-developed cyst epithelium is not ? identified, the features are consistent with a ruptured cyst. ??(Dr. Monae)/[facility] ? Document reviewed and electronically signed by: ? JUAN JOSE MONAE MD ? Report ??Date: 07/07/2010 15:19 ? By the signature above, the attending physician certifies that he/she has ? personally conducted a gross and/or microscopic examination of the described ? specimens and rendered or confirmed the above diagnosis. ? Specimen(s) Received: ? Neck cyst (recurrent) ? Clinical History: ? Recurrent sebaceous cyst anterior neck ? Gross Description: ? Received in formalin labelled Ji, Cathryn and neck cyst ? (recurrent) is an unoriented elliptical excision of rivers skin which measures 2.0 x 0.7 cm and is excised to a depth of 1.1 cm. ??The specimen has a partial ? thickness surgical defect extending the entire width of the specimen. ??The ? margins are inked black. ??The specimen is serially sectioned and entirely ? submitted as (A1) and (A2) central sections and (A3) tips, reverse en face. ??(Myriam Hayward)/enak ? End of Report ? [facility] 07/03/2010 07/04/2010 9:2 0 EST Balta Leonard MD PATHOLOGY ORDERABLES [facility] [address] [place] [address] documented in this encounter Visit Diagnoses Not on filedocumented in this encounter Care Teams Resistor Inspector Relationship Specialty Start Date End Date Unknown, Provider, PCP - General 04/15/09 07/06/10 documented as of this encounter
--- OUTSIDE RECORDS SUMMARY | 2024-06-14 19:49 | XMS_ITS | Encounter Summary ---
Author Organization [facility] Address [address] [place] [address] Care Team Providers Care Cyber Forensics Analyst Name Role Phone Cheryl Guaman MD Primary Care Provider [phone] Encounter Details Date Type Department Care Team (Late st Contact Info) Description 02/06/[address] [facility] Laboratory Services - [facility] [place] [address] [place], [place] [address] Balta Leonard MD [address] [place] [address] Social History Tobacco Use Types [...] Date/Time Associated Diagnosis Comments SURGICAL PATHOLOGY Routine 02/06/2011 0:00 EDT documented in this encounter Results * SURGICAL PATHOLOGY (02/06/2011 0:00 EDT) Pathology Report: SURGICAL PATHOLOGY REPORT ? Reports generated via electronic interface contain original data; ? however they are lacking the format of the original report. ? Caution should be taken when reading/interpreti ng unformatted reports. ? Name: ? JI, CATHRYN ? Accession #: ? [id number] ? : ? 1945 (Age: 65) ??F ? Collect Date: ? 02/06/2011 ? Location: ? [facility] ? Receive Date: ? 02/06/2011 ? Provider: BALTA WALKO MD ? Copy to: CHERYL READY MD ? Final Pathologic Diagnosis: ? A. ?Colon, ascending, polyps, biopsies: ? 1. ?Sessile serrated adenoma. ? 2. ? Hyperplastic polyp. ? B. ?Colon, hepatic flexure, polyp, biopsy: ? 1. ?Fragments of tubulovillous adenoma. ? C. ?Colon, descending, polyp, biopsy: ? 1. ?Tubular adenoma. ? D. ?Colon, sigmoid, polyp, biopsy: ? 1. ?? Hyperplastic polyp. ? Document reviewed and electronically signed by: ? KECIA HERNANDEZ MBCHB ? Report ??Date: 02/11/2011 15:46 ? By the signature above, the attending physician certifies that he/she has ? personally conducted a gross and/or microscopic examination of the described ? specimens and rendered or confirmed the above diagnosis. ? Specimen(s) Received: ? A. ?Ascending colon polyp x2 ? B. ? Hepatic flexure polyp ? C. ? Descending colon polyp ? D. ? Sigmoid polyp ? Clinical History: ? Screening colonoscopy, FH colon Ca ? Gross Description: ? Received in formalin labelled Ji, Cathryn and polyp ascending ? colon are two rivers-pink irregular soft tissue fragments measuring 0.5 x 0.3 x ?? 0.2 cm and 0.8 x 0.6 x 0.4 cm. ??The smaller tissue is submitted intact as (A1). The surgical margin on the larger tissue is inked. ??The specimen is serially ? sectioned and entirely submitted as (A2). ? Received in formalin labelled Ji, Cathryn and polyp hepatic flexure ?? are five rivers-pink irregular soft tissue fragments ranging from 0.2 x 0.2 x 0.2 ?? cm to 0.7 x 0.5 x 0.4 cm. ??The smallest tissues are submitted intact as (B1). ?? The larger tissues are inked, sectioned and submitted with the largest tissue as (B2) and intermediate tissue as (B3). ? Received in formalin labelled Ji, Cathryn and polyp descending colon ?? is a rivers-pink 0.2 x 0.2 x 0.2 cm soft tissue fragment. ??The specimen is entirely submitted as (C). ? Received in formalin labelled Ji, Cathryn and polyp sigmoid are two ?? rivers-pink irregular soft tissue fragments averaging 0.3 x 0.3 x 0.2 cm. ??The ? specimen is entirely submitted as (D). (Raquel Almodovar)/mpl ? End of Report ? [facility] 02/06/2011 02/06/2011 11: 16 EDT Balta Leonard MD PATHOLOGY ORDERABLES [facility] [address] [place] [address] documented in this encounter Visit Diagnoses Not on filedocumented in this encounter Care Teams Cyber Forensics Analyst Relationship Specialty Start Date End Date Cheryl Guaman MD [facility] [address] [place] [address] PCP - General 07/07/10 03/02/13 documented as of this encounter
--- OUTSIDE RECORDS SUMMARY | 2024-06-14 19:49 | XMS_ITS | Encounter Summary ---
Author Organization [facility] Address [address] [place] [address] Care Team Providers Care Disc Pad Grinding Machine Feeder Name Role Phone Unknown, Provider Primary Care Provider [phone] Encounter Details Date Type Department Care Team (Late st Contact Info) Description 04/12/2009 Orders Only [facility] Laboratory Services - [facility] ([facility] [place] [address] [place], [place] [id number] Cheryl Guaman MD [facility] [address] [place], [place] [id number] Social History Tobacco Use Types Packs/Day Years Used Date Smoking Tobacco: Never Assessed Sex and Gender Information Value Date Recorded Sex Assigned at Not on file Gender Identity Not on file Sexual Orientation Not on file documented as of this encounter Plan of Treatment Not on file documented as of this encounter Procedures Procedure Name Priority Date/Time Associated Diagnosis Comments HPV DETECTION, HIGH RISK TYPES Routine 04/12/2009 21:00 EDT CYTOPATHOLOGY Routine 04/12/2009 0:00 EDT documented in this encounter Results * HUMAN PAPILLOMA VIRUS DNA TEST (04/12/2009 21:00 EDT) Specimen Description Cervix, ThinPrep vial [facility] Result Negative for HPV types 16, 18, 31, 33, 35, 39, 45, 51, 52, 56, 58, 59, and 68. [facility] Report Status Final 04/23/2009 [facility] 04/12/2009 21:0 0 EDT 04/16/2009 21:00 EDT Cheryl Guaman MD MICROBIOLOGY - GENER AL ORDERABLES [facility] [address] [address] * CYTOPATHOLOGY (04/12/2009 0:00 EDT) Pathology Report: CYTOPATHOLOGY REPORT ? Reports generated via electronic interface contain original data; ? however they are lacking the format of the original report. ? Caution should be taken when reading/interpreti ng unformatted reports. ? Name: ? CATHRYN WORKMAN ? Accession #: ? [id number] ? : ? 1945 (Age: 63) ??F ?Collect Date: ? 04/12/2009 ? Location: ? [facility] ? Receive Date: ? 04/15/2009 ? Provider: ?CHERYL READY MD ? Copy to: ? Specimen/Source: ?Pap Test, Cervix/Endocervix, ThinPrep Imaging System ? with manual evaluation ? Last Menstrual Period: ? ENVIRONMENTAL RESEARCH PROJECT MANAGER ? Other: ? HPVDX - HPV testing requested regardless of diagnosis on current ThinPrep Pap ?? test. ? SPECIMEN ADEQUACY ? Satisfactory for Evaluation ? - transformation zone component present ? GENERAL CATEGORIZATION ? Negative for Intraepithelial Lesion or Malignancy ? Document reviewed and electronically signed by: ? Laurita Gabbie, CT(ASCP) ? Report Date: ??04/16/2009 09:15 ? End of Report ? [facility] 04/12/2009 04/15/2009 Cheryl Guaman MD PATHOLOGY ORDERABLES [facility] [address] [place] [address] documented in this encounter Visit Diagnoses Not on filedocumented in this encounter Care Teams Disc Pad Grinding Machine Feeder Relationship Specialty Start Date End Date Unknown, Provider, PCP - General 04/15/09 07/06/10 documented as of this encounter
--- OUTSIDE RECORDS SUMMARY | 2024-06-14 19:49 | XMS_ITS | Encounter Summary ---
Author Organization [facility] [place] [address] Care Team Providers Care Award Clerk Name Role Phone Linda Guaman MD Primary Care Provider [phone] Encounter Details Date Type Department Care Team (Late st Contact Info) Description 08/10/2012 Orders [place] [address] Keiko Hancock CORPORATE RESPONSIBILITY OFFICER [facility] [place] [address] Social History Tobacco Use Types Packs/Day Years Used Date Smoking Tobacco: Never Sex and Gender Information Value Date Recorded Sex Assigned at Not on file Gender Identity Not on file Sexual Orientation Not on file documented as of this encounter Plan of Treatment Upcoming Encounters Date Type Department Care Team (Late st Contact Info) Description 06/11/2025 1:45 PM EDT Office Visit Dermatology at [place] [address] [facility] [place] [id number] Alan Carrero MD [address], [place] [address] documented as of this encounter Procedures Procedure Name Priority Date/Time Associated Diagnosis Comments FILM LIBRARY STORAGE ONLY DX ANKLE Routine 08/10/2012 10:51 AM EST documented in this encounter Results * Film Library- Storage only DX Ankle (08/10/2012 10:51 AM EST) 08/10/2012 10:5 1 AM EST Narrative RAD - 12/21/2013 12:06 PM EDT This is a non-reportable exam. Procedure Note Jose Alberto Funk - 12/21/2013 This is a non-reportable exam. Keiko Hancock APRN IMG FILM LIBRARY OR DERABLES [facility] [address] [place] [address] documented in this encounter Visit Diagnoses Not on filedocumented in this encounter Care Teams Award Clerk Relationship Specialty Start Date End Date Linda Guaman MD [facility] [address] [place] [address] [place] [address] PCP - General 07/08/10 09/23/16 documented as of this encounter
[2024-06-14 20:27] LABS: ALT 44 U/L (14-59); AST 36 U/L (15-37); Albumin 3.9 g/dL (3.4-5.0); Alkaline Phosphatase 48 U/L (46-116); Anion Gap 10.8 mmol/L (3-11); BUN 16 mg/dL (7-18); Bilirubin, Total 0.36 mg/dL (0.2-1.0); CO2 25.2 mmol/L (21.0-32.0); CREATININE 0.9 mg/dL (0.55-1.02); Calcium 9.4 mg/dL (8.5-10.1); Calculated LDL 91 mg/dL (<100); Chloride 108 mmol/L (98-107); Cholesterol 185 mg/dL (<200); Estimated GFR 65.03 (mL/min/1.73m2); Glucose 91 mg/dL (74-106); HDL Cholesterol 47 mg/dL (40-60); Potassium 4.1 mmol/L (3.5-5.1); Sodium 144 mmol/L (136-145); Total Protein 7.5 g/dL (6.4-8.2); Triglyceride 237 mg/dL (<150)
== END 2024-06-14 19:46 | disposition home or self-care (01) ==
LOC: NCHCN 19:45
PROVIDERS: PCP Nurse Practitioner Family; Visit Provider Physician Assistant Medical
DX: I10 Essential (primary) hypertension (principal); R73.03 Prediabetes
CPT/HCPCS: 80053; 80061; 83036

== ENCOUNTER 2024-08-04 00:11 | Outpatient (CLI) | payer MEDICARE, SELFPAY ==
--- NOTE | 2024-08-04 | DI.MAMMO_ITS ---
Exam(s) MAMMO SCREENING EXAM: MAMMO SCREENING CLINICAL HISTORY: Screening, Z12.31 TECHNIQUE: Bilateral full field digital CC and MLO mammographic images were obtained with 3D tomosyn thesis and utilizing computer aided detection (CAD). COMPARISON: Available for comparison. FINDINGS: Masses/Architectural Distortion: The nodule in the upper outer quadrant of the left breast appears st able. No new nodules are seen. No areas of architectural distortion are present. Microcalcifications: No suspicious pleomorphic-type are seen. Skin Thickening/Nipple Retraction: None. IMPRESSION: 1. No significant interval change with no specific features of malignancy noted. 2. Unless there is more urgent need, screening mammography is recommended, as per [employer] guidelines. BI-RADS Category 2 - Benign Findings Breast Density - Category B - Scattered areas of fibroglandular density Breast density category C or D implies that the patient has dense breast tissue. Dense breast tissue is very common and is not abnormal but dense breast tissue can make it harder to find cancer on a ma mmogram. Also, dense breast tissue may increase their breast cancer risk. This information about the result of the mammogram report was provided to the patient to raise their awareness. Use this report when you speak with the patient about their risks for breast cancer, which includes their family hist ory. At that time, you may recommend for more screening tests (Ultrasound or MRI) as they might be us eful based on their risk. A negative radiographic report should not delay biopsy if a dominant or clinically suspicious mass is present. Up to ten percent of cancers are not identified on mammography. A negative report may reinforce clinical impression. Adenosis and dense breasts may obscure an underlying neoplasm. False positive reports average 6 to 10%. Patient will receive a letter notifying them of these results.
== END 2024-08-04 00:31 ==
LOC: DI 00:11
PROVIDERS: PCP Nurse Practitioner Family; Visit Provider Physician Assistant Medical
DX: Z12.31 Encounter for screening mammogram for malignant neoplasm of breast (principal); R92.323 Mammographic fibroglandular density, bilateral breasts; D24.2 Benign neoplasm of left breast
CPT/HCPCS: 77063; 77067

== ENCOUNTER 2024-09-15 06:40 | Day surgery (SDC) | payer MEDICARE, SELFPAY ==
[2024-09-15 06:58] VITALS: BP 152/75; PULSE 67; RESP 18; TEMP 36.7; O2SAT 96
--- NOTE | 2024-09-15 07:00 | W.ANESPRE ---
General Info Date of Service Date Performed: 09/15/24 Height: 5 ft 10.5 in Weight: 86.183 kg Body Mass Index (BMI): 26.9 Surgical Procedure: Operation Date: 09/15/24 08:40 Proposed Procedure Side Surgeon p Cataract Extraction with IOL Implant Right Low Hi MD Meds Allergies and Home Medications Allergies Allergy/AdvReac Type Severity Reaction Status Date / Time latex Allergy Skin Rash Verified 09/15/24 07:01 IF LEFT ON LONG PERIOD lovastatin Allergy Other (See Verified 09/15/24 07:01 Comment) Home Medication ?Medication ?Instructions ?Recorded aspirin 81 mg tablet,delayed 81 mg PO DAILY 01/30/13 release calcium 600 mg (as 1 ea PO DAILY 01/30/13 carbonate)-vitamin D3 10 mcg (400 unit) tablet (Calcium 600 + D(3)) ocklktlv-sjauopn-ujxq-lutein 1 ea PO DAILY 01/31/13 tablet (Centrum Silver Ultra Women's tablet) omega-3 fatty acids-fish oil 340 1 ea PO DAILY 01/31/13 mg-1,000 mg capsule (Fish Oil) magnesium 250 mg tablet 250 mg PO DAILY AM 02/12/16 acetaminophen 650 mg 1,300 mg PO DAILY PRN 09/11/24 tablet,extended release (Tylenol Arthritis Pain) bimatoprost 0.01 % eye drops 1 drp ophthalmic (eye) QPM 09/11/24 (Lumigan) loratadine 10 mg tablet (Claritin) 10 mg PO DAILY 09/11/24 losartan 50 mg tablet 50 mg PO HS 09/11/24 timolol 0.5 % eye drops 1 drp ophthalmic (eye) BID 09/11/24 vitamin B complex 1 tab PO DAILY 09/11/24 vitamin E (dl, acetate) 180 mg 180 mg PO DAILY 09/11/24 (400 unit) capsule Current Visit Medications: Current Medications Generic Name Dose Route Start Last Admin Trade Name Freq PRN Reason Stop Dose Admin Acetaminophen 1,000 mg 09/15/24 06:00 Acetaminophen 500 Mg Tab PO 10/15/24 05:59 Q4H PRN PRN Balanced Salt Solution 500 ml 09/15/24 06:00 Balanced Salt Soln.-Plus 500 Ml Bag OP 10/15/24 05:59 DIRECTED [place] Miscellaneous Medication 0 ml 09/15/24 06:00 Prednisolone 1%, Moxifloxacin 0.5%, Bromfenac 0.09% 5.6ml Btl OD 10/15/24 05:59 DIRECTED [facility] Miscellaneous Medication 0 ml 09/15/24 06:00 Tropicam./Phenyleph. 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 cataract, right eye Acute H25.11 Medical History Medical History SKIN NEOPLASM Polyp of colon Overweight Hyperlipidemia Essential hypertension Surgical History Surgical History Hx of colonoscopy Tobacco Smoking/Tobacco Use Status: Never Alcohol Alcohol Intake: current Alcohol intake frequency: a few times a month Substance Use Substance use: Never Substance use type: does not use Vital Signs and Lab Results Lab Results Blood Type / Crossmatch: No Data to Display Complete Blood Count: No Data to Display Complete Metabolic Panel: No Data to Display Liver Function Panel: No Data to Display Coagulation Panel: No Data to Display Cardiac Panel: No Data to Display Arterial Blood Gas: No Data to Display Venous Blood Gas: No Data to Display Pancreas Panel: No Data to Display Thyroid Panel: No Data to Display Infectious Disease: No Data to Display Blood Cultures: No Data to Display Toxicology Panel: No Data to Display Anesthesia Assessment and Plan Anesthesia History Personal History: No History of Anesthesia Complications Family History: No Family History of Anesthesia Complications Exercise Tolerance Exercise Tolerance: Metabolic Equivalents>4 Pertinent Negatives Pertinent Negatives: No Symptoms of GERD Cardiac & Pulmonary Exam Cardiac Exam: Normal S1/S2 Heart Sounds Pulmonary Exam: Clear Bilateral Breath Sounds Implantable Cardiac Device Does patient have a Pacemaker or an ICD?: No Airway Exam Known Difficult Airway: No Mallampati Class: 2 Mouth Opening: Normal (> 3cm) Thyromental Distance: Greater than 3 cm Neck Range of Motion: Full ROM Neck Circumference: Normal Teeth Condition: Normal Dentition ASA Classification ASA Score: ASA 2 Emergency Case?: No NPO Status NPO Status: NPO Clears >2 hours, Solids >8 hours Anesthesia Plan Resuscitation Status: Full Code Anesthesia Technique: MAC Anesthesia Airway Planned: Natural Airway Monitors Used: Standard Monitors Preoperative Comments:: Discussed plan for MKO with PIV as backup, wants to consider real time before surgery
[2024-09-15] MEDS: Tropicam./Phenyleph. (1/2.5%) 5 ML BTL OD ×3 (07:09→07:19)
[2024-09-15 07:32] VITALS: BMI 26.9
[2024-09-15] MEDS: Lidocaine 1% Pres-Free 5 ML VIAL (08:36)
[2024-09-15] MEDS: Phenylephrine/Lidocaine (15/10) MG/ML 1 ML VIAL (08:37)
[2024-09-15] MEDS: Duovisc Viscoelastic System EACH 1 EACH (08:37)
[2024-09-15] MEDS: Povidone-Iodine Ophth 30 ML BTL (08:38)
[2024-09-15] MEDS: Balanced Salt Soln.-PLUS 500 ML BAG OP (08:38)
[2024-09-15] MEDS: Prednisolone 1%, Moxifloxacin 0.5%, Bromfenac 0.09% 5.6ML BTL OD (08:39)
[2024-09-15] MEDS: Tetracaine 0.5% 4 ML BTL OD (08:40)
--- NOTE | 2024-09-15 08:55 | W.PM.OP ---
Operative Note Operative Note PRE-OP DIAGNOSIS: Nuclear cataract, right eye POST-OP DIAGNOSIS: same PROCEDURE: Cataract extraction using phacoemulsification with intraocular lens implant, right eye SURGEON: Low Hi ANESTHESIA TYPE: Local By Surgeon and MAC Refer to Anesthesia Record ESTIMATED BLOOD LOSS: 0 PATHOLOGY: none sent COMPLICATIONS: None Patient was transported to: same day Patient's condition: stable Implants: Juan & Juan Tecnis Eyhance [id number] Indications: Progressive visual loss due to cataract, right eye Procedure Description: CATARACT SURGERY OPERATIVE REPORT PREOPERATIVE DIAGNOSIS: 1. Nuclear cataract, right eye POSTOPERATIVE DIAGNOSIS: Same OPERATION: 1. Cataract extraction using phacoemulsification with posterior chamber intraocular lens implant, right eye. IOL: IOL Industrial Service Technician/Model: Juan & Juan Tecnis Eyhance DIB00 IOL Power: + 22.0 diopters IOL Serial Number: [id number] Optic Diameter: 6.0mm Haptic/Overall Diameter: 13.0mm PHACO INFO: Gilbert DeNovo Sciencesurion Vision System with OZil and Active Fluidics Cumulative Dispersed Energy (CDE): 16.65 seconds SURGEON: Low Hi MD, MAK ANESTHESIA: Monitored Anesthesia Care (MAC), with local sub-tenon's anesthetic infiltration COMPLICATIONS: None SPECIMENS: None INDICATIONS FOR PROCEDURE: The patient is a 78-year-old lady with history of diminished visual acuity in her left eye secondary to the development of nuclear cataract. She is a history of myopia. She desires to remain somewhat myopic in her right eye following surgery. Postoperative refractive target is -2.00 diopters. See office notes for detailed information. PROCEDURE: The correct surgical eye was identified and marked as the right eye and the pupil was dilated in the preoperative area using mydriatics and cycloplegics. The dilated pupil size was 8.0 mm. Oral sedation was administered in the form of an Imprimis MKO Melt (midazolam 3mg/ketamine 25mg/ondansetron 2mg). The patient was brought to the operating room where cardiopulmonary monitoring was instituted and surgical time-out was performed, confirming the correct operative eye and IOL power. Topical anesthesia was administered and ophthalmic povidone-iodine 5% was instilled into the conjunctival fornices. The chata-ocular area was prepped with Betadine 10% solution and draped in the usual sterile fashion for intraocular surgery, including an aperture drape. A Tegaderm transparent film dressing was cut in half and used to cover the lashes and lid margins. Care was taken to sequester the lashes and lid margins under the Tegaderm dressing. A lid speculum was placed between the lids of the operative eye and the Gilbert LuxOR Revalia operating microscope was maneuvered into position. Dennis scissors were then used to make a conjunctival buttonhole approximately 6mm posterior to the limbus in the inferonasal quadrant. Blunt dissection was carried out to expose bare sclera, and a blunt-tipped sub-tenon?s anesthesia cannula was introduced and passed posteriorly along the globe where non-preserved plain lidocaine was injected into posterior sub-Tenon?s space. A sideport knife was used to make a paracentesis port. Intraocular phenylephrine/lidocaine was injected into the anterior chamber. The anterior chamber was filled with viscoelastic. A keratome knife was used to construct a 2-plane clear corneal tunnel extending 2.0mm into clear cornea. A flap was raised on the anterior capsule and capsulorhexis forceps were used to complete a continuous curvilinear capsulorhexis of 5.5 mm. Balanced salt solution was then used to perform cortical cleaving hydrodissection and nuclear hydrodelineation until the lens could be freely rotated within the capsular bag. The lens nucleus was then disassembled and removed within the capsular bag and iris plane using phacoemulsification. Residual cortical material was removed using the I/A handpiece. The posterior capsule was carefully polished to remove as much residual lens epithelial cells as safely possible. The capsular bag was then inflated and the anterior chamber deepened with cohesive viscoelastic. The lens implant described above was inserted into the capsular bag using the Juan and Violetta Simplicity pre-loaded injector. A Kuglen hook was used to dial the IOL into position. Residual viscoelastic was then removed first from posterior to the IOL, then from the anterior chamber using the I/A handpiece. The lens implant was noted to center nicely within the capsular bag. The incisions were stromally hydrated, and the anterior chamber was reformed using BSS. Then 0.5cc of moxifloxacin 1.0mg/ml were injected into the capsular bag and anterior chamber. The incisions were checked with a Weck spear and found to be secure. Several drops of ophthalmic povidone-iodine 5% were then applied to the eye followed by two drops ocombination steroid/NSAID/antibiotic solution. The drapes were removed and a clear plastic protective eye shield was placed over the eye. The patient was then returned to Same Day Surgery in stable condition. Date of Procedure: 09/15/24
[2024-09-15 08:56] VITALS: BP 124/106; PULSE 66; RESP 16; TEMP 36.4; O2SAT 94
[2024-09-15 09:16] VITALS: BP 127/68; PULSE 66; RESP 16; TEMP 36.4; O2SAT 94
--- NOTE | 2024-09-15 09:20 | W.ANESPOSTOP ---
Postoperative Evaluation Date, Time and Location Date Performed: 09/15/24 Time Performed: 09:05 Patient Location: Day Surgery Unit Vital Signs Most Recent Imported Vital Signs: Most Recent Vital Signs Temp Pulse Resp BP Pulse Ox 36.4 C L 66 16 127/68 94 09/15/24 09:16 09/15/24 09:16 09/15/24 09:16 09/15/24 09:16 09/15/24 09:16 Pain Score Most Recent Pain Score: Most Recent Pain Score Pain Level 0 09/15/24 09:16 Assessment Mental Status: Awake (Alert & Oriented to Patient Baseline) Airway and Respiratory Function: Patent airway with normal (patient baseline) respiratory exam Cardiovascular Function: Hemodynamically Stable Hydration Status: Adequately Hydrated Nausea & Vomiting: No Nausea or Vomiting Pain: Pt. Denies Any Pain Peripheral Nerve Block: Other (Local by Dr. Hi)
--- NOTE | 2024-09-15 09:52 | W.PM.DSUDISC ---
Date of service: 09/15/24 Discharge Plan Disposition Patient Disposition: Home Discharge Details Attending Provider: Low Hi Primary Care Provider: Unknown,Unknown Home Meds and New Rx's Prescriptions: No Action aspirin 81 MG tablet,delayed release (DR/EC) 81 mg PO DAILY Patient Comments: 02/12/16 324 mg by EMS calcium carbonate-vitamin D3 [Calcium 600 + D(3)] 1 EACH tablet 1 ea PO DAILY Fish Oil 1 EACH capsule 1 ea PO DAILY Centrum Silver Ultra Women's 1 EACH tablet 1 ea PO DAILY magnesium 250 MG tablet 250 mg PO DAILY AM losartan 50 mg tablet 50 mg PO HS timolol 0.5 % drops 1 drp ophthalmic (eye) BID Lumigan 0.01 % drops 1 drp ophthalmic (eye) QPM acetaminophen [Tylenol Arthritis Pain] 650 mg tablet extended release 1,300 mg PO DAILY PRN Patient Comments: Taking as needed. vitamin E (dl, acetate) 180 mg (400 unit) capsule 180 mg PO DAILY vitamin B complex Tablet 1 tab PO DAILY loratadine [Claritin] 10 mg tablet 10 mg PO DAILY Discharge Instructions Stand Alone Forms: DSU Post-Op CataractLuana (DSU) Discharge Orders Discharge Orders: Discharge Order (Routine); Ordered 09/15/24 Ordered By: Low Hi Discharge Data Discharge Date/Time-TO BE ENTERED AT DEPARTURE: 09/15/24 09:34 Discharge Comment: Pt d/c'd with daughter in personal vehicle. DS: Diagnosis Discharge Diagnosis (1) Nuclear age-related cataract, right eye: Status: Resolved
== END 2024-09-15 09:34 | disposition home or self-care (01) ==
LOC: SUR 06:40
PROVIDERS: Visit Provider Ophthalmology
PROC: (CPT 66984; principal; 2024-09-15 08:30)
DX: H25.11 Age-related nuclear cataract, right eye (principal)
CPT/HCPCS: 66984; 00123; V2632; J2003

== ENCOUNTER 2024-09-29 06:14 | Day surgery (SDC) | payer MEDICARE, SELFPAY ==
[2024-09-29 06:15] VITALS: BP 184/72; PULSE 64; RESP 18; TEMP 36.4; O2SAT 97
[2024-09-29] MEDS: Tropicam./Phenyleph. (1/2.5%) 5 ML BTL OS ×3 (06:29→06:43)
--- NOTE | 2024-09-29 07:11 | ANES.PREOP_ITS ---
General Info Date of Service Date Performed: 09/29/24 Height: 5 ft 10.5 in Weight: 88 kg Body Mass Index (BMI): 27.4 Surgical Procedure: Operation Date: 09/29/24 07:40 Proposed Procedure Side Surgeon p Cataract Extraction with IOL Implant Left Low Hi MD Meds Allergies and Home Medications Allergies Allergy/AdvReac Type Severity Reaction Status Date / Time latex Allergy Skin Rash Verified 09/29/24 06:32 IF LEFT ON LONG PERIOD lovastatin Allergy Other (See Verified 09/29/24 06:32 Comment) Home Medication ?Medication ?Instructions ?Recorded aspirin 81 mg tablet,delayed 81 mg PO DAILY 01/30/13 release calcium 600 mg (as 1 ea PO DAILY 01/30/13 carbonate)-vitamin D3 10 mcg (400 unit) tablet (Calcium 600 + D(3)) womymhrt-hdmgcnz-zbow-lutein 1 ea PO DAILY 01/31/13 tablet (Centrum Silver Ultra Women's tablet) omega-3 fatty acids-fish oil 340 1 ea PO DAILY 01/31/13 mg-1,000 mg capsule (Fish Oil) magnesium 250 mg tablet 250 mg PO DAILY AM 02/12/16 acetaminophen 650 mg 1,300 mg PO DAILY PRN 09/11/24 tablet,extended release (Tylenol Arthritis Pain) bimatoprost 0.01 % eye drops 1 drp ophthalmic (eye) QPM 09/11/24 (Lumigan) loratadine 10 mg tablet (Claritin) 10 mg PO DAILY 09/11/24 losartan 50 mg tablet 50 mg PO HS 09/11/24 timolol 0.5 % eye drops 1 drp ophthalmic (eye) BID 09/11/24 vitamin B complex 1 tab PO DAILY 09/11/24 vitamin E (dl, acetate) 180 mg 180 mg PO DAILY 09/11/24 (400 unit) capsule Current Visit Medications: Current Medications Generic Name Dose Route Start Last Admin Trade Name Freq PRN Reason Stop Dose Admin Acetaminophen 1,000 mg 09/29/24 06:00 Acetaminophen 500 Mg Tab PO 10/29/24 05:59 Q4H PRN PRN Balanced Salt Solution 500 ml 09/29/24 06:00 Balanced Salt Soln.-Plus 500 Ml Bag OP 10/29/24 05:59 DIRECTED [place] Miscellaneous Medication 0 ml 09/29/24 06:00 Prednisolone 1%, Moxifloxacin 0.5%, Bromfenac 0.09% 5.6ml Btl OS 10/29/24 05:59 DIRECTED [facility] Miscellaneous Medication 0 ml 09/29/24 06:00 09/29/24 06:43 Tropicam./Phenyleph. (1/2.5%) 5 Ml Btl OS 10/29/24 05:59 1 drp DIRECTED [place] Administration Tetracaine HCl 0 ml 09/29/24 06:00 Tetracaine 0.5% 4 Ml Btl OS 10/29/24 05:59 DIRECTED [facility] PFSH Active Problems Active Problems: Problem Status Onset Code Nuclear age-related cataract, left eye Acute H25.12 Nuclear age-related cataract, right eye Resolved H25.11 Medical History Medical History SKIN NEOPLASM Polyp of colon Overweight Hyperlipidemia Essential hypertension Surgical History Surgical History Hx of colonoscopy Tobacco Smoking/Tobacco Use Status: Never Alcohol Alcohol Intake: current Alcohol intake frequency: a few times a month Substance Use Substance use: Never Substance use type: does not use Vital Signs and Lab Results Vital Signs Most Recent Vital Signs in EMR: Most Recent Vital Signs Temp Pulse Resp BP Pulse Ox 36.4 C L 64 18 184/72 H 97 09/29/24 06:15 09/29/24 06:15 09/29/24 06:15 09/29/24 06:15 09/29/24 06:15 Lab Results Blood Type / Crossmatch: No Data to Display Complete Blood Count: No Data to Display Complete Metabolic Panel: No Data to Display Liver Function Panel: No Data to Display Coagulation Panel: No Data to Display Cardiac Panel: No Data to Display Arterial Blood Gas: No Data to Display Venous Blood Gas: No Data to Display Pancreas Panel: No Data to Display Thyroid Panel: No Data to Display Infectious Disease: No Data to Display Blood Cultures: No Data to Display Toxicology Panel: No Data to Display Anesthesia Assessment and Plan Anesthesia History Personal History: No History of Anesthesia Complications Family History: No Family History of Anesthesia Complications Exercise Tolerance Exercise Tolerance: Metabolic Equivalents>4 Pertinent Negatives Pertinent Negatives: No Symptoms of GERD Cardiac & Pulmonary Exam Cardiac Exam: Normal S1/S2 Heart Sounds Pulmonary Exam: Clear Bilateral Breath Sounds Implantable Cardiac Device Does patient have a Pacemaker or an ICD?: No Airway Exam Known Difficult Airway: No Mallampati Class: 2 Mouth Opening: Normal (> 3cm) Thyromental Distance: Greater than 3 cm Neck Range of Motion: Full ROM Neck Circumference: Normal Teeth Condition: Normal Dentition ASA Classification ASA Score: ASA 2 Emergency Case?: No NPO Status NPO Status: NPO Clears >2 hours, Solids >8 hours Anesthesia Plan Resuscitation Status: Full Code Anesthesia Technique: MAC Anesthesia Airway Planned: Natural Airway Monitors Used: Standard Monitors
[2024-09-29 07:13] VITALS: BMI 27.4
[2024-09-29] MEDS: Lidocaine 1% Pres-Free 5 ML VIAL (07:40)
[2024-09-29] MEDS: Duovisc Viscoelastic System EACH 1 EACH (07:41)
[2024-09-29] MEDS: Moxifloxacin-PF 1 MG/ML VIAL (07:41)
[2024-09-29] MEDS: Povidone-Iodine Ophth 30 ML BTL (07:42)
[2024-09-29] MEDS: Phenylephrine/Lidocaine (15/10) MG/ML 1 ML VIAL (07:42)
[2024-09-29] MEDS: Prednisolone 1%, Moxifloxacin 0.5%, Bromfenac 0.09% 5.6ML BTL OS (07:43)
[2024-09-29] MEDS: Balanced Salt Soln.-PLUS 500 ML BAG OP (07:43)
[2024-09-29] MEDS: Tetracaine 0.5% 4 ML BTL OS (07:43)
[2024-09-29 08:02] VITALS: BP 121/68; PULSE 60; RESP 16; TEMP 36.3; O2SAT 94
--- NOTE | 2024-09-29 08:02 | W.PM.DSUDISC ---
Date of service: 09/29/24 Discharge Plan Disposition Patient Disposition: Home Discharge Details Attending Provider: Low Hi Primary Care Provider: Unknown,Unknown Home Meds and New Rx's Prescriptions: No Action aspirin 81 MG tablet,delayed release (DR/EC) 81 mg PO DAILY Patient Comments: 02/12/16 324 mg by EMS calcium carbonate-vitamin D3 [Calcium 600 + D(3)] 1 EACH tablet 1 ea PO DAILY Fish Oil 1 EACH capsule 1 ea PO DAILY Centrum Silver Ultra Women's 1 EACH tablet 1 ea PO DAILY magnesium 250 MG tablet 250 mg PO DAILY AM losartan 50 mg tablet 50 mg PO HS timolol 0.5 % drops 1 drp ophthalmic (eye) BID Lumigan 0.01 % drops 1 drp ophthalmic (eye) QPM acetaminophen [Tylenol Arthritis Pain] 650 mg tablet extended release 1,300 mg PO DAILY PRN Patient Comments: Taking as needed. vitamin E (dl, acetate) 180 mg (400 unit) capsule 180 mg PO DAILY vitamin B complex Tablet 1 tab PO DAILY loratadine [Claritin] 10 mg tablet 10 mg PO DAILY Discharge Instructions Stand Alone Forms: DSU Post-Op CataractLuana (DSU) Discharge Orders Discharge Orders: Discharge Order (Routine); Ordered 09/29/24 Ordered By: Low Hi DS: Diagnosis Discharge Diagnosis (1) Nuclear age-related cataract, left eye: Status: Resolved
--- NOTE | 2024-09-29 08:03 | ROE_ITS ---
Operative Note Operative Note PRE-OP DIAGNOSIS: Nuclear cataract, left eye POST-OP DIAGNOSIS: same PROCEDURE: Cataract extraction using phacoemulsification with intraocular lens implant, left eye SURGEON: Low Hi ANESTHESIA TYPE: Local By Surgeon and MAC Refer to Anesthesia Record PATHOLOGY: none sent COMPLICATIONS: None Patient was transported to: same day Patient's condition: stable Implants: Juan and Juan Tecnis Eyhance DIB00 Indications: Progressive decreased vision due to cataract, left eye Procedure Description: CATARACT SURGERY OPERATIVE REPORT PREOPERATIVE DIAGNOSIS: 1. Nuclear cataract, left eye POSTOPERATIVE DIAGNOSIS: Same OPERATION: 1. Cataract extraction using phacoemulsification with posterior chamber intraocular lens implant, left eye. 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 She has already undergone cataract surgery in the right eye and is doing well postoperatively. She now presents for cataract surgery in the left eye. She desires to remain myopic postoperatively. Postoperative refractive target is - 2.0 diopters. See office notes for detailed information. PROCEDURE: The correct surgical eye was identified and marked as the left eye and the pupil was dilated in the preoperative area using mydriatics and c ycloplegics. The dilated pupil size was 7.0 mm. Oral sedation was administered in the form of an Imprimis MKO Melt (midazolam 3mg/ketamine 25mg/ondansetron 2mg). . The patient was brought to the operating room where cardiopulmonary monitoring was instituted and surgical time-out was performed, confirming the correct operative eye and IOL power. Topical anesthesia was administered and ophthalmic povidone-iodine 5% was instilled into the conjunctival fornices. The chata-ocular area was prepped with Betadine 10% solution and draped in the usual sterile fashion for intraocular surgery, including an aperture drape. A Tegaderm transparent film dressing was cut in half and used to cover the lashes and lid margins. Care was taken to sequester the lashes and lid margins under the Tegaderm dressing. A lid speculum was placed between the lids of the operative eye and the Gilbert LuxOR Revalia operating microscope was maneuvered into position. Dennis scissors were then used to make a conjunctival buttonhole approximately 6mm posterior to the limbus in the inferonasal quadrant. Blunt dissection was carried out to expose bare sclera, and a blunt-tipped sub-tenon?s anesthesia cannula was introduced and passed posteriorly along the globe where non- preserved plain lidocaine was injected into posterior sub-Tenon?s space. A sideport knife was used to make a paracentesis port. Intraocular phenylephrine/lidocaine was injected into the anterior chamber.. The anterior chamber was filled with viscoelastic. A keratome knife was used to construct a 2-plane near-clear corneal tunnel extending 2.0mm into clear cornea. A flap was raised on the anterior capsule and capsulorhexis forceps were used to complete a continuous curvilinear capsulorhexis of 5.0 mm. Balanced salt solution was then used to perform cortical cleaving hydrodissection and nuclear hydrodelineation until the lens could be freely rotated within the capsular bag. The lens nucleus was then disassembled and removed within the capsular bag and iris plane using phacoemulsification. Residual cortical material was removed using the irrigation/aspiration handpiece. The posterior capsule was carefully polished to remove as much residual lens epithelial cells as safely possible. The capsular bag was then inflated and the anterior chamber deepened with viscoelastic. The lens implant described above was inserted into the capsular bag using the Juan and Juan Simplicity pre-loaded injector. A Kuglen hook was used to dial the IOL into position. Residual viscoelastic was then removed first from posterior to the IOL, then from the anterior chamber using the I/A handpiece. The lens implant was noted to center nicely within the capsular bag. The incisions were stromally hydrated, and the anterior chamber was reformed using BSS. Then 0.5cc of moxifloxacin 1.0mg/ml were injected into the capsular bag and anterior chamber. The incisions were checked with a Weck spear and found to be secure. Several drops of ophthalmic povidone-iodine 5% were then applied to the eye followed by two drops of Imprimis combination prednisolone/moxifloxacin/nepafenac solution. The drapes were removed and a clear plastic protective eye shield was placed over the eye. The patient was then returned to Same Day Surgery in stable condition. Date of Procedure: 09/29/24
--- NOTE | 2024-09-29 08:20 | W.ANESPOSTOP ---
Postoperative Evaluation Date, Time and Location Date Performed: 09/29/24 Time Performed: 08:05 Patient Location: Day Surgery Unit Vital Signs Most Recent Imported Vital Signs: Most Recent Vital Signs Temp Pulse Resp BP Pulse Ox 36.3 C L 60 16 121/68 94 09/29/24 08:02 09/29/24 08:02 09/29/24 08:02 09/29/24 08:02 09/29/24 08:02 Pain Score Most Recent Pain Score: Most Recent Pain Score Pain Level 0 09/29/24 08:02 Assessment Mental Status: Awake (Alert & Oriented to Patient Baseline) Airway and Respiratory Function: Patent airway with normal (patient baseline) respiratory exam Cardiovascular Function: Hemodynamically Stable Hydration Status: Adequately Hydrated Nausea & Vomiting: No Nausea or Vomiting Pain: Pt. Denies Any Pain Peripheral Nerve Block: Patient did not receive a nerve block
[2024-09-29 08:25] VITALS: BP 125/61; PULSE 60; RESP 16; TEMP 36.2; O2SAT 94
== END 2024-09-29 08:38 | disposition home or self-care (01) ==
LOC: SUR 06:15
PROVIDERS: Visit Provider Ophthalmology
PROC: (CPT 66984; principal; 2024-09-29 07:30)
DX: H25.12 Age-related nuclear cataract, left eye (principal); Z98.41 Cataract extraction status, right eye
CPT/HCPCS: 66984; 00123; V2632; J2003

== ENCOUNTER 2025-06-27 15:13 | Outpatient (REF) | payer MEDICARE, SELFPAY ==
[2025-06-27 21:07] LABS: HCT 37.3 % (36.0-46.0); HGB 12.3 g/dL (11.2-15.7); MCH 30.6 pg (27.0-33.0); MCHC 33.0 % (32.0-36.0); MCV 93 fL (80-95); MPV 10.1 fL (8.0-11.0); Platelet Count 217 10^3/uL (130-400); RBC 4.02 10^6/uL (3.93-5.22); RDW 13.6 % (11.7-14.6); RDW-SD 46.3 fL; WBC 5.84 10^3/uL (4.4-10.8)
[2025-06-27 21:37] LABS: ALT 32 U/L (10-49); AST 32 U/L (<34); Albumin 4.2 g/dL (3.4-5.0); Alkaline Phosphatase 46 U/L (46-116); Anion Gap 6.6 mmol/L (3-11); BUN 18 mg/dL (9-23); Bilirubin, Total 0.30 mg/dL (0.2-1.2); CO2 25.4 mmol/L (20.0-31.0); Calcium 9.0 mg/dL (8.3-10.6); Chloride 108 mmol/L (98-107); Glucose 112 mg/dL (74-106); Potassium 3.9 mmol/L (3.5-5.1); Sodium 140 mmol/L (136-145); Total Protein 6.7 g/dL (5.7-8.2)
[2025-06-27 21:39] LABS: Vitamin D 25 Total 30 ng/mL (30-100)
[2025-06-27 21:40] LABS: TSH 1.67 uIU/mL (0.55-4.78)
[2025-06-27 22:01] LABS: Hemoglobin A1C 5.9 % (<5.7)
== END 2025-06-27 15:14 | disposition home or self-care (01) ==
LOC: NCHCN 15:13
PROVIDERS: Visit Provider Physician Assistant Medical
DX: M81.0 Age-related osteoporosis without current pathological fracture (principal); I10 Essential (primary) hypertension; R53.83 Other fatigue; R73.03 Prediabetes
CPT/HCPCS: 80053; 82306; 85027; 83036; 84443